=== PATIENT | female | born 1955 | race Caucasian/White ===

== ENCOUNTER → 2019-02-13 09:21 | Outpatient (CLI) | payer OTHER, SELFPAY ==
--- NOTE | 2019-02-12 17:26 | HP.PCM_ITS ---
History and Physical Date of Admission: 02/13/19 HISTORY AND PHYSICAL - BREAST COMPLAINT ? Sarah Osborne 1955 ? ? REFERRING PHYSICIAN: ??Álvaro Franklin* ? CHIEF COMPLAINT:???Abnormal left breast imaging ? HPI: The patient is a 63 year old female with a complaint of?an abnormal mammogram. ?The patient had a mammogram with ultrasound on January 17 and 2018?which demonstrated : ? ? IMPRESSION: SUSPICIOUS FINDING - BIOPSY SHOULD BE CONSIDERED The 5 mm irregular equal density mass in the left breast is suspicious of malignancy. ?A stereotactic biopsy is recommended. LIMITED ULTRASOUND OF LEFT BREAST AND AXILLA: 01/24/2019 RESULT: Comparison is made to exams dated: ?01/17/2019 mammogram, 02/03/2018 mammogram, and 05/14/2016 mammogram - [facility]. ?Color flow and real-time ultrasound of the left breast 6 o'clock, and axilla regions were performed. ?Ramirez scale images of the real-time examination were reviewed. There is a 5 mm irregular mass with an indistinct margin in the left breast at 6 o'clock posterior depth. ?This irregular mass is hypoechoic. ? This correlates with mammography findings. There are no abnormal axillary nodes. IMPRESSION: SUSPICIOUS FINDING - BIOPSY SHOULD BE CONSIDERED Since the mass is barely seen sonographically, stereotactic biopsy is suggested. The 5 mm irregular mass in the left breast is suspicious of malignancy. ? A stereotactic biopsy is recommended. ? The patient denies a history of breast masses. ?She does not??perform a self breast exam routinely. ?She notes no skin changes. ?She denies nipple discharge. ?She notes no axillary masses. ?She notes no family history of breast problems. ?She notes no significant breast trauma or breast difficulties in the past. ? This area is significantly different than her screening mammography from February 03, 2018 ? The patient is being seen by me today at the request of ?Christopher Oneil?for my opinion and advice regarding left breast abnormal imaging/mass.? ? PAST?MEDICAL?HISTORY PAST MEDICAL HISTORY Diagnosis Date ? Asthma ? ? Chronic depressive personality disorder ? ? GERD (gastroesophageal reflux disease) ? ? Hiatal hernia ? ? Migraines ? ? Rectal malignant neoplasm (HCC) 04/09/2010 ? Seasonal allergies 04/09/2010 ? Severe ? Tennis elbow ? PAST?SURGICAL?HISTORY PAST SURGICAL HISTORY Procedure Laterality Date ? COLONOSCOP W/ OR W/O BRSH SPEC ? 01/2010 ? Colonoscopy ? COLONOSCOPY ? 2013 ? EXC RCT ENMA INCL MUSCULARIS PROPRIA ? 04/16/10 ? colectomy/ cancer Performed by DENIS DAVILA at [facility] ? HYSTEROSCOPY BX W/WO D&C ? 2014 ? Endometrial Polyps-Benign ? PAST SURGICAL HISTORY OF ? 09/29 ? Cortisone Injection in Left foot ? REMOVAL GALLBLADDER ? CURRENT?MEDICATIONS Current Outpatient Medications Medication Sig Dispense Refill ? fluticasone propionate (FLONASE NASAL) Use in the nose. ? ? ? ibuprofen (MOTRIN) 600 mg tablet Take 1 tablet by mouth every 6 hours as needed for Pain. 30 tablet 0 ? multivitamin tablet Take 1 tablet by mouth once daily. ? ? ? CALCIUM CARBONATE/VITAMIN D3 (CALCIUM + D ORAL) Take 1 tablet by mouth once daily. ? ? ? MECLIZINE 12.5 MG TAB TAKES PRN ? 0 ? sertraline hcl(ZOLOFT 100 MG TAB) TAKES 2 TABS IN THE AM DAILY ? 0 ? rabeprazole sodium(ACIPHEX 20 MG TAB) Take one(1) tablet daily. 0 0 ? sumatriptan succinate(IMITREX 100 MG TAB) Take one(1) tablet at ?onset of headache. ?May repeat after 2 hours. ? 0 ? cyclobenzaprine hcl(FLEXERIL 10 MG TAB) Take one(1) tablet every eight(8) to twelve(12) hours as needed for pain or spasms. ? 0 ? No current facility-administered medications for this visit.? ? ? ALLERGIES:?Seasonal Allergies ? PERSONAL HISTORY:? 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 ?Drug use: No ?Sexual activity: Not on file ?Comment: postmenopausal ??Other Topics ?Concerns: ?Not on file ??Social History Narrative ?Not on file ?? ? FAMILY HISTORY:? FAMILY?HISTORY FAMILY HISTORY Problem Relation Age of Onset ? Arthritis Mother ?RA ? Diabetes Father ? ? Heart Father ?chf ? ? REVIEW OF SYMPTOMS: REVIEW OF SYSTEMS: ?General: ??The patient denies fatigue, denies weight loss, denies weight gain, denies feeling hot, and feelings of cold. ?Eyes: ?The patient denies glaucoma, denies eye injury/surgery, denies glasses or contacts. ?Ear/Nose/Throat: ?The patient denies allergies, denies hayfever, denies ear infections, and denies bloody noses. ?Cardiovascular: ?The patient denies chest pain, denies heart disease, denies high blood pressure, denies high cholesterol, and denies poor circulation. ?Respiratory: ?The patient denies tuberculosis, denies pneumonia, denies frequent cough, denies shortness of breath, and denies coughing up blood. ?Gastrointestinal: ?The patient denies difficulty swallowing, denies acid reflux, denies ulcers, denies jaundice/hepatitis, denies gallbladder problems, denies vomiting, denies black or tarry stools, denies hemorrhoids, denies bleeding from rectum, denies diverticulitis, denies constipation, denies diarrhea, denies loss of stool control, and denies hernias. ?Kidney/Bladder: ?The patient denies kidney stones, denies urine infections, and denies bloody urine. ?Skin: ?The patient denies a history of skin cancer, denies bleeding/changing moles, and denies a history of skin rash. ?Neurologic: ?The patient denies a history of epilepsy/convulsions, denies headaches, denies head/spinal injuries, and denies stroke/TIA. ?Psychiatric: ?The patient denies psychiatric medications, denies depression, and denies voices. ?Endocrine: ?The patient denies thyroid disorders, denies diabetes, and denies hormonal problems. ?Hematologic: ?The patient denies a history of bruising, denies bleeding, and denies anemia. ?Infections: ?The patient denies a history of measles and mumps, denies rheumatic fever, and denies sexually transmitted diseases. ?Musculoskeletal: ?The patient denies back pain/injury, denies back problems, denies sciatica, denies knee/foot trouble, denies arthritis, or denies gout. ? ? PHYSICAL EXAMINATION: ? General: ?The patient is 63 year old female, well nourished, well hydrated in no acute distress. ?The patient is oriented to time, place, and person. ? VITALS:?Blood pressure 142/88, pulse 60, weight 95.7 kg (211 lb).?Body mass index is 38.34 kg/m?.? ? HEENT: ?Normal cephalic, ataumatic, pupils are equally round, sclera are an icteric, mucous membranes are moist, oropharynx is clear. ?Neck has no masses, asymmetry or lymphadenopathy. ?Thyroid is unremarkable. ? Respiratory: ?Clear to auscultation and percussion. ?Normal respiratory excursion and pattern. ? Cardiac: ?Examination is regular rate and rhythm. ? Abdominal exam: ?Soft, nontender, ?with no palpable masses. ?No hepatosplenomegaly. ?No palpable hernias. ? Rectal exam: ?exam deferred Extremities: ?no clubbing, cyanosis or edema. ?No adenopathy. ? Breast: ?Visual inspection reveals no retractions, nipple inversion, or skin changes. ?Palpation of the right breast reveals no dominant or suspicious masses, but multiple benign-feeling nodules. ?Palpation of the left breast reveals no dominant or suspicious masses, but multiple benign-feeling nodules. ?Axillary exam demonstrates no suspicious masses in either the left or right axilla. ?There is no nipple discharge expressed from either the left or right breast. ? LABORATORY VALUES: As Noted ? RADIOLOGIC STUDIES: ?As Noted ? Intraoffice ultrasound was performed and no specific easily identifiable abnormalities were seen at the left breast 6:00 position ? ? Assessment ? IMPRESSION:?Abnormal left breast imaging-6:00 left breast ? PLAN:??I plan to perform a?stereotactic biopsy of the left breast. ?The planned surgical procedure was discussed extensively with the patient. ?The risks, benefits, anticipated outcomes and possible complications were mentioned. ?My staff has also explained the procedure in understandable terms and the patient was given the option to take printed material concerning the planned procedure. ?The patient had the opportunity to ask questions concerning the planned procedure. ?The patient freely consents to the planned procedure. ? Diagnoses:?(R92.8) Abnormal finding on breast imaging ?(primary encounter diagnosis) ? My findings have been communicated to .?Christopher Oneil?via shared medical record. ?This note will be forwarded to Citlaly Tovar CNP. ? Return to Clinic: The patient is instructed to follow-up with me?1 week post operatively. ? Obie Jefferson MD
--- NOTE | 2019-02-13 | BRBX_PTH ---
PATIENT: CRISTINA STRONG LOC: [facility] U#:[id number] AGE/SX: 70/F ROOM: RE02/13/[address]: Dr. Obie Jefferson MD : 1955 BED: DIS: SPEC #: [id number] RECD: 02/13/19 14:03 STATUS: ABDIRAHMAN NANI #: [id number] MAUREEN: 02/13/19 00:[address]: Obie Jefferson DEPT: SURGICAL PATHOLOGY RECD BY: Leonel Salazar ENTERED: 02/13/19 14:03 SP TYPE: BREAST BX OTHR DR: Citlaly Tovar, JHON-Murray Tissues: Left breast, NOS Procedures: Surgery Specimen Level IV HEADER OPERATION: Left breast stereotactic biopsy PRE-OP DIAGNOSIS: Left breast mass 6 o'clock posterior depth TISSUE SUBMITTED: Left breast core tissue ISCHEMIC TIME: 1 minute FIXATION TIME: 9 hours MICROSCOPIC DIAGNOSIS Left breast, 6 o'clock, posterior depth, stereotactic core biopsy: Invasive ductal carcinoma, nuclear grade 2 (1.2 cm in greatest length). See comment. KISHAN:latanya 02/14/19 COMMENT Immunohistochemistry ([id number]) supports the above diagnosis. ER/OR/Zcf8nan studies are being performed on sections of tumor and the results from this study will be reported separately ([id number]). Case has been reviewed in consultation with Dr. Negro who concurs with the above diagnosis. IDC:SJ MICROSCOPIC DESCRIPTION Slides are reviewed. GROSS DESCRIPTION Received is one container labeled with the patient's name and not further designated. The specimen consists of multiple irregular fragments of yellow-white soft tissue that in aggregate measure 5.5 x 5 x 0.2 cm. The specimen is totally submitted in three cassettes. / AM:latanya 02/13/19 TC:0 CPT: 84116
--- NOTE | 2019-02-13 | IMM_PTH ---
PATIENT: CRISTINA STRONG LOC: [facility] U#:[id number] AGE/SX: 70/F ROOM: RE02/13/[address]: Dr. Obie Jefferson MD : 1955 BED: DIS: SPEC #: [id number] RECD: 02/14/19 10:49 STATUS: ABDIRAHMAN REQ #: [id number] MAUREEN: 02/13/19 00:[address]: Obie Jefferson DEPT: IMMUNOHISTOCHEMISTRY RECD BY: Madie Mayfield ENTERED: 02/14/19 10:51 SP TYPE: IMMUNO OTHR DR: Citlaly Tovar, UTILIZATION SUPERVISOR-C Tissues: Left breast, NOS Procedures: CALPONIN-1 (add) CK5-6 (add) CK8 (add) E-CAD (add) HER2 SEUN (add) KI-67 (add) P53 (add) SC (add) P40 (add) ER (initial) PHYSICIAN & INSTITUTION [place] [id number] SPECIMEN INFORMATION: Tissue Source: Left breast Clinical Info: Left breast mass, 6 o'clock, posterior depth Specimen Number: [id number] #3 CPT code: 92295, 44066 x6, 94970 x3 METHODOLOGY: Deparaffinized sections of prefer/formalin-fixed tissue or PAP/DQ stained slides are incubated with monoclonal/polyclonal antibodies/oligonucleotide probes. Localization is made via biotin free immunoperoxidase method. Appropriate controls are performed and reacted as expected. Results on target cell population are indicated in the following table: RESULTS: ANTIBODY / CLONE RESULT Block 3 E-Cad (ECH-6) positive CK8 (53twuwE63) positive CK5-6 (D5 & 1684) negative Ki-67 (30-9) positive, low P53 (DO-7) negative P40 (BC28) negative Calponin-1 (SH498G) negative MORPHOMETRIC ANALYSIS ER (clone 6F11) >95%, strong intensity SC (clone 16/1E2) variable 0 to 95%, moderate intensity Her-2Neu (clone CB11) 0 The prognostic test for HER2 is performed on formalin-fixed paraffin embedded tissue. A 3+ (positive) staining pattern is defined as intense, homogeneous, complete, circumferential membranous staining in >10% of contiguous tumor cells. A similar weak (2+) staining pattern is interpreted as equivocal. SIA follow-up testing is recommended for all equivocal cases. Positivity/negativity for ER/SC is reported if > or < 1% of the tumor cells are immuno- reactive, respectively. The ASCO/CAP criteria is used for scoring. Reference: Journal of Clinical Oncology, 2013; 31:0095-0872 & 2010; 16:7125-5114. Duration of fixation: 9 Hrs; Sample Adequate: Yes. These assays have not been validated on decalcified tissues. Results should be interpreted with caution given the likelihood of false negativity on decalcified specimens. These tests were developed and their performance characteristics determined by [facility]. They may not have been cleared or approved by the U.S. Food and Drug Administration. The FDA has determined that such clearance or approval is not necessary. INTERPRETATION: Left breast mass, 6 o'clock, posterior depth, stereotactic core biopsy: Invasive ductal carcinoma, nuclear grade 2. Positive for estrogen receptors (favorable prognostic indicator). Positive for progesterone receptors (favorable prognostic indicator). Negative for overexpression of ZKU1hou. SJ:latanya 02/16/19
--- NOTE | 2019-02-13 13:36 | PCM.OPRPT ---
Report of Operation Date of Procedure: 02/13/19 Pre-Operative Diagnosis: left breast abnormal mammogram - 6 oclock position Post-Operative Diagnosis: left breast abnormal mammogram - 6 oclock position - successful stereotactic biopsy Surgery/Procedure Performed:: left stereotactic breast biopsy with vacuum-assisted core needle biopsy, marker clip placement entertainer or variety artist: None Type of Anesthesia:: Local Specimen's removed: left breast tissue Description of Procedure: The patient was brought to the stereotactic suite and informed of the plan course of events. The left breast was positioned in the true lateral to medial position on the [place] stereotactic table. Mammographic image demonstrated the area of abnormality to be located in the center of the radiograph. Stereotactic images were then obtained which demonstrated good positioning of the abnormality for biopsy with good stroke jeimy parameters. The breast was cleaned with Betadine area did one percent lidocaine was used to anesthetize the skin and a small stab incision made. An 8-gauge mammotome needle was placed into the pre-fire position. Stereotactic images demonstrated good positioning around the planned biopsy site. Local anesthetic injected deeply in the breast. The needle was deployed. Post deployment images demonstrated good positioning of the planned biopsy site. Multiple vacuum-assisted samples were obtained and jjheyd-hdn-ropyb fashion. A gel marker clip was deployed. Post biopsy images demonstrated good position of the clip relative the biopsy cavity. The breast was removed from compression. Steri-Strips and a dressing applied. Post procedure mammogram images were obtained.
== END ==
PROVIDERS: Family Provider Nurse Practitioner Primary Care; PCP Nurse Practitioner Primary Care; Referring Provider Surgery; Visit Provider Surgery
DX: C50.912 Malignant neoplasm of unspecified site of left female breast (principal); F34.1 Dysthymic disorder; K21.9 Gastro-esophageal reflux disease without esophagitis; J45.909 Unspecified asthma, uncomplicated
CPT/HCPCS: 19081; 88305; 88341; 88342; J7050; A4648

== ENCOUNTER 2019-03-05 08:17 | Day surgery (SDC) | payer OTHER, SELFPAY ==
[2019-03-05] VITALS (15 sets, daily range): BP systolic 124–152; BP diastolic 59–104; PULSE 65–79; RESP 14–16; TEMP 36.1–36.9; O2SAT 94–100; BMI 38.5
--- NOTE | 2019-03-05 | AXNB_PTH ---
PATIENT: CRISTINA STRONG LOC: [facility] U#:[id number] AGE/SX: 63/F ROOM: RE03/05/[address]: Dr. Obie Jefferson MD : 1955 BED: DIS: 03/06/2019 SPEC #: [id number] RECD: 03/05/19 11:31 STATUS: ABDIRAHMAN REElio #: [id number] MAUREEN: 03/05/19 00:[address]: Obie Jefferson DEPT: SURGICAL PATHOLOGY RECD BY: Madie Mayfield ENTERED: 03/05/19 11:51 SP TYPE: AX NODE BX OTHR DR: Citlaly Tovar, VENEER SLICING MACHINE OPERATOR-C Tissues: A - Axillary lymph node, NOS B - Left breast, NOS Procedures: Frozen Section (charge) Frozen Section Add'l ([facility]) Surgery Specimen Level IV Surgery Specimen Level V HEADER OPERATION: Left breast lumpectomy, sentinel node with Neoprobe, needle localization PRE-OP DIAGNOSIS: Left breast cancer, invasive ductal carcinoma TISSUE SUBMITTED: A - Left sentinel lymph node, frozen section, B - Left breast lumpectomy FROZEN SECTION DIAGNOSIS A. Left breast sentinel lymph nodes, biopsy: Two out of two lymph nodes, negative for metastatic carcinoma. SJ:latanya 03/05/19 MICROSCOPIC DIAGNOSIS A. Left axillary sentinel lymph nodes, regional lymphadenectomy: One out of two lymph nodes, with rare isolated metastatic tumor cells. See comment. B. Left breast, lumpectomy: Invasive ductal carcinoma. See cancer checklist below. AM:latanya 03/07/19 COMMENT A. Immunohistochemistry ([id number]) supports the above diagnosis. B. INVASIVE BREAST CANCER SUMMARY: Specimen: Partial breast Procedure: Excision with wire guidance Specimen integrity: Single intact specimen. Specimen size: 10 x 6 x 4 cm Specimen laterality: Left breast Invasive tumor size: 1 x 1 x 1 cm Tumor focality: Single focus of invasive carcinoma Macroscopic and Microscopic extent of tumor: Skin: Free of carcinoma Nipple: Not present Skeletal muscle: Not present Histologic type of invasive carcinoma: Invasive ductal carcinoma Histologic Grade (Nora grade): Glandular/tubular differentiation score: 2 Nuclear pleomorphism score: 2 Mitotic count score: 1 Overall grade: Grade 1 (total score of 5) Margins: Uninvolved by invasive carcinoma. Closest (inferior) margin: 5 mm Lymph-Vascular invasion: Not identified Dermal lymph-vascular invasion: Not identified Ductal carcinoma in situ (DCIS): Estimated size (extent) of DCIS: 1 x 1 x 1 mm Number of blocks with DCIS: 2 Number of blocks examined: 12 Architectural pattern: Solid Nuclear grade: grade 2 Necrosis: Not present Lobular carcinoma in situ (LCIS): Not present Lymph nodes: Number of sentinel lymph nodes examined: 2 Total number of lymph nodes examined (sentinel and nonsentinel): 2 One out of two lymph nodes with rare isolated metastatic tumor cells. No evidence of macrometastases,or micrometastases. See specimen A Microcalcifications: Not present Treatment effect: Unknown Additional pathologic findings: Changes of previous biopsy Ancillary studies: Previously performed on same tumor ([id number] / [id number]). ER: positive, <95%, strong intensity MN: variable, 0-95%, moderate intensity Her2 vero: 0 (IHC) PATHOLOGIC STAGE: pT1b N0(i+) Mx The above summary is in compliance with College of [place] Path[employer] (CAP) Cancer Protocols Checklist and [place] Joint Committee on Cancer (AJCC), Staging Manual, 8th Ed. A. Rare metastatic tumor cells seen in one out of two lymph nodes by immunohistochemistry ([id number]). Case has been reviewed in consultation with Dr. Negro who concurs with the above diagnosis. IDC:SJ MICROSCOPIC DESCRIPTION Slides are reviewed. GROSS DESCRIPTION A - Received fresh for frozen section diagnosis labeled with the patient's name is a specimen designated left breast sentinel lymph node. The specimen consists of a piece of barbosa-yellow adipose tissue containing two nodules consistent with lymph nodes measuring 1.5 and 2 cm in greatest dimension. The entire specimen is submitted for frozen section diagnosis in two cassettes as follows: 1 - frozen section, one bisected lymph node, 2 - frozen section, one bisected lymph node. / KISHAN:latanya 03/05/19 B - Received fresh for intraoperative consultation labeled with the patient's name and designated left breast lumpectomy. The specimen consists of a piece of fibroadipose tissue with needle localization measuring 10 x 6 x 4 cm. A piece of skin is noted anteriorly measuring 3.5 x 1 cm. The specimen is oriented as follows: long suture hall inferior, skin lip superior. Serial sections show a biopsy cavity with surrounding indurated area measuring 1.5 cm in diameter. The biopsy cavity is 0.5 cm away from the closest inferior margin. The specimen is inked as follows: anterior - yellow, posterior - black, superior - blue, inferior - green, medial - red and lateral - orange. The specimen gross is reviewed along with surgeon in person. Sectioning of the rest of the specimen reveal barbosa-yellow adipose cut surfaces mixed with barbosa-white fibrous areas. Business Enterprise Officer sections are submitted in 12 cassettes as follows: 1??perpendicular medial, lateral and inferior margins, 2 - perpendicular superior and posterior margins?and skin, 3-10 - biopsy cavity with surrounding tissue including closest inferior margin, 11 & 12??access services representative sections from the other area. / KISHAN:latanya 03/06/19 TC:0 CPT: 07375, 66407, 74051, 38778, 93291 ADDENDUM ADDENDUM ADDENDUM ADDENDUM ADDENDUM ADDENDUM ADDENDUM ADDENDUM 04/03/2019 12:32 ADDENDUM 04/03/2019 12:32 ADDENDUM 04/03/2019 12:32 ADDENDUM 04/03/2019 12:32 ADDENDUM 04/03/2019 12:32 An order for Oncotype testing was received from Dr. Fatima. This necessitated case review, block and slide selection by pathologist at [facility]. Breast Cancer Recurrence Score = 21 Results of the complete Oncotype testing (el? report) are viewable in EMR under: Reports - Pathology - Lab Pathology Report, Scanned.
--- NOTE | 2019-03-05 | IMM_PTH ---
PATIENT: CRISTINA STRONG LOC: [facility] U#:[id number] AGE/SX: 63/F ROOM: RE03/05/[address]: Dr. Obie Jefferson MD : 1955 BED: DIS: 03/06/2019 SPEC #: [id number] RECD: 03/07/19 11:23 STATUS: ABDIRAHMAN REQ #: [id number] MAUREEN: 03/05/19 00:[address]: Obie Jefferson DEPT: IMMUNOHISTOCHEMISTRY RECD BY: Madie Mayfield ENTERED: 03/07/19 11:24 SP TYPE: IMMUNO OTHR DR: Citlaly oTvar, DEALER SUPPORT TECHNICIAN-C Tissues: A - Axillary lymph node, NOS Procedures: CK8 (initial) CK8 (add) Pankeratin (add) PHYSICIAN & INSTITUTION [place] [id number] SPECIMEN INFORMATION: Tissue Source: A - Left axillary sentinel lymph nodes Clinical Info: Left breast cancer Specimen Number: [id number] A1 & A2 CPT code: 03345, 39545 x3 METHODOLOGY: Deparaffinized sections of prefer/formalin-fixed tissue or PAP/DQ stained slides are incubated with monoclonal/polyclonal antibodies/oligonucleotide probes. Localization is made via biotin free immunoperoxidase method. Appropriate controls are performed and reacted as expected. Results on target cell population are indicated in the following table: RESULTS: ANTIBODY / CLONE RESULT Block A1 CK8 ([id number]) negative AE1-3 (AE1/AE3/PCK26) negative Block A2 CK8 (46bpzjQ21) positive AE1-3 (AE1/AE3/PCK26) positive These tests were developed and their performance characteristics determined by [facility]. They may not have been cleared or approved by the U.S. Food and Drug Administration. The FDA has determined that such clearance or approval is not necessary. INTERPRETATION: A. Left axillary sentinel lymph nodes, biopsy: One out of two lymph nodes with metastatic rare tumor cells. AM:latanya 03/07/19
--- NOTE | 2019-03-05 08:23 | BI_ITS ---
SURGICAL BREAST SPECIMEN RADIOGRAPH CLINICAL: Document presence of tissue clip marker in biopsy specimen. FINDINGS: Specimen shows presence of tissue clip marker. Pathology is pending and an addendum to the biopsy report will be performed after the final pathologic diagnosis is rendered. Electronically Signed: Gilmar Beckman MD at 13:54 EDT , Service support , BI/Breast Biopsy Specimen
--- NOTE | 2019-03-05 08:30 | NM_ITS ---
STUDY: SENTINEL NODE evaluation REASON FOR EXAM: Female, 63 years old. Left breast lump, breast cancer TECHNIQUE: 4 separate subcutaneous injections around the periphery of the areola with a total of 1.01 mCi of technetium 99 M sulfur colloid injected. COMPARISON: None. FINDINGS: After informed consent was obtained, patient was placed in the supine position on the examination table. The area for injection was prepped in a sterile manner. 4 separate injections of 1 mL each were performed around the periphery of the areola. A total of 1.01 mCi of technetium 99m sulfur colloid was injected. Patient was then sent to nuclear medicine for additional imaging to determine if a sentinel node uptakes the radiotracer. An addendum will be performed once the imaging has been performed. NM/Lymph Node Injection Only IMPRESSION: Successful subcutaneous injection of sulfur colloid for sentinel node evaluation Electronically Signed: Gilmar Beckman MD at 12:07 EDT , Service support ,
--- NOTE | 2019-03-05 08:48 | PCM.HP.BLA ---
History and Physical Date of Admission: 03/05/19 HISTORY AND PHYSICAL - BREAST CANCER ? Sarah Osbrone 1955 March 01, 2019 ? ? REFERRING PHYSICIAN: ??Citlaly Tovar CNP ? CHIEF COMPLAINT: ?BREAST CANCER - LEFT??- INVASIVE DUCTAL CARCINOMA ? HPI:?The patient is a 63 year old female with a complaint of an abnormal mammogram. ?The patient had a mammogram with ultrasound on January 17 and 2018 which demonstrated : ? ? IMPRESSION: SUSPICIOUS FINDING - BIOPSY SHOULD BE CONSIDERED The 5 mm irregular equal density mass in the left breast is suspicious of malignancy. ?A stereotactic biopsy is recommended. LIMITED ULTRASOUND OF LEFT BREAST AND AXILLA: 01/24/2019 RESULT: Comparison is made to exams dated: ?01/17/2019 mammogram, 02/03/2018 mammogram, and 05/14/2016 mammogram - [facility] [place]. ?Color flow and real-time ultrasound of the left breast 6 o'clock, and axilla regions were performed. ?Ramirez scale images of the real-time examination were reviewed. There is a 5 mm irregular mass with an indistinct margin in the left breast at 6 o'clock posterior depth. ?This irregular mass is hypoechoic. ? This correlates with mammography findings. There are no abnormal axillary nodes. IMPRESSION: SUSPICIOUS FINDING - BIOPSY SHOULD BE CONSIDERED Since the mass is barely seen sonographically, stereotactic biopsy is suggested. The 5 mm irregular mass in the left breast is suspicious of malignancy. ? A stereotactic biopsy is recommended. ? The patient denies a history of breast masses. ?She does not ?perform a self breast exam routinely. ?She notes no skin changes. ?She denies nipple discharge. ?She notes no axillary masses. ?She notes no family history of breast problems. ?She notes no significant breast trauma or breast difficulties in the past. ? This area is significantly different than her screening mammography from February 03, 2018 ? ? I performed a stereotactic biopsy of the left breast biopsy for her abnormal mammogram on February 13, 2019. ?The pathology returned as: ? Left breast, 6 o?clock, posterior depth, stereotactic core biopsy: ?Invasive ductal carcinoma, nuclear grade 2 (1.2 cm in greatest length). ? MORPHOMETRIC ANALYSIS ? ER (clone [id number]) ?>95%, strong intensity NV (clone [id number]/[id number]) ?variable 0 to 95%, moderate intensity Her-2Neu (clone [id number]) ?0. ? We extensively discussed her diagnosis and at the last visit discussed her surgical options including breast conservation surgical procedures, mastectomy without reconstruction and mastectomy with reconstruction. ?The patient has elected to undergo a left side?needle localization biopsy/lumpectomy with sentinel lymph node biopsy with possible axillary dissection. ? The patient is being seen by me today at the request of ?for my opinion and advice regarding left breast cancer.? ? PAST?MEDICAL?HISTORY PAST MEDICAL HISTORY Diagnosis Date ? Asthma ? ? Chronic depressive personality disorder ? ? GERD (gastroesophageal reflux disease) ? ? Hiatal hernia ? ? Migraines ? ? Rectal malignant neoplasm (HCC) 04/09/2010 ? Seasonal allergies 04/09/2010 ? Severe ? Tennis elbow ? ? ? PAST?SURGICAL?HISTORY PAST SURGICAL HISTORY Procedure Laterality Date ? BREAST BX STEREO VACCUUM ASSIST (MM) ? 02/13/2019 ? left stereotactic breast biopsy w/vacuum assisted core needle biopsy, marker clip placement ? COLONOSCOP W/ OR W/O [facility] SPEC ? 01/2010 ? Colonoscopy ? COLONOSCOPY ? 2013 ? EXC RCT ENMA INCL MUSCULARIS PROPRIA ? 04/16/10 ? colectomy/ cancer Performed by DENIS DAVILA at [facility] ? HYSTEROSCOPY BX W/WO D&C ? 2014 ? Endometrial Polyps-Benign ? PAST SURGICAL HISTORY OF ? 09/29 ? Cortisone Injection in Left foot ? REMOVAL GALLBLADDER ? CURRENT?MEDICATIONS Current Outpatient Medications Medication Sig Dispense Refill ? Cetirizine (ZYRTEC) 10 mg cap Take by mouth as needed. ? ? ? fluticasone propionate (FLONASE NASAL) Use in the nose. ? ? ? ibuprofen (MOTRIN) 600 mg tablet Take 1 tablet by mouth every 6 hours as needed for Pain. 30 tablet 0 ? multivitamin tablet Take 1 tablet by mouth once daily. ? ? ? CALCIUM CARBONATE/VITAMIN D3 (CALCIUM + D ORAL) Take 1 tablet by mouth once daily. ? ? ? MECLIZINE 12.5 MG TAB TAKES PRN ? 0 ? sertraline hcl(ZOLOFT 100 MG TAB) TAKES 2 TABS IN THE AM DAILY ? 0 ? rabeprazole sodium(ACIPHEX 20 MG TAB) Take one(1) tablet daily. 0 0 ? sumatriptan succinate(IMITREX 100 MG TAB) Take one(1) tablet at ?onset of headache. ?May repeat after 2 hours. ? 0 ? cyclobenzaprine hcl(FLEXERIL 10 MG TAB) Take one(1) tablet every eight(8) to twelve(12) hours as needed for pain or spasms. ? 0 ? No current facility-administered medications for this visit.? ? ALLERGIES:?Seasonal Allergies ? PERSONAL HISTORY:? 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 ?Drug use: No ?Sexual activity: Not on file ?Comment: postmenopausal ??Other Topics ?Concerns: ?Not on file ??Social History Narrative ?Not on file ? FAMILY HISTORY:? FAMILY?HISTORY FAMILY HISTORY Problem Relation Age of Onset ? Arthritis Mother ?RA ? Diabetes Father ? ? Heart Father ?chf ? REVIEW OF SYMPTOMS: ??The review of systems data was entered by the nurse and reviewed by me ? Nursing Notes: Floyd Nic EDWARDS ?03/01/2019 ?9:54 AM ?Signed REVIEW OF SYSTEMS: ?General: ??The patient denies fatigue, denies weight loss, denies weight gain, denies feeling hot, and feelings of cold. ?Eyes: ?The patient denies glaucoma, denies eye injury/surgery, denies glasses or contacts. ?Ear/Nose/Throat: ?The patient denies allergies, denies hayfever, denies ear infections, and denies bloody noses. ?Cardiovascular: ?The patient denies chest pain, denies heart disease, denies high blood pressure, denies high cholesterol, and denies poor circulation. ?Respiratory: ?The patient denies tuberculosis, denies pneumonia, denies frequent cough, denies shortness of breath, and denies coughing up blood. ?Gastrointestinal: ?The patient denies difficulty swallowing, denies acid reflux, denies ulcers, denies jaundice/hepatitis, denies gallbladder problems, denies vomiting, denies black or tarry stools, denies hemorrhoids, denies bleeding from rectum, denies diverticulitis, denies constipation, denies diarrhea, denies loss of stool control, and denies hernias. ?Kidney/Bladder: ?The patient denies kidney stones, denies urine infections, and denies bloody urine. ?Skin: ?The patient denies a history of skin cancer, denies bleeding/changing moles, and denies a history of skin rash. ?Neurologic: ?The patient denies a history of epilepsy/convulsions, denies headaches, denies head/spinal injuries, and denies stroke/TIA. ?Psychiatric: ?The patient denies psychiatric medications, denies depression, and denies voices. ?Endocrine: ?The patient denies thyroid disorders, denies diabetes, and denies hormonal problems. ?Hematologic: ?The patient denies a history of bruising, denies bleeding, and denies anemia. ?Infections: ?The patient denies a history of measles and mumps, denies rheumatic fever, and denies sexually transmitted diseases. ?Musculoskeletal: ?The patient denies back pain/injury, denies back problems, denies sciatica, denies knee/foot trouble, denies arthritis, or denies gout. ? ? ? PHYSICAL EXAMINATION: ? General: ?The patient is 63 year old female, well nourished, well hydrated in no acute distress. ?The patient is oriented to time, place, and person. ? VITALS:?Blood pressure 138/64, pulse 101, temperature 36.6 ?C (97.9 ?F), temperature source Temporal Artery, weight 95.5 kg (210 lb 9.6 oz), SpO2 98 %.?Body mass index is 38.27 kg/m?.? ? HEENT: ?Normal cephalic, ataumatic, pupils are equally round, sclera are anicteric, mucous membranes are moist, oropharynx is clear. ?Neck has no masses, asymmetry or lymphadenopathy. ?Thyroid is unremarkable. ? Respiratory: ?Clear to auscultation and percussion. ?Normal respiratory excursion and pattern. ? Cardiac: ?Examination is regular rate and rhythm. ? Abdominal exam: ?Soft, nontender, ?with no palpable masses. ?No hepatosplenomegaly. ?No palpable hernias. ? Rectal exam: ?exam deferred Extremities: ?no clubbing, cyanosis or edema. ?No adenopathy. ? Breast: ?Visual inspection reveals no retractions, nipple inversion, or skin changes. ?Palpation of the right breast reveals no dominant or suspicious masses, but multiple benign-feeling nodules. ?Palpation of the left breast reveals no dominant or suspicious masses, but multiple benign-feeling nodules. ?Axillary exam demonstrates no suspicious masses in either the left or right axilla. ?There is no nipple discharge expressed from either the left or right breast. ?There is resolved bruising at the biopsy site ? LABORATORY VALUES: As Noted ? RADIOLOGIC STUDIES: ?As Noted ? Assessment ? IMPRESSION: BREAST CANCER -?LEFT??- INVASIVE DUCTAL CARCINOMA ? PLAN: ??I plan to perform a left side?needle localization biopsy/lumpectomy with sentinel lymph node biopsy with possible axillary dissection. ?The planned surgical procedure was discussed extensively with the patient. ?The risks, benefits, anticipated outcomes and possible complications and alternatives were discussed. ?My staff has also explained the procedure in understandable terms and the patient was given the option to take printed material concerning the planned procedure. ?The patient had the opportunity to ask questions concerning the planned procedure. ?The patient freely consents to the planned procedure. ?? ? Anticipated Surgical Procedure/ CPT Code:?left?preoperative stereotactic guided needle placement - 18490??LUMPECTOMY, WITH SENTINEL LYMPH NODE BIOPSY, Radiotracter identification - [id number], [id number], [id number] ?[id number], [id number], [id number] ? Anticipated Anesthetic:?General ? Patient weight:??Blood pressure 138/64, pulse 101, temperature 36.6 ?C (97.9 ?F), temperature source Temporal Artery, weight 95.5 kg (210 lb 9.6 oz), SpO2 98 %.?BMI: ?Body mass index is 38.27 kg/m?. ? Planned antibiotic:?Ancef 2gm IVPB personal care aide to OR ? SCDs needed -?Yes ? Agricultural Adviser Needed -?Yes ?? ? Diagnoses:?(C50.512, ?Z17.0) Malignant neoplasm of lower-outer quadrant of left breast of female, estrogen receptor positive (HCC) ?(primary encounter diagnosis) ? Return to Clinic: The patient is instructed to follow-up with me?1 week post operatively. ? Obie Jefferson MD
[2019-03-05] MEDS: Cefazolin 2 GM in 0.9% Normal Saline 100 ML IV (10:39)
[2019-03-05] MEDS: Bupivacaine Mpf 0.5% 30 ML VIAL (12:20)
--- NOTE | 2019-03-05 12:24 | PCM.OPRPT ---
Report of Operation Date of Procedure: 03/05/19 Pre-Operative Diagnosis: left breast cancer - 6 oclock Post-Operative Diagnosis: left breast cancer - 6 oclock, neg SLNBx Surgery/Procedure Performed:: left stereotactic needle localization lumpectomy with SLNBx with lymphozuin and radiotracer summer camp counselor: Izzy Yates Type of Anesthesia:: General Anesthesiologist: Gerald Nation - ASA3 Specimen's removed: left SLNBx, left needle localization lumpectomy Estimated Blood Loss (mL): 40 Fluids Replaced: 1000 Description of Procedure: The patient was brought to the stereotactic suite. Her left breast was positioned in the true lateral to medial approach in the [place] stereotactic table. Mammogram image demonstrated the clip to be nicely centered. Stereotactic images were obtained. Planned placement of the wire was marked and an additional 15 mm of depth added to the prescribed depth. The breast was then cleaned with Betadine. Local anesthetic was injected in the breast and a 15 Kopan's wire was inserted to the prescribed depth. Stereotactic images demonstrated good positioning of the wire. The wire was deployed as an needle was withdrawn. Stereotactic images demonstrated good positioning of the wire. The breast was marked compression the wire cut to length and taped. CC and MLO views were then obtained. The patient had previously undergone injection of radiotracer in the radiology department. The patient was then brought to the operative suite. Sign was performed verifying patient, site, position, SCIP antibiotic prophylaxis-2 g of Ancef and DVT prophylaxis with SCDs. Following an LMA anesthesia, 5 cc of a 50-50 mixture of lymphazurin blue and normal saline was injected into sappey's plexus. The breast was then massaged. Evaluation of the axilla with the neoprobe demonstrated an area of activity in the low axilla just lateral to the pectoralis muscle. This site was marked. Ultrasound was also used to evaluate the area of the tumor. The mass on ultrasound was noted to be approximately 1-1/2 cm deep to the skin at the 6:00 position. This was marked on the skin site. The patient?s left breast, axilla left arm and neck were then prepped and draped in the usual fashion. Timeout was performed verifying patient, site, position. Local anesthetic was injected at the marked site and the incision made in the low anterior axilla. Dissection carried down through subcutaneous tissues. A blue lymphatic duct was identified and tracked back to the sentinel lymph node which turned nicely blue. This node was then dissected free from the surrounding structures. After was removed, it was evaluated with the neoprobe and contained approximately 200 counts. The neoprobe was then used to assess the axilla through the incision. No additional lymph nodes were palpated. A small clip was placed along the proximal blue lymphatic duct. There was good hemostasis in the small sentinel node dissection area. Subcutaneous tissues closed with interrupted 3-0 Vicryl suture. Skin was closed with a running 4-0 Biosyn subcuticular suture. Verbal report from the pathologist demonstrated 2 negative left sentinel lymph nodes. Attention was then turned to the lumpectomy specimen. The wire entered the breast at the lateral to medial position. An elliptical incision was made and dissection carried down to subcutaneous breast tissue and then flared out such that a good margin would be obtained in all axes. The breast tissue was taken down to just superficial to the pectoralis fascia. When the specimen was nearly removed, the wire became dislodged from the superficial cranial site. a skin ellipse was oriented transversely and superficial to the mass. 2 Allis clamps were placed medially and laterally where the wire was traversing the mass. The wire was attached those to sites with a silk suture just to demonstrate the entrance and exit points of the wire. A solitary suture was placed at the caudal margin just below the skin ellipse. The specimen was oriented on a radiographic plate and sent for specimen radiograph. While we?re awaiting specimen radiograph, the cavity was irrigated with sterile water and aspirated. There was noted to be good hemostasis. 4 medium clips were placed at the deep cavity margins and 4 small clips at the superficial cavity margins oriented the cavity for future radiation treatment. Subcutaneous breast tissue closed with interrupted 3-0 Vicryl suture. Skin was closed with a running 4-0 Biosyn subcuticular suture. Specimen radiograph demonstrated good position of the clip relative to the biopsy site. The specimen was then brought to the pathology department. I oriented the specimen with the pathologist. Gross margins were examined and felt to be at least 5mm. Given this, Dermabond was applied to the skin the patient was awakened and brought to recovery in stable condition. - Admit VTE Documentation VTE Present on Admission: No VTE Mechan Device Prophylaxis: SCD's
--- NOTE | 2019-03-05 12:27 | PCM.DC.BS ---
Discharge Diet: No Restrictions Discharge Activity: May Not Drive - for 2-3 days or while taking narcotic pain meds. May shower in (days): 1 Lifting Restrictions: 10 pounds for 1 week. Call your doctor if your incision/area has: Continuous Slow Oozing, Sudden Increased Bleeding Call your doctor if you observe: Fever of 101 or Higher Suture Line Care: Avoid Pulling/Pushing, Avoid Pinching/Bending Remove Dressing in (days):: 1 - Remove bulky dressing tomorrow. May leave any opsite dressing for 3-4 days. Keep dressing in place until your follow-up appointment. Additional Dressing/Incision Instructions:: leave dermabond in place until your follow-up appointment. Allergies/Adverse Reactions: Allergies SEASONAL Allergy (Mild, Uncoded 03/02/19 13:37) Other Medications to take at Discharge Sertraline HCl [Zoloft] 25 mg PO DAILY 10/26/14 multivitamin tablet 1 tab PO QAM 09/01/17 rabeprazole 20 mg tablet,delayed release 20 mg PO QHS 09/01/17 Aspirin/Acetaminophen/Caffeine [Excedrin Migraine Caplet] 1 ea PO DAILY 03/02/19 Calcium Carbonate/Vitamin D3 [Calcium 600 + Vit D Tablet] 1 ea PO DAILY 03/02/19 Fluticasone 0.05% [Flonase Nasal [place]] 2 spray NASAL QHS PRN 03/02/19 Sumatriptan Succinate [Imitrex] 100 mg PO .X1 PRN 03/02/19 Primary Care Physician: Citlaly Tovar NP-C [Primary Care Provider] -
[2019-03-05] MEDS: proCHLORPERazine 10 MG/2 ML Vial 5 MG IV (19:49)
[2019-03-05] MEDS: Morphine 2 MG/ML Syringe IV (19:50)
[2019-03-05] MEDS: 0.9% NaCl Peripheral Flush Adult/Peds IV (19:50)
[2019-03-05] MEDS: Rizatriptan Benzoate 10 MG Tablet PO (20:30)
[2019-03-05] MEDS: Pantoprazole Sodium 20 MG Tablet PO (22:32)
[2019-03-05] MEDS: Ibuprofen 400 MG Tablet PO (22:32)
[2019-03-06 02:13] VITALS: BP 121/82; PULSE 63; RESP 18; TEMP 36.7; O2SAT 96
--- NOTE | 2019-03-06 07:54 | NURSING ---
Lumpectomy booklet given to the patient. discussed local supports groups as well as other resources such as Reach to Recovery through the [employer]. patient states she also knows a few ladies that have gone through breast cancer treatments that she can talk to. Pt denies further needs at this time.
[2019-03-06] MEDS: oxyCODONE 5 MG Tablet PO (08:24)
[2019-03-06 08:32] VITALS: BP 124/64; PULSE 66; RESP 16; TEMP 36.8; O2SAT 98
--- NOTE | 2019-03-06 18:07 | PCM.DC.SUM ---
Discharge Date and Diagnosis Date of Admission: 03/05/19 Date of Discharge: 03/06/19 - Primary Discharge Diagnosis left breast cancer Hospital Course and Treatment Operations: - - left needle localized lumpectomy with sentinel lymph node biopsy Summary of Care Provided: The patient is a 63 year old F with a history of migraines presents with a left 6:00 position breast cancer area did she underwent needle localization lumpectomy with sentinel lymph node biopsy. The patient had a migraine that evening but otherwise did well. Wound check following morning demonstrated intact wounds without signs of hematoma or bleeding. The patient was doing well and able to be discharged to home. - Physical Exam General: Alert, Oriented x3, Cooperative Lungs: Clear to auscultation, Normal air movement Cardiovascular: Regular rate, No murmurs Comment: blue dye noted at injection site. 6:00 incision site and axillary incision Vital Signs Temp Pulse Resp BP Pulse Ox 98.3 F 66 16 124/64 H 98 03/06/19 08:32 03/06/19 08:32 03/06/19 08:32 03/06/19 08:32 03/06/19 08:32 Oxygen Flow Rate (L/min) 1 Oxygen Delivery Method Room Air Weight: 95.7 kg Body Mass Index (BMI) 38.5 Intake and Output for Last 24 Hours 03/04/19 03/05/19 03/06/19 23:59 23:59 23:59 Intake Total 1100 / 1100 900 / 900 Output Total 400 / 400 200 / 200 Balance 700 / 700 700 / 700 Discharge Diet: No Restrictions Discharge Activity: May Not Drive - for 2-3 days or while taking narcotic pain meds. May shower in (days): 1 Call your doctor if your incision/area has: Continuous Slow Oozing, Sudden Increased Bleeding Call your doctor if you observe: Fever of 101 or Higher Suture Line Care: Avoid Pulling/Pushing, Avoid Pinching/Bending Remove Dressing in (days):: 1 - Remove bulky dressing tomorrow. May leave any opsite dressing for 3-4 days. Keep dressing in place until your follow-up appointment. Additional Dressing/Incision Instructions:: leave dermabond in place until your follow-up appointment. Home Medications: Medications to take at Discharge Sertraline HCl [Zoloft] 25 mg PO DAILY 10/26/14 multivitamin tablet 1 tab PO QAM 09/01/17 rabeprazole 20 mg tablet,delayed release 20 mg PO QHS 09/01/17 Aspirin/Acetaminophen/Caffeine [Excedrin Migraine Caplet] 1 ea PO DAILY 03/02/19 Calcium Carbonate/Vitamin D3 [Calcium 600 + Vit D Tablet] 1 ea PO DAILY 03/02/19 Fluticasone 0.05% [Flonase Nasal [place]] 2 spray NASAL QHS PRN 03/02/19 Sumatriptan Succinate [Imitrex] 100 mg PO .X1 PRN 03/02/19 Oxycodone HCl/Acetaminophen [Percocet 5/325] 1 tab PO Q6H PRN PRN 4 Days #10 tab 03/05/19 Following Prescrptions Were Given to Patient: Oxycodone HCl/Acetaminophen [Percocet 5/325] 1 tab PO Q6H PRN PRN 4 Days #10 tab PRN Reason: Pain Prescription Printed Primary Care Physician: Citlaly Tovar NP-C [Primary Care Provider] - Medical Necessity - Tobacco Use Smoking Status: Never smoker Meaningful Use Info Meaningful Use Diagnoses (Choose all that apply): None applicable
== END 2019-03-06 10:08 | disposition home or self-care (01) ==
LOC: SDC 08:19 → AC 08:20 → MS3 12:58
PROVIDERS: Family Provider Nurse Practitioner Primary Care; PCP Nurse Practitioner Primary Care; Referring Provider Surgery; Visit Provider Surgery
PROC: (CPT 19301; principal; 2019-03-05 09:45)
DX: C50.512 Malignant neoplasm of lower-outer quadrant of left female breast (principal); K21.9 Gastro-esophageal reflux disease without esophagitis; J45.909 Unspecified asthma, uncomplicated; Z17.0 Estrogen receptor positive status [ER+]; F34.1 Dysthymic disorder
CPT/HCPCS: 00400; 19301; 38525; 19281; 38792; 76098; 88305; 88307; 88331; 88332; 88341; 88342; A9541; J7120; A4216; J2405; J3490; Q9968

== ENCOUNTER 2019-09-25 15:43 | Observation (INO) | payer OTHER, SELFPAY ==
[2019-03-05 08:52] VITALS: BMI 38.5
[2019-09-25 15:44] VITALS: BP 177/111; PULSE 45; RESP 16; TEMP 36.6; O2SAT 100; BMI 32.8
--- NOTE | 2019-09-25 15:52 | CT_ITS ---
STUDY: CT ABDOMEN AND PELVIS WITH CONTRAST REASON FOR EXAM: Female, 64 years old. AB PAIN SINCE JUNE. BREAST AND COLON CA WITH PARTIAL COLECTOMY. PAST CHOLECYSTECTOMY RADIATION DOSAGE (If Supplied By Facility): CTDIvol = ( 15.93 ) mGy, DLP = ( 1076.61 ) mGycm TECHNIQUE: Transaxial images were obtained from the dome of the diaphragm to the symphysis pubis without oral contrast. Oral and amp; IV Gastrografin and amp; 100mL Isovue-300 was administered. Sagittal and coronal images were reconstructed. A Individualized dose optimization techniques were used for this CT. COMPARISON: March 19, 2010. FINDINGS: 7 mm left lung base nodule. The visualized portions of the heart are within normal limits. Diffuse numerable hypoattenuating lesions throughout both lobes of liver. There is non-visualization of the gallbladder, which may be secondary to either contraction or a prior cholecystectomy. Normal spleen. Normal pancreas. Normal bilateral adrenal glands. Normal right kidney. Normal left kidney. There is a small hiatal hernia. Normal small intestine. There are multiple colonic diverticula consistent with diverticulosis. Area of colonic wall thickening is noted at in the region of the cecum best seen series 2 image 93. There is non-visualization of the appendix. Normal abdominal aorta. Normal inferior vena cava. There is retroperitoneal lymphadenopathy with enlarged nodes greater than 10-15mm in the short axis. Lauri hepatis lymphadenopathy is also identified. Normal urinary bladder. Normal visualized uterus. Normal abdominal wall. Normal osseous structures. CT/Abdomen/Pelvis WITH Contrast IMPRESSION: Multiple ill-defined lesions throughout the liver. Retroperitoneal and lauri hepatis lymphadenopathy. These findings suggest metastatic disease in the setting of a colon cancer history. Area of colonic wall thickening as described above may indicate local malignancy. Questionable left lung base 7 mm nodule. Electronically Signed: Reid Rodriguez, at 18:09 EST Tel , Service support ,
--- NOTE | 2019-09-25 15:53 | ED.DCSUM_ITS ---
History of Present Illness Chief Complaint: Abd Pain Informant: Patient Onset: Weeks Context: Gradual Onset Timing: Continuous Current Severity: Moderate Maximum Severity: Moderate Narrative: The patient is a 64-year-old female with medical history significant breast cancer that was treated with a local lumpectomy, radiation, and oral estrogen receptor therapy. She states that this was done in February. By June, she began to have abdominal pain. She states it was diffuse through her abdomen, mostly on the right side. She thought that it may been related to her estrogen therapy. She has been off this for 3 weeks, but is still had persistent pain. She states when she eats, the pain seems to be worse. If she moves or lays flat, the pain is worse. She did see her primary care physician. She had lab work done 4 days ago. She had mild elevation of her liver functions, but otherwise labs are unremarkable. She denies any weight loss or night sweats. The patient does have a history of rectal cancer which was treated surgically with partial resection and primary anastomosis. She states she still moving her bowels without issue. Prior similar symptoms: No Recent Illness/Hospitalization: No Past Medical History - Allergies and Home Meds Allergies/Adverse Reactions: Allergies SEASONAL Allergy (Mild, Uncoded 09/25/19 15:45) Other Primary Care Physician: Citlaly Tovar NP-C [Primary Care Provider] - Prior records reviewed: Yes Past Medical History: - - Hiatal hernia, breast cancer, rectal cancer Surgical History: noncontributory Smoking Status: Never smoker Review of Systems General: Denies: Chills, Fever, Sweats Eyes: Denies: Visual changes - bilaterally, Diplopia ENT: Denies: Rhinorrhea, Sore throat Cardiovascular: Denies: Chest pain, Palpitations Respiratory: Denies: Dyspnea, Cough, Dyspnea on exertion Gastrointestinal: Reports: Abdominal pain, Nausea. Denies: Vomiting, Diarrhea, Melena, Hematochezia Genitourinary: Denies: Dysuria, Hematuria, Frequency Musculoskeletal: Denies: Back pain, Extremity Pain Skin: Denies: Rash, Wounds Neurological: Denies: Headache, Weakness, Numbness Physical Exam Vital Signs/Narrative: Vital Signs Temp Pulse Resp BP Pulse Ox 09/25/19 15:44 97.8 F 45 L 16 177/111 H 100 Inital Vital Signs reviewed: Yes General: Well nourished, Well developed, No Acute Distress Head: Normocephalic, Atraumatic Eyes: Perrl, EOMI ENT: Moist mucous membranes, No rhinorrhea Neck: Supple, Nontender Cardiovascular: Regular rate, Regular rhythm, No murmurs Respiratory: No distress, CTA bilaterally, Chest nontender Abdomen: Soft, Nondistended, Normal bowel sounds, Tender. Negative for: Guarding, Rebound tenderness Back: Nontender, Normal Inspection Extremities: Nontender, No edema Skin: Normal color, No rash Neurological: Alert, Oriented x3, Cranial nerves II-XII grossly intact, Normal Strength, Normal Sensation Psychological: Normal affect, Normal Mood Diagnostic/Tx/Re-eval Clinical Impression(s) from Imaging Studies Abdomen/Pelvis CT 09/25/19 15:52 IMPRESSION: Multiple ill-defined lesions throughout the liver. Retroperitoneal and chery hepatis lymphadenopathy. These findings suggest metastatic disease in the setting of a colon cancer history. Area of colonic wall thickening as described above may indicate local malignancy. Questionable left lung base 7 mm nodule. Electronically Signed: Reid Rodriguez, at 18:09 EST Tel , Service support , - Medical Decision Making The patient presents with worsening abdominal pain for the past few months. She has a history of rectal cancer which is been in remission. She was recently treated for breast cancer. She denies any fevers or chills. I did review her outpatient lab work which shows mild elevation of her liver functions, but was otherwise unremarkable so I did not repeat it. I did add a lipase which was negative. The patient underwent CT imaging. This does show multiple ill- defined lesions of the liver consistent with metastatic disease and likely recurrence of her rectal cancer. She was given pain and nausea medication. She was more comfortable, but still states that she is having a difficult time with her pain. I do feel that she is in require further work-up due to concern for recurrence of her malignancy. She does follow with oncology locally. The patient was discussed with the hospitalist. Impression 1. Abdominal pain 2. Metastatic liver disease ED Disposition - Plan for ED Patient: Referrals: Citlaly Tovar NP-C [Primary Care Provider] -
[2019-09-25] MEDS: 0.9% Normal Saline 1,000 ML 1000 ML IV (16:23)
[2019-09-25 16:40] LABS: Lipase 137 U/L (73-393)
[2019-09-25] MEDS: Ondansetron 4 MG/2 ML Vial IV (18:46)
[2019-09-25] MEDS: Morphine 4 MG/ML Syringe IV (18:46)
[2019-09-25 18:47] VITALS: BP 140/80; PULSE 82; RESP 16; O2SAT 99
--- NOTE | 2019-09-25 19:03 | HP.PCM_ITS ---
Problem List (1) Intractable abdominal pain Status: Acute (2) Metastatic cancer Status: Acute (3) Colon cancer Status: Acute Qualifiers: Colon location: unspecified part of colon Qualified Code(s): C18.9 - Malignant neoplasm of colon, unspecified (4) Anxiety and depression Status: Chronic (5) Migraine Status: Chronic Qualifiers: Migraine type: unspecified Status migrainosus presence: without status migrainosus Intractability: not intractable Qualified Code(s): G43.909 - Migraine, unspecified, not intractable, without status migrainosus (6) GERD (gastroesophageal reflux disease) Status: Chronic Qualifiers: Esophagitis presence: esophagitis presence not specified Qualified Code(s): K21.9 - Gastro-esophageal reflux disease without esophagitis (7) History of breast cancer Status: Chronic History of Present Illness Date of Admission: 09/25/19 Chief Complaint: Abdominal pain The patient is a 64 y/o F w/ PMHx: GERD, Anxiety and Depression, Migraine headaches, Obesity, Hx Colon CA/Rectal CA s/p radiation and oral estrogen receptor medication, noted to have been off her medication x 3 weeks secondary to concern this was related to her worsening abdominal pain who presents to the [facility] ED on 09/25/19 with history of onset ongoing abdominal pain starting around Thanksgiving with associated nausea without intractable emesis with difficulty eating, pain more severe following oral intake although not immediately, occasional sensation that food is getting stuck notes diffuse abdominal pain, varying from stabbing, dull, aching and throbbing to cramping at different points, ranging from 5-10/10 in severity, but pain always present over the last several weeks prompting eventual ED presentation as not improving. Patient does following with Dr. Fatima who is unfortunately out of town at a conference and patient preferent to not see his partner therefore as discussed with patient as well as her family and Dr. Fatima patient will be evaluated by [facility] and if amenable may continue with their services or follow with Dr. Fatima following discharge. Patient of note was planning upcoming follow-up with Dr. Jefferson who was following patient following her recent breast CA history but also discussed that he no longer sees inpatient consults at [facility] but requested she update his office as to her current status in AM. Work-up in the ED included T 97.8, heart rate initially 45 with repeat 82, BP initially 177/111 with repeat 140/80, respiratory rate 16, 100% on room air, lipase 137, CT abdomen and pelvis with multiple ill-defined lesions throughout the liver, retroperitoneal and chery hepatis lymphadenopathy most suggestive of metastatic disease in the setting of colon cancer history with an area of colonic wall thickening possibly indicative of local malignancy, questionable left lung base 7 mm nodule. In the ED patient ministered normal saline, Zofran and morphine. Past Medical History Past Medical History (Chronic Problems): Chronic Problems (Last Updated 09/01/17 @ 11:33 by Wendy Jerome) Anxiety and depression (Chronic) Migraine (Chronic) GERD (gastroesophageal reflux disease) (Chronic) History of breast cancer (Chronic) Medical History: Medical History (Last Updated 09/01/17 @ 11:33 by Wendy Jerome) History of colon cancer Z85.038 Allergies SEASONAL Allergy (Mild, Uncoded 09/25/19 15:45) Other Home Medications: Ambulatory Orders Medication Instructions Recorded rabeprazole 20 mg tablet,delayed 20 mg PO DAILY@1700 09/01/17 release Aspirin/Acetaminophen/Caffeine 1 tab PO DAILY 03/02/19 [Excedrin Migraine Caplet] Calcium Carbonate/Vitamin D3 1 tab PO DAILY 03/02/19 [Calcium 600 + Vit D Tablet] Sumatriptan Succinate [Imitrex] 100 mg PO .X1 PRN 03/02/19 Multivitamins,Therapeutic 1 tab PO DAILY 09/25/19 [Multivitamin] Sertraline HCl 50 mg PO DAILY 09/25/19 Surgical History: Surgical History (Last Updated 09/01/17 @ 11:33 by Wendy Jerome) History of D&C Z98.890 History of cholecystectomy Z98.890, Z90.49 Surgical History: - - Resection of her colon cancer, left breast lumpectomy, cholecystectomy. Psychiatric History: Anxiety, Depression [employer] History: No pertinent [employer] history Lives: Spouse/ Significant Other Smoking Status: Never smoker Tobacco Use: Non-smoker Alcohol: None Drugs: None - *Family History Maternal History Items: High Cholesterol, Heart Disease, Hypertension Paternal History Items: Dementia Review of Systems Constitutional: Reports: Anorexia, Malaise, Weakness, Fatigue. Denies: Chills, Fever, Weight Change HEENT: Reports: Difficulty Swallowing. Denies: Head Aches, Sinus Congestion, Sinus Drainage Cardiovascular: Denies: Chest Pain, Palpitations Respiratory: Denies: Cough, Shortness of breath at rest, Sputum production Gastrointestinal: Reports: Abdominal Pain, Nausea, Vomiting Genitourinary: Denies: Dysuria Musculoskeletal: Reports: Back Pain, Joint Pain. Denies: Joint Tenderness Skin: Denies: Rash, Wounds Neurological: Denies: Numbness, Tingling, Focal weakness Psychiatric: Reports: Anxiety, Depression. Denies: Homicidal Ideations, Suicidal Ideations Hematologic/ Lymphatic: Denies: Easy Bruising, Easy Bleeding VTE Information - Inpt Only VTE Present on Admission: No VTE Mechan Device Prophylaxis: SCD's VTE Pharm Prophylaxis ordered?: Yes Patient Problems: Active and Suspected Problems (Last Updated 09/01/17 @ 11:33 by Wendy Jerome) Intractable abdominal pain (Acute) Metastatic cancer (Acute) Colon cancer (Acute) Subjective: Seated upright in ED bed, fatigued appearance, tearful with conversations. Objective: Physical Examination: General: awake, alert, oriented x 3 and cooperative, seated upright in the ED bed, fatigued appearance, tearful with conversations. Skin: normal color, turgor, no icterus, cyanosis. HEENT: AT/NC, EOMI, PERRLA, moderately dry MM, no carotid bruits or JVD noted. Lungs: CTA bilaterally, moderate effort, moderate decrease BL bases, no rales, ronchi or wheezing. Heart: Regular rate and rhythm; no gallop, rub audible. Abdomen: soft, obese, generalized discomfort with palpation even with stethoscope usage, voluntary guarding, no obvious rebound but difficult examination, does not appear distended, mildly hyperactive bowel sounds, difficult to assess HSM secondary to pain with examination. Extremities: no cyanosis, clubbing, or edema. Neurological: patient awake, alert, oriented x 3; cognitive function appears baseline intact; pupils equally reactive to light and accomodation; cranial nerves II-XII grossly normal, moving all 4 extremities, no focal deficits, strength moderately to severely global decrease secondary to acute presentation. Psychiatric: affect appears fatigued, uncomfortable, anxious, no acute evidence of depressive feelings. - Physical Exam Vitals/I&O's: Vital Signs Temp Pulse Resp BP Pulse Ox 97.8 F 82 16 140/80 H 99 09/25/19 15:44 09/25/19 18:47 09/25/19 18:47 09/25/19 18:47 09/25/19 18:47 Weight: 185 lb Body Mass Index (BMI) 32.8 Intake and Output for Last 24 Hours 09/23/19 09/24/19 09/25/19 23:59 23:59 23:59 Intake Total 1000 / 1000 Balance 1000 / 1000 Laboratory Results 09/25/19 16:05: Lipase 137 Assessment/Plan All Active Problems (Last Updated 09/01/17 @ 11:33 by Wendy Jerome) Intractable abdominal pain (Acute) Metastatic cancer (Acute) Colon cancer (Acute) Acute bronchitis (Acute) Cough (Acute) The patient is a 64 y/o F w/ PMHx: GERD, Anxiety and Depression, Migraine headaches, Obesity, Hx Colon CA/Rectal CA s/p radiation and oral estrogen receptor medication, noted to have been off her medication x 3 weeks secondary to concern this was related to her worsening abdominal pain who presents to the [facility] ED on 09/25/19 with history of onset ongoing abdominal pain starting around Thanksgiving with associated nausea without intractable emesis with difficulty eating, pain more severe following oral intake although not immediately, occasional sensation that food is getting stuck notes diffuse abdominal pain. 1. Intractable abdominal pain with nausea secondary to metastatic, likely colon cancer: Lengthy discussion with patient's oncologist and with patient, preference to avoid evaluation per partner therefore will admit to medical surgical floor, consultation with [facility] who is aware, limit oral intake at this time to clear liquid fluids and if able to tolerate advance diet as tolerated, PRN antiemetic regimen including Zofran and Compazine, continue oral and IV narcotic therapy in addition to scheduled low-dose Toradol x5 doses in addition to low-dose scheduled gabapentin. Pending CEA and CA-19-9. Speech therapy consulted given complaint of occasional dysphasia as well as nutrition given poor oral intake. 2. Normocytic anemia, unclear if chronic: Admission hemoglobin 11.3, MCV 87.3, unclear if chronic or acute, no comparison, trend CBC. 3. Migraine headaches: We will hold patient Imitrex as well as scheduled Excedrin Migraine, currently on scheduled Toradol x5 doses as noted, may ad aitchbone breaker Imitrex if necessary. 4. Anxiety depression: We will continue patient sertraline home regimen. 5. GERD: Maintain on PPI. 6. DVT prophylaxis: SCDs, Lovenox. 7. CODE status: Patient's daughter and present, patient does not have a healthcare power of estate planning attorney nor living will set up, encouraged discussions with case management to assist in directing them to set these up. Discussed CODE status at length including difference between FULL code, DNR-CCA and DNR-CC status. Following discussions about the differences in these status, requested full CODE STATUS. Advanced Care Planning Face to Face Time: 16 minutes. Code Visit OBSV E&M: 74192 Initial observation care L3 Procedures: 85437 Advncd Care Plan 30 Min
[2019-09-25 19:42] LABS: Absolute Lymphocyte Count 1.54 X10^3/uL (0.83-4.51); Basophil# 0.06 X10^3/uL; Basophil% 0.6 % (0-1); Eosinophil# 0.07 X10^3/uL; Eosinophils% 0.7 % (0-5); Hematocrit 35.6 % (37-47); Hemoglobin 11.3 g/dL (12.0-15.0); Lymphocyte # 1.54 X10^3/ul (4.0); Lymphocyte % 16.4 % (19-41); Mean Corp Hgb Conc 31.7 g/dL (32-36); Mean Corpuscular Hgb 27.7 pg (27.0-32.0); Mean Corpuscular Volume 87.3 fL (81-99); Mean Platelet Vol. 11.5 fl (6.2-12.0); Monocyte# 0.68 X10^3/uL; Monocyte% 7.2 % (0-10); NRBC Flagged by Analyzer 0 % (0-5); Neutrophil # 6.97 X10^3/uL (2.7-7.7); Neutrophil % 74.4 % (47-70); Platelet Count 317 K/mm3 (150-450); RBC Distribution Width CV 14.7 % (11.6-14.6); Red Blood Count 4.08 M/mm3 (4.2-5.4); White Blood Count 9.4 K/mm3 (4.4-11.0)
[2019-09-25 19:59] VITALS: BMI 33.4
[2019-09-25 20:00] LABS: ALB/GLOB Ratio 0.9 RATIO (0.9-2.4); AST(SGOT) 99 U/L (15-37); Alanine Aminotransfer ALT/SGPT 36 U/L (13-56); Albumin, Serum 3.4 g/dL (3.2-5.0); Alkaline Phosphatase 187 U/L (45-117); Anion Gap 8 (5-15); BUN 8 mg/dL (7-18); Calcium,Total 9.5 mg/dL (8.5-10.1); Chloride 109 mmol/L (98-107); Creatinine, Serum 0.73 mg/dL (0.55-1.02); EST Glomerular Filtration Rate 86 mL/min (>60); Est Glom Filt Rate - Afr Amer 104 mL/min (>60); Globulin 3.9 g/dL (2.2-4.2); Glucose 89 mg/dL (74-106); Potassium 4.1 mmol/L (3.5-5.1); Protein, Total 7.3 g/dL (6.4-8.2); Sodium Level 142 mmol/L (136-145)
[2019-09-25 20:21] VITALS: BP 116/86; PULSE 52; RESP 16; TEMP 37; O2SAT 98
[2019-09-25 21:22] VITALS: RESP 16; O2SAT 96
[2019-09-25] MEDS: Famotidine 20 MG Tablet PO (21:26)
[2019-09-25] MEDS: 0.9% Normal Saline 1,000 ML 100 ML IV (21:27)
[2019-09-25] MEDS: Gabapentin 100 MG Capsule PO (21:27)
[2019-09-25] MEDS: Ketorolac 15 MG/ML Vial IV (21:27)
[2019-09-25] MEDS: Temazepam 15 MG Capsule PO (21:34)
[2019-09-25 22:07] LABS: Magnesium 2.1 mg/dL (1.6-2.6); Phosphorus 3.7 mg/dL (2.5-4.9)
[2019-09-26] VITALS (7 sets, daily range): BP systolic 98–139; BP diastolic 62–78; PULSE 64–80; RESP 16–18; TEMP 36.5–37; O2SAT 95–98
[2019-09-26] MEDS: Acetaminophen 325 MG Tablet 650 MG PO (02:10)
[2019-09-26] MEDS: Ketorolac 15 MG/ML Vial IV ×3 (06:21→22:23)
[2019-09-26] MEDS: oxyCODONE 5 MG Tablet PO (06:21)
[2019-09-26 06:58] LABS: Absolute Lymphocyte Count 1.25 X10^3/uL (0.83-4.51); Absolute Neutrophil Count 4.7 X10^3/uL (2.0-7.7); Basophil# 0.08 X10^3/uL; Basophil% 1.2 % (0-1); Eosinophil# 0.07 X10^3/uL; Hematocrit 36.1 % (37-47); Hemoglobin 11.3 g/dL (12.0-15.0); Lymphocyte # 1.25 X10^3/ul (4.0); Lymphocyte % 18.5 % (19-41); Mean Corp Hgb Conc 31.3 g/dL (32-36); Mean Corpuscular Hgb 27.4 pg (27.0-32.0); Mean Corpuscular Volume 87.4 fL (81-99); Mean Platelet Vol. 11.7 fl (6.2-12.0); Monocyte# 0.61 X10^3/uL; NRBC Flagged by Analyzer 0 % (0-5); Neutrophil # 4.72 X10^3/uL (2.7-7.7); Neutrophil % 69.9 % (47-70); Platelet Count 247 K/mm3 (150-450); RBC Distribution Width CV 14.6 % (11.6-14.6); RBC Distribution Width SD 47.1 fl (35.1-43.9); Red Blood Count 4.13 M/mm3 (4.2-5.4); White Blood Count 6.8 K/mm3 (4.4-11.0)
[2019-09-26 07:19] LABS: ALB/GLOB Ratio 0.7 RATIO (0.9-2.4); AST(SGOT) 100 U/L (15-37); Alanine Aminotransfer ALT/SGPT 32 U/L (13-56); Albumin, Serum 2.9 g/dL (3.2-5.0); Alkaline Phosphatase 174 U/L (45-117); Anion Gap 5 (5-15); BUN 5 mg/dL (7-18); BUN/Creat Ratio 8.3 RATIO (10-20); Calcium,Total 8.7 mg/dL (8.5-10.1); Chloride 111 mmol/L (98-107); Creatinine, Serum 0.61 mg/dL (0.55-1.02); EST Glomerular Filtration Rate 106 mL/min (>60); Est Glom Filt Rate - Afr Amer 129 mL/min (>60); Glucose 73 mg/dL (74-106); Potassium 4.1 mmol/L (3.5-5.1); Protein, Total 6.9 g/dL (6.4-8.2); Sodium Level 141 mmol/L (136-145)
[2019-09-26] MEDS: Ondansetron 4 MG/2 ML Vial IV ×2 (08:02→22:17)
[2019-09-26] MEDS: 0.9% Normal Saline 1,000 ML 100 ML IV ×2 (08:08→17:47)
--- NOTE | 2019-09-26 10:04 | CASEMGMT ---
Social Work Note Pt is at [facility] for intractable pain, metastatic cancer. SW reviewed chart, pt has history of colon cancer and breast cancer. SW completed Palliative Care Screening tool, pt scored a 4. SW met with pt and introduced self and role at [facility]. Pt is alert and oriented x3. Pt's daughter present at [facility] and pt gave this worker permission to speak to her in front of her guest. SW educated pt on Palliative Care, pt states that she has heard of Palliative Care before but denied wanting a Palliative Care referral made at this time. Pt states I am not ready for that. SW explained that Palliative Care would help with her pain management and likely help to keep pt out of the hospital. Pt again denied wanting Palliative Care referral being made at this time. SW provided pt with Palliative Care brochure. SW also asked pt about advanced directives. Pt denied having completed advanced directives and denied wanting to complete documents. Pt was receptive to taking documents, states she will review documents at home. SW provided pt with advanced directives documents. 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
[2019-09-26] MEDS: Famotidine 20 MG Tablet PO ×2 (10:48→22:45)
[2019-09-26] MEDS: Sertraline 50 MG Tablet PO (10:48)
[2019-09-26] MEDS: Enoxaparin 40 MG/0.4 ML Syringe SC (10:49)
[2019-09-26] MEDS: Rizatriptan Benzoate 10 MG Tablet PO ×2 (10:58→22:47)
--- NOTE | 2019-09-26 11:42 | PCM.PN.HOSP ---
Patient Problems: Active and Suspected Problems (Last Updated 09/01/17 @ 11:33 by Wendy Jerome) Intractable abdominal pain (Acute) Metastatic cancer (Acute) Colon cancer (Acute) Subjective: Morphine and oxyodone has helped with some of her abdominal pain. Has a slight headache Vitals/I&O's: Vital Signs Temp Pulse Resp BP Pulse Ox 98.1 F 70 16 138/78 H 97 09/26/19 10:40 09/26/19 11:29 09/26/19 10:40 09/26/19 10:40 09/26/19 11:29 Oxygen Flow Rate (L/min) 99 Oxygen Delivery Method Room Air Weight: 188 lb 9.617 oz Body Mass Index (BMI) 33.4 Intake and Output for Last 24 Hours 09/24/19 09/25/19 09/26/19 23:59 23:59 23:59 Intake Total 1000 / 1000 1000 / 1000 Balance 1000 / 1000 1000 / 1000 General: Alert, Oriented x3, Cooperative, No apparent distress HEENT: Atraumatic, PERRLA, EOMI, Normocephalic Oral: Moist Mucosa Neck: Supple, No JVD Lungs: Clear to auscultation, Normal air movement, No rhonchi, No wheeze, No rales Cardiovascular: Regular rate, Regular Rhythm, Normal S1, Normal S2, No murmurs Abdomen: Soft, Non-Distended, No Hepato-splenomegaly, Tender - diffuse Extremities: No edema, Capillary Refill Less than 3 Seconds Skin: No rashes, No breakdown Neurological: Neuro grossly intact, Sensory exam intact to light touch and pain Psych/Mental Status: Normal Affect, Appropriate Laboratory Results 09/25/19 16:05: Lipase 137 09/25/19 16:05: Phosphorus 3.7, Magnesium 2.1 09/25/19 19:00: Carcinoembryonic Ag Pending, CA 19-9 Serial Monitor Pending 09/25/19 19:00: CA 19-9 Serial Monitor Pending 09/25/19 19:00: WBC 9.4, RBC 4.08 L, Hgb 11.3 L, Hct 35.6 L, MCV 87.3, MCH 27.7, MCHC 31.7 L, RDW Std Deviation 47.0 H, RDW Coeff of Audrey 14.7 H, Plt Count 317, MPV 11.5, Immature Gran % (Auto) 0.700, Neut % (Auto) 74.4 H, Lymph % (Auto) 16.4 L, Van Zandt % (Auto) 7.2, Eos % (Auto) 0.7, Baso % (Auto) 0.6, Absolute Neuts (auto) 7.0, Absolute Lymphs (auto) 1.54, Nucleated RBC % 0 09/25/19 19:00: Sodium 142, Potassium 4.1, Chloride 109 H, Carbon Dioxide 25.0, Anion Gap 8, BUN 8, Creatinine 0.73, Estim Creat Clear Calc 66.10, Est GFR (MDRD) Af Amer 104, Est GFR (MDRD) Non-Af 86, BUN/Creatinine Ratio 11.0, Glucose 89, Calcium 9.5, Total Bilirubin 0.50, AST 99 H, ALT 36, Alkaline Phosphatase 187 H, Total Protein 7.3, Albumin 3.4, Globulin 3.9, Albumin/Globulin Ratio 0.9 09/26/19 06:24: Sodium 141, Potassium 4.1, Chloride 111 H, Carbon Dioxide 25.0, Anion Gap 5, BUN 5 L, Creatinine 0.61, Estim Creat Clear Calc 79.10, Est GFR (MDRD) Af Amer 129, Est GFR (MDRD) Non-Af 106, BUN/Creatinine Ratio 8.3 L, Glucose 73 L, Calcium 8.7, Total Bilirubin 0.60, AST 100 H, ALT 32, Alkaline Phosphatase 174 H, Total Protein 6.9, Albumin 2.9 L, Globulin 4.0, Albumin/Globulin Ratio 0.7 L 09/26/19 06:28: WBC 6.8, RBC 4.13 L, Hgb 11.3 L, Hct 36.1 L, MCV 87.4, MCH 27.4, MCHC 31.3 L, RDW Std Deviation 47.1 H, RDW Coeff of Audrey 14.6, Plt Count 247, MPV 11.7, Immature Gran % (Auto) 0.400, Neut % (Auto) 69.9, Lymph % (Auto) 18.5 L, Van Zandt % (Auto) 9.0, Eos % (Auto) 1.0, Baso % (Auto) 1.2 H, Absolute Neuts (auto) 4.7, Absolute Lymphs (auto) 1.25, Nucleated RBC % 0 Current Medications Acetaminophen (Tylenol) 650 mg PO Q6H PRN PRN PRN Reason: Pain Score 1-10/Temp > 100.7 F Last Admin: 09/26/19 02:10 Dose: 650 mg Documented by: Al Hydroxide/Mg Hydroxide (Mylanta Ii) 30 ml PO Q6H PRN PRN PRN Reason: Gastric Burning Albuterol Sulfate (Ventolin Aerosols) 2.5 mg INHALATION Q2H PRN PRN PRN Reason: Shortness of Breath/Wheezing Docusate Sodium (Colace) 100 mg PO BID PRN PRN PRN Reason: Constipation Famotidine (Pepcid) 20 mg PO BID [facility] Last Admin: 09/26/19 10:48 Dose: 20 mg Documented by: Gabapentin (Neurontin) 100 mg PO TIDCM [facility] Last Admin: 09/26/19 10:51 Dose: Not Given Documented by: Glucagon () 1 mg IM .X1 PRN PRN Reason: Hypoglycemia Guaifenesin (Robitussin) 20 ml PO Q4H PRN PRN PRN Reason: COUGH Hydralazine HCl (Apresoline Iv) 10 mg IV Q4H PRN PRN PRN Reason: SBP > 160 Hydromorphone HCl (Dilaudid Inj) 0.5 mg IV Q4H PRN PRN PRN Reason: Pain Score 6-10/10 Sodium Chloride () 1,000 mls @ 100 mls/hr IV .Q10H [facility] Last Admin: 09/26/19 08:08 Dose: 100 mls/hr Documented by: Dextrose (Dextrose 10%-Water) 250 mls @ 999 mls/hr IV .Q16M PRN; Protocol PRN Reason: HYPOGLYCEMIA Ketorolac Tromethamine (Toradol (Bkc)) 15 mg IV Q8 [facility] Stop: 09/27/19 06:01 Last Admin: 09/26/19 06:21 Dose: 15 mg Documented by: Loratadine (Claritin) 10 mg PO DAILY PRN PRN PRN Reason: ALLERGIES Nutritional Formula (Lactose Free) (Ensure Clear) 120 ml PO 4X/DAY [facility] Ondansetron HCl (Zofran) 4 mg IV Q8H PRN PRN PRN Reason: NAUSEA/VOMITING Last Admin: 09/26/19 08:02 Dose: 4 mg Documented by: Oxycodone HCl (Oxyir) 5 mg PO Q4H PRN PRN PRN Reason: Pain Score 4-5/10 Last Admin: 09/26/19 06:21 Dose: 5 mg Documented by: Oxycodone HCl (Oxyir) 10 mg PO Q4H PRN PRN PRN Reason: Pain Score 6-10/10 Prochlorperazine Edisylate (Compazine Iv) 5 mg IV Q4H PRN PRN PRN Reason: Breakthrough nausea/vomiting Psyllium Hydrophilic Mucilloid (Metamucil) 1 packet PO DAILY PRN PRN PRN Reason: Constipation Rizatriptan Benzoate (Maxalt) 10 mg PO .X1 PRN PRN PRN Reason: MIGRAINE Last Admin: 09/26/19 10:58 Dose: 10 mg Documented by: Senna/Docusate Sodium (Senokot-S, Rosangela-Colace) 2 tablet PO BID PRN PRN PRN Reason: Constipation Sertraline HCl (Zoloft) 50 mg PO DAILY [facility] Last Admin: 09/26/19 10:48 Dose: 50 mg Documented by: Temazepam (Restoril) 15 mg PO QHS PRN PRN PRN Reason: INSOMNIA Last Admin: 09/25/19 21:34 Dose: 15 mg Documented by: Throat Lozenges (Cepacol Sore Throat Lozenge) 1 lozenge MUCOUS MEM Q2H PRN PRN PRN Reason: SORE THROAT STROKE Vital Signs/Narrative: Vital Signs Temp Pulse Resp BP Pulse Ox 09/26/19 11:29 70 97 09/26/19 10:40 98.1 F 64 16 138/78 H 98 09/26/19 08:27 95 Medical Necessity - Tobacco Use Smoking Status: Never smoker Tobacco Use: Non-smoker Assessment/Plan All Active Problems (Last Updated 09/01/17 @ 11:33 by Wendy Jerome) Intractable abdominal pain (Acute) Metastatic cancer (Acute) Colon cancer (Acute) Acute bronchitis (Acute) Cough (Acute) 1. Intractable abdominal pain -Likely secondary to metastatic liver disease -She has a history of rectal cancer about 10 years ago as well as breast cancer 6 months ago -CT scan with multiple lesions, will attempt a biopsy in the morning -C/wr with oxycodone 5 to 10 mg every 4 PRN -May need to add OxyContin to help control her pain -We will hold Lovenox, will obtain a stat PT/INR and PTT for tomorrow 2. Migraines -She had a headache this morning -Continue with her triptan 3. Anxiety/depression -Stable -Continue Zoloft 4. GERD -Stable -Continue with PPI DVT: Lovenox Code Visit OBSV E&M: 89825 Subsequent observation care L2
--- NOTE | 2019-09-26 12:28 | NURSING ---
Student documentation reviewed.
[2019-09-26] MEDS: oxyCODONE 5 MG Tablet 10 MG PO ×2 (13:10→19:13)
[2019-09-26 13:21] LABS: International Normalized Ratio 1.2; Prothrombin Time (Protime)PT. 14.5 SECONDS (11.7-14.9)
[2019-09-26 13:22] LABS: Partial Thromboplast Time 31.7 Seconds (24.1-36.2)
[2019-09-26] MEDS: Ensure Clear 120 ML Liquid PO (14:50)
--- NOTE | 2019-09-26 14:59 | ONC.CONS.INP ---
Consult Referring Physician: Dr.N. Humphrey Consult Results: Metastatic disease to liver and retroperitoneal nodes. Subjective Date of Service:: 09/26/19 Chief Complaint: Abd pain History of Present Illness: 64y.o.woman was diagnosed with Colorectal cancer about 10 years ago, had colorectal surgery at [facility]. She did not need adjuvant chemotherapy or radiation therapy. She was diagnosed with Left breast cancer stage IB after she was found to have left breast abnormal mammogram in February 2019. She had left breast lumpectomy with sentinel node biopsy on 03/05/2019. 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 Pathologic stage pT1b pN0(i+). She was started on anastrozole in June [address] Fatima, developed abdominal pain and it was discontinued. Pain in the abdomen has persisted since so she came to the ER. She had a CT scan on 09/25/2019 which showed multiple liver mets with retroperitoneal adenopathy. Past Medical History: Chronic Problems (Last Updated 09/01/17 @ 11:33 by Wendy Jerome) Anxiety and depression (Chronic) Migraine (Chronic) GERD (gastroesophageal reflux disease) (Chronic) History of breast cancer (Chronic) History of colon cancer in adulthood (Chronic) Past Medical/Surgical History: Past Medical History - Most Recent Inpatient Visit Past Medical History Start: 09/25/19 19:59 Text: Status: Complete Freq: ONCE Protocol: Document 09/25/19 19:59 [facility] (Rec: 09/25/19 20:20 [facility] [id number]) BMI Required to complete PMH What is Patient's BMI 33.4 Past Medical History Unable History Recalled No Query Text:Pt Unable/Family Not Present Neurologic Medical History Hx Stroke/TIA No Hx Dementia/Alzheimer's No Hx Parkinson's Disease No Hx Seizures No Hx Multiple Sclerosis No Hx Migraines Yes Cardiac Medical History VTE Present on Admission No Hx of Deep Vein Thrombosis/VTE/PE No Hx Hypertension No Hx Chest Pain/Angina No Hx Heart Attack No Hx Cardiac Surgery/Stents/Etc. No Hx Heart Failure No Hx Pacemaker/AICD No Hx Irregular Heartbeat and/or Afib No Hx Anticoagulant Therapy No Query Text:(Coumadin, Aspirin, Plavix, Xarelto, etc.) Hx Pain in Legs when Walking/Leg Cramps No Respiratory Medical History Hx COPD No Hx Emphysema No Hx Smoking No Smoking Status Never smoker Hx Tobacco Use in last 12 months No Hx Sleep Apnea No Do you snore loudly (louder than talking No or can be heard through closed doors)? Do you often feel tired/ fatigued/ No sleepy during daytime? Has anyone observed you stop breathing No during sleep? STOP Results Negative GI Medical History Hx Ulcer No Hx Hepatitis No Hx Cirrhosis No Hx GI Bleed No Hx Unplanned Weight Loss No Genitourinary Medical History Indwelling Catheter in Place on Arrival/ No Admission Hx Renal Disease No Hx Dialysis No Musculoskeletal History Hx Arthritis No Hx Rheumatoid Arthritis No Endocrine Medical History Hx Diabetes No Hx Thyroid Disease No Hematologic Medical History Hx of Blood Transfusion No Hx of Transfusion in last 3 Months No Ever experience any problems with No transfusion(s)? Hx of Preganancy in last 3 Months N/A Nurse Filling Out Transfusion & CKELLY Questions: Date: 09/25/19 Time: 20:18 Psycho/Social Medical History Hx Depression Yes: ON MED Hx Anxiety No Hx Behavior Disorder No Hx Alcohol Use No Hx Substance Use No Other Medical History Hx Blood Disorders No Hx Anemia No Hx Cancer Yes: COLON & Breast Hx Drug Resistant Organism No Wound/Pressure Injury Present on Arrival No /Admission Query Text:If yes, chart assessment in Shift/Clinical Findings Central Line/PICC/VAD Present on Arrival No /Admission Antibiotics within last 7 days? No Methicillin Resistant Staphylococcus aureus Screening Active MRSA No Risk for Readmission Number of Risk Factors 2 At Risk for Readmission Patient is At Risk For Readmission Patient is eligible for Call Back Y Past Medical History (Last Updated 09/01/17 @ 11:33 by Wendy Jerome) History of colon cancer (Acute) Past Surgical History (Last Updated 09/01/17 @ 11:33 by Wendy Jerome) History of D&C (Acute) History of cholecystectomy (Acute) Maternal Family History: High Cholesterol, Heart Disease, Hypertension Paternal Family History: Dementia - Social History Lives: Spouse/ Significant Other Smoking Status: Never smoker Tobacco Use: Non-smoker Alcohol: None Drugs: None Allergies/Adverse Reactions: Allergy/AdvReac Type Severity Reaction Status Date / Time SEASONAL Allergy Mild Other Uncoded 09/25/19 15:45 Review of Systems Constitutional:: Denies: Fever, Sweats Cardiovascular:: Denies: Chest pain, Palpitations, Dyspnea on exertion, Orthopnea, PND, Shortness of breath Respiratory: Denies: Cough, Hemoptysis, Shortness of Breath, Wheezing Gastrointestinal:: Reports: Abdominal pain - since June 2019., Nausea Genitourinary: Denies: Dysuria, Hematuria, 15, Flank pain Musculoskeletal:: Denies: Back pain, Myalgia, Arthralgia Skin: Denies: Rash, Skin Changes, Wounds Neurological:: Denies: Headache, Dizziness, Visual changes, Tinnitus, Hearing loss Psychiatric: Denies: Anxiety, Depression, Homicidal Ideations, Suicidal Ideations Vital Signs Height 5 ft 3 in Weight: 85.548 kg Weight in Pounds 188.6 lbs Pulse Ox 97 Temperature 97.7 F Pulse Rate 70 Respiratory Rate 16 Blood Pressure 139/74 Blood Pressure Position Semi-Fowlers - Physical Exam General: Alert, Oriented x3, No apparent distress HEENT: Atraumatic, PERRLA, EOMI, Normocephalic Oropharynx:: Dry mucosa Neck:: Supple, Trachea midline. Negative for: JVD, bilateral Cardiac:: Regular rate, Regular rhythm, Normal S1, Normal S2. Negative for: Murmur Lungs: Clear to auscultation, Excusion symmetrical. Negative for: Rhonchi, Wheezes Abdomen:: Bowel sounds x 4, Soft, Non-distended, Tender - RUQ. Negative for: Hepatosplenomegaly Extremities:: Negative for: Cyanosis, Edema Neurological: Neuro grossly intact Skin:: Negative for: Lesions, Rash, Petechiae, Ecchymosis Psychiatric:: Appropriate affect, Euthymic Lymphatics:: Negative for: Cervical lymphadenopathy, Supraclavicular lymphadenopathy, Axillary lymphadenopathy Laboratory Data: Laboratory Tests 09/26/19 09/26/19 09/26/19 Range/Units 12:40 06:28 06:24 WBC 6.8 (4.4-11.0) K/mm3 RBC 4.13 L (4.2-5.4) M/mm3 Hgb 11.3 L (12.0-15.0) g/dL Hct 36.1 L (37-47) % MCV 87.4 (81-99) fL MCH 27.4 (27.0-32.0) pg MCHC 31.3 L (32-36) g/dL RDW Std Deviation 47.1 H (35.1-43.9) fl RDW Coeff of Audrey 14.6 (11.6-14.6) % Plt Count 247 (150-450) K/mm3 MPV 11.7 (6.2-12.0) fl Immature Gran % (Auto) 0.400 (0.0-0.9) % Neut % (Auto) 69.9 (47-70) % Lymph % (Auto) 18.5 L (19-41) % [place] % (Auto) 9.0 (0-10) % Eos % (Auto) 1.0 (0-5) % Baso % (Auto) 1.2 H (0-1) % Absolute Neuts (auto) 4.7 (2.0-7.7) X10^3/uL Absolute Lymphs (auto) 1.25 (0.83-4.51) X10^3/uL Nucleated RBC % 0 (0-5) % PT 14.5 (11.7-14.9) SECONDS INR 1.2 APTT 31.7 (24.1-36.2) Seconds Sodium 141 (136-145) mmol/L Potassium 4.1 (3.5-5.1) mmol/L Chloride 111 H (98-107) mmol/L Carbon Dioxide 25.0 (21.0-32.0) mmol/L Anion Gap 5 (5-15) BUN 5 L (7-18) mg/dL Creatinine 0.61 (0.55-1.02) mg/dL Estim Creat Clear Calc 79.10 ml/min Est GFR (MDRD) Af Amer 129 (>60) mL/min Est GFR (MDRD) Non-Af 106 (>60) mL/min BUN/Creatinine Ratio 8.3 L (10-20) RATIO Glucose 73 L (74-106) mg/dL Calcium 8.7 (8.5-10.1) mg/dL Phosphorus (2.5-4.9) mg/dL Magnesium (1.6-2.6) mg/dL Total Bilirubin 0.60 (0.20-1.00) mg/dL AST 100 H (15-37) U/L ALT 32 (13-56) U/L Alkaline Phosphatase 174 H (45-117) U/L Total Protein 6.9 (6.4-8.2) g/dL Albumin 2.9 L (3.2-5.0) g/dL Globulin 4.0 (2.2-4.2) g/dL Albumin/Globulin Ratio 0.7 L (0.9-2.4) RATIO Lipase (73-393) U/L 09/25/19 09/25/19 09/25/19 Range/Units 19:00 19:00 16:05 WBC 9.4 (4.4-11.0) K/mm3 RBC 4.08 L (4.2-5.4) M/mm3 Hgb 11.3 L (12.0-15.0) g/dL Hct 35.6 L (37-47) % MCV 87.3 (81-99) fL MCH 27.7 (27.0-32.0) pg MCHC 31.7 L (32-36) g/dL RDW Std Deviation 47.0 H (35.1-43.9) fl RDW Coeff of Audrey 14.7 H (11.6-14.6) % Plt Count 317 (150-450) K/mm3 MPV 11.5 (6.2-12.0) fl Immature Gran % (Auto) 0.700 (0.0-0.9) % Neut % (Auto) 74.4 H (47-70) % Lymph % (Auto) 16.4 L (19-41) % [place] % (Auto) 7.2 (0-10) % Eos % (Auto) 0.7 (0-5) % Baso % (Auto) 0.6 (0-1) % Absolute Neuts (auto) 7.0 (2.0-7.7) X10^3/uL Absolute Lymphs (auto) 1.54 (0.83-4.51) X10^3/uL Nucleated RBC % 0 (0-5) % PT (11.7-14.9) SECONDS INR APTT (24.1-36.2) Seconds Sodium 142 (136-145) mmol/L Potassium 4.1 (3.5-5.1) mmol/L Chloride 109 H (98-107) mmol/L Carbon Dioxide 25.0 (21.0-32.0) mmol/L Anion Gap 8 (5-15) BUN 8 (7-18) mg/dL Creatinine 0.73 (0.55-1.02) mg/dL Estim Creat Clear Calc 66.10 ml/min Est GFR (MDRD) Af Amer 104 (>60) mL/min Est GFR (MDRD) Non-Af 86 (>60) mL/min BUN/Creatinine Ratio 11.0 (10-20) RATIO Glucose 89 (74-106) mg/dL Calcium 9.5 (8.5-10.1) mg/dL Phosphorus 3.7 (2.5-4.9) mg/dL Magnesium 2.1 (1.6-2.6) mg/dL Total Bilirubin 0.50 (0.20-1.00) mg/dL AST 99 H (15-37) U/L ALT 36 (13-56) U/L Alkaline Phosphatase 187 H (45-117) U/L Total Protein 7.3 (6.4-8.2) g/dL Albumin 3.4 (3.2-5.0) g/dL Globulin 3.9 (2.2-4.2) g/dL Albumin/Globulin Ratio 0.9 (0.9-2.4) RATIO Lipase (73-393) U/L 09/25/19 Range/Units 16:05 WBC (4.4-11.0) K/mm3 RBC (4.2-5.4) M/mm3 Hgb (12.0-15.0) g/dL Hct (37-47) % MCV (81-99) fL MCH (27.0-32.0) pg MCHC (32-36) g/dL RDW Std Deviation (35.1-43.9) fl RDW Coeff of Audrey (11.6-14.6) % Plt Count (150-450) K/mm3 MPV (6.2-12.0) fl Immature Gran % (Auto) (0.0-0.9) % Neut % (Auto) (47-70) % Lymph % (Auto) (19-41) % [place] % (Auto) (0-10) % Eos % (Auto) (0-5) % Baso % (Auto) (0-1) % Absolute Neuts (auto) (2.0-7.7) X10^3/uL Absolute Lymphs (auto) (0.83-4.51) X10^3/uL Nucleated RBC % (0-5) % PT (11.7-14.9) SECONDS INR APTT (24.1-36.2) Seconds Sodium (136-145) mmol/L Potassium (3.5-5.1) mmol/L Chloride (98-107) mmol/L Carbon Dioxide (21.0-32.0) mmol/L Anion Gap (5-15) BUN (7-18) mg/dL Creatinine (0.55-1.02) mg/dL Estim Creat Clear Calc ml/min Est GFR (MDRD) Af Amer (>60) mL/min Est GFR (MDRD) Non-Af (>60) mL/min BUN/Creatinine Ratio (10-20) RATIO Glucose (74-106) mg/dL Calcium (8.5-10.1) mg/dL Phosphorus (2.5-4.9) mg/dL Magnesium (1.6-2.6) mg/dL Total Bilirubin (0.20-1.00) mg/dL AST (15-37) U/L ALT (13-56) U/L Alkaline Phosphatase (45-117) U/L Total Protein (6.4-8.2) g/dL Albumin (3.2-5.0) g/dL Globulin (2.2-4.2) g/dL Albumin/Globulin Ratio (0.9-2.4) RATIO Lipase 137 (73-393) U/L Diagnostic Data: Diagnostic Data Abdomen/Pelvis CT 09/25/19 15:52 IMPRESSION: Multiple ill-defined lesions throughout the liver. Retroperitoneal and chery hepatis lymphadenopathy. These findings suggest metastatic disease in the setting of a colon cancer history. Area of colonic wall thickening as described above may indicate local malignancy. Questionable left lung base 7 mm nodule. Electronically Signed: Reid Rodriguez, at 18:09 EST Tel , Service support , Assessment and Plan Metastatic disease to liver and retroperitoneal nodes with abdominal pain. History of colorectal cancer and breast cancer. Left lung nodule. I agree with pain medication for comfort. Suggestion: F/u on CEA and CA19-[address] chest and CT guided bx of liver. Will not follow further on this admission. Can follow as outpatient for Biopsy results. Thanks. Medications: Prescriptions This Visit Medication Instructions Recorded Multivitamins,Therapeutic 1 tab PO DAILY 09/25/19 [Multivitamin] Sertraline HCl 50 mg PO DAILY 09/25/19 Medications Added to Medication List This Visit Category Date Time Status Ensure Clear Med 09/26/19 14:00 Active 120 ml PO 4X/DAY Rizatriptan Benzoate [Maxalt] Med 09/26/19 08:52 Active 10 mg PO .X1 PRN PRN Sertraline HCl [Zoloft] Med 09/26/19 10:00 Active 50 mg PO DAILY Primary Care Provider: SHAR Salter Referring Provider: - Problem List (1) History of colon cancer in adulthood Status: Chronic (2) Metastatic cancer Status: Acute (3) History of breast cancer Status: Chronic Code Visit Office Visits / Consults: [id number] IP Consult L5
[2019-09-27] VITALS (19 sets, daily range): BP systolic 109–147; BP diastolic 42–77; PULSE 69–91; RESP 12–25; TEMP 36.6–37.1; O2SAT 92–98; BMI 32.8
--- NOTE | 2019-09-27 | IMM_PTH ---
PATIENT: CRISTINA STRONG LOC: MS3 U#:[id number] AGE/SX: 64/F ROOM: MS319 RE09/25/[address]: Dr. Rajwinder Aiken MD : 1955 BED: 1 DIS: 09/28/2019 SPEC #: [id number] RECD: 09/28/19 10:52 STATUS: SOUT REQ #: [id number] MAUREEN: 09/27/19 00:[address]: Jc Humphrey DEPT: IMMUNOHISTOCHEMISTRY RECD BY: Madie Mayfield ENTERED: 09/28/19 10:54 SP TYPE: IMMUNO OTHR DR: MD Dr. Floyd No MD Dr. Nana Yaa Koram, MD Jessica Witmer, REGULATOR TESTER-C Tissues: Liver, NOS Procedures: RCC (add) MSH2 (add) MLH-1 (add) MSH6 (add) Anti-PMS2 (add) NAPSIN A (add) CA-125 (add) CEA (add) CK19 (add) CK20 (add) CK7 (add) CK8 (add) OLEARY-2 (add) KACY (add) HEP PAR (add) HER2 SEUN (add) KI-67 (add) MAMM (add) P53 (add) OR (add) TTF1 (add) Pankeratin (add) GATA3 (add) CDX2 (add) CD44 (add) ER (initial) PHYSICIAN & INSTITUTION [facility] [address] [place] [id number] SPECIMEN INFORMATION: Tissue Source: Right lobe liver Clinical Info: Liver lesions, breast and colon cancer Specimen Number: [id number] CPT code: 70248, 40658 x25 METHODOLOGY: Deparaffinized sections of prefer/formalin-fixed tissue or PAP/DQ stained slides are incubated with monoclonal/polyclonal antibodies/oligonucleotide probes. Localization is made via biotin free immunoperoxidase method. Appropriate controls are performed and reacted as expected. Results on target cell population are indicated in the following table: RESULTS: ANTIBODY / CLONE RESULT ER (6F11) negative OR (1E2) negative Mammaglobin (31A5) negative GATA3 (L50-823) negative AE1-3 (AE1/AE3/PCK26) positive CK7 (OV-TL12/30) positive CK8 (10sojgG98) positive CK20 (KS20.8) negative OLEARY-2 (SP21) positive CDX2 (MOG9072G) positive TTF-1 (8G7G3/1) negative Napsin A (Rabbit Polyclonal) positive, focal P53 (DO-7) positive, 83% Ki-67 (30-9) positive, moderate to high CEA (11-7/TF-3HB-1) positive KACY (E29) positive CK19 (A53-B/A2.26) positive RCC (PN-15) negative HepPar (OCh1E5) negative anti-CD44 (SP37) positive CA125 (OC125) negative These tests were developed and their performance characteristics determined by [facility]. They may not have been cleared or approved by the U.S. Food and Drug Administration. The FDA has determined that such clearance or approval is not necessary. The above immunohistochemical/dualISH markers are ordered and reviewed by the Pathologist. INTERPRETATION: Right lobe of liver, CT-guided core biopsy: Metastatic adenocarcinoma consistent with colonic primary. AM:latanya 10/02/19 Case has been reviewed in consultation with Dr. Negro who concurs with the above diagnosis. IDC:KISHAN ADDENDUM ADDENDUM ADDENDUM ADDENDUM ADDENDUM ADDENDUM ADDENDUM ADDENDUM ADDENDUM ADDENDUM ADDENDUM ADDENDUM ADDENDUM ADDENDUM ADDENDUM 10/05/2019 12:35 ADDENDUM 10/05/2019 12:35 ADDENDUM 10/05/2019 12:35 ADDENDUM 10/05/2019 12:35 ADDENDUM 10/05/2019 12:35 ANTIBODY / CLONE RESULT MLH-1 (M1) positive MSH2 (25D12) positive MSH6 (44) positive PMS2 (EAJ3903) positive Her-2neu (CB11) positive (3+) The above immunohistochemical/dualISH markers are ordered by Dr. Eubanks and reviewed by the pathologist. Result of Microsatellite Instability Study: Negative (no loss of mismatch protein; no microsatellite instability detected). SJ:latanya 10/05/19
[2019-09-27] MEDS: oxyCODONE 5 MG Tablet 10 MG PO ×3 (03:26→23:13)
[2019-09-27] MEDS: 0.9% Normal Saline 1,000 ML 100 ML IV (03:27)
[2019-09-27] MEDS: Ondansetron 4 MG/2 ML Vial IV ×2 (08:14→14:32)
[2019-09-27] MEDS: proCHLORPERazine 10 MG/2 ML Vial 5 MG IV ×2 (10:00→18:21)
--- NOTE | 2019-09-27 10:00 | CT_ITS ---
PROCEDURE: CT DIRECTED CORE LIVER BIOPSY INDICATION: Female, 64 years old. LIVER METS PHYSICIAN: Dr. Dayron Cox CONSENT: Written informed consent was obtained having explained the risks, benefits and alternatives in detail with the patient who accepted the risks and agreed to proceed. Laboratory review and clinical assessment was performed. CONSCIOUS SEDATION PROTOCOL: The Drugs used were: 2 mg Versed, IV., and 50 mcg Fentanyl, IV. The sedation time was: 22 minutes. Conscious sedation was started at 10:22 AM and terminated at 10:44 AM The conscious sedation protocol was independently monitored. RADIATION DOSAGE (If Supplied By Facility): CTDIvol = ( 9.5 ) mGy, DLP = ( 288.71 ) mGycm Individualized dose optimization techniques were used for this CT. TECHNIQUE: Using CT image guidance with image documentation, a suitable location in the right lobe of the liver was identified. Using an anterior approach, puncture of the liver was uneventful with an 18-gauge core needle system. 3 18-gauge core samples were obtained, and submitted in formalin to the pathologist for further assessment. Followup CT scan revealed no distinct sequelae. CT/Biopsy/Inj or Needle Placement IMPRESSION: 1. CT directed core needle biopsy of the liver, using CT image guidance with image documentation as described. 2. Conscious Sedation protocol utilized with independent monitoring. Electronically Signed: Crow Padgett, at 11:23 EST , Service support ,
[2019-09-27] MEDS: Midazolam 2 MG/2 ML Syringe IV (10:22)
[2019-09-27] MEDS: fentaNYL 100 MCG/2 ML Ampul IV (10:25)
--- NOTE | 2019-09-27 10:40 | ASPIGT_PTH ---
PATIENT: CRISTINA STRONG LOC: MS3 U#:[id number] AGE/SX: 64/F ROOM: MS319 RE09/25/[address]: Dr. Rajwinder Aiken MD : 1955 BED: 1 DIS: 09/28/2019 SPEC #: [id number] RECD: 09/27/19 11:25 STATUS: ABDIRAHMAN NANI #: [id number] MAUREEN: 09/27/19 10:[address]: Jc Humphrey DEPT: SURGICAL PATHOLOGY RECD BY: Roger Deshpande ENTERED: 09/27/19 11:26 SP TYPE: ASP RAD OTHR DR: MD Dr. Floyd No MD Jessica Witmer, MASTER PILOT-C Tissues: Liver, NOS Procedures: FNA Specimen Adequacy Special Stain Group II Surgery Specimen Level V Imprint (control) Cytology Other HEADER OPERATION: CT-guided liver biopsy PRE-OP DIAGNOSIS: Liver lesions, breast cancer, colon cancer TISSUE SUBMITTED: Right lobe liver 18 gauge core x3 MICROSCOPIC DIAGNOSIS Right lobe of liver mass, CT-guided needle core biopsy: Metastatic adenocarcinoma consistent with colonic primary. See comment. AM:latanya 09/28/19 COMMENT The specimen is evaluated at the time of crush prep by Dr. Timmons. Immediate Evaluation = Positive for malignant cells consistent with metastatic non-small cell carcinoma. Immunohistochemistry ([id number]) supports the above diagnosis. Case has been reviewed in consultation with Dr. Negro who concurs with the above diagnosis. IDC:SJ MICROSCOPIC DESCRIPTION Slides are reviewed. GROSS DESCRIPTION Received in fixative is one container labeled with the patient's name and designated liver lesion. The specimen consists of three cores of light barbosa soft tissue. Each core has an average length of 1 cm and a maximal diameter of 0.1 cm. The specimen is totally submitted in one cassette. / AM:latanya 09/27/19 TC:0 CPT: 17656 ADDENDUM ADDENDUM ADDENDUM ADDENDUM ADDENDUM ADDENDUM ADDENDUM ADDENDUM ADDENDUM ADDENDUM ADDENDUM ADDENDUM 10/25/2019 12:15 ADDENDUM 10/25/2019 12:15 ADDENDUM 10/25/2019 12:15 ADDENDUM 10/25/2019 12:15 ADDENDUM 10/25/2019 12:15 ONKOSIT NGS SEQUENCING REPORT FROM [facility] RESULT SUMMARY: Normal PERTINENT NEGATIVE RESULTS: The following genes are negative for clinically relevant mutations. Mutational hotspots and surrounding exonic regions were interrogated for DNA level point mutations and indels (fusions not assayed). BRAF (exons 11, 15) inclusive of V600 KRAS (exons 2, 3, 4) Please see complete report in e-chart or EMR for further details
--- NOTE | 2019-09-27 11:50 | EKG12_ITS ---
Test Reason : RYTHUM CANGE Blood Pressure : / mmHG Vent. Rate : 073 BPM Atrial Rate : 073 BPM P-R Int : 154 ms QRS Dur : 096 ms QT Int : 392 ms P-R-T Axes : 053 -04 015 degrees QTc Int : 431 ms Sinus rhythm with frequent Premature ventricular complexes Otherwise normal ECG No previous ECGs available Confirmed by ODALIS LEY ([id number]), video news editor VICTOR HUGO MCCLAIN ([id number]) on 09/28/2019 1:23:10 PM Referred By: LEXII Confirmed By:ODALIS LEY
[2019-09-27 12:32] LABS: Anion Gap 5 (5-15); BUN 6 mg/dL (7-18); Calcium,Total 8.6 mg/dL (8.5-10.1); Chloride 110 mmol/L (98-107); EST Glomerular Filtration Rate 108 mL/min (>60); Est Glom Filt Rate - Afr Amer 130 mL/min (>60); Estimated Creatinine Clearance 80.42 ml/min; Glucose 80 mg/dL (74-106); Magnesium 1.9 mg/dL (1.6-2.6); Phosphorus 3.3 mg/dL (2.5-4.9); Potassium 4.1 mmol/L (3.5-5.1); Sodium Level 140 mmol/L (136-145)
--- NOTE | 2019-09-27 13:00 | PCM.PN.HOSP ---
Patient Problems: Active and Suspected Problems (Last Updated 09/01/17 @ 11:33 by Wendy Jerome) Intractable abdominal pain (Acute) Metastatic cancer (Acute) Colon cancer (Acute) Subjective: Says that she thinks she has a sinus infection, she gets about 3 times a year and I feel like this with nausea and headache. Vitals/I&O's: Vital Signs Temp Pulse Resp BP Pulse Ox 98.7 F 72 16 120/56 L 98 09/27/19 11:50 09/27/19 11:50 09/27/19 11:50 09/27/19 11:50 09/27/19 11:50 Oxygen Flow Rate (L/min) [6] 2 Oxygen Flow Rate (L/min) [5] 2 Oxygen Flow Rate (L/min) [4] 2 Oxygen Flow Rate (L/min) [3] 2 Oxygen Flow Rate (L/min) [2] 2 Oxygen Flow Rate (L/min) 2 Oxygen Delivery Method [1] Room Air Oxygen Delivery Method [6] Nasal Cannula Oxygen Delivery Method [5] Nasal Cannula Oxygen Delivery Method [4] Nasal Cannula Oxygen Delivery Method [3] Nasal Cannula Oxygen Delivery Method [2] Nasal Cannula Oxygen Delivery Method Nasal Cannula Weight: 185 lb Body Mass Index (BMI) 32.8 Intake and Output for Last 24 Hours 09/25/19 09/26/19 09/27/19 23:59 23:59 23:59 Intake Total 1000 / 1000 2165 / 2165 1066.67 / 1066.67 Balance 1000 / 1000 2165 / 2165 1066.67 / 1066.67 General: Alert, Oriented x3, Cooperative, No apparent distress HEENT: Atraumatic, PERRLA, EOMI, Normocephalic, frontal sinus tenderness Oral: Moist Mucosa Neck: Supple, No JVD Lungs: Clear to auscultation, Normal air movement, No rhonchi, No wheeze, No rales Cardiovascular: Regular rate, Regular Rhythm, Normal S1, Normal S2, No murmurs Abdomen: Soft, Non-Distended, No Hepato-splenomegaly, Tender -mostly on the right now after her liver biopsy Extremities: No edema, Capillary Refill Less than 3 Seconds Skin: No rashes, No breakdown Neurological: Neuro grossly intact, Sensory exam intact to light touch and pain Psych/Mental Status: Normal Affect, Appropriate Laboratory Results 09/26/19 12:40: PT 14.5, INR 1.2, APTT 31.7 09/27/19 12:11: Sodium 140, Potassium 4.1, Chloride 110 H, Carbon Dioxide 25.0, Anion Gap 5, BUN 6 L, Creatinine 0.60, Estim Creat Clear Calc 80.42, Est GFR (MDRD) Af Amer 130, Est GFR (MDRD) Non-Af 108, BUN/Creatinine Ratio 10.0, Glucose 80, Calcium 8.6, Phosphorus 3.3, Magnesium 1.9 Current Medications Acetaminophen (Tylenol) 650 mg PO Q6H PRN PRN PRN Reason: Pain Score 1-10/Temp > 100.7 F Last Admin: 09/26/19 02:10 Dose: 650 mg Documented by: Al Hydroxide/Mg Hydroxide (Mylanta Ii) 30 ml PO Q6H PRN PRN PRN Reason: Gastric Burning Albuterol Sulfate (Ventolin Aerosols) 2.5 mg INHALATION Q2H PRN PRN PRN Reason: Shortness of Breath/Wheezing Amoxicillin/Clavulanate Potassium (Augmentin Tablet) 875 mg PO BID [facility] Stop: 10/04/19 12:57 Docusate Sodium (Colace) 100 mg PO BID PRN PRN PRN Reason: Constipation Famotidine (Pepcid) 20 mg PO BID [facility] Last Admin: 09/27/19 12:15 Dose: Not Given Documented by: Gabapentin (Neurontin) 100 mg PO TIDCM [facility] Last Admin: 09/27/19 12:15 Dose: Not Given Documented by: Glucagon () 1 mg IM .X1 PRN PRN Reason: Hypoglycemia Guaifenesin (Robitussin) 20 ml PO Q4H PRN PRN PRN Reason: COUGH Hydralazine HCl (Apresoline Iv) 10 mg IV Q4H PRN PRN PRN Reason: SBP > 160 Hydromorphone HCl (Dilaudid Inj) 0.5 mg IV Q4H PRN PRN PRN Reason: Pain Score 6-10/10 Dextrose (Dextrose 10%-Water) 250 mls @ 999 mls/hr IV .Q16M PRN; Protocol PRN Reason: HYPOGLYCEMIA Loratadine (Claritin) 10 mg PO DAILY PRN PRN PRN Reason: ALLERGIES Nutritional Formula (Lactose Free) (Ensure Clear) 120 ml PO 4X/DAY [facility] Last Admin: 09/27/19 08:14 Dose: Not Given Documented by: Ondansetron HCl (Zofran) 4 mg IV Q8H PRN PRN PRN Reason: NAUSEA/VOMITING Last Admin: 09/27/19 08:14 Dose: 4 mg Documented by: Oxycodone HCl (Oxyir) 5 mg PO Q4H PRN PRN PRN Reason: Pain Score 4-5/10 Last Admin: 09/26/19 06:21 Dose: 5 mg Documented by: Oxycodone HCl (Oxyir) 10 mg PO Q4H PRN PRN PRN Reason: Pain Score 6-10/10 Last Admin: 09/27/19 03:26 Dose: 10 mg Documented by: Polyethylene Glycol (Miralax) 17 gm PO DAILY [facility] Last Admin: 09/27/19 08:16 Dose: Not Given Documented by: Prochlorperazine Edisylate (Compazine Iv) 5 mg IV Q4H PRN PRN PRN Reason: Breakthrough nausea/vomiting Last Admin: 09/27/19 10:00 Dose: 5 mg Documented by: Psyllium Hydrophilic Mucilloid (Metamucil) 1 packet PO DAILY PRN PRN PRN Reason: Constipation Rizatriptan Benzoate (Maxalt) 10 mg PO .X1 PRN PRN PRN Reason: MIGRAINE Last Admin: 09/26/19 22:47 Dose: 10 mg Documented by: Senna/Docusate Sodium (Senokot-S, Rosangela-Colace) 2 tablet PO BID PRN PRN PRN Reason: Constipation Sertraline HCl (Zoloft) 50 mg PO DAILY [facility] Last Admin: 09/26/19 10:48 Dose: 50 mg Documented by: Temazepam (Restoril) 15 mg PO QHS PRN PRN PRN Reason: INSOMNIA Last Admin: 09/25/19 21:34 Dose: 15 mg Documented by: Throat Lozenges (Cepacol Sore Throat Lozenge) 1 lozenge MUCOUS MEM Q2H PRN PRN PRN Reason: SORE THROAT STROKE Vital Signs/Narrative: Vital Signs Temp Pulse Pulse Pulse Pulse Pulse Pulse 09/27/19 11:50 98.7 F 72 09/27/19 11:37 98.3 F 69 09/27/19 11:18 75 09/27/19 11:03 77 09/27/19 10:58 73 09/27/19 10:53 73 09/27/19 10:48 74 09/27/19 10:20 73 76 73 74 73 09/27/19 09:55 98.6 F 74 09/27/19 09:44 Pulse Resp Resp Resp Resp Resp Resp 09/27/19 11:50 16 09/27/19 11:37 16 09/27/19 11:18 12 09/27/19 11:03 12 09/27/19 10:58 12 09/27/19 10:53 12 09/27/19 10:48 25 H 09/27/19 10:20 86 12 13 12 12 17 09/27/19 09:55 16 09/27/19 09:44 Resp BP BP BP BP BP BP 09/27/19 11:50 120/56 L 09/27/19 11:37 109/42 L 09/27/19 11:18 123/59 H 09/27/19 11:03 114/42 L 09/27/19 10:58 125/53 H 09/27/19 10:53 126/44 H 09/27/19 10:48 126/69 H 09/27/19 10:20 13 130/63 H 129/60 H 110/49 L 120/64 127/71 H 09/27/19 09:55 137/62 H 09/27/19 09:44 BP Pulse Ox 09/27/19 11:50 98 09/27/19 11:37 95 09/27/19 11:18 98 09/27/19 11:03 94 09/27/19 10:58 95 09/27/19 10:53 93 09/27/19 10:48 96 09/27/19 10:20 118/66 09/27/19 09:55 96 09/27/19 09:44 94 Medical Necessity - Tobacco Use Smoking Status: Never smoker Tobacco Use: Non-smoker Assessment/Plan All Active Problems (Last Updated 09/01/17 @ 11:33 by Wendy Jerome) Intractable abdominal pain (Acute) Metastatic cancer (Acute) Colon cancer (Acute) Acute bronchitis (Acute) Cough (Acute) 1. Intractable abdominal pain -Likely secondary to metastatic liver disease -She has a history of rectal cancer about 10 years ago as well as breast cancer 6 months ago -CT scan with multiple lesions, biopsy obtained today -C/w with oxycodone 5 to 10 mg every 4 PRN -May need to add OxyContin to help control her pain -Can restart Lovenox in the morning 2. Migraines/sinusitis -She had a headache this morning -Continue with her triptan -We will start her on Augmentin twice daily given the frontal sinus tenderness 3. Anxiety/depression -Stable -Continue Zoloft 4. GERD -Stable -Continue with PPI 5. Bigeminy/trigeminy -She went into reported rhythm during the procedure -BMP mag and phosphorus all normal -We will obtain an EKG and place her on telemetry, will probably proceed with an echo DVT: Lovenox Code Visit OBSV E&M: 15538 Subsequent observation care L2
--- NOTE | 2019-09-27 14:56 | ECHOCS_ITS ---
Version 2 Reason For Study: ARRHYTHMIA, trigemeny & abnormal electrolytes Procedure This was a 2D Doppler, Color Flow transthoracic echocardiogram. The study was technically difficult. Due to breast surgery 05/2019 and body habitus. Contrast injection was performed. Left Ventricle Normal LV size. The estimated ejection fraction is 60 %. Normal diastology for age. No regional wall motion abnormalities noted. Right Ventricle Normal RV size. Normal systolic function. Atria Normal left atrium. Normal right atrium. No doppler evidence for ASD. Mitral Valve There is no mitral valve stenosis. Trivial mitral valve insufficiency. Tricuspid Valve There is no tricuspid stenosis. Unable to estimate RV systolic pressure due to insufficient tricuspid regurgitant envelope. Trivial tricuspid valve insufficiency. Aortic Valve Trisinus/trileaflet aortic valve. There is no aortic stenosis. Trivial aortic valve insufficiency. Pulmonic Valve There is no pulmonic valvular stenosis. No pulmonic valve insufficiency. Great Vessels Normal aortic root. Pericardium/Pleural No pericardial effusion. Medication Diluted definity 3.0ml given slow IV push to enhance endocardial definition. MMode/2D Measurements & Calculations LVIDd: 4.5 cm IVSd: 1.0 cm Ao root diam: 3.3 cm LVIDs: 3.3 cm LVPWd: 0.89 cm RVDd: 3.5 cm FS: 27.5 % LAV(MOD-bp): 70.6 ml LA A4 area: 22.7 cm2 LA dimension(2D): 3.9 cm LAV(MOD-bp) Indexed: 37.8 ml/m2 LAV(MOD-sp2): 67.6 ml LAV(MOD-sp4): 74.6 ml RA A4 area: 12.6 cm2 Doppler Measurements & Calculations Ao V2 max: 198.1 cm/sec LV V1 max: 130.5 cm/sec PA V2 max: 129.6 cm/sec Ao max P.8 mmHg LV V1 max P.8 mmHg Ao V2 mean: 132.2 cm/sec LV V1 mean P.2 mmHg Ao mean P.0 mmHg LV V1 mean: 99.0 cm/sec Ao V2 VTI: 37.7 cm LV V1 VTI: 27.7 cm TR max thomas: 308.2 cm/sec TR max P.0 mmHg Interpretation Summary The estimated ejection fraction is 60 %. Normal diastology for age. Trivial mitral valve insufficiency. Trivial tricuspid valve insufficiency. Trivial aortic valve insufficiency. Diluted definity 3.0ml given slow IV push to enhance endocardial definition. The study was technically difficult. Ordering Physician: Jc Humphrey Referring Physician: Citlaly Tovar Performed By: Mahnaz Ocampo, RDCS, RVT
[2019-09-27] MEDS: Amox/Clavulanate 875 MG Tablet PO ×2 (15:13→21:48)
[2019-09-27] MEDS: Sertraline 50 MG Tablet PO (15:13)
[2019-09-27 17:02] LABS: Carbohydrate Ag 19-9 2261 1182 U/mL (0-35)
[2019-09-27] MEDS: 0.9% Saline Lock 10 ML Syringe IV (18:21)
[2019-09-28 03:30] VITALS: BP 137/75; PULSE 73; RESP 16; TEMP 36.7; O2SAT 95
[2019-09-28 05:42] VITALS: PULSE 75
[2019-09-28] MEDS: oxyCODONE 5 MG Tablet 10 MG PO (06:22)
[2019-09-28] MEDS: Enoxaparin 40 MG/0.4 ML Syringe SC (06:22)
[2019-09-28] MEDS: proCHLORPERazine 10 MG/2 ML Vial 5 MG IV (06:22)
[2019-09-28] MEDS: 0.9% Saline Lock 10 ML Syringe IV (06:22)
[2019-09-28 07:55] VITALS: O2SAT 95
[2019-09-28 08:21] VITALS: BP 119/64; PULSE 78; RESP 16; TEMP 36.7; O2SAT 94
[2019-09-28] MEDS: Amox/Clavulanate 875 MG Tablet PO (08:49)
[2019-09-28] MEDS: Gabapentin 100 MG Capsule PO (08:49)
[2019-09-28] MEDS: Sertraline 50 MG Tablet PO (08:49)
[2019-09-28] MEDS: Famotidine 20 MG Tablet PO (08:50)
--- NOTE | 2019-09-28 09:58 | PCM.DC ---
- Discharge Diagnoses Current Active Problems: Current Active and Chronic Problems (Last Updated 09/01/17 @ 11:33 by Wendy Jerome) Intractable abdominal pain (Acute) Metastatic cancer (Acute) Colon cancer (Acute) Anxiety and depression (Chronic) Migraine (Chronic) GERD (gastroesophageal reflux disease) (Chronic) History of breast cancer (Chronic) History of colon cancer in adulthood (Chronic) You will use the following diet at home:: Cardiac Your food should be the consistency of: Regular Your liquids should be the consistency of: Regular/Thin Discharge Activity: Return to Normal Activity Weight Bearing Status: Weight bearing as tolerated Call your doctor if you observe: Fever of 101 or Higher, Uncontrolled pain Instructions: Liver Biopsy, Understanding Liver Biopsy, Liver Biopsy Additional Instructions: biopsy results still pending. To follow up with PCP and oncologist to discuss results when ready Allergies/Adverse Reactions: Allergies SEASONAL Allergy (Mild, Uncoded 09/25/19 15:45) Other Medications to take at Discharge rabeprazole 20 mg tablet,delayed release 20 mg PO DAILY@1700 09/01/17 Aspirin/Acetaminophen/Caffeine [Excedrin Migraine Caplet] 1 tab PO DAILY 03/02/19 Calcium Carbonate/Vitamin D3 [Calcium 600 + Vit D Tablet] 1 tab PO DAILY 03/02/19 Sumatriptan Succinate [Imitrex] 100 mg PO .X1 PRN 03/02/19 Multivitamins,Therapeutic [Multivitamin] 1 tab PO DAILY 09/25/19 Sertraline HCl 50 mg PO DAILY 09/25/19 Oxycodone HCl/Acetaminophen [Oxycodone-Acetaminophen 5-325] 1 ea PO Q4H PRN PRN 3 Days #20 tab 09/28/19 The following prescriptions were given: Oxycodone HCl/Acetaminophen [Oxycodone-Acetaminophen 5-325] 1 ea PO Q4H PRN PRN 3 Days #20 tab PRN Reason: Pain Score 1-10/10 Transmission Status: Received by [facility]/pharmacy #[id number] Primary Care Physician: Citlaly Tovar NP-C [Primary Care Provider] - Please follow up with your Primary Care Physician in: one week Test Results: Test results from this visit will be discussed in further detail at your follow-up appointment, if applicable. Please Follow Up With: Floyd Eubanks MD When: 1-2 weeks Proposed Discharge Date: 09/28/19
--- NOTE | 2019-09-28 10:00 | DS.PCM_ITS ---
Discharge Date and Diagnosis Date of Admission: 09/25/19 Date of Discharge: 09/28/19 - Primary Discharge Diagnosis Active and Suspected Problems (Last Updated 09/01/17 @ 11:33 by Wendy Jerome) Intractable abdominal pain (Acute) Metastatic cancer (Acute) Colon cancer (Acute) - Secondary Discharge Diagnosis Chronic Problems (Last Updated 09/01/17 @ 11:33 by Wendy Jerome) Anxiety and depression (Chronic) Migraine (Chronic) GERD (gastroesophageal reflux disease) (Chronic) History of breast cancer (Chronic) History of colon cancer in adulthood (Chronic) Hospital Course and Treatment Imaging Results: Diagnostic Data Abdomen/Pelvis CT 09/25/19 15:52 IMPRESSION: Multiple ill-defined lesions throughout the liver. Retroperitoneal and chery hepatis lymphadenopathy. These findings suggest metastatic disease in the setting of a colon cancer history. Area of colonic wall thickening as described above may indicate local malignancy. Questionable left lung base 7 mm nodule. Electronically Signed: Reid Rodriguez, at 18:09 EST Tel , Service support , Biopsy CT 09/27/19 10:00 IMPRESSION: 1. CT directed core needle biopsy of the liver, using CT image guidance with image documentation as described. 2. Conscious Sedation protocol utilized with independent monitoring. Electronically Signed: Crow Padgett, at 11:23 EST , Service support , oncology- Dr Eubanks Operations: None, - - left needle localized lumpectomy with sentinel lymph node biopsy Procedures: - - liver biopsy Summary of Care Provided: The patient is a 64 year old F with an extensive past medical history which includes history of colon and rectal cancer s/p radiation and breast cancer status post lumpectomy as well as GERD, anxiety and depression and migraines. She was admitted through the ED on 09/25/2019 with a complaint of severe abdominal pain. Pain has been going on for about a few months and had associated nausea but no emesis. Pain had gradually worsened with associated cramping and worse after eating. In the ED, CT of the abdomen and pelvis done showed multiple ill-defined lesions throughout the liver, retroperitoneal region and chery hepatis lymphadenopathy most suggestive of metastatic disease as well as area of colonic wall thickening probably indicative of local malignancy. He was admitted and managed for intractable abdominal pain likely due to metastatic malignancy. She was started on IV pain meds and Toradol as well as Zofran. Oncology was consulted. CEA and CA-19-9 were ordered and she also had a CT- guided biopsy of the liver on 09/27/2019. Patient's abdominal pain improved markedly and she felt much better. CEA antigen was pending at time of discharge but CA-19-9 was markedly elevated at 1182. She remained stable and was discharged home on 09/28/2019. She is to follow-up with oncology for liver biopsy results to be discussed with her when it is available. She was given a prescription for p.o. oxycodone 5 to 25 mg 1 tablet every 6 hours as needed x20 tabs with no refills. OARRS was checked and no red flags were seen. She was also given a prescription for p.o. Zofran. Patient seen and examined prior to discharge. She felt much better and abdominal pain had improved. She denied any nausea, vomiting, fever or chills, diarrhea or any other symptoms. 12 point review of systems is otherwise negative. Labs and vitals reviewed. Home medications reviewed and reconciled. o/e: Vital Signs Height 5 ft 3 in Weight: 185 lb Weight in Pounds 185.0 lbs Pulse Ox 94 Temperature 98.0 F Pulse Rate [1] 73 Pulse Rate [6] 86 Pulse Rate [5] 73 Pulse Rate [4] 74 Pulse Rate [3] 73 Pulse Rate [2] 76 Pulse Rate 78 Respiratory Rate [1] 12 Respiratory Rate [6] 13 Respiratory Rate [5] 17 Respiratory Rate [4] 12 Respiratory Rate [3] 12 Respiratory Rate [2] 13 Respiratory Rate 16 Blood Pressure [1] 130/63 Blood Pressure [6] 118/66 Blood Pressure [5] 127/71 Blood Pressure [4] 120/64 Blood Pressure [3] 110/49 Blood Pressure [2] 129/60 Blood Pressure 119/64 Blood Pressure Position Semi-Fowlers [] - Physical Exam Vitals/I&O's: Vital Signs Temp Pulse Resp BP Pulse Ox 98.0 F 78 16 119/64 94 09/28/19 08:21 09/28/19 08:21 09/28/19 08:21 09/28/19 08:21 09/28/19 08:21 Oxygen Flow Rate (L/min) [6] 2 Oxygen Flow Rate (L/min) [5] 2 Oxygen Flow Rate (L/min) [4] 2 Oxygen Flow Rate (L/min) [3] 2 Oxygen Flow Rate (L/min) [2] 2 Oxygen Flow Rate (L/min) 2 Oxygen Delivery Method [1] Room Air Oxygen Delivery Method [6] Nasal Cannula Oxygen Delivery Method [5] Nasal Cannula Oxygen Delivery Method [4] Nasal Cannula Oxygen Delivery Method [3] Nasal Cannula Oxygen Delivery Method [2] Nasal Cannula Oxygen Delivery Method Room Air Weight: 185 lb Body Mass Index (BMI) 32.8 Intake and Output for Last 24 Hours 09/26/19 09/27/19 09/28/19 23:59 23:59 23:59 Intake Total 2165 / 2165 2655.00 / 2775.00 120 / 120 Output Total 100 / 100 Balance 2165 / 2165 2555.00 / 2675.00 120 / 120 General: Alert, Oriented x3, Cooperative, No apparent distress HEENT: Atraumatic, PERRLA, EOMI, Normocephalic Oral: Moist Mucosa Neck: Supple, No JVD, Negative Carotid Bruits Lungs: Clear to auscultation, Normal air movement, No rhonchi, No wheeze, No rales Cardiovascular: Regular rate, Regular Rhythm, Normal S1, Normal S2, No murmurs Abdomen: Bowel Sounds Present, Soft, - - mild generalised tenderness, no guarding or rebound tenderness. Extremities: No clubbing, No cyanosis, No edema, Capillary Refill Less than 3 Seconds Skin: No rashes, No breakdown Musculoskeletal: No Tenderness to Palpation of Joints or Extremities Lymphatic: No Cervical, Supraclavicular, or Inguinal Adenopathy Neurological: Cranial nerves II-XII grossly intact, Neuro grossly intact, Motor Exam 5/5 strength throughout Psych/Mental Status: Normal Affect, Appropriate, Alert and oriented to time, place, person, mood and affect Laboratory Results 09/25/19 19:00: CA 19-9 Serial Monitor 09/25/19 19:00: CA 19-9 Serial Monitor 1182 H 09/27/19 12:11: Sodium 140, Potassium 4.1, Chloride 110 H, Carbon Dioxide 25.0, Anion Gap 5, BUN 6 L, Creatinine 0.60, Estim Creat Clear Calc 80.42, Est GFR (MDRD) Af Amer 130, Est GFR (MDRD) Non-Af 108, BUN/Creatinine Ratio 10.0, Glucose 80, Calcium 8.6, Phosphorus 3.3, Magnesium 1.9 Current Medications Acetaminophen (Tylenol) 650 mg PO Q6H PRN PRN PRN Reason: Pain Score 1-10/Temp > 100.7 F Last Admin: 09/26/19 02:10 Dose: 650 mg Documented by: Al Hydroxide/Mg Hydroxide (Mylanta Ii) 30 ml PO Q6H PRN PRN PRN Reason: Gastric Burning Albuterol Sulfate (Ventolin Aerosols) 2.5 mg INHALATION Q2H PRN PRN PRN Reason: Shortness of Breath/Wheezing Amoxicillin/Clavulanate Potassium (Augmentin Tablet) 875 mg PO BID [facility] Stop: 10/04/19 13:31 Last Admin: 09/28/19 08:49 Dose: 875 mg Documented by: Docusate Sodium (Colace) 100 mg PO BID PRN PRN PRN Reason: Constipation Enoxaparin Sodium (Lovenox) 40 mg SC DAILY@0600 [facility] Last Admin: 09/28/19 06:22 Dose: 40 mg Documented by: Famotidine (Pepcid) 20 mg PO BID [facility] Last Admin: 09/28/19 08:50 Dose: 20 mg Documented by: Gabapentin (Neurontin) 100 mg PO TIDCM [facility] Last Admin: 09/28/19 08:49 Dose: 100 mg Documented by: Glucagon () 1 mg IM .X1 PRN PRN Reason: Hypoglycemia Guaifenesin (Robitussin) 20 ml PO Q4H PRN PRN PRN Reason: COUGH Hydralazine HCl (Apresoline Iv) 10 mg IV Q4H PRN PRN PRN Reason: SBP > 160 Hydromorphone HCl (Dilaudid Inj) 0.5 mg IV Q4H PRN PRN PRN Reason: Pain Score 6-10/10 Dextrose (Dextrose 10%-Water) 250 mls @ 999 mls/hr IV .Q16M PRN; Protocol PRN Reason: HYPOGLYCEMIA Sodium Chloride () 250 mls @ 15 mls/hr IV .[id number] PRN PRN Reason: Saline Flush Loratadine (Claritin) 10 mg PO DAILY PRN PRN PRN Reason: ALLERGIES Nutritional Formula (Lactose Free) (Ensure Clear) 120 ml PO 4X/DAY [facility] Last Admin: 09/28/19 08:40 Dose: Not Given Documented by: Ondansetron HCl (Zofran) 4 mg IV Q8H PRN PRN PRN Reason: NAUSEA/VOMITING Last Admin: 09/27/19 14:32 Dose: 4 mg Documented by: Oxycodone HCl (Oxyir) 5 mg PO Q4H PRN PRN PRN Reason: Pain Score 4-5/10 Last Admin: 09/26/19 06:21 Dose: 5 mg Documented by: Oxycodone HCl (Oxyir) 10 mg PO Q4H PRN PRN PRN Reason: Pain Score 6-10/10 Last Admin: 09/28/19 06:22 Dose: 10 mg Documented by: Polyethylene Glycol (Miralax) 17 gm PO DAILY [facility] Last Admin: 09/28/19 08:40 Dose: Not Given Documented by: Prochlorperazine Edisylate (Compazine Iv) 5 mg IV Q4H PRN PRN PRN Reason: Breakthrough nausea/vomiting Last Admin: 09/28/19 06:22 Dose: 5 mg Documented by: Psyllium Hydrophilic Mucilloid (Metamucil) 1 packet PO DAILY PRN PRN PRN Reason: Constipation Rizatriptan Benzoate (Maxalt) 10 mg PO .X1 PRN PRN PRN Reason: MIGRAINE Last Admin: 09/26/19 22:47 Dose: 10 mg Documented by: Senna/Docusate Sodium (Senokot-S, Rosangela-Colace) 2 tablet PO BID PRN PRN PRN Reason: Constipation Sertraline HCl (Zoloft) 50 mg PO DAILY [facility] Last Admin: 09/28/19 08:49 Dose: 50 mg Documented by: Sodium Chloride () 10 - 40 ml IV UD PRN PRN Reason: SALINE FLUSH Last Admin: 09/28/19 06:22 Dose: 10 ml Documented by: Temazepam (Restoril) 15 mg PO QHS PRN PRN PRN Reason: INSOMNIA Last Admin: 09/25/19 21:34 Dose: 15 mg Documented by: Throat Lozenges (Cepacol Sore Throat Lozenge) 1 lozenge MUCOUS MEM Q2H PRN PRN PRN Reason: SORE THROAT Discharge Diet: Low fat/ Low Cholesterol Discharge Activity: Return to Normal Activity Weight Bearing Status: Weight bearing as tolerated Call your doctor if you observe: Fever of 101 or Higher, Uncontrolled pain Home Medications: Medications to take at Discharge rabeprazole 20 mg tablet,delayed release 20 mg PO DAILY@1700 09/01/17 Aspirin/Acetaminophen/Caffeine [Excedrin Migraine Caplet] 1 tab PO DAILY 03/02/19 Calcium Carbonate/Vitamin D3 [Calcium 600 + Vit D Tablet] 1 tab PO DAILY 03/02/19 Sumatriptan Succinate [Imitrex] 100 mg PO .X1 PRN 03/02/19 Multivitamins,Therapeutic [Multivitamin] 1 tab PO DAILY 09/25/19 Sertraline HCl 50 mg PO DAILY 09/25/19 Ondansetron HCl 8 mg PO Q8H PRN #30 tab 09/28/19 Oxycodone HCl/Acetaminophen [Oxycodone-Acetaminophen 5-325] 1 ea PO Q4H PRN PRN 3 Days #20 tab 09/28/19 Following Prescrptions Were Given to Patient: Ondansetron HCl 8 mg PO Q8H PRN #30 tab Transmission Status: Received by [facility]/pharmacy #[id number] Oxycodone HCl/Acetaminophen [Oxycodone-Acetaminophen 5-325] 1 ea PO Q4H PRN PRN 3 Days #20 tab PRN Reason: Pain Score 1-10/10 Transmission Status: Received by [facility]/pharmacy #[id number] Primary Care Physician: Citlaly Tovar NP-C [Primary Care Provider] - Please follow up with your Primary Care Physician in: one week Please Follow Up With: Floyd Eubanks MD When: 1-2 weeks Patient Instructions: Liver Biopsy, Understanding Liver Biopsy, Liver Biopsy Disposition: Home Minutes spent on discharge:: 40 Patient Condition:: Fair Medical Necessity - Tobacco Use Smoking Status: Never smoker Tobacco Use: Non-smoker Meaningful Use Info Meaningful Use Diagnoses (Choose all that apply): None applicable Code Visit Inpatient E&M: 66349 Disch Hosp
[2019-10-01 22:15] LABS: Carcinoembryonic Antigen 121.5 ng/mL (0.0-4.7)
== END 2019-09-28 11:17 | disposition home or self-care (01) ==
LOC: ED 16:39 → MS3 20:04
PROVIDERS: Family Medicine; Admitting Provider Family Medicine; Emergency Provider Emergency Medicine; PCP Nurse Practitioner Primary Care; Visit Provider Student in an Organized Health Care Education/Training Program
DX: C78.7 Secondary malignant neoplasm of liver and intrahepatic bile duct (principal); R59.0 Localized enlarged lymph nodes; D64.9 Anemia, unspecified; R91.1 Solitary pulmonary nodule; R00.8 Other abnormalities of heart beat; I08.3 Combined rheumatic disorders of mitral, aortic and tricuspid valves; F41.9 Anxiety disorder, unspecified; F32.9 Major depressive disorder, single episode, unspecified; G43.909 Migraine, unspecified, not intractable, without status migrainosus; K21.9 Gastro-esophageal reflux disease without esophagitis; E66.9 Obesity, unspecified; Z85.3 Personal history of malignant neoplasm of breast; Z92.3 Personal history of irradiation; Z85.048 Personal history of other malignant neoplasm of rectum, rectosigmoid junction, and anus; Z79.899 Other long term (current) drug therapy; Z79.82 Long term (current) use of aspirin; Z68.33 Body mass index [BMI] 33.0-33.9, adult; Z71.3 Dietary counseling and surveillance
CPT/HCPCS: 47000; 36415; 74177; 77012; 80048; 80053; 82378; 83690; 83735; 84100; 85025; 85610; 85730; 86301; 88161; 88172; 88307; 88313; 88341; 88342; 92610; 93005; 93306; 96361; 96372; 96374; 96375; 96376; 97802; 99156; 99157; 99218; 99251; 99283; J7030; Q9957; Q9967; A4216; C8929; G0378; G0463; J2405

== ENCOUNTER → 2019-10-24 14:19 | Outpatient (CLI) | payer OTHER, SELFPAY ==
[2019-10-03 15:34] VITALS: BMI 33.7
[2019-10-24 09:21] VITALS: BMI 32.3
== END ==
PROVIDERS: PCP Nurse Practitioner Primary Care; Visit Provider Student in an Organized Health Care Education/Training Program
DX: R63.4 Abnormal weight loss (principal); C15.5 Malignant neoplasm of lower third of esophagus
CPT/HCPCS: 97802

== ENCOUNTER 2019-11-21 08:58 | Inpatient (IN) | payer OTHER, SELFPAY ==
[2019-10-29 14:38] VITALS: BMI 31.6
[2019-11-21] VITALS (12 sets, daily range): BP systolic 102–119; BP diastolic 55–77; PULSE 73–103; RESP 16–17; TEMP 36.6–38.3; O2SAT 92–98; BMI 31.6; BMI 32.1
--- NOTE | 2019-11-21 09:12 | RAD_ITS ---
STUDY: X-RAY CHEST REASON FOR EXAM: Female, 64 years old. [facility], TEMP 100.9. COMPLAINS OF FEVER THAT STARTED YESTERDAY. Hx colon ca TECHNIQUE: Single AP portable view of the chest. COMPARISON: Comparison is made with prior examination dated September 01, 2017. FINDINGS: A left-sided Port-A-Cath is in situ with the tip in the right atrium. Stable mild elevation of the right hemidiaphragm. The lungs are clear. There is no demonstrated pleural abnormality. Normal size heart. Normal mediastinum and amarjit. Normal visualized pulmonary arteries. There is atherosclerotic tortuosity of the aortic arch and descending thoracic aorta. There are diffuse degenerative changes of the visualized thoracic spine. There is degenerative osteoarthritis of the bilateral shoulders. There is no demonstrated abnormality of the visualized soft tissue structures of the upper abdomen. RAD/Chest 1 View (Portable) IMPRESSION: No acute abnormality is seen. Electronically Signed: Crow Padgett, at 10:27 EDT , Service support ,
--- NOTE | 2019-11-21 09:12 | EKG12_ITS ---
Test Reason : Blood Pressure : / mmHG Vent. Rate : 089 BPM Atrial Rate : 089 BPM P-R Int : 144 ms QRS Dur : 088 ms QT Int : 364 ms P-R-T Axes : 051 -15 020 degrees QTc Int : 442 ms Sinus rhythm with occasional Premature ventricular complexes Nonspecific ST abnormality Abnormal ECG Confirmed by KELLY TRUJILLO, ANN-MARIE ([id number]), photography editor DEANA GARCIA ([id number]) on 11/23/2019 9:31:50 AM Referred By: TATA Confirmed By:SOPHIA MENDOZA MD
--- NOTE | 2019-11-21 09:20 | ED.VISSUMM ---
- ER Visit Summary Date of Service: 11/21/19 Chief Complaint: Fever History of Present Illness: The patient is a 64 F who was sent from the infusion center today for neutropenic fever. She is undergoing chemotherapy for esophageal cancer with liver mets. She also has a remote history of rectal cancer. She is having some ongoing abdominal pain which is not new. She has some nausea. The fever started yesterday. Physical Examination: Afebrile and vital signs unremarkable except for heart rate of 101. Patient is alert and oriented. No acute distress. Skin is unremarkable. Heart regular. No respiratory distress. Abdomen unremarkable. Test Results: Sepsis labs were ordered as well as a respiratory panel. She had a CBC and a CMP earlier today, so these were repeated. Emergency Department Course and Treatment: Patient had neutropenic fever precautions. She does not have symptoms consistent with coronavirus, but precautions were maintained. She was treated with fluids, Zofran, cefepime, and vancomycin while awaiting results. She also received Tylenol. Lactate was 2.4. 0.5 neutrophils. Cultures pending. Respiratory panel pending. Patient has remained stable and will be admitted to PCU after discussion with the hospitalist. Treatment Plan: As above Disposition: Admission Impression: Neutropenic fever Esophageal cancer Severe sepsis This note was generated with [employer] dictation software. It may contain incorrect words, spelling, and punctuation that were not noted in review of the chart prior to signing ED Disposition - Plan for ED Patient: Referrals: Citlaly Tovar NP-C [Primary Care Provider] -
[2019-11-21 09:45] LABS: Red Blood Cells-Urine 0 SEEN /hpf (0-5)
[2019-11-21 09:46] LABS: International Normalized Ratio 1.4; Prothrombin Time (Protime)PT. 16.9 SECONDS (11.7-14.9)
[2019-11-21 09:50] LABS: Color, Urine Yellow (Yellow); Glucose, Dipstick Normal (Normal); Ketone-Dipstick Negative (Negative); Leukocyte Esterase-Dipstick 25 /ul (Negative); Nitrite-Dipstick Negative (Negative); Occult Blood-Urine Negative /ul (Negative); Protein-Dipstick 15 mg/dl (Negative); Urine Bilirubin Dipstick Negative (Negative); Urine Clarity Clear (Clear); Urine Urobilinogen 8 mg/dl (Normal); Urine pH 6.5 (5.0 - 8.0)
[2019-11-21] MEDS: 0.9% Normal Saline 1,000 ML 999 ML IV (09:54)
[2019-11-21] MEDS: Ondansetron 4 MG/2 ML Vial IV (09:55)
[2019-11-21] MEDS: Acetaminophen 500 MG Tablet 1000 MG PO (09:56)
[2019-11-21 10:02] LABS: Lactic Acid 2.4 mmol/L (0.4-1.9)
[2019-11-21 10:05] LABS: Bacteria 1+ /hpf (None Seen); Squamous Epithelial Cells - UA 0-5 SEEN /hpf (5-10)
[2019-11-21 10:06] LABS: Mucous, Urine 1+ /hpf (<or=2+); White Blood Cells 0-5 SEEN /hpf (0-5)
--- NOTE | 2019-11-21 10:47 | NURSING ---
DR JUAN PAYTON
--- NOTE | 2019-11-21 10:55 | HP.PCM_ITS ---
Problem List (1) Metastatic cancer Status: Acute (2) Colon cancer Status: Acute Qualifiers: Colon location: unspecified part of colon Qualified Code(s): C18.9 - Malignant neoplasm of colon, unspecified (3) Anxiety and depression Status: Chronic (4) Migraine Status: Chronic Qualifiers: Migraine type: unspecified Status migrainosus presence: without status migrainosus Intractability: not intractable Qualified Code(s): G43.909 - Migraine, unspecified, not intractable, without status migrainosus (5) GERD (gastroesophageal reflux disease) Status: Chronic Qualifiers: Esophagitis presence: esophagitis presence not specified Qualified Code(s): K21.9 - Gastro-esophageal reflux disease without esophagitis History of Present Illness Date of Admission: 11/21/19 Chief Complaint: Fever, nausea and vomiting for 3 days. The patient is a 64 year old F with history of metastatic colon cancer with liver mets, esophageal mass and history of breast cancer was sent to ER from Dr. Garcia office for neutropenic fever. She was supposed to have chemotherapy but found to have fever therefore canceled. She had 2 chemotherapy infusions until now during current cycle. Started having fever yesterday, today in oncologist office was found to have temperature 100.9 ?F, heart rate 105/min, blood pressure 130/84 and pulse ox 96% on room air. In ER she is afebrile heart rate 100/min, blood pressure 102/55 but no tachypnea or hypoxia. She denies history of cough, shortness of breath or chest pressure. She denies exposure to suspected patient of COVID-19 in crowded places or grocery shop. She is limited in her house. Her does not have symptoms of URI. She denies abdominal pain but might have mild abdominal discomfort secondary to nausea or vomiting. No GI bleed. Denies lower urinary tract symptoms including burning micturition. [] In ED, chest x-ray shows no acute abnormality. ER initial abnormal labs are lactic acid 2.4, glucose 188, WBC 1.5 thousand, ANC 0.5, hemoglobin 9.7, platelet count 169,000. INR 1.4. LFT shows albumin 2.6, alkaline phosphatase 184. Total bili normal. UA is negative, LE 25 WBCs 0-5. Nitrite negative. EKG normal sinus rhythm at 89 bpm with occasional PVCs, QTC 442 ms. No significant change from previous EKG. Blood cultures x2, respiratory panel, UA with urine culture ordered and was given 1 dose of vancomycin and 2 g of cefepime in ED. Past Medical History Past Medical History (Chronic Problems): Chronic Problems (Last Reviewed 11/21/19 @ 08:37 by Monica Vargas) Anxiety and depression (Chronic) Migraine (Chronic) GERD (gastroesophageal reflux disease) (Chronic) History of breast cancer (Chronic) History of colon cancer in adulthood (Chronic) Medical History: Medical History (Last Reviewed 11/21/19 @ 08:37 by Monica Vargas) Breast cancer C50.919 Left. Lumpectomy and radiation port placement 10/17/2019 History of colon cancer Z85.038 Allergies No Known Allergies Allergy (Verified 11/21/19 08:59) Home Medications: Ambulatory Orders Medication Instructions Recorded rabeprazole 20 mg tablet,delayed 20 mg PO DAILY@1700 09/01/17 release Aspirin/Acetaminophen/Caffeine 1 tab PO DAILY 03/02/19 [Excedrin Migraine Caplet] Calcium Carbonate/Vitamin D3 1 tab PO DAILY 03/02/19 [Calcium 600 + Vit D Tablet] Sumatriptan Succinate [Imitrex] 100 mg PO .X1 PRN 03/02/19 Multivitamins,Therapeutic 1 tab PO DAILY 09/25/19 [Multivitamin] Sertraline HCl 50 mg PO DAILY 09/25/19 Percocet 5-325 5 - 325 mg PO Q6H PRN PRN 10/03/19 proMETHazine tablet [Phenergan 25 mg PO Q8H PRN PRN 10/18/19 tablet] Lidocaine/Prilocaine 1 applicatio TP DAILY PRN PRN 30 10/22/19 [Lidocaine-Prilocaine Cream] Days #1 tube Ondansetron HCl 8 mg PO Q8H PRN PRN 10 Days #30 tab 10/22/19 Oxycodone HCl/Acetaminophen 1 tab PO Q6H PRN PRN 14 Days #56 10/22/19 [Percocet 5-325] tab Prochlorperazine Maleate 10 mg PO Q6H PRN PRN 10 Days #30 10/22/19 tab fentaNYL patch [Duragesic Patch] 12 mcg TRANSDERM. Q3D #10 patch 10/24/19 Magic Mouth Wash 10 ml PO Q4H PRN PRN #300 ml 11/14/19 Surgical History: Surgical History (Last Reviewed 11/21/19 @ 08:37 by Moniac Vargas) History of colon surgery Z98.890 2009 [facility] [address] [place] related to colon cancer History of lumpectomy of left breast Z98.890 [address] [facility] [address] [place] History of D&C Z98.890 History of cholecystectomy Z98.890, Z90.49 Surgical History: - - Resection of her colon cancer, left breast lumpectomy, cholecystectomy. Psychiatric History: Anxiety, Depression [employer] History: No pertinent [employer] history Smoking Status: Former smoker - *Family History Maternal Family History: Family History (Last Reviewed 11/21/19 @ 08:37 by Monica Vargas) Father Diabetes CHF (congestive heart failure) History Items: High Cholesterol, Heart Disease, Hypertension Paternal Family History: Family History (Last Reviewed 11/21/19 @ 08:37 by Monica Vargas) Father Diabetes CHF (congestive heart failure) History Items: Dementia Review of Systems Constitutional: Reports: Chills, Fever. Denies: Weight Change HEENT: Denies: Head Aches, Sinus Congestion, Sinus Drainage Cardiovascular: Denies: Chest Pain, Palpitations Respiratory: Denies: Cough, Hemoptysis, Shortness of Breath, Shortness of breath at rest, Shortness of breath upon exertion, Sputum production Gastrointestinal: Reports: Nausea, Vomiting. Denies: Abdominal Pain, Diarrhea, Hematemesis, Hematochezia Genitourinary: Denies: Dysuria, Frequency, Hesitancy Musculoskeletal: Denies: Joint Pain, Joint Tenderness Skin: Denies: Rash, Wounds Neurological: Denies: Numbness, Tingling, Focal weakness Psychiatric: Denies: Anxiety, Depression, Homicidal Ideations, Suicidal Ideations Hematologic/ Lymphatic: Denies: Easy Bruising, Easy Bleeding VTE Information - Inpt Only VTE Present on Admission: No VTE Mechan Device Prophylaxis: SCD's VTE Pharm Prophylaxis ordered?: Yes Patient Problems: Active and Suspected Problems (Last Reviewed 11/21/19 @ 08:37 by Monica Vargas) Metastatic adenocarcinoma to liver (Acute) History of colon cancer (Acute) History of breast cancer in adulthood (Acute) Colon cancer metastasized to liver (Acute) Mass of esophagus (Acute) Encounter for education (Acute) Esophageal adenocarcinoma (Acute) - Physical Exam Vitals/I&O's: Vital Signs Temp Pulse Resp BP Pulse Ox 98.2 F 82 16 109/62 95 11/21/19 10:26 11/21/19 10:26 11/21/19 10:26 11/21/19 10:26 11/21/19 10:26 Oxygen Delivery Method Room Air Weight: 179 lb Body Mass Index (BMI) 31.6 Intake and Output for Last 24 Hours 11/19/19 11/20/19 11/21/19 23:59 23:59 23:59 Intake Total 100 / 100 Balance 100 / 100 General: Alert, Oriented x3, Cooperative HEENT: Atraumatic, PERRLA, EOMI, Normocephalic Oral: No Gingival or Mucosal Lesions/ Ulcerations, Dry Mucosa Neck: Supple, No JVD, Negative Carotid Bruits Lungs: Clear to auscultation, No rhonchi, No wheeze, No rales, Diminished Cardiovascular: Regular rate, Regular Rhythm, Normal S1, Normal S2, No murmurs Abdomen: Bowel Sounds Present, Soft, Non Tender, Non-Distended Extremities: No edema, Capillary Refill Less than 3 Seconds Skin: No rashes, No breakdown Musculoskeletal: No Tenderness to Palpation of Joints or Extremities, Arthritic Changes Neurological: Cranial nerves II-XII grossly intact, Deep Tendon Reflexes 2+/4 and Symmetrical, Neuro grossly intact, Motor Exam 5/5 strength throughout Psych/Mental Status: Normal Affect, Appropriate Laboratory Results 11/21/19 09:24: PT 16.9 H, INR 1.4, APTT 32.0 11/21/19 09:24: Lactic Acid 2.4 H* 11/21/19 09:35: Urine Color Yellow, Urine Clarity Clear, Urine pH 6.5, Ur Specific Watson 1.030, Urine Protein 15 H, Urine Glucose (UA) Normal, Urine Ketones Negative, Urine Occult Blood Negative, Urine Nitrite Negative, Urine Bilirubin Negative, Urine Urobilinogen 8 H, Ur Leukocyte Esterase 25 H, Urine RBC 0 SEEN, Urine WBC 0-5 SEEN, Ur Squamous Epith Cells 0-5 SEEN, Urine Bacteria 1+, Urine Mucus 1+ Current Medications Vancomycin HCl 1,250 mg/ (Sodium Chloride) 275 mls @ 167 mls/hr IV X1 ONE Stop: 11/21/19 11:08 Last Admin: 11/21/19 09:56 Dose: 167 mls/hr Documented by: Assessment/Plan All Active Problems (Last Reviewed 11/21/19 @ 08:37 by Monica Vargas) Cough (Acute) Acute bronchitis (Acute) Intractable abdominal pain (Acute) Metastatic cancer (Acute) Colon cancer (Acute) Metastatic adenocarcinoma to liver (Acute) History of colon cancer (Acute) History of breast cancer in adulthood (Acute) Colon cancer metastasized to liver (Acute) Mass of esophagus (Acute) Encounter for education (Acute) Esophageal adenocarcinoma (Acute) The patient is a 64 year old F with history of metastatic colon cancer with liver mets, esophageal mass and history of breast cancer was is being admitted for fever, nausea and vomiting, neutropenia and lactic acidosis suggestive of severe sepsis with neutropenic fever. In ED, chest x-ray shows no acute abnormality. ER initial abnormal labs are lactic acid 2.4, glucose 188, WBC 1.5 thousand, ANC 0.5, hemoglobin 9.7, platelet count 169,000. INR 1.4. LFT shows albumin 2.6, alkaline phosphatase 184. Total bili normal. UA is negative, LE 25 WBCs 0-5. Nitrite negative. EKG normal sinus rhythm at 89 bpm with occasional PVCs, QTC 442 ms. No significant change from previous EKG. Blood cultures x2, respiratory panel, UA with urine culture ordered and was given 1 dose of vancomycin and 2 g of cefepime in ED. 1. Neutropenic fever with sepsis (fever, mild tachycardia and lactic acidosis), exact focus of infection unclear: Lactic acidosis may be from liver mets. Patient is being admitted in PCU as per recent policy of COVID-19 pandemic. Discussed with oncologist Dr. GARCIA who saw the patient in the morning today. It seems patient might have GI origin of infection as she had nausea and vomiting and has history of colon cancer with widespread metastasis. Abdominal imaging if she gets abdominal pain and or positive abdominal exam finding. We agreed upon starting IV meropenem. Panculture including MRSA nasal screen. Symptomatic management for nausea or vomiting. Granix 300 mcg 1 dose. 2. Acute anemia on anemia of chronic disease, probably neoplastic in origin and on chemotherapy: Patient baseline H&H 12.2/38.7. Steadily dropping and currently 9.7/30.7. Monitor CBC daily. Platelet count is 169,000. 3. Mild nausea/vomiting: Currently patient does not have abdominal pain. Symptomatic management. Rest as mentioned above. 4. Colorectal cancer with wide metastasis to liver, esophageal mass and retroperitoneal lymphadenopathy history of breast cancer: Patient had CT-guided needle core biopsy of right lobe of liver on 09/17/2019+ of metastatic adenocarcinoma. PET scan on 10/15/2019 showed disseminated hypermetabolic activity involving distal esophagus/GE junction, left and right lobes of liver,single foci in the right posterior ilium, right and left neck, retroperitoneal, retrocrural, chery hepatis and cardiophrenic border consistent with viable neoplasm. 5. Other comorbidities include migraine/sinusitis: Stable. Home medications continued 6. GERD: On PPI. 7. Anxiety and depression on Zoloft 8. History of bigeminy/trigeminy: EKG shows PVCs. Living will/advanced directive/end of life care: Patient does not have living will or advanced directive. After discussion of procedures involved with full code, DNR CC arrest and DNR CC, the patient opted for full code. Patient does want artificial life support including intubation, tube feed, ventilator and/chest compression, central venous catheter, vasopressor and DC shock if needed Total time spent in dxlk-vs-grom encounter in discussion of advanced directive 16 minutes. Inpatient E&M: 00933 Init Hosp L3 Procedures: 26910 Advncd Care Plan 30 Min
--- NOTE | 2019-11-21 11:26 | NURSING ---
DR MARTINEZ IN ER
--- NOTE | 2019-11-21 11:28 | NURSING ---
PCU NEUTROPENIC FEVER JUAN
--- NOTE | 2019-11-21 11:50 | NURSING ---
PCU NEUTROPENIC FEVER JUAN
[2019-11-21 12:59] LABS: Phosphorus 1.9 mg/dL (2.5-4.9)
[2019-11-21] MEDS: 0.9% Normal Saline 1,000 ML 100 ML IV (13:00)
[2019-11-21 13:31] LABS: Reflex Lactate? Y
[2019-11-21 14:26] LABS: Lactic Acid 1.5 mmol/L (0.4-1.9)
[2019-11-21] MEDS: Ondansetron 4 MG/2 ML Vial 8 MG IV (15:24)
[2019-11-21] MEDS: TBO-FILGRASTIM 300 MCG/0.5 ML ML SC (15:29)
[2019-11-21] MEDS: Enoxaparin 40 MG/0.4 ML Syringe SC (15:29)
[2019-11-21] MEDS: Acetaminophen 325 MG Tablet 650 MG PO ×2 (15:33→22:32)
[2019-11-21] MEDS: oxyCODONE 5 MG Tablet PO ×2 (15:33→20:34)
[2019-11-21 17:34] LABS: M R Staph aureus DNA By PCR Negative (Negative); Probe Check PASS; Specimen Processing Control PASS
--- NOTE | 2019-11-21 19:29 | NURSING ---
home meds counted and locked in med room.
[2019-11-21] MEDS: Jevity 1.5 1,000 ML 35 ML GT (21:15)
[2019-11-22] VITALS (9 sets, daily range): BP systolic 105–114; BP diastolic 60–71; PULSE 76–96; RESP 16; TEMP 36.7–37.1; O2SAT 92–96; BMI 32.1
[2019-11-22] MEDS: LORazepam 0.5 MG Tablet PO (01:48)
[2019-11-22 06:52] LABS: Absolute Lymphocyte Count 0.47 X10^3/uL (0.83-4.51); Absolute Neutrophil Count 1.1 X10^3/uL (2.0-7.7); Basophil# 0.05 X10^3/uL; Basophil% 1.9 % (0-1); Eosinophil# 0.13 X10^3/uL; Eosinophils% 4.9 % (0-5); Hematocrit 26.3 % (37-47); Hemoglobin 8.2 g/dL (12.0-15.0); Lymphocyte # 0.47 X10^3/ul (4.0); Lymphocyte % 17.9 % (19-41); Mean Corp Hgb Conc 31.2 g/dL (32-36); Mean Corpuscular Hgb 28.7 pg (27.0-32.0); Mean Platelet Vol. 12.3 fl (6.2-12.0); Monocyte# 0.83 X10^3/uL; Monocyte% 31.6 % (0-10); NRBC Flagged by Analyzer 1.9 % (0-5); Neutrophil # 1.07 X10^3/uL (2.7-7.7); Neutrophil % 40.7 % (47-70); POSITIVE DIFFERENTIAL YES; POSITIVE MORPHOLOGY YES; Platelet Count 142 K/mm3 (150-450); RBC Distribution Width CV 18.5 % (11.6-14.6); RBC Distribution Width SD 60.5 fl (35.1-43.9); Red Blood Count 2.86 M/mm3 (4.2-5.4); White Blood Count 2.6 K/mm3 (4.4-11.0)
[2019-11-22 06:58] LABS: Differential Indicated SCAN CRITERIA MET
[2019-11-22] MEDS: Ondansetron 4 MG/2 ML Vial 8 MG IV (07:46)
[2019-11-22] MEDS: oxyCODONE 5 MG Tablet PO ×2 (07:46→20:21)
[2019-11-22] MEDS: 0.9% Saline Lock 10 ML Syringe IV ×2 (07:46→20:22)
[2019-11-22] MEDS: 0.9% Normal Saline 1,000 ML 100 ML IV ×2 (07:46→11:32)
[2019-11-22 07:47] LABS: ALB/GLOB Ratio 0.5 RATIO (0.9-2.4); AST(SGOT) 29 U/L (15-37); Alanine Aminotransfer ALT/SGPT 19 U/L (13-56); Albumin, Serum 1.9 g/dL (3.2-5.0); Alkaline Phosphatase 154 U/L (45-117); Anion Gap 4 (5-15); BUN 10 mg/dL (7-18); BUN/Creat Ratio 20.1 RATIO (10-20); Calcium,Total 7.9 mg/dL (8.5-10.1); Chloride 108 mmol/L (98-107); EST Glomerular Filtration Rate 134 mL/min (>60); Est Glom Filt Rate - Afr Amer 162 mL/min (>60); Globulin 3.5 g/dL (2.2-4.2); Glucose 109 mg/dL (74-106); Potassium 3.5 mmol/L (3.5-5.1); Protein, Total 5.4 g/dL (6.4-8.2); Sodium Level 140 mmol/L (136-145); Thyroid Stim Hormone (TSH) 3.56 uIU/mL (0.358-3.74)
--- NOTE | 2019-11-22 10:06 | CT_ITS ---
STUDY: CT ABDOMEN AND PELVIS WITH CONTRAST REASON FOR EXAM: Female, 64 years old. NEUTROPENIC FEVER, MID ABD PAIN, ? INFECTION VS ABBESS, HX-LT BREAST CA WITH LIVER METS, COLON CA-CHEMO, SURG-PARTIAL COLECTOMY, KEVIN, D and amp;C, LUMPECTOMY RADIATION DOSAGE (If Supplied By Facility): CTDIvol = ( 14.15 ) mGy, DLP = ( 1137 ) mGycm TECHNIQUE: Transaxial images were obtained from the dome of the diaphragm to the symphysis pubis with oral contrast. Oral and amp; IV Gastrografin and amp; 100mL Isovue-300 was administered. Sagittal and coronal images were reconstructed. Individualized dose optimization techniques were used for this CT. COMPARISON: Comparison is made with prior examination dated September 25, 2019. FINDINGS: Tiny left pleural effusion with left basilar atelectasis. The visualized portions of the heart are within normal limits. Once again, multiple hypodense nodules are seen scattered throughout both the right and left lobes of the liver. The largest is in the inferior aspect of the right lobe of the liver measuring 4 cm x 5.3 cm. This has progressed as compared to prior study. There is also evidence of progression of several of the hypodense nodules. The largest in the left lobe measures 3.2 cm x 4 cm. The patient is status post cholecystectomy. Normal spleen. Normal pancreas. The previously seen adenopathy in the periportal region has improved as compared to prior study. There is a small, circumscribed, smooth, low attenuation left adrenal mass, consistent with an adrenal adenoma. This measures 1.4 cm. Normal right adrenal gland. Normal right kidney. Normal left kidney. There is a moderate-sized hiatal hernia. A gastrostomy tube is seen within the stomach. Normal small intestine. Normal colon. There is non-visualization of the appendix. Normal abdominal aorta. Normal inferior vena cava. There is retroperitoneal lymphadenopathy with enlarged nodes greater than 10-15mm in the short axis. The retroperitoneal lymphadenopathy as much improved as compared to prior study. Normal urinary bladder. Normal abdominal wall. There are degenerative changes of the visualized lumbar spine. CT/Abdomen/Pelvis WITH Contrast IMPRESSION: Progressive hepatic metastasis. Decreased size of the periportal and retroperitoneal lymphadenopathy as compared to prior examination. Minimal left pleural effusion. Electronically Signed: Crow Padgett, at 13:35 EDT , Service support ,
--- NOTE | 2019-11-22 10:10 | NURSING ---
This RN put tube feeding on hold per Dr. Land and brought in contrast for pt to drink before abdomen CT.
[2019-11-22] MEDS: Enoxaparin 40 MG/0.4 ML Syringe SC (10:17)
--- NOTE | 2019-11-22 10:22 | PCM.RX.CS ---
Consult Pharmacy has been consulted to manage selected antiobiotic: Vancomycin Type of Consult: New start Suspected Infection: Sepsis Prior Doses of Antibiotics Received/Current Regimen: VANCOMYCIN 1250MG X1 IN ED 11/21/19. NOTE: NOT TAKEN INTO ACCOUNT FOR SCHEDULED DOSING, THIS WAS >24H AGO. Labs: Sodium 140 mmol/L (136-145) 11/22/19 05:59 Potassium 3.5 mmol/L (3.5-5.1) 11/22/19 05:59 Chloride 108 mmol/L (98-107) H 11/22/19 05:59 Carbon Dioxide 28.0 mmol/L (21.0-32.0) 11/22/19 05:59 Anion Gap 4 (5-15) L 11/22/19 05:59 BUN 10 mg/dL (7-18) 11/22/19 05:59 Creatinine 0.50 mg/dL (0.55-1.02) L 11/22/19 05:59 Est GFR (MDRD) Af Amer 162 mL/min (>60) 11/22/19 05:59 Est GFR (MDRD) Non-Af 134 mL/min (>60) 11/22/19 05:59 BUN/Creatinine Ratio 20.1 RATIO (10-20) H 11/22/19 05:59 Glucose 109 mg/dL (74-106) H 11/22/19 05:59 Microbiology: Microbiology 11/21/19 09:35 Urine, Clean Catch Urine Culture - Preliminary Mixed Gram Positive Organisms 11/21/19 09:24 Mucosa - Nose Respiratory Panel (PCR) - Final Weight used for dosin.4 kg Estimated Creatinine Clearance: 96 ML/MIN Goal Trough: 15-20 mcg/mL Pharmacy Plan for Drug Dosing: Pharmacy consulted to dose vancomycin. Of note; an initial dose of 15mg/kg was ordered, which would have been 1250mg IV x1 prior to starting scheduled dosing. Since the patient's scheduled dose is higher than what the initial standard dose would have been, just starting scheduled dosing. PLAN/RECOMMENDATIONS 1. Vancomycin 1750mg IV Q12hr to start 11/22/19 @1100 2. Trough scheduled prior to 4th dose of scheduled vancomycin 11/23/19 @2230 3. Pharmacy Service will continue to monitor and adjust dosing as required.
[2019-11-22 10:29] LABS: Pathologist Review Reviewed
--- NOTE | 2019-11-22 11:33 | PN_ITS ---
Patient Problems: Active and Suspected Problems (Last Reviewed 11/21/19 @ 08:37 by Monica Vargas) Metastatic adenocarcinoma to liver (Acute) History of colon cancer (Acute) History of breast cancer in adulthood (Acute) Colon cancer metastasized to liver (Acute) Mass of esophagus (Acute) Encounter for education (Acute) Esophageal adenocarcinoma (Acute) Neutropenic fever (Acute) Reason for Visit: Follow-up for neutropenic fever and mild abdominal pain. Subjective: Patient had a spike in temperature 101 Fahrenheit about 10 PM yesterday. Has left subclavicular MediPort but seems no infection. Complain of mild abdominal pain about 3-5/10 intensity. No nausea or vomiting. CT abdomen with oral and IV contrast ordered. Discussed with ID. Vitals/I&O's: Vital Signs Temp Pulse Resp BP Pulse Ox 98.8 F 81 16 105/62 93 11/22/19 10:13 11/22/19 10:13 11/22/19 10:13 11/22/19 10:13 11/22/19 10:13 Oxygen Delivery Method Room Air Weight: 181 lb 10.574 oz Body Mass Index (BMI) 32.1 Intake and Output for Last 24 Hours 11/20/19 11/21/19 11/22/19 23:59 23:59 23:59 Intake Total 3105.00 / 3105.00 1296.67 / 1296.67 Output Total 700 / 700 Balance 2405.00 / 2405.00 1296.67 / 1296.67 General: Alert, Oriented x3, Cooperative HEENT: Atraumatic, PERRLA, EOMI, Normocephalic Neck: Supple, No JVD, Negative Carotid Bruits Lungs: Clear to auscultation, Normal air movement, No rhonchi, No wheeze, No rales Cardiovascular: Regular rate, Regular Rhythm, Normal S1, Normal S2, No murmurs Abdomen: Bowel Sounds Present, Soft, Non-Distended, Tender - Mild tenderness over central abdomen umbilicus. No guarding. Bowel sounds normal. No palpable mass. Extremities: No edema, Capillary Refill Less than 3 Seconds Skin: No rashes, No breakdown, - - Mediport in subclavicular location. No erythema or tenderness or induration. Musculoskeletal: No Tenderness to Palpation of Joints or Extremities Neurological: Cranial nerves II-XII grossly intact, Deep Tendon Reflexes 2+/4 and Symmetrical, Neuro grossly intact Psych/Mental Status: Normal Affect, Appropriate Microbiology Past 72 Hours 11/21/19 09:35 Urine, Clean Catch Urine Culture - Preliminary Mixed Gram Positive Organisms 11/21/19 09:24 Mucosa - Nose Respiratory Panel (PCR) - Final Laboratory Results 11/21/19 08:10: Phosphorus 1.9 L 11/21/19 13:40: Lactic Acid 1.5 11/21/19 15:50: MRSA (PCR) Negative 11/22/19 05:59: WBC 2.6 L, RBC 2.86 L, Hgb 8.2 L, Hct 26.3 L, MCV 92.0, MCH 28.7, MCHC 31.2 L, RDW Std Deviation 60.5 H, RDW Coeff of Audrey 18.5 H, Plt Count 142 L, MPV 12.3 H, Immature Gran % (Auto) 3.000 H, Neut % (Auto) 40.7 L, Lymph % (Auto) 17.9 L, [place] % (Auto) 31.6 H, Eos % (Auto) 4.9, Baso % (Auto) 1.9 H, Absolute Neuts (auto) 1.1 L, Absolute Lymphs (auto) 0.47 L, Nucleated RBC % 1.9, Differential Comment COMMENT, Diff Path Review Reviewed 11/22/19 05:59: Sodium 140, Potassium 3.5, Chloride 108 H, Carbon Dioxide 28.0, Anion Gap 4 L, BUN 10, Creatinine 0.50 L, Estim Creat Clear Calc 96.50, Est GFR (MDRD) Af Amer 162, Est GFR (MDRD) Non-Af 134, BUN/Creatinine Ratio 20.1 H, Glucose 109 H, Calcium 7.9 L, Total Bilirubin 0.50, AST 29, ALT 19, Alkaline Phosphatase 154 H, Total Protein 5.4 L, Albumin 1.9 L, Globulin 3.5, Albumin/Globulin Ratio 0.5 L, TSH 3.56 Current Medications Acetaminophen (Tylenol) 650 mg PO Q6H PRN PRN PRN Reason: Pain Score 1-10/Temp > 100.7 F Last Admin: 11/21/19 22:32 Dose: 650 mg Documented by: Al Hydroxide/Mg Hydroxide (Mylanta Ii) 30 ml PO Q6H PRN PRN PRN Reason: Gastric Burning Albuterol Sulfate (Ventolin Aerosols) 2.5 mg INHALATION Q2H PRN PRN PRN Reason: SOB/Wheezing Dextrose (D50w Syringe) 0 gm IV X1 PRN; Protocol PRN Reason: Hypoglycemia Enoxaparin Sodium (Lovenox) 40 mg SC DAILY [facility] Last Admin: 11/22/19 10:17 Dose: 40 mg Documented by: Glucagon () 1 mg IM .X1 PRN PRN Reason: Hypoglycemia Guaifenesin (Robitussin) 20 ml PO Q4H PRN PRN PRN Reason: COUGH Heparin Sodium (Beef Lung) () 50 units IV UD PRN PRN Reason: Port-a-Cath (VAD)Heparin Flush Sodium Chloride () 1,000 mls @ 75 mls/hr IV .[id number] [facility] Last Admin: 11/22/19 11:32 Dose: 100 mls/hr Documented by: Meropenem 1 gm/ Sodium (Chloride) 120 mls @ 33 mls/hr IV Q8 [facility] Last Infusion: 11/22/19 10:19 Dose: Infused Documented by: Pantoprazole Sodium 40 mg/ (Sodium Chloride) 110 mls @ 330 mls/hr IV Q24 [facility] Last Infusion: 11/22/19 10:41 Dose: Infused Documented by: Enteral Nutritional Formula (Jevity 1.5) 1,000 mls @ 35 mls/hr GT .[id number] [facility] Last Admin: 11/21/19 21:15 Dose: 35 mls/hr Documented by: Sodium Chloride () 250 mls @ 15 mls/hr IV .[id number] PRN PRN Reason: Saline Flush Sodium Chloride () 250 mls @ 15 mls/hr IV .[id number] PRN PRN Reason: Additional IVPB Infusion Vancomycin IV Pharmacy to Dose (1 ea/ Sodium Chloride) 500 mls @ 250 mls/hr IV PRN PRN; Protocol Vancomycin HCl 1,750 mg/ (Sodium Chloride) 535 mls @ 250 mls/hr IV Q12H [facility] Last Admin: 11/22/19 11:32 Dose: 250 mls/hr Documented by: Morphine Sulfate () 2 mg IV Q3H PRN PRN PRN Reason: Pain Score 6-10/10 Ondansetron HCl (Zofran) 8 mg IV Q8H PRN PRN PRN Reason: NAUSEA/VOMITING Last Admin: 11/22/19 07:46 Dose: 8 mg Documented by: Oxycodone HCl (Oxyir) 5 mg PO Q4H PRN PRN PRN Reason: Pain Score 4-5/10 Last Admin: 11/22/19 07:46 Dose: 5 mg Documented by: Potassium Phos/Sodium Phos (Neutra-Phos Packet) 1 packet PO TID HEMANTH Stop: 11/23/19 22:01 Last Admin: 11/22/19 05:31 Dose: Not Given Documented by: Promethazine HCl (Phenergan) 12.5 mg IV Q6H PRN PRN PRN Reason: Nausea/Vomiting Senna/Docusate Sodium (Senokot-S, Rosangela-Colace) 2 tablet PO BID PRN PRN PRN Reason: Constipation Sodium Chloride () 10 - 40 ml IV UD PRN PRN Reason: Port-a-Cath (VAD) Flush Last Admin: 11/22/19 07:46 Dose: 10 ml Documented by: Sodium Chloride (0.9% Nacl (Sterile) Posiflush) 10 - 40 ml IV UD PRN PRN Reason: Port access or dressing change STROKE Vital Signs/Narrative: Vital Signs Temp Pulse Resp BP Pulse Ox 11/22/19 10:13 98.8 F 81 16 105/62 93 Medical Necessity - Tobacco Use Smoking Status: Never smoker Assessment/Plan All Active Problems (Last Reviewed 11/21/19 @ 08:37 by Monica Vargas) Cough (Acute) Acute bronchitis (Acute) Intractable abdominal pain (Acute) Metastatic cancer (Acute) Colon cancer (Acute) Metastatic adenocarcinoma to liver (Acute) History of colon cancer (Acute) History of breast cancer in adulthood (Acute) Colon cancer metastasized to liver (Acute) Mass of esophagus (Acute) Encounter for education (Acute) Esophageal adenocarcinoma (Acute) Neutropenic fever (Acute) The patient is a 64 year old F with history of metastatic colon cancer with liver mets, esophageal mass and history of breast cancer was is being admitted for fever, nausea and vomiting, neutropenia and lactic acidosis suggestive of severe sepsis with neutropenic fever. In ED, chest x-ray shows no acute abnormality. ER initial abnormal labs are lactic acid 2.4, glucose 188, WBC 1.5 thousand, ANC 0.5, hemoglobin 9.7, platelet count 169,000. INR 1.4. LFT shows albumin 2.6, alkaline phosphatase 184. Total bili normal. UA is negative, LE 25 WBCs 0-5. Nitrite negative. EKG normal sinus rhythm at 89 bpm with occasional PVCs, QTC 442 ms. No significant change from previous EKG. Blood cultures x2, respiratory panel, UA with urine culture ordered and was given 1 dose of vancomycin and 2 g of cefepime in ED. 1. Neutropenic fever with sepsis (fever, mild tachycardia and lactic acidosis), exact focus of infection unclear but possible intra-abdominal infection: Lactic acidosis may be from liver mets. Patient is being admitted in PCU as per recent policy of COVID-19 pandemic. Discussed with oncologist Dr. GARCIA who saw the patient in the morning today. 11/22/2019: Discussed with ID. Agreed upon vancomycin and meropenem. Vancomycin as patient has Mediport. Neutropenia improved, WBC 2.6, ANC 1.[address] abdomen with oral and IV contrast was done it does not show acute change although it shows progressive hepatic metastasis. Reported normal small bowel and colon. Urine culture shows mixed organisms history of contamination. 2. Acute anemia on anemia of chronic disease, probably neoplastic in origin and on chemotherapy: Patient baseline H&H 12.2/38.7. Steadily dropping and currently 9.7/30.7. Monitor CBC daily. Platelet count is 169,000. 11/21: H&H 8.2/26.3, platelet 142. 3. Mild nausea/vomiting: Currently patient does not have abdominal pain. Symptomatic management. Rest as mentioned above. 4. Colorectal cancer with wide metastasis to liver, esophageal mass and retroperitoneal lymphadenopathy history of breast cancer: Patient had CT-guided needle core biopsy of right lobe of liver on 09/17/2019+ of metastatic adenocarcinoma. PET scan on 10/15/2019 showed disseminated hypermetabolic activity involving distal esophagus/GE junction, left and right lobes of liver,single foci in the right posterior ilium, right and left neck, retroperitoneal, retrocrural, chery hepatis and cardiophrenic border consistent with viable neoplasm. 5. Other comorbidities include migraine/sinusitis: Stable. Home medications continued 6. GERD: On PPI. 7. Anxiety and depression on Zoloft 8. History of bigeminy/trigeminy: EKG shows PVCs. Total time of the visit including total time spent in counseling or coordination of care, (more than 50% of the total time, spent in obtaining medical information from nurses and other ancillary care providers), discussion with consultants ID, review of labs and imaging is 30 minutes Living will/advanced directive/end of life care: Full code Clinical Impression(s) from Imaging Studies Chest X-Ray 11/21/19 09:12 IMPRESSION: No acute abnormality is seen. Abdomen/Pelvis CT 11/22/19 10:06 IMPRESSION: Progressive hepatic metastasis. Decreased size of the periportal and retroperitoneal lymphadenopathy as compared to prior examination. Minimal left pleural effusion. Electronically Signed: Crow Padgett, at 13:35 EDT , Service support , Inpatient E&M: [id number] [facility] Hosp L3
--- NOTE | 2019-11-22 12:51 | NT.THERAPY_ITS ---
Nutrition Therapy Report - History Nutrition Services has been consulted to:: Manage enteral nutrition Current diet / nutrition support order:: Jevity 1.5 via PEG at goal rate of 35 ml/hr w/ 60 ml H2O flush 4x/day. Regular diet ordered. - Anthropometric Measurements Height:: 5 ft 3 in Weight:: 82.4 kg Body Mass Index (BMI):: 32.1 - Relevant Labs Relevant Labs:: WBC 2.6 K/mm3 (4.4-11.0) L 11/22/19 05:59 RBC 2.86 M/mm3 (4.2-5.4) L 11/22/19 05:59 Hgb 8.2 g/dL (12.0-15.0) L 11/22/19 05:59 Hct 26.3 % (37-47) L 11/22/19 05:59 MCHC 31.2 g/dL (32-36) L 11/22/19 05:59 RDW Std Deviation 60.5 fl (35.1-43.9) H 11/22/19 05:59 RDW Coeff of Audrey 18.5 % (11.6-14.6) H 11/22/19 05:59 Plt Count 142 K/mm3 (150-450) L 11/22/19 05:59 MPV 12.3 fl (6.2-12.0) H 11/22/19 05:59 Immature Gran % (Auto) 3.000 % (0.0-0.9) H 11/22/19 05:59 Neut % (Auto) 40.7 % (47-70) L 11/22/19 05:59 Lymph % (Auto) 17.9 % (19-41) L 11/22/19 05:59 [place] % (Auto) 31.6 % (0-10) H 11/22/19 05:59 Baso % (Auto) 1.9 % (0-1) H 11/22/19 05:59 Absolute Neuts (auto) 1.1 X10^3/uL (2.0-7.7) L 11/22/19 05:59 Absolute Lymphs (auto) 0.47 X10^3/uL (0.83-4.51) L 11/22/19 05:59 PT 16.9 SECONDS (11.7-14.9) H 11/21/19 09:24 Chloride 108 mmol/L (98-107) H 11/22/19 05:59 Anion Gap 4 (5-15) L 11/22/19 05:59 Creatinine 0.50 mg/dL (0.55-1.02) L 11/22/19 05:59 BUN/Creatinine Ratio 20.1 RATIO (10-20) H 11/22/19 05:59 Glucose 109 mg/dL (74-106) H 11/22/19 05:59 Lactic Acid 2.4 mmol/L (0.4-1.9) H* 11/21/19 09:24 Calcium 7.9 mg/dL (8.5-10.1) L 11/22/19 05:59 Phosphorus 1.9 mg/dL (2.5-4.9) L 11/21/19 08:10 Alkaline Phosphatase 154 U/L (45-117) H 11/22/19 05:59 Total Protein 5.4 g/dL (6.4-8.2) L 11/22/19 05:59 Albumin 1.9 g/dL (3.2-5.0) L 11/22/19 05:59 Albumin/Globulin Ratio 0.5 RATIO (0.9-2.4) L 11/22/19 05:59 - Assessment Food / Nutrition-Related History:: Pt reports TF regimen at home Jevity 1.5 via PEG at goal rate of 35 ml/hr w/ 60 ml H2O flush 4x/day providing 1260 calories, 54 g protein, 878 ml total fluid per day. States she trys to consume 2 meals per day. Follows no special diet. Pt states total of 25# wt loss since Jun 2019, UBW ~206#. CBW 181.28#, wt hx per EMR 10/04/19 188 lbs. Severe wt loss of 25#/12% x ~6 months. Pt w/ chronic nausea and vomiting- no emesis this day. 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 [ End ] - Nutrition Diagnosis Problem / Etiology / Signs & Symptoms (PES):: Moderate malnutrition in the context of chronic illness related to inadequate protein energy intake as evidence by severe wt loss of 12% x 6 months, pt consuming</=75% energy intake compared to estimated energy needs. - Nutrition Intervention Nutrition Prescription:: Estimate nutrition needs: 4972-8699 calories, 75-85 g protein - Food / Nutrient Delivery Interventions Summary of nutrition intervention:: Continue TF as ordered. Continue Regular PO diet. Will provide ONS w/ meals to provide additional randall/protein if consumed. Nutrition support ordered as / adjusted to:: Rec continue Jevity 1.5 via PEG at goal rate of 35 ml/hr w/ 60 ml H2O flush 4 times per day to provide 1260 calories, 54 g protein, 878 ml total fluid per day. Continue Regular diet. Nutrition education provided?: No - MNT Monitoring Further MNT monitoring and evaluation required?: Yes - Monitor TF tolerance and adjust TF and flushes accordingly. MNT Follow-up in:: 3-5 days - Please contact RDN w/ questions or concerns at [phone].
[2019-11-22] MEDS: Polyethylene Glycol 3350 17 GM PACKET PO (14:58)
--- NOTE | 2019-11-22 15:00 | CASEMGMT ---
MANOJ JUDD assesment: Phone interview with patient d/t pt in isolation for initial transition planning/care coordination assessment. MANOJ JUDD introduced self and role at [facility], pt voices understanding and consents to assessment at this time. Pt is A/Ox4 at this time and answers all questions appropriately at this time. Care providers, pharmacy, and demographics verified/updated at this time. Presentation: Pt sent from infusion center for temp 100.9, c/o fever that started yesterday Admitting dx: Neutropenic fever PCP: Guy Specialists: Cha onc Preferred Pharmacy: [facility] Insurance: MMO Prescription Benefit: MMO Living Will/HPOA: Pt states does not have LW/HPOA but states has all paperwork at home, but 'I just need to do it.' Pt made aware that SW can assist her complete here, voices understanding. LNOK: Ubaldo Osborne, ; Annabel Gautam, daughter; Jose Maria Osborne, son Living Arrangements: Pt states lives with in home and states no concerns at home at this time. Pt states is independent with ADL's. Transportation: Pt states drives self and states no transportation concerns at this time. DME/HHC: Pt states no current DME or need for any at this time. Pt states is current with [facility] for her PEG tube and states nurse comes out twice weekly. Pt states no hx of SNF. Pt states no concerns with going home at time of discharge. 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 Pt states does not smoke and rarely drinks ETOH. Pt states no further concerns/needs at this time. CM to follow for any further discharge planning/needs. Advised pt to ask for CM if any further questions/concerns/needs arise, voices understanding. Pt Goal: Home Plan: [place] MANOJ JUDD
[2019-11-22] MEDS: Psyllium 1 PACKET PO (18:07)
[2019-11-22] MEDS: proMETHazine 25 MG/ML Syringe 12.5 MG IV (20:22)
[2019-11-22] MEDS: Temazepam 15 MG Capsule PO (21:47)
[2019-11-22] MEDS: Jevity 1.5 1,000 ML 35 ML GT (21:48)
[2019-11-22] MEDS: Senna/Docusate Sodium 1 Tablet 2 TABLET PO (21:52)
[2019-11-23 02:59] VITALS: PULSE 82
[2019-11-23 05:40] VITALS: BP 111/67; PULSE 87; RESP 16; TEMP 37.1; O2SAT 93
[2019-11-23 08:00] VITALS: PULSE 80
[2019-11-23] MEDS: Sertraline 50 MG Tablet PO (09:14)
[2019-11-23] MEDS: Enoxaparin 40 MG/0.4 ML Syringe SC (09:14)
[2019-11-23] MEDS: Senna/Docusate Sodium 1 Tablet 2 TABLET PO (09:14)
--- NOTE | 2019-11-23 10:11 | DCINST_ITS ---
- Discharge Diagnoses Current Active Problems: Current Active and Chronic Problems (Last Reviewed 11/21/19 @ 08:37 by Monica Vargas) Metastatic adenocarcinoma to liver (Acute) History of colon cancer (Acute) History of breast cancer in adulthood (Acute) Colon cancer metastasized to liver (Acute) Mass of esophagus (Acute) Encounter for education (Acute) Esophageal adenocarcinoma (Acute) Neutropenic fever (Acute) You will use the following diet at home:: Regular Your food should be the consistency of: Regular Discharge Activity: May Not Drive Weight Bearing Status: Weight bearing as tolerated Call your doctor if you observe: Fever of 101 or Higher, Inability to urinate, Inability to have a bowel movement, Shortness of breath, Dizziness, Fainting spells, Swelling in the ankles, Chest pain, Increased palpitations (irregular heartbeat), Calf discomfort, Uncontrolled pain Allergies/Adverse Reactions: Allergies No Known Allergies Allergy (Verified 11/21/19 08:59) Medications to take at Discharge rabeprazole 20 mg tablet,delayed release 20 mg PO DAILY@1700 09/01/17 Aspirin/Acetaminophen/Caffeine [Excedrin Migraine Caplet] 1 tab PO DAILY PRN 03/02/19 Calcium Carbonate/Vitamin D3 [Calcium 600 + Vit D Tablet] 1 tab PO DAILY 03/02/19 Sumatriptan Succinate [Imitrex] 100 mg PO .X1 PRN PRN 03/02/19 Multivitamins,Therapeutic [Multivitamin] 1 tab PO DAILY 09/25/19 Sertraline HCl 50 mg PO DAILY 09/25/19 proMETHazine tablet [Phenergan tablet] 25 mg PO Q8H PRN PRN 10/18/19 Ondansetron HCl 8 mg PO Q8H PRN PRN 10 Days #30 tab 10/22/19 Oxycodone HCl/Acetaminophen [Percocet 5-325] 1 tab PO Q6H PRN PRN 14 Days #56 tab 10/22/19 Prochlorperazine Maleate 10 mg PO Q6H PRN PRN 10 Days #30 tab 10/22/19 Magic Mouth Wash 10 ml PO Q4H PRN PRN #300 ml 11/14/19 Lidocaine/Prilocaine [Lidocaine-Prilocaine Cream] 1 applicatio TP DAILY PRN PRN 11/21/19 fentaNYL patch [Duragesic Patch] 12 mcg TRANSDERM. Q3D 11/21/19 Amox/Clavulanate Tablet [Augmentin Tablet] 875 mg PO Q12H #6 tab 11/23/19 Na Biphos/Potassium Phosphate [Neutra-Phos Packet] 1 packet PO TID #6 packet 11/23/19 Polyethylene Glycol 3350 [Miralax] 17 gm PO DAILY packet 11/23/19 Psyllium [Metamucil] 1 packet PO BID PRN PRN packet 11/23/19 Senna/Docusate Sodium [Senokot-S] 2 tablet PO BID PRN PRN tablet 11/23/19 The following prescriptions were given: Amox/Clavulanate Tablet [Augmentin Tablet] 875 mg PO Q12H #6 tab Transmission Status: Pending to [facility]/pharmacy #[id number] Na Biphos/Potassium Phosphate [Neutra-Phos Packet] 1 packet PO TID #6 packet Transmission Status: Pending to [facility]/pharmacy #[id number] Primary Care Physician: Citlaly Tovar NP-C [Primary Care Provider] - Please follow up with your Primary Care Physician in: in 2 week Test Results: Test results from this visit will be discussed in further detail at your follow- up appointment, if applicable. Please Follow Up With: Floyd Eubanks MD When: in 2 week
--- NOTE | 2019-11-23 10:12 | DS.PCM_ITS ---
Discharge Date and Diagnosis - Problem List Patient Problems: Active and Suspected Problems (Last Reviewed 11/21/19 @ 08:37 by Monica Vargas) Metastatic adenocarcinoma to liver (Acute) History of colon cancer (Acute) History of breast cancer in adulthood (Acute) Colon cancer metastasized to liver (Acute) Mass of esophagus (Acute) Encounter for education (Acute) Esophageal adenocarcinoma (Acute) Neutropenic fever (Acute) Date of Admission: 11/21/19 Date of Discharge: 11/23/19 - Primary Discharge Diagnosis Active and Suspected Problems (Last Reviewed 11/21/19 @ 08:37 by Monica Vargas) Metastatic adenocarcinoma to liver (Acute) History of colon cancer (Acute) History of breast cancer in adulthood (Acute) Colon cancer metastasized to liver (Acute) Mass of esophagus (Acute) Encounter for education (Acute) Esophageal adenocarcinoma (Acute) Neutropenic fever (Acute) - Secondary Discharge Diagnosis Chronic Problems (Last Reviewed 11/21/19 @ 08:37 by Monica Vargas) Anxiety and depression (Chronic) Migraine (Chronic) GERD (gastroesophageal reflux disease) (Chronic) History of breast cancer (Chronic) History of colon cancer in adulthood (Chronic) Hospital Course and Treatment Operations: None, - Summary of Care Provided: T [] The patient is a 64 year old F with history of metastatic colon cancer with liver mets, esophageal mass and history of breast cancer was is being admitted for fever, nausea and vomiting, neutropenia and lactic acidosis suggestive of severe sepsis with neutropenic fever. In ED, chest x-ray shows no acute abnormality. ER initial abnormal labs are lactic acid 2.4, glucose 188, WBC 1.5 thousand, ANC 0.5, hemoglobin 9.7, platelet count 169,000. INR 1.4. LFT shows albumin 2.6, alkaline phosphatase 184. Total bili normal. UA is negative, LE 25 WBCs 0-5. Nitrite negative. EKG normal sinus rhythm at 89 bpm with occasional PVCs, QTC 442 ms. No significant change from previous EKG. 1. Neutropenic fever with sepsis (fever, mild tachycardia and lactic acidosis), exact focus of infection unclear but possible intra-abdominal infection: Lactic acidosis may be from liver mets. Patient is being admitted in PCU as per recent policy of COVID-19 pandemic. Discussed with oncologist Dr. GARCIA who saw the patient in the morning today. Patient was treated with vancomycin and meropenem in PCU. CT with oral and IV contrast was done which does not show acute change although it shows progressive hepatic metastasis. Reported normal small bowel and colon but to me colonic fecal retention. Urine culture shows mixed organisms history of contamination. Discussed with ID. Advised Augmentin 875 mg twice daily for 3 more days for sh ort 5 days course of antibiotic. No focus of infection was found. Neutropenia improved, WBC 7000 with ANC 4.3 thousand. 2. Acute anemia on anemia of chronic disease, probably neoplastic in origin and on chemotherapy: Patient baseline H&H 12.2/38.7. Steadily dropping and currently 9.7/30.7. Monitor CBC daily. Platelet count is 169,000. 11/21: H&H 8.2/26.3, platelet 142. 4/10 8.5/27.6. Platelet count 172,000. 3. Mild nausea/vomiting: Currently patient does not have abdominal pain. Symptomatic management. Rest as mentioned above. 4. Colorectal cancer with wide metastasis to liver, esophageal mass and retroperitoneal lymphadenopathy history of breast cancer: Patient had CT-guided needle core biopsy of right lobe of liver on 09/17/2019+ of metastatic adenocarcinoma. PET scan on 10/15/2019 showed disseminated hypermetabolic activity involving distal esophagus/GE junction, left and right lobes of liver,single foci in the right posterior ilium, right and left neck, retroperitoneal, retrocrural, chery hepatis and cardiophrenic border consistent with viable neoplasm. 5. Other comorbidities include migraine/sinusitis: Stable. Home medications continued 6. GERD: On PPI. 7. Anxiety and depression on Zoloft 8. History of bigeminy/trigeminy: EKG shows PVCs. Living will/advanced directive/end of life care: Full code Discharge medication reconciliation done. Discharge follow-up instructions completed. Discharge process discussed with the patient and all questions were answered to patient's satisfaction. Prescription for Augmentin and Atrovent sent to the patient pharmacy. Patient was advised to take OTC MiraLAX and Metamucil and if it does not work then add senna S start laxative. Dulcolax suppository if needed. Patient told me that she moves her bowels once in 2 to 3 weeks Total time spent, exact 35 minutes on discharge meds reconciliation, examination, coordination of care with nurses and ancillary staff, review of imaging and blood test and discussion with the patient on follow-up instructions Patient Problems: Active and Suspected Problems (Last Reviewed 11/21/19 @ 08:37 by Monica Vargas) Metastatic adenocarcinoma to liver (Acute) History of colon cancer (Acute) History of breast cancer in adulthood (Acute) Colon cancer metastasized to liver (Acute) Mass of esophagus (Acute) Encounter for education (Acute) Esophageal adenocarcinoma (Acute) Neutropenic fever (Acute) Subjective: Seen and examined. No fever in more than 36 hours. Last fever was 101 point Fahrenheit on 11/21/2027 at 22;25 No fever or chills. Hemodynamically stable. Patient abdominal pain/discomfort has resolved. - Physical Exam Vitals/I&O's: Vital Signs Temp Pulse Resp BP Pulse Ox 98.7 F 80 16 111/67 93 11/23/19 05:40 11/23/19 08:00 11/23/19 05:40 11/23/19 05:40 11/23/19 05:40 Oxygen Delivery Method Room Air Weight: 188 lb 7.924 oz Body Mass Index (BMI) 32.1 Intake and Output for Last 24 Hours 11/21/19 11/22/19 11/23/19 23:59 23:59 23:59 Intake Total 3105.00 / 3105.00 4135.75 / 4135.75 1738.25 / 1738.25 Output Total 700 / 700 300 / 300 1100 / 1100 Balance 2405.00 / 2405.00 3835.75 / 3835.75 638.25 / 638.25 General: Alert, Oriented x3, Cooperative HEENT: Atraumatic, PERRLA, EOMI, Normocephalic Neck: Supple, No JVD, Negative Carotid Bruits Lungs: Clear to auscultation, Normal air movement, No rhonchi, No wheeze, No rales Cardiovascular: Regular rate, Regular Rhythm, Normal S1, Normal S2, No murmurs Abdomen: Bowel Sounds Present, Soft, Non Tender, Non-Distended Extremities: No edema, Capillary Refill Less than 3 Seconds Skin: No rashes, No breakdown Musculoskeletal: No Tenderness to Palpation of Joints or Extremities Neurological: Cranial nerves II-XII grossly intact, Deep Tendon Reflexes 2+/4 and Symmetrical, Neuro grossly intact Psych/Mental Status: Normal Affect, Appropriate Microbiology Past 72 Hours 11/21/19 09:19 Blood Culture (Wb) - Line Draw Blood Culture - Preliminary No growth in 48 hours. 11/21/19 09:24 Blood Culture (Wb) - Right Hand Blood Culture - Preliminary No growth in 48 hours. 11/21/19 09:35 Urine, Clean Catch Urine Culture - Final Mixed Gram Positive Organisms 11/21/19 09:24 Mucosa - Nose Respiratory Panel (PCR) - Final Laboratory Results 11/22/19 05:59: Diff Path Review Reviewed Current Medications Acetaminophen (Tylenol) 650 mg PO Q6H PRN PRN PRN Reason: Pain Score 1-10/Temp > 100.7 F Last Admin: 11/21/19 22:32 Dose: 650 mg Documented by: Al Hydroxide/Mg Hydroxide (Mylanta Ii) 30 ml PO Q6H PRN PRN PRN Reason: Gastric Burning Albuterol Sulfate (Ventolin Aerosols) 2.5 mg INHALATION Q2H PRN PRN PRN Reason: SOB/Wheezing Bisacodyl (Dulcolax) 10 mg RECTAL DAILY [facility] Last Admin: 11/23/19 09:11 Dose: Not Given Documented by: Dextrose (D50w Syringe) 0 gm IV X1 PRN; Protocol PRN Reason: Hypoglycemia Enoxaparin Sodium (Lovenox) 40 mg SC DAILY [facility] Last Admin: 11/23/19 09:14 Dose: 40 mg Documented by: Fentanyl (Duragesic Patch) 12 mcg TRANSDERM. Q3D [facility] Last Admin: 11/22/19 21:47 Dose: 12 mcg Documented by: Glucagon () 1 mg IM .X1 PRN PRN Reason: Hypoglycemia Guaifenesin (Robitussin) 20 ml PO Q4H PRN PRN PRN Reason: COUGH Heparin Sodium (Beef Lung) () 50 units IV UD PRN PRN Reason: Port-a-Cath (VAD)Heparin Flush Sodium Chloride () 1,000 mls @ 75 mls/hr IV .[id number] [facility] Last Infusion: 11/23/19 09:07 Dose: 75 mls/hr Documented by: Meropenem 1 gm/ Sodium (Chloride) 120 mls @ 33 mls/hr IV Q8 [facility] Last Infusion: 11/23/19 09:52 Dose: Infused Documented by: Pantoprazole Sodium 40 mg/ (Sodium Chloride) 110 mls @ 330 mls/hr IV Q24 [facility] Last Infusion: 11/23/19 09:52 Dose: Infused Documented by: Enteral Nutritional Formula (Jevity 1.5) 1,000 mls @ 35 mls/hr GT .[id number] [facility] Last Admin: 11/22/19 21:48 Dose: 35 mls/hr Documented by: Sodium Chloride () 250 mls @ 15 mls/hr IV .[id number] PRN PRN Reason: Saline Flush Sodium Chloride () 250 mls @ 15 mls/hr IV .[id number] PRN PRN Reason: Additional IVPB Infusion Vancomycin IV Pharmacy to Dose (1 ea/ Sodium Chloride) 500 mls @ 250 mls/hr IV PRN PRN; Protocol Vancomycin HCl 1,750 mg/ (Sodium Chloride) 535 mls @ 250 mls/hr IV Q12H [facility] Last Infusion: 11/23/19 01:31 Dose: Infused Documented by: Morphine Sulfate () 2 mg IV Q3H PRN PRN PRN Reason: Pain Score 6-10/10 Ondansetron HCl (Zofran) 8 mg IV Q8H PRN PRN PRN Reason: NAUSEA/VOMITING Last Admin: 11/22/19 07:46 Dose: 8 mg Documented by: Oxycodone HCl (Oxyir) 5 mg PO Q4H PRN PRN PRN Reason: Pain Score 4-5/10 Last Admin: 11/22/19 20:21 Dose: 5 mg Documented by: Polyethylene Glycol (Miralax) 17 gm PO DAILY [facility] Last Admin: 11/23/19 09:52 Dose: Not Given Documented by: Potassium Phos/Sodium Phos (Neutra-Phos Packet) 1 packet PO TID [facility] Stop: 11/23/19 22:01 Last Admin: 11/23/19 06:11 Dose: Not Given Documented by: Promethazine HCl (Phenergan) 12.5 mg IV Q6H PRN PRN PRN Reason: Nausea/Vomiting Last Admin: 11/22/19 20:22 Dose: 12.5 mg Documented by: Psyllium Hydrophilic Mucilloid (Metamucil) 1 packet PO BID [facility] Last Admin: 11/23/19 09:11 Dose: Not Given Documented by: Senna/Docusate Sodium (Senokot-S, Rosangela-Colace) 2 tablet PO BID [facility] Last Admin: 11/23/19 09:14 Dose: 2 tablet Documented by: Sertraline HCl (Zoloft) 50 mg PO DAILY [facility] Last Admin: 11/23/19 09:14 Dose: 50 mg Documented by: Sodium Chloride () 10 - 40 ml IV UD PRN PRN Reason: Port-a-Cath (VAD) Flush Last Admin: 11/22/19 20:22 Dose: 10 ml Documented by: Sodium Chloride (0.9% Nacl (Sterile) Posiflush) 10 - 40 ml IV UD PRN PRN Reason: Port access or dressing change Temazepam (Restoril) 15 mg PO QHS PRN PRN Reason: INSOMNIA Last Admin: 11/22/19 21:47 Dose: 15 mg Documented by: Discharge Activity: May Not Drive Weight Bearing Status: Weight bearing as tolerated Call your doctor if you observe: Fever of 101 or Higher, Inability to urinate, Inability to have a bowel movement, Shortness of breath, Dizziness, Fainting spells, Swelling in the ankles, Chest pain, Increased palpitations (irregular heartbeat), Calf discomfort, Uncontrolled pain Home Medications: Medications to take at Discharge rabeprazole 20 mg tablet,delayed release 20 mg PO DAILY@1700 09/01/17 Aspirin/Acetaminophen/Caffeine [Excedrin Migraine Caplet] 1 tab PO DAILY PRN 03/02/19 Calcium Carbonate/Vitamin D3 [Calcium 600 + Vit D Tablet] 1 tab PO DAILY 03/02/19 Sumatriptan Succinate [Imitrex] 100 mg PO .X1 PRN PRN 03/02/19 Multivitamins,Therapeutic [Multivitamin] 1 tab PO DAILY 09/25/19 Sertraline HCl 50 mg PO DAILY 09/25/19 proMETHazine tablet [Phenergan tablet] 25 mg PO Q8H PRN PRN 10/18/19 Ondansetron HCl 8 mg PO Q8H PRN PRN 10 Days #30 tab 10/22/19 Oxycodone HCl/Acetaminophen [Percocet 5-325] 1 tab PO Q6H PRN PRN 14 Days #56 tab 10/22/19 Prochlorperazine Maleate 10 mg PO Q6H PRN PRN 10 Days #30 tab 10/22/19 Magic Mouth Wash 10 ml PO Q4H PRN PRN #300 ml 11/14/19 Lidocaine/Prilocaine [Lidocaine-Prilocaine Cream] 1 applicatio TP DAILY PRN PRN 11/21/19 fentaNYL patch [Duragesic Patch] 12 mcg TRANSDERM. Q3D 11/21/19 Amox/Clavulanate Tablet [Augmentin Tablet] 875 mg PO Q12H #6 tab 11/23/19 Na Biphos/Potassium Phosphate [Neutra-Phos Packet] 1 packet PO TID #6 packet 11/23/19 Polyethylene Glycol 3350 [Miralax] 17 gm PO DAILY packet 11/23/19 Psyllium [Metamucil] 1 packet PO BID PRN PRN packet 11/23/19 Senna/Docusate Sodium [Senokot-S] 2 tablet PO BID PRN PRN tablet 11/23/19 Following Prescrptions Were Given to Patient: Amox/Clavulanate Tablet [Augmentin Tablet] 875 mg PO Q12H #6 tab Transmission Status: Pending to [id number] Na Biphos/Potassium Phosphate [Neutra-Phos Packet] 1 packet PO TID #6 packet Transmission Status: Pending to [id number] Primary Care Physician: Citlaly Tovar NP-C [Primary Care Provider] - Please follow up with your Primary Care Physician in: in 2 week Please Follow Up With: Floyd Garcia MD When: in 2-3 week Medical Necessity - Tobacco Use Smoking Status: Never smoker Meaningful Use Info Meaningful Use Diagnoses (Choose all that apply): None applicable Inpatient E&M: [id number] [facility]
[2019-11-23 10:33] LABS: Differential Indicated MANUAL DIFF; Hematocrit 27.6 % (37-47); Hemoglobin 8.5 g/dL (12.0-15.0); Mean Corp Hgb Conc 30.8 g/dL (32-36); Mean Corpuscular Hgb 28.6 pg (27.0-32.0); Mean Corpuscular Volume 92.9 fL (81-99); Mean Platelet Vol. 12.1 fl (6.2-12.0); POSITIVE COUNT YES; POSITIVE DIFFERENTIAL YES; POSITIVE MORPHOLOGY YES; Platelet Count 172 K/mm3 (150-450); RBC Distribution Width CV 19.3 % (11.6-14.6); RBC Distribution Width SD 62.8 fl (35.1-43.9); Red Blood Count 2.97 M/mm3 (4.2-5.4)
[2019-11-23 11:01] LABS: ALB/GLOB Ratio 0.5 RATIO (0.9-2.4); AST(SGOT) 33 U/L (15-37); Alanine Aminotransfer ALT/SGPT 21 U/L (13-56); Albumin, Serum 1.9 g/dL (3.2-5.0); Alkaline Phosphatase 153 U/L (45-117); Anion Gap 3 (5-15); BUN 7 mg/dL (7-18); BUN/Creat Ratio 12.1 RATIO (10-20); Chloride 109 mmol/L (98-107); Creatinine, Serum 0.58 mg/dL (0.55-1.02); EST Glomerular Filtration Rate 112 mL/min (>60); Est Glom Filt Rate - Afr Amer 136 mL/min (>60); Estimated Creatinine Clearance 83.19 ml/min; Globulin 3.5 g/dL (2.2-4.2); Glucose 131 mg/dL (74-106); Magnesium 2.2 mg/dL (1.6-2.6); Phosphorus 2.4 mg/dL (2.5-4.9); Potassium 4.1 mmol/L (3.5-5.1); Protein, Total 5.4 g/dL (6.4-8.2); Sodium Level 142 mmol/L (136-145)
[2019-11-23 11:09] LABS: Eosinophil 4 % (0-5); Lymphocyte 8 % (19-41); Monocyte 16 % (0-10); Myelocyte 1 (0-0); Neutrophil-Band 2 % (0-5); Neutrophil-Segmented 59 % (47-70); Platelet Estimate ADEQUATE (ADEQ); Promyelocyte 10 (0-0); Red Cell Morphology NORM C+C NORMAL (NORM C&C); Total Cells Counted 100 (MANUAL DIFF)
[2019-11-23 11:10] LABS: Absolute Neutrophil Count 4.3 X10^3/uL (2.0-7.7)
[2019-11-23 11:40] VITALS: BP 107/65; PULSE 67; RESP 16; TEMP 36.9; O2SAT 94
[2019-11-26 11:04] LABS: Pathologist Review Reviewed
--- NOTE | 2019-11-26 14:53 | CASEMGMT ---
MANOJ JUDD Discharge Follow-up Phone Call: KATE: Johnathan Strata: 3 Call Date: 11/26/19 Discharge Date: 11/23/19 Time of Call: 1453 Duration: 3 min Admitting Diagnosis: Neutropenic fever MANOJ JUDD completed follow-up phone call after recent hospitalization. Patient states she did have a fever this morning but she is better and fever is gone. Patient had no questions or concerns regarding discharge instructions. Patient was able to fill prescriptions without any issues. Patient has follow-up phone call with PCP scheduled for tomorrow. Patient had no further needs or concerns at this time.
== END 2019-11-23 13:27 | disposition home or self-care (01) | DRG 872 ==
LOC: ED 09:50 → PCU 11:53
PROVIDERS: Admitting Provider Internal Medicine; Emergency Provider Emergency Medicine; PCP Nurse Practitioner Primary Care; Visit Provider Internal Medicine
DX: A41.9 Sepsis, unspecified organism (principal); C15.9 Malignant neoplasm of esophagus, unspecified; C78.7 Secondary malignant neoplasm of liver and intrahepatic bile duct; E87.2 Acidosis; C19 Malignant neoplasm of rectosigmoid junction; B99.9 Unspecified infectious disease; R65.20 Severe sepsis without septic shock; D70.9 Neutropenia, unspecified; R50.81 Fever presenting with conditions classified elsewhere; D64.81 Anemia due to antineoplastic chemotherapy; D63.8 Anemia in other chronic diseases classified elsewhere; F41.9 Anxiety disorder, unspecified; F32.9 Major depressive disorder, single episode, unspecified; K21.9 Gastro-esophageal reflux disease without esophagitis; Z85.3 Personal history of malignant neoplasm of breast; Z79.899 Other long term (current) drug therapy; I49.3 Ventricular premature depolarization; G43.909 Migraine, unspecified, not intractable, without status migrainosus; Z90.49 Acquired absence of other specified parts of digestive tract; Z87.891 Personal history of nicotine dependence; Z79.82 Long term (current) use of aspirin; Z82.49 Family history of ischemic heart disease and other diseases of the circulatory system; Z83.3 Family history of diabetes mellitus; Z51.5 Encounter for palliative care
CPT/HCPCS: 36415; 36591; 71045; 74177; 80053; 81001; 83605; 83735; 84100; 84443; 85025; 85610; 85730; 87040; 87086; 87088; 87633; 87641; 93005; 97802; 99251; 99284; J2185; J7030; J7040; J7050; Q9967; A4216; G0463; J1447; J2405

== ENCOUNTER → 2019-12-26 12:39 | Outpatient (CLI) | payer OTHER, SELFPAY ==
[2019-10-29 14:38] VITALS: BMI 31.6
[2019-12-19 08:15] VITALS: BMI 31.3
--- NOTE | 2019-12-26 12:39 | CT_ITS ---
STUDY: CT CHEST WITH CONTRAST REASON FOR EXAM: Female, 64 years old. Hx of colon cancer with resection. Hx of lt breast cancer with lumpectomy. Known mets to liver. Prior cholecystectomy. Pt has port. This is chemo check. 3 rounds of chemo at this time. Pt had radiation with breast cancer 2018. RADIATION DOSAGE (If Supplied By Facility): CTDIvol = ( 15.77 ) mGy, DLP = ( 1575.31 ) mGycm TECHNIQUE: Transaxial imaging was performed following intravenous administration of IV 100mL Isovue-300. Multiplanar coronal and sagittal images were reformatted. Individualized dose optimization techniques were used for this CT. COMPARISON: None. FINDINGS: A left-sided chery catheter seen with the tip in the distal portion of the superior vena cava. Surgical clips are seen in the inferior aspect of the left breast. Minimal increased linear markings in the peripheral aspect of the left upper lobe anteriorly suggestive of mild scarring. Increased markings are also seen in the lingular segment of the left upper lobe suggestive of scarring. No pulmonary nodules are seen. There is no demonstrated pleural abnormality. There are calcifications of the coronary arteries. Normal mediastinum. Normal hilar regions. Normal enhanced pulmonary arteries. Normal aorta arch and descending thoracic aorta. There are multi-level degenerative changes of the thoracic spine. Multiple hypodense masses in the liver. The patient is known to have hepatic metastasis. Moderate sized hiatal hernia. CT/Chest WITH Contrast IMPRESSION: Findings suggestive of mild linear scarring in the left upper lobe as well as in the lingular segment of left upper lobe. Hepatic metastasis. Moderate sized hiatal hernia. Electronically Signed: Crow Padgett, at 13:19 EDT , Service support ,
--- NOTE | 2019-12-26 12:39 | CT_ITS ---
STUDY: CT ABDOMEN AND PELVIS WITHOUT CONTRAST REASON FOR EXAM: Female, 64 years old. Hx of colon cancer with resection. Hx of lt breast cancer with lumpectomy. Known mets to liver. Prior cholecystectomy. Pt has port. This is chemo check. 3 rounds of chemo at this time. Pt had radiation with breast cancer 2018. RADIATION DOSAGE (If Supplied By Facility): CTDIvol = ( 15.77 ) mGy, DLP = ( 1575.31 ) mGycm TECHNIQUE: Transaxial images were obtained from the dome of the diaphragm to the symphysis pubis without oral contrast, and without intravenous contrast. Sagittal and coronal images were reconstructed. Individualized dose optimization techniques were used for this CT. COMPARISON: Comparison is made with prior examination dated November 22, 2019. FINDINGS: Minimal increase in lingular markings suggestive of atelectasis. A right-sided port is seen. Surgical clips are seen in the left breast. The visualized portions of the heart are within normal limits. Since prior study, the number and size of the multiple hepatic metastasis have decreased. The previously seen largest mass in the right lobe measured 5.3 cm by 4 cm. It presently measures 4 cm x 2.6 cm. The patient is status post cholecystectomy. Normal spleen. Normal pancreas. There is a small, circumscribed, smooth, low attenuation left adrenal mass, consistent with an adrenal adenoma. This is unchanged. Normal right adrenal gland. Normal right kidney. Normal left kidney. There is a moderate-sized hiatal hernia. A PEG tube is seen within the body of the stomach. Normal small intestine. There are scattered colonic diverticula consistent with diverticulosis. The appendix is visualized and appears normal. There is diffuse atherosclerotic calcification of the abdominal aorta and major visceral branches, without a demonstrated aneurysm. Normal inferior vena cava. There is borderline retroperitoneal lymphadenopathy with enlarged nodes no greater than 10mm in the short axis diameter. This has improved as compared to prior study. Normal urinary bladder. Normal abdominal wall. There are diffuse degenerative changes of the visualized lumbar spine. CT/Abdomen/Pelvis W IV Cont ONLY IMPRESSION: Interval decrease in size and number of hypodense nodules in the liver in keeping with metastasis. Decreased size of the periportal adenopathy as well. Electronically Signed: Crow Padgett, at 13:16 EDT , Service support ,
== END ==
PROVIDERS: PCP Nurse Practitioner Primary Care; Referring Provider Nurse Practitioner Family; Visit Provider Nurse Practitioner Family
DX: C18.9 Malignant neoplasm of colon, unspecified (principal); C78.7 Secondary malignant neoplasm of liver and intrahepatic bile duct; C15.9 Malignant neoplasm of esophagus, unspecified; R59.0 Localized enlarged lymph nodes
CPT/HCPCS: 71260; 74177; Q9967

== ENCOUNTER → 2020-02-21 14:47 | Outpatient (CLI) | payer OTHER, SELFPAY ==
[2019-10-29 14:38] VITALS: BMI 31.6
[2020-02-12 08:38] VITALS: BMI 32.0
--- NOTE | 2020-02-21 14:48 | CT_ITS ---
We are attempting to reach an attending provider to discuss findings. An addendum with communication details will be sent when the communication is complete. STUDY: CT ABDOMEN AND PELVIS WITH CONTRAST REASON FOR EXAM: Female, 64 years old. COLON CANCER CHEMO CHECK, HX CHOLECYSTECTOMY, PEG TUBE, COLON RESECTION 2009, RECURRENCE 09/2019 RADIATION DOSAGE (If Supplied By Facility): CTDIvol = ( 15.46 ) mGy, DLP = ( 1557.33 ) mGycm TECHNIQUE: Transaxial images were obtained from the dome of the diaphragm to the symphysis pubis without oral contrast. IV 100mL Isovue-300 was administered. Sagittal and coronal images were reconstructed. Individualized dose optimization techniques were used for this CT. COMPARISON: December 26, 2019 FINDINGS: There is minimal by basilar atelectasis and or scarring. The visualized portions of the heart are within normal limits. There are multiple ill-defined low-attenuation foci throughout the liver that have decreased in size since the prior examination. A shipping services sales representative lesion within the right hepatic lobe measures up to 3.7 x 3.4 cm previously measuring by my measurements 4.6 x 4.4 cm. There is non-visualization of the gallbladder, which may be secondary to either contraction or a prior cholecystectomy. Normal spleen. Normal pancreas. There is a left adrenal nodule that has increased in size since the prior examination measuring 1.5 x 1.9 cm previously measuring 0.6 x 1.1 cm. Normal right kidney. Normal left kidney. There is a small to moderate size hiatal hernia. There is a grossly stable PEG tube in place. Normal small intestine. There are multiple colonic diverticula consistent with diverticulosis. There is focal circumferential wall thickening of the proximal sigmoid colon which is incompletely distended (image 79 series 3). There is stable mild stranding adjacent to the proximal sigmoid colon. There is non-visualization of the appendix. Normal abdominal aorta. Normal inferior vena cava. Normal retroperitoneum. Normal urinary bladder. Normal abdominal wall. There are diffuse degenerative changes of the visualized lumbar spine. CT/Abdomen/Pelvis W IV Cont ONLY IMPRESSION: Interval decrease in size of hepatic metastases. Interval enlargement of the left adrenal nodule concerning for underlying neoplastic involvement. Mild circumferential wall thickening of the proximal sigmoid colon associated with minimal adjacent stranding which may reflect mild diverticulitis. Hiatal hernia. Electronically Signed: Andree Grier MD at 15:54 EDT Tel , Service support ,
--- NOTE | 2020-02-21 14:48 | CT_ITS ---
STUDY: CT CHEST WITH CONTRAST REASON FOR EXAM: Female, 64 years old. COLON CANCER CHEMO CHECK, HX CHOLECYSTECTOMY, PEG TUBE, COLON RESECTION 2009, RECURRENCE 09/2019 RADIATION DOSAGE (If Supplied By Facility): CTDIvol = ( 15.46 ) mGy, DLP = ( 1557.33 ) mGycm TECHNIQUE: Transaxial imaging was performed following intravenous administration of IV 100mL Isovue-300. Multiplanar coronal and sagittal images were reformatted. Individualized dose optimization techniques were used for this CT. COMPARISON: December 26, 2019 FINDINGS: There is a Mediport in place within the left anterior chest wall terminating within the region of the caval atrial junction. There is stable minimal subpleural atelectasis and/or scarring scattered throughout the lungs. There is a new 4.4 mm nodule along the right minor fissure (image 65 series 6). In addition there is a new small cluster of groundglass opacities within the left lower lobe (image 68 series 6) There are calcifications of the coronary arteries. There is stable circumferential wall thickening of the mid and distal esophagus. There is a hiatal hernia. Normal hilar regions. Normal enhanced pulmonary arteries. Normal aorta arch and descending thoracic aorta. There are postsurgical changes within the left breast. There are multi-level degenerative changes of the thoracic spine. There is a separate dedicated CT report of the abdomen and pelvis. CT/Chest WITH Contrast IMPRESSION: Circumferential wall thickening of the mid and distal esophagus may be secondary to esophagitis however cannot exclude underlying neoplastic process. New 4.4 mm nodule along the right minor fissure, may reflect an underlying lymph node however neoplastic process cannot be entirely excluded. Hiatal hernia. Stable bilateral atelectasis and/or scarring. Electronically Signed: Andree Grier MD at 22:04 EDT Tel , Service support ,
[2020-02-21] MEDS: 0.9% Saline Lock 10 ML Syringe IV (15:05)
[2020-02-21] MEDS: 0.9 % NaCl (Sterile) Posiflush 10 mL IV (15:05)
== END ==
PROVIDERS: PCP Nurse Practitioner Primary Care; Referring Provider Nurse Practitioner Family; Visit Provider Nurse Practitioner Family
DX: C18.9 Malignant neoplasm of colon, unspecified (principal); C78.7 Secondary malignant neoplasm of liver and intrahepatic bile duct; Z90.49 Acquired absence of other specified parts of digestive tract; Z93.1 Gastrostomy status
CPT/HCPCS: 71260; 74177; Q9967; A4216

== ENCOUNTER → 2020-03-28 08:48 | Outpatient (CLI) | payer OTHER, SELFPAY ==
[2019-10-29 14:38] VITALS: BMI 31.6
[2020-03-25 09:04] VITALS: BMI 31.6
--- NOTE | 2020-03-28 08:49 | CT_ITS ---
STUDY: CTA CHEST REASON FOR EXAM: Female, 64 years old. COLON AND BREAST CANCER/METS TO LIVER AND ESOPHAGUS. Patient has sternal pain and pain with deep inspiration. Prior cholecystectomy, partial colectomy, left lumpectomy. RADIATION DOSAGE (If Supplied By Facility): CTDIvol = ( 10.78 ) mGy, DLP = ( 366.11 ) mGycm TECHNIQUE: The examination was performed with the intravenous administration of Isovue 370 100 ml. Post-processing of the angiographic images was performed, with multiplanar reformation and 3D reconstruction. Individualized dose optimization techniques were used for this CT. COMPARISON: Comparison is made with prior examination dated 02/21/2020. FINDINGS: A left-sided portacatheter is seen with the tip in the junction of the superior vena cava and atrium. Normal enhancement of the main pulmonary artery and right and left pulmonary arteries. Normal enhancement of the bilateral peripheral pulmonary arteries. There is no demonstrated pulmonary embolism. Normal thoracic aorta and visualized great vessels. There is no demonstrated aortic dissection. There are calcifications of the coronary arteries. There are visualized mediastinal lymph nodes, which are within normal size limits, and with normal morphology. Normal hilar regions. Normal visualized trachea and bronchi. The lungs are well expanded. New focal area of peripheral-based groundglass appearance in the anterior lateral aspect of the left upper lobe as well as in the posterior medial segment of the right upper lobe and superior segment of the left lower lobe. Increased markings in the medial anterior aspect of the right middle lobe. This has progressed as compared to prior study. The prior nodule seen in the right middle lobe has increased in size. It presently measures 9.3 mm. Normal pleura. Normal chest wall structures. There are degenerative changes of thoracic spine. This a 3.4 cm x 2.7 cm mass in the left adrenal gland. This has progressed as compared to prior study. Scattered hypodense nodules throughout the liver in keeping with the metastasis. Stable diffuse circumferential wall thickening of the distal esophagus extending into the gastroesophageal junction. CT/CTA Chest W/WO Contrast IMPRESSION: Increased size of the right middle lobe nodule presently measuring 9.3 mm. Scattered areas of groundglass appearance as described with a superimposed chronic scarring. Changes in the abdomen as described. Electronically Signed: Crow Padgett, at 9:58 EDT , Service support ,
[2020-03-28] MEDS: 0.9% Saline Lock 10 ML Syringe IV (09:11)
== END ==
PROVIDERS: PCP Nurse Practitioner Primary Care; Referring Provider Nurse Practitioner Family; Visit Provider Nurse Practitioner Family
DX: R06.00 Dyspnea, unspecified (principal); R07.89 Other chest pain
CPT/HCPCS: 71275; Q9967; A4216

== ENCOUNTER → 2020-03-31 11:35 | Outpatient (CLI) | payer OTHER, SELFPAY ==
[2019-10-29 14:38] VITALS: BMI 31.6
[2020-03-25 09:04] VITALS: BMI 31.6
--- NOTE | 2020-03-31 11:38 | EKG12_ITS ---
Test Reason : EXERTIONAL DYSPNEA Blood Pressure : / mmHG Vent. Rate : 094 BPM Atrial Rate : 094 BPM P-R Int : 152 ms QRS Dur : 086 ms QT Int : 352 ms P-R-T Axes : 052 -11 055 degrees QTc Int : 440 ms Normal sinus rhythm Normal ECG Confirmed by PETER TRUJILLO, BETITO ([id number]), video news editor VICTOR HUGO MCCLAIN ([id number]) on 04/01/2020 9:34:08 AM Referred By: Stephania Canela Confirmed By:BETITO GREEN MD
== END ==
PROVIDERS: PCP Nurse Practitioner Primary Care; Referring Provider Nurse Practitioner Family; Visit Provider Nurse Practitioner Family
DX: R06.00 Dyspnea, unspecified (principal)
CPT/HCPCS: 93005

== ENCOUNTER → 2020-04-07 10:56 | Outpatient (CLI) | payer OTHER, SELFPAY ==
[2019-10-29 14:38] VITALS: BMI 31.6
[2020-03-25 09:04] VITALS: BMI 31.6
[2020-04-01 13:01] VITALS: BMI 31.4
--- NOTE | 2020-04-07 10:57 | ECHODONC_ITS ---
Reason For Study: DYSPNEA Procedure This was a 2D Doppler, Color Flow transthoracic echocardiogram. Myocardial strain analysis was performed in this exam to aid in the assessment of cardiac function. Exam performed in department. Left Ventricle Normal LV size. Left ventricular systolic function is normal. The estimated ejection fraction is 55 %. Stage 1 diastolic dysfunction. No regional wall motion abnormalities noted. Right Ventricle Normal RV size. Normal systolic function. Atria Normal left atrium. Normal right atrium. Mitral Valve Normal mitral valve. Tricuspid Valve Normal tricuspid valve. Aortic Valve Trisinus/trileaflet aortic valve. Pulmonic Valve Normal pulmonic valve. Great Vessels Normal aortic root. The pulmonary artery is normal size. Normal inferior vena cava. Pericardium/Pleural No pericardial effusion. MMode/2D Measurements & Calculations LVIDd: 4.1 cm IVSd: 0.96 cm Ao root diam: 3.0 cm LVIDs: 2.8 cm LVPWd: 0.97 cm RVDd: 2.3 cm FS: 30.9 % LAV(MOD-bp): 59.0 ml LA A4 area: 20.0 cm2 LA dimension(2D): 3.9 cm LAV(MOD-bp) Indexed: 31.9 ml/m2 LAV(MOD-sp2): 51.5 ml LAV(MOD-sp4): 61.9 ml RA A4 area: 12.1 cm2 Doppler Measurements & Calculations MV E max josé manuel: 59.8 cm/sec Lat Peak E' José Manuel: 10.8 cm/sec Med Peak E' José Manuel: 8.5 cm/sec MV A max josé manuel: 90.5 cm/sec E/E' lat: 5.6 E/E' med: 7.0 MV E/A: 0.66 Ao V2 max: 171.4 cm/sec LV V1 max: 110.1 cm/sec PA V2 max: 125.2 cm/sec Ao max P.8 mmHg LV V1 max P.9 mmHg Interpretation Summary Normal LV size. Left ventricular systolic function is normal. The estimated ejection fraction is 55 %. Stage 1 diastolic dysfunction. The global longitudinal strain is normal. The global longitudinal strain = -17.1 % (normal). Ordering Physician: Stephania Canela Referring Physician: Citlaly Tovar Performed By: Mahnaz Ocampo, ZULMA, RVT
== END ==
PROVIDERS: PCP Nurse Practitioner Primary Care; Referring Provider Nurse Practitioner Family; Visit Provider Nurse Practitioner Family
DX: R06.00 Dyspnea, unspecified (principal)
CPT/HCPCS: 93306; 93356

== ENCOUNTER 2020-05-16 10:23 | Inpatient (IN) | payer OTHER, SELFPAY ==
[2019-10-29 14:38] VITALS: BMI 31.6
[2020-05-07 10:26] VITALS: BMI 30.9
[2020-05-16] VITALS (39 sets, daily range): BP systolic 71–131; BP diastolic 19–77; PULSE 94–117; RESP 15–24; TEMP 35.7–38.1; O2SAT 92–100; BMI 28.5; BMI 32.5
--- NOTE | 2020-05-16 10:39 | EKG12_ITS ---
Test Reason : SOB Blood Pressure : / mmHG Vent. Rate : 116 BPM Atrial Rate : 116 BPM P-R Int : 152 ms QRS Dur : 100 ms QT Int : 296 ms P-R-T Axes : 042 -09 143 degrees QTc Int : 411 ms Sinus tachycardia Nonspecific ST/T Changes Abnormal ECG Confirmed by KELLY TRUJILLO, ANN-MARIE ([id number]), editor producer FREDRICK NUNEZ ([id number]) on 05/19/2020 2:47:21 PM Referred By: KEVIN Confirmed By:SOPHIA MENDOZA MD
--- NOTE | 2020-05-16 10:49 | RAD_ITS ---
STUDY: X-RAY CHEST REASON FOR EXAM: Female, 64 years old. CONFUSION, SOB, SLURRED SPEECH, VOMITED, PULSE OX 70% TECHNIQUE: Single AP portable view of the chest. COMPARISON: 11/21/2019 FINDINGS: Left subclavian chest port which is unchanged. Alveolar opacity in the lower left lung silhouettes left heart border consistent with lingular pneumonia. Elevated right hemidiaphragm which is unchanged Normal size heart. Normal mediastinum and amarjit. Normal visualized pulmonary arteries. Normal visualized aortic arch and descending thoracic aorta. Normal visualized thoracic spine. Normal visualized ribs, clavicles, and shoulders. There is no demonstrated abnormality of the visualized soft tissue structures of the upper abdomen. RAD/Chest 1 View (Portable) IMPRESSION: Lingular pneumonia per Electronically Signed: Obie Hernandez MD at 11:13 EDT Tel , Service support ,
[2020-05-16 10:55] LABS: Partial Thromboplast Time 47.7 Seconds (24.1-36.2)
[2020-05-16] MEDS: Ondansetron 4 MG/2 ML Vial IV (10:57)
[2020-05-16 11:03] LABS: ALB/GLOB Ratio 0.7 RATIO (0.9-2.4); AST(SGOT) 19 U/L (15-37); Alanine Aminotransfer ALT/SGPT 18 U/L (13-56); Albumin, Serum 1.7 g/dL (3.2-5.0); Alkaline Phosphatase 81 U/L (45-117); Anion Gap 9 (5-15); BUN 31 mg/dL (7-18); Calcium,Total 7.4 mg/dL (8.5-10.1); Chloride 104 mmol/L (98-107); Creatinine, Serum 1.94 mg/dL (0.55-1.02); EST Glomerular Filtration Rate 28 mL/min (>60); Est Glom Filt Rate - Afr Amer 34 mL/min (>60); Estimated Creatinine Clearance 30.33 ml/min; Globulin 2.4 g/dL (2.2-4.2); Glucose 80 mg/dL (74-106); Mean Platelet Vol. 11.5 fl (6.2-12.0); NRBC Flagged by Analyzer 0 % (0-5); POSITIVE COUNT YES; Potassium 2.8 mmol/L (3.5-5.1); Protein, Total 4.1 g/dL (6.4-8.2); RBC Distribution Width CV 19.1 % (11.6-14.6); Red Blood Count 2.44 M/mm3 (4.2-5.4); Sodium Level 134 mmol/L (136-145)
[2020-05-16 11:05] LABS: Hematocrit 23.1 % (37-47); Hemoglobin 7.5 g/dL (12.0-15.0); Mean Corp Hgb Conc 32.5 g/dL (32-36); Mean Corpuscular Hgb 30.7 pg (27.0-32.0); Mean Corpuscular Volume 94.7 fL (81-99); RBC Distribution Width SD 65.1 fl (35.1-43.9)
[2020-05-16 11:06] LABS: Differential Indicated SCAN CRITERIA MET
[2020-05-16 11:07] LABS: International Normalized Ratio 5.6; Platelet Count 37 K/mm3 (150-450); White Blood Count 0.2 K/mm3 (4.4-11.0)
[2020-05-16 11:12] LABS: Lactic Acid 2.8 mmol/L (0.4-1.9)
[2020-05-16 11:20] LABS: Absolute Lymphocyte Count 0.06 X10^3/uL (0.83-4.51); Absolute Neutrophil Count 0.1 X10^3/uL (2.0-7.7); Lymphocyte # 0.06 X10^3/ul (4.0); Lymphocyte % 33.3 % (19-41); Monocyte# 0.02 X10^3/uL; Monocyte% 11.1 % (0-10); Neutrophil # 0.08 X10^3/uL (2.7-7.7); Neutrophil % 44.5 % (47-70)
[2020-05-16 11:21] LABS: Anisocytosis 3+; Differential Comment SCANNED; Platelet Estimate MKD DEC (ADEQ)
--- NOTE | 2020-05-16 11:41 | ED.VISSUMM ---
- ER Visit Summary Date of Service: 05/16/20 Chief Complaint: Shortness of breath History of Present Illness: The patient is a 64 F who presents with shortness of breath that began last night. Patient states she was sitting watching TV when it began. Patient states nothing makes it better or worse. Patient states it has been constant. Patient admits to a cough but denies any sputum production. Patient states she was having some nausea and vomiting prior to the cough. Patient admits to subjective chills but denies any fevers. Patient admits to some pain in her chest with coughing but denies any other chest pain. Physical Examination: Vital signs are stable except for tachycardia of 117 and tachypnea of 24. Patient is afebrile here. Oral mucosa is pink and moist. Neck is supple. Trachea is midline. There is no JVD. Heart was regular and tachycardic. Lungs showed rhonchi bilaterally. There is adequate respiratory effort noted. Abdomen is soft. Bowel sounds are normal. There is mild diffuse tenderness. There is no rebound or guarding noted. Extremities are intact. There is no calf tenderness or edema. Cranial nerves II through XII are intact. There are no focal motor or sensory deficits. Test Results: EKG showed sinus tachycardia with a rate of 116. There is some T wave inversion in leads I and aVL. There is also some flattening of the T waves in leads V4, V5, and V6. These are all new compared to previous EKG dated 03/31/2020. CBC shows a white blood cell count of 0.2. Hemoglobin was 7.5 and hematocrit was 23.1. Platelets were 37. Absolute neutrophil count was 0.1. Comprehensive metabolic profile showed a mild hypokalemia of 2.8. Creatinine was 1.94. Total bilirubin was slightly elevated at 1.9. INR was elevated at 5.6. PTT was 47.7. Lactate was elevated at 2.8. Urinalysis is ordered and is pending. Emergency Department Course and Treatment: Patient was given IV fluids. Patient was started on Zosyn and vancomycin. Blood and urine cultures were obtained and are pending. COVID swab was obtained and is pending. Case was discussed with the hospitalist Dr Cooney. Patient will be admitted to ICU. Patient and family understood and were agreeable with the plan. All questions were answered. Disposition: Admit to hospital Impression: 1. Pneumonia 2. Severe sepsis 3. Pancytopenia 4. Neutropenic sepsis This note was generated with [employer] dictation software. It may contain incorrect words, spelling, and punctuation that were not noted in review of the chart prior to signing ED Disposition - Plan for ED Patient: Disposition: Acute [facility] Diagnosis: Pneumonia, Severe sepsis, Pancytopenia, Neutropenic sepsis
--- NOTE | 2020-05-16 12:32 | HP.PCM_ITS ---
Problem List (1) Acute on chronic anemia Status: Acute (2) Pancytopenia Status: Acute (3) Acute kidney injury Status: Acute (4) Healthcare-associated pneumonia Status: Acute (5) Chronic anemia Status: Chronic (6) Breast cancer Status: Chronic (7) Metastatic colon cancer to liver Status: Chronic (8) Anxiety and depression Status: Chronic (9) GERD (gastroesophageal reflux disease) Status: Chronic (10) Metastatic adenocarcinoma to liver Status: Chronic (11) Esophageal adenocarcinoma Status: Chronic (12) Hypoalbuminemia Status: Chronic (13) CINV (chemotherapy-induced nausea and vomiting) Status: Chronic (14) Pancytopenia Status: Chronic History of Present Illness Date of Admission: 05/16/20 Chief Complaint: Shortness of breath. The patient is a 64 year old F with past medical history as mentioned above presented to the emergency room because of shortness of breath. The patient is very poor informant and information was obtained from her who was at the bedside. According to the , patient started having increasing shortness of breath since last night, it is at rest, associated with mild cough and she has been confused. The mentioned that patient has been getting sicker over the last several days with poor oral intake and she has been dehydrated. Patient complained of being very weak and tired, complained of some cough with minimal sputum. Patient reported that she has been choking sometimes upon eating or drinking. She denied fever or chills. She denied chest pain or palpitation. She reported diarrhea over the last several days at least 3-4 times daily, loose stool without blood also complained of some nausea. She denied abdominal pain. She had a history of metastatic colon cancer that was diagnosed 10 years ago, status post polypectomy and AP resection at [facility]. She was diagnosed with breast cancer namely invasive ductal carcinoma on February,, status post left breast lumpectomy and she received anastrozole. She had CT scan abdomen on September, for abdominal pain that revealed multiple liver metastasis with retroperitoneal lymphadenopathy, had liver mass biopsy that revealed metastatic adenocarcinoma consistent with colonic primary. She had PET scan on October, that revealed hypermetabolic activity involving the distal esophagus, left and right lobes of the liver, right posterior ilium, right and left neck, retroperitoneal, chery hepatis and she was started on chemotherapy and last session of chemotherapy was around 1 week ago. She does have chronic pancytopenia but today, her WBC, hemoglobin and platelet count are very low secondary to chemotherapy. She will history of depression and she has been on sertraline. Initially in the emergency department, patient was afebrile, tachycardic, tachypneic, blood pressure was borderline, pulse ox was 95% on 4 L. Upon arrival to the floor, blood pressure started to drop down in spite of IV fluid boluses. Routine blood work was remarkable for WBC of 0.2, hemoglobin of 7.5 g/dL, platelet count is 37,000, absolute neutrophil count is 100, sodium is 134, potassium is 2.8, BUN is 31, creatinine is 1.94. INR is 5.6, PT is 51. Lactic acid was 2.8. LFT revealed bilirubin of 1.9, liver transaminases and alkaline phosphatase are normal. COVID-19 PCR is negative. Chest x-ray revealed left lower lobe/lingular infiltrate. EKG sinus tachycardia, nonspecific ST, T wave changes, no acute ST elevation. She is being admitted for septic shock secondary to healthcare associated pneumonia which complicated by acute hypoxic respiratory failure, acute kidney injury, acute on chronic anemia, pancytopenia and coagulopathy. Past Medical History Past Medical History (Chronic Problems): Chronic Problems (Last Updated 05/16/20 @ 12:[address] Tyrone Cooney MD) Anxiety and depression (Chronic) Migraine (Chronic) GERD (gastroesophageal reflux disease) (Chronic) History of colon cancer in adulthood (Chronic) Metastatic adenocarcinoma to liver (Chronic) Mass of esophagus (Chronic) Esophageal adenocarcinoma (Chronic) Cancer-related pain (Chronic) Hypoalbuminemia (Chronic) CINV (chemotherapy-induced nausea and vomiting) (Chronic) Pancytopenia (Chronic) Metastatic colon cancer to liver (Chronic) Breast cancer (Chronic) Chronic anemia (Chronic) Medical History: Medical History (Last Updated 05/16/20 @ 12:[address] Tyrone Cooney MD) Breast cancer C50.919 Left. Lumpectomy and radiation port placement 10/17/2019 History of colon cancer Z85.038 Allergies No Known Allergies Allergy (Verified 05/16/20 10:36) Home Medications: Ambulatory Orders Medication Instructions Recorded rabeprazole 20 mg tablet,delayed 20 mg PO DAILY@1700 09/01/17 release Aspirin/Acetaminophen/Caffeine 2 tab PO DAILY PRN 03/02/19 [Excedrin Migraine Caplet] Sumatriptan Succinate [Imitrex] 100 mg PO .X1 PRN PRN 03/02/19 Multivitamins,Therapeutic 1 tab PO DAILY 09/25/19 [Multivitamin] Sertraline HCl 50 mg PO DAILY 09/25/19 proMETHazine tablet [Phenergan 25 mg PO Q8H PRN PRN 10/18/19 tablet] Prochlorperazine Maleate 10 mg PO Q6H PRN PRN 10 Days #30 10/22/19 tab Lidocaine/Prilocaine 1 applicatio TP DAILY PRN PRN 11/21/19 [Lidocaine-Prilocaine Cream] Senna/Docusate Sodium [Senokot-S] 2 tab PO BID PRN PRN tab 11/23/19 Ondansetron HCl 8 mg PO Q8H PRN PRN 10 Days #30 tab 03/25/20 Surgical History: Surgical History (Last Reviewed 05/16/20 @ 12:[address] Tyrone Cooney MD) History of colon surgery Z98.890 2009 [facility] [address] [place] related to colon cancer History of lumpectomy of left breast Z98.890 2018 [facility] [address] [place] History of D&C Z98.890 History of cholecystectomy Z98.890, Z90.49 Surgical History: - - Resection of her colon cancer, left breast lumpectomy, cholecystectomy. Psychiatric History: Anxiety, Depression [employer] History: No pertinent [employer] history Lives: Spouse/ Significant Other Smoking Status: Never smoker Alcohol: None Drugs: None - *Family History Maternal Family History: Family History (Last Reviewed 05/16/20 @ 12:[address] Tyrone Cooney MD) Father Diabetes CHF (congestive heart failure) History Items: High Cholesterol, Heart Disease, Hypertension Paternal Family History: Family History (Last Reviewed 05/16/20 @ 12:[address] Tyrone Cooney MD) Father Diabetes CHF (congestive heart failure) History Items: Dementia Review of Systems Constitutional: Reports: Anorexia, Weakness, Fatigue. Denies: Chills, Fever Eyes: Denies: Blurred vision, Double vision, Drainage, Redness HEENT: Denies: Difficulty Hearing, Ear Pain, Eye Pain, Nasal Congestion, Sore Throat Cardiovascular: Denies: Chest Pain, Chest Pressure, Chest Tightness, Heaviness, Light Headedness, Palpitations, Syncope Respiratory: Reports: Cough, Shortness of breath at rest, Sputum production. Denies: Pleuritic Pain, Wheezing Gastrointestinal: Reports: Diarrhea, Nausea. Denies: Abdominal Pain, Constipation, Vomiting Genitourinary: Denies: Dysuria, Frequency, Hematuria Musculoskeletal: Denies: Arm Pain, Back Pain, Foot Pain Skin: Denies: Dryness, Rash Neurological: Reports: Confusion. Denies: Balance problems, Double vision, Change in Speech, Slurred speech, Headaches, Incoordination Psychiatric: Reports: Anxiety, Depression Endocrine: Denies: Change in Body Habitus, Polydipsia, Polyuria VTE Information - Inpt Only VTE Present on Admission: No VTE Mechan Device Prophylaxis: SCD's VTE Pharm Prophylaxis ordered?: No Patient Problems: Active and Suspected Problems (Last Updated 05/16/20 @ 12:[address] Tyrone Cooney MD) Septic shock (Acute) Healthcare-associated pneumonia (Acute) Acute kidney injury (Acute) Pancytopenia (Acute) Acute on chronic anemia (Acute) - Physical Exam Vitals/I&O's: Vital Signs Temp Pulse Resp BP Pulse Ox 97.9 F 111 H 21 H 100/60 96 05/16/20 12:21 05/16/20 12:21 05/16/20 12:21 05/16/20 12:21 05/16/20 12:21 Oxygen Flow Rate (L/min) 4 Oxygen Delivery Method Nasal Cannula Weight: 187 lb 6.287 oz Body Mass Index (BMI) 28.5 Intake and Output for Last 24 Hours 05/14/20 05/15/20 05/16/20 23:59 23:59 23:59 Intake Total 1000 / 1000 Balance 1000 / 1000 General: Alert, Oriented x3, Cooperative, - - Chronically ill patient, very pale. HEENT: Atraumatic, PERRLA, EOMI, Normocephalic Oral: Moist Mucosa, No Gingival or Mucosal Lesions/ Ulcerations Neck: Supple, No JVD, Negative Carotid Bruits, Trachea Midline, Thyroid Normal Size and Texture Lungs: No wheeze, Diminished, Rales, Rhonchi, Short of Breath, - - Decubitus sounds at the left base, faint crackles. Cardiovascular: Regular rate, Regular Rhythm, Normal S1, Normal S2, PMI Normal, Tachycardic Abdomen: Bowel Sounds Present, Soft, Non Tender, Non-Distended, No Hepato- splenomegaly Extremities: No clubbing, No cyanosis, Edema - Trace edema. Skin: No rashes, No breakdown Lymphatic: No Cervical, Supraclavicular, or Inguinal Adenopathy Neurological: Cranial nerves II-XII grossly intact, Motor Exam 5/5 strength throughout Psych/Mental Status: Appropriate, Flat Affect, Alert and oriented to time, place, person, mood and affect Laboratory Results 05/16/20 10:30: WBC 0.2 L*, RBC 2.44 L, Hgb 7.5 L, Hct 23.1 L, MCV 94.7, MCH 30.7, MCHC 32.5, RDW Std Deviation 65.1 H, RDW Coeff of Audrey 19.1 H, Plt Count 37 L*, MPV 11.5, Immature Gran % (Auto) 11.100 H, Neut % (Auto) 44.5 L, Lymph % (Auto) 33.3, Granite % (Auto) 11.1 H, Eos % (Auto) 0.0, Baso % (Auto) 0.0, Absolute Neuts (auto) 0.1 L, Absolute Lymphs (auto) 0.06 L, Nucleated RBC % 0, Differential Comment SCANNED, Diff Path Review December, Platelet Estimate MKD DEC, Anisocytosis 3+ 05/16/20 10:30: PT 51.0 H, INR 5.6 H*, APTT 47.7 H 05/16/20 10:30: Sodium 134 L, Potassium 2.8 L, Chloride 104, Carbon Dioxide 21.0, Anion Gap 9, BUN 31 H, Creatinine 1.94 H, Estim Creat Clear Calc 30.33, Est GFR (MDRD) Af Amer 34 L, Est GFR (MDRD) Non-Af 28 L, BUN/Creatinine Ratio 16.0, Glucose 80, Calcium 7.4 L, Total Bilirubin 1.90 H, AST 19, ALT 18, Alkaline Phosphatase 81, Total Protein 4.1 L, Albumin 1.7 L, Globulin 2.4, Albumin/Globulin Ratio 0.7 L 05/16/20 10:30: Lactic Acid 2.8 H* Clinical Impression(s) from Imaging Studies Chest X-Ray 05/16/20 10:49 IMPRESSION: Lingular pneumonia per Electronically Signed: Obie Hernandez MD at 11:13 EDT Tel , Service support , Current Medications Vancomycin HCl 2,000 mg/ (Dextrose) 290 mls @ 250 mls/hr IV X1 ONE Stop: 05/16/20 12:58 Sodium Chloride () 1,500 mls @ 1,000 mls/hr IV .Q1H30M ONE Stop: 05/16/20 13:28 Last Admin: 05/16/20 12:13 Dose: 1,000 mls/hr Documented by: Vancomycin HCl 2,000 mg/ (Sodium Chloride) 540 mls @ 250 mls/hr IV X1 ONE Stop: 05/16/20 14:54 Assessment/Plan All Active Problems (Last Updated 05/16/20 @ 12:[address] Tyrone Cooney MD) Septic shock (Acute) Healthcare-associated pneumonia (Acute) Acute kidney injury (Acute) Pancytopenia (Acute) Acute on chronic anemia (Acute) This is a 64 years old female patient presented to the emergency room because of shortness of breath, cough and she was found to have left lower lobe/lingular infiltrate on chest x-ray consistent with healthcare associated pneumonia, complicated by septic shock and acute hypoxic respiratory failure, also found to have acute kidney injury, pancytopenia and acute on chronic anemia. #1 Septic shock: Secondary to pneumonia. Initially, patient was in severe sepsis but later, blood pressure dropped in spite of IV fluid boluses. Chest x- ray reviewed. Patient is receiving IV fluid bolus in the ED. Lactic acid was elevated. Patient is leukopenic and neutropenic without fever. Plan: Admit to ICU, critical care monitoring, complete IV fluid bolus of 2.5 L, start maintenance fluid after wards, start IV Levophed, blood culture, urine culture, sputum culture, critical care consult, start IV antibiotics as below, repeat lactic acid in 3 hours, repeat CBC, CMP and INR tomorrow morning, PT OT evaluation and treatment when appropriate. #2 acute left lower lobe/lingular healthcare associated pneumonia versus aspiration: Chest x-ray reviewed as above. COVID-19 PCR is negative. Plan: Pancultures, start IV Unasyn and Zosyn, IV Levophed, albuterol PRN, ABG, critical care consult, pneumococcal and Legionella antigen. #3 acute hypoxic respiratory failure: Secondary to 1 and 2. Currently, pulse ox is maintained on 5 L. Plan for ABG, continue oxygen by nasal cannula, IV a ntibiotics, critical care consult. #4 acute kidney injury: Secondary to severe sepsis and poor oral intake. Baseline kidney function is normal. Admission BUN is 31, creatinine 1.94. Plan for IV fluids as above, input output chart, repeat CMP tomorrow morning. #5 acute on chronic anemia/pancytopenia/neutropenia without fever: Patient does have chronic pancytopenia but her blood counts are getting worse. She does have leukopenia and neutropenia without fever, hemoglobin is down to 7.5 g/dL. It is probably due to chemotherapy. At this time, no evidence of active bleeding. Plan: Transfuse 1 unit of packed RBCs, repeat CBC and INR tomorrow morning. If patient started bleeding, she will need FFP and vitamin K. #6 coagulopathy: Unclear etiology, could be due to chronic liver disease se condary to liver metastasis. LFT revealed elevated bilirubin but liver transaminases and alkaline phosphatase are normal. INR is 5.6, PT is 51. As mentioned above, no evidence of active bleeding. Plan as above. #7 history of metastatic colon cancer: With mets to the liver, retroperitoneum, chery hepatis and esophagus. Patient has been on chemotherapy, last session was around 1 week ago. #8 history of breast cancer: Status post lumpectomy and sentinel node biopsy, received anastrozole in the past. #9 GERD: Start IV Protonix twice daily. #10 anxiety and depression: Continue sertraline. #11 CODE STATUS: Full code. I explained different types of CODE STATUS including full code, DNR CC, DNR CCA with and without intubation to the patient and her . Patient wanted to have everything done in case of cardiorespiratory arrest including CPR, endotracheal intubation mechanical ventilation. #12: DVT prophylaxis: SCDs, no chemical prophylaxis because of severe thrombocytopenia. This note was generated with [employer] software. It may contain incorrect words, spelling, and punctuation that were not noted in checking the note before signing. Inpatient E&M: 82816 Init Hosp L3
[2020-05-16 13:36] LABS: Magnesium 1.6 mg/dL (1.6-2.6); Phosphorus 2.6 mg/dL (2.5-4.9)
[2020-05-16 14:47] LABS: Reflex Lactate? Y
--- NOTE | 2020-05-16 15:05 | PCM.RX.CS ---
Consult Pharmacy has been consulted to manage selected antiobiotic: Vancomycin Type of Consult: New start Suspected Infection: Sepsis, Pneumonia Prior Doses of Antibiotics Received/Current Regimen: 2000MG IV X1 ordered from E.R. and started at 13:50 today Labs: Sodium 134 mmol/L (136-145) L 05/16/20 10:30 Potassium 2.8 mmol/L (3.5-5.1) L 05/16/20 10:30 Chloride 104 mmol/L (98-107) 05/16/20 10:30 Carbon Dioxide 21.0 mmol/L (21.0-32.0) 05/16/20 10:30 Anion Gap 9 (5-15) 05/16/20 10:30 BUN 31 mg/dL (7-18) H 05/16/20 10:30 Creatinine 1.94 mg/dL (0.55-1.02) H 05/16/20 10:30 Est GFR (MDRD) Af Amer 34 mL/min (>60) L 05/16/20 10:30 Est GFR (MDRD) Non-Af 28 mL/min (>60) L 05/16/20 10:30 BUN/Creatinine Ratio 16.0 RATIO (10-20) 05/16/20 10:30 Glucose 80 mg/dL (74-106) 05/16/20 10:30 Weight used for dosin.4 kg Estimated Creatinine Clearance: 30.8ml/min Goal Trough: 15-20 mcg/mL Pharmacy Plan for Drug Dosing: After initial dose of 2000mg x1 is finished, will begin 1250mg IV q24h starting tomorrow. A trough level will be ordered to be drawn before the 3rd total dose. Pharmacy Service will continue to monitor and adjust dosing as required. Follow-Up Labs: Trough Vancomycin Labs to be done on [date and time ordered]: 05/18/20 13:30
[2020-05-16 15:11] LABS: Base Excess -9 mmol/L (-2 to +2); Bicarbonate 17.5 mmol/L (22-26); Blood Gas Specimen Type ART; O2 Delivery Device Cannula; PO2 77 mmHG (75-100); SITE R Brach; SO2 94 % (95-99); Total Carbon Dioxide 19 mmol/L; pCO2 34.4 mmHg (35-45); pH 7.32 (7.35-7.45)
--- NOTE | 2020-05-16 15:57 | CON.PCM_ITS ---
Problem List (1) Anxiety and depression Status: Chronic (2) Migraine Status: Chronic Qualifiers: Migraine type: unspecified Status migrainosus presence: without status migrainosus Intractability: not intractable Qualified Code(s): G43.909 - Migraine, unspecified, not intractable, without status migrainosus (3) GERD (gastroesophageal reflux disease) Status: Chronic (4) History of colon cancer in adulthood Status: Chronic (5) Metastatic adenocarcinoma to liver Status: Chronic (6) Esophageal adenocarcinoma Status: Chronic (7) Cancer-related pain Status: Chronic (8) CINV (chemotherapy-induced nausea and vomiting) Status: Chronic (9) Pancytopenia Status: Chronic (10) Breast cancer Status: Chronic (11) Severe sepsis Status: Acute (12) Healthcare-associated pneumonia Status: Acute (13) Acute kidney injury Status: Acute (14) Neutropenic sepsis Status: Acute Reason for Consult Date of Consultation: 05/16/20 Reason for Consultation: Septic shock History of Present Illness: The patient is a 64 year old F, with past medical history listed below, who presented to [facility] on 05/16/2020 secondary to progressive shortness of breath. Patient reportedly was watching TV when it began and stated that it was constant and progressive. Patient has had a cough, but denied any sputum production. Patient has had some nausea and vomiting, but had attributed this to her chemotherapy which she reports was 2 to 3 weeks ago. Patient has had some subjective chills without any fever. Patient has had some pain in her chest, but is unable to characterize. In the emergency department, patient was noted to be tachycardic at 117 beats per minute and tachypneic at 24 breaths/min. Patient was afebrile with moist mucosa, but rhonchi bilaterally. Patient had some mild diffuse tenderness of the abdomen, but no rebound or guarding. Laboratory work-up showed some flattening of T waves, but no ST segment elevation. CBC showed a white count of 0.2 with a hemoglobin of 7.5 and platelets of 37. Patient had hypokalemia 2.8 and elevated creatinine at 1.9. INR was elevated at 5.6 and lactate was 2.8. Patient was given 2 L IV fluids and initiated on Zosyn and vancomycin. Blood cultures were obtained and the patient was admitted to the intensive care unit. Since being in the intensive care unit, patient did complete her 30 cc/kg fluid resuscitation. Patient remained hypotensive and was initiated on pressor therapy. No significant ectopy has been reported. Patient reports that she feels subjectively improved, but does not need supplemental oxygen at baseline. Patient currently denies any chest pain, lower extremity edema, nausea or vomiting. Patient states she has not been around anyone with COVID-19 has been very secluded secondary to her multiple malignancy diagnoses. Patient is not a very good historian, but was able to provide some information. Patient was unable to provide a review of systems and feels exhausted providing the current information. Past Medical History Past Medical History (Chronic Problems): Chronic Problems (Last Updated 05/16/20 @ 12:[address] Tyrone Cooney MD) Anxiety and depression (Chronic) Migraine (Chronic) GERD (gastroesophageal reflux disease) (Chronic) History of colon cancer in adulthood (Chronic) Metastatic adenocarcinoma to liver (Chronic) Mass of esophagus (Chronic) Esophageal adenocarcinoma (Chronic) Cancer-related pain (Chronic) Hypoalbuminemia (Chronic) CINV (chemotherapy-induced nausea and vomiting) (Chronic) Pancytopenia (Chronic) Metastatic colon cancer to liver (Chronic) Breast cancer (Chronic) Chronic anemia (Chronic) Medical History: Medical History (Last Updated 05/16/20 @ 12:[address] Tyrone Cooney MD) Breast cancer C50.919 Left. Lumpectomy and radiation port placement 10/17/2019 History of colon cancer Z85.038 Allergies No Known Allergies Allergy (Verified 05/16/20 10:36) Home Medications: Ambulatory Orders Medication Instructions Recorded rabeprazole 20 mg tablet,delayed 20 mg PO DAILY@1700 09/01/17 release Aspirin/Acetaminophen/Caffeine 2 tab PO DAILY PRN 03/02/19 [Excedrin Migraine Caplet] Sumatriptan Succinate [Imitrex] 100 mg PO .X1 PRN PRN 03/02/19 Multivitamins,Therapeutic 1 tab PO DAILY 09/25/19 [Multivitamin] Sertraline HCl 50 mg PO DAILY 09/25/19 proMETHazine tablet [Phenergan 25 mg PO Q8H PRN PRN 10/18/19 tablet] Prochlorperazine Maleate 10 mg PO Q6H PRN PRN 10 Days #30 10/22/19 tab Lidocaine/Prilocaine 1 applicatio TP DAILY PRN PRN 11/21/19 [Lidocaine-Prilocaine Cream] Senna/Docusate Sodium [Senokot-S] 2 tab PO BID PRN PRN tab 11/23/19 Ondansetron HCl 8 mg PO Q8H PRN PRN 10 Days #30 tab 03/25/20 Surgical History: Surgical History (Last Reviewed 05/16/20 @ 12:[address] Tyrone Cooney MD) History of colon surgery Z98.892009 [facility] [address] related to colon cancer History of lumpectomy of left breast Z98.892018 [facility] [address] History of D&C Z98.890 History of cholecystectomy Z., Z90.49 Surgical History: - - Resection of her colon cancer, left breast lumpectomy, cholecystectomy. Psychiatric History: Anxiety, Depression RN AMBULATORY History: No pertinent RN AMBULATORY history Lives: Spouse/ Significant Other Smoking Status: Never smoker Alcohol: None Drugs: None - *Family History Maternal Family History: Family History (Last Reviewed 05/16/20 @ 12:[address] Tyrone Cooney MD) Father Diabetes CHF (congestive heart failure) History Items: High Cholesterol, Heart Disease, Hypertension Paternal Family History: Family History (Last Reviewed 05/16/20 @ 12:[address] Tyrone Cooney MD) Father Diabetes CHF (congestive heart failure) History Items: Dementia Review of Systems Unable to obtain accurate/complete ROS d/t: See HPI Patient Problems: Active and Suspected Problems (Last Updated 05/16/20 @ 12:[address] Tyrone Cooney MD) Severe sepsis (Acute) Healthcare-associated pneumonia (Acute) Acute kidney injury (Acute) Pancytopenia (Acute) Acute on chronic anemia (Acute) Pneumonia (Acute) Severe sepsis (Acute) Neutropenic sepsis (Acute) Objective: All imaging was personally reviewed. There does appear to be a lingular infiltrate on chest x-ray. No pulmonary function test is available in the computer. Patient did have an echocardiogram in March 2020 showing an EF of 55% with stage I diastolic dysfunction and normal valvular function. - Physical Exam Vitals/I&O's: Vital Signs Temp Pulse Resp BP Pulse Ox 35.7 C L 102 H 19 H 77/59 L 100 05/16/20 15:35 05/16/20 15:46 05/16/20 15:46 05/16/20 15:46 05/16/20 15:46 Oxygen Flow Rate (L/min) 6 Oxygen Delivery Method Nasal Cannula Weight: 83.4 kg Body Mass Index (BMI) 32.5 Intake and Output for Last 24 Hours 05/14/20 05/15/20 05/16/20 23:59 23:59 23:59 Intake Total 1000 / 1000 Balance 1000 / 1000 General: Alert, Cooperative, Disoriented - At times, - - Appears ill. Obese. HEENT: Atraumatic, PERRLA, EOMI, Normocephalic, - - Slight scleral injection without icterus Oral: No Gingival or Mucosal Lesions/ Ulcerations, Dry Mucosa Neck: Supple, No JVD, No Nodes, Trachea Midline Lungs: No rhonchi, No wheeze, Diminished, Rales - Right base Cardiovascular: Normal S1, Normal S2, No murmurs, No rub noted, No Gallop, Tachycardic Abdomen: Bowel Sounds Present, Soft, Non Tender, Distended - Slightly, Obese Extremities: No clubbing, No cyanosis, Edema - Trace bilateral lower extremities Skin: No rashes, No breakdown Musculoskeletal: No Tenderness to Palpation of Joints or Extremities Lymphatic: No Cervical, Supraclavicular, or Inguinal Adenopathy Neurological: Cranial nerves II-XII grossly intact, Neuro grossly intact, Motor Exam 5/5 strength throughout Psych/Mental Status: Appropriate, Flat Affect Laboratory Results 05/16/20 10:30: WBC 0.2 L*, RBC 2.44 L, Hgb 7.5 L, Hct 23.1 L, MCV 94.7, MCH 30.7, MCHC 32.5, RDW Std Deviation 65.1 H, RDW Coeff of Audrey 19.1 H, Plt Count 37 L*, MPV 11.5, Immature Gran % (Auto) 11.100 H, Neut % (Auto) 44.5 L, Lymph % (Auto) 33.3, Victoria % (Auto) 11.1 H, Eos % (Auto) 0.0, Baso % (Auto) 0.0, Absolute Neuts (auto) 0.1 L, Absolute Lymphs (auto) 0.06 L, Nucleated RBC % 0, Differential Comment SCANNED, Diff Path Review May foll, Platelet Estimate MKD DEC, Anisocytosis 3+ 05/16/20 10:30: PT 51.0 H, INR 5.6 H*, APTT 47.7 H 05/16/20 10:30: Sodium 134 L, Potassium 2.8 L, Chloride 104, Carbon Dioxide 21.0, Anion Gap 9, BUN 31 H, Creatinine 1.94 H, Estim Creat Clear Calc 30.33, Est GFR (MDRD) Af Amer 34 L, Est GFR (MDRD) Non-Af 28 L, BUN/Creatinine Ratio 16.0, Glucose 80, Calcium 7.4 L, Total Bilirubin 1.90 H, AST 19, ALT 18, Alkaline Phosphatase 81, Total Protein 4.1 L, Albumin 1.7 L, Globulin 2.4, Albumin/Globulin Ratio 0.7 L 05/16/20 10:30: Lactic Acid 2.8 H* 05/16/20 10:30: Phosphorus 2.6, Magnesium 1.6 05/16/20 11:58: COVID-19 (LIBBY) Not Detected 05/16/20 12:20: Blood Type A POSITIVE, Antibody Screen NEGATIVE, Crossmatch See Detail 05/16/20 15:03: Specimen Type ART, Sample Site R Brach, pH 7.32 L, Bicarbonate Actual 17.5 L, Total CO2 19, Base Excess -9 L, O2 Saturation 94 L, ABG pCO2 34.4 L, ABG pO2 77, O2 Delivery Device Cannula, Liter Flow 6.0 05/16/20 15:30: Lactic Acid Pending Current Medications Acetaminophen (Tylenol) 650 mg PO Q6H PRN PRN PRN Reason: Pain Score 1-10/Temp > 100.7 F Albuterol Sulfate (Ventolin Aerosols) 2.5 mg INHALATION Q2H PRN PRN PRN Reason: SOB/Wheezing Heparin Sodium (Beef Lung) () 50 units IV UD PRN PRN Reason: Port-a-Cath (VAD)Heparin Flush Potassium Chloride/Dextrose/Sod Cl () 1,000 mls @ 100 mls/hr IV .Q10H HEMANTH Last Admin: 05/16/20 13:49 Dose: 100 mls/hr Documented by: Piperacillin Sod/Tazobactam (Sod 3.375 gm/ Sodium Chloride) 50 mls @ 12.5 mls/hr IV Q8 HEMANTH Pantoprazole Sodium 40 mg/ (Sodium Chloride) 110 mls @ 330 mls/hr IV Q12 HEMANTH Norepinephrine Bitartrate 8 mg (/ Sodium Chloride) 250 mls @ 9.375 mls/hr CONT INF .[id number] HEMANTH; Protocol Last Admin: 05/16/20 15:46 Dose: 5 mcg/min, 9.4 mls/hr Documented by: Vancomycin IV Pharmacy to Dose (1 ea/ Sodium Chloride) 500 mls @ 250 mls/hr IV X1 PRN; Protocol PRN Reason: Rx to Dose Vancomycin HCl 1,250 mg/ (Sodium Chloride) 275 mls @ 167 mls/hr IV Q24H HEMANTH Morphine Sulfate () 2 mg IV Q3H PRN PRN PRN Reason: Pain Score 6-10/10 Ondansetron HCl (Zofran) 4 mg IV Q8H PRN PRN PRN Reason: NAUSEA/VOMITING Prochlorperazine Edisylate (Compazine Iv) 5 mg IV Q4H PRN PRN PRN Reason: Breakthrough Nausea/Vomiting Sodium Chloride () 10 - 40 ml IV UD PRN PRN Reason: Port-a-Cath (VAD) Flush Sodium Chloride (0.9% Nacl (Sterile) Posiflush) 10 - 40 ml IV UD PRN PRN Reason: Port access or dressing change Sodium Chloride () 10 - 40 ml IV UD PRN PRN Reason: SALINE FLUSH Clinical Impression(s) from Imaging Studies Chest X-Ray 05/16/20 10:49 IMPRESSION: Lingular pneumonia per Electronically Signed: Obie Hernandez MD at 11:13 EDT Tel , Service support , Assessment/Plan Active and Suspected Problems (Last Updated 05/16/20 @ 12:[address] Tyrone Cooney MD) Severe sepsis (Acute) Healthcare-associated pneumonia (Acute) Acute kidney injury (Acute) Pancytopenia (Acute) Acute on chronic anemia (Acute) Pneumonia (Acute) Severe sepsis (Acute) Neutropenic sepsis (Acute) RECOMMENDATIONS: 1. Continue pressor therapy 2. Aggressive supplementation of potassium if indicated 3. Obtain DIC work-up 4. Continue empiric antibiotics 5. Okay to DC COVID-19 precautions from my perspective 6. Wean oxygen as tolerated 7. Volume resuscitation with PRBCs 8. Possible consult to oncology to discuss CODE STATUS IMPRESSIONS: 1. Septic shock secondary to presumed healthcare associated pneumonia Unclear etiology. Patient does have significant bone marrow suppression, so fever away would not be expected. Lactate was slightly elevated. Patient was appropriately started on healthcare associated antibiotics in my opinion. Culture data is currently pending. Await repeat lactate. Some concern for possible DIC secondary to septic shock. Work-up will be sent. 2. Acute hypoxic respiratory insufficiency Unclear etiology at this time. Patient does have slightly depressed EF on previous echocardiogram, but no diastolic dysfunction was noted. Chest x-ray shows a possible lingular infiltrate and this may account for current findings. Patient may also have decreased imaging findings secondary to pancytopenia. Continue with nasal cannula and wean as tolerated. Patient may require BiPAP rescue overnight. Patient's COVID-19 testing was negative and no exposures have been reported. 3. Acute kidney injury Patient with significant elevation of creatinine from baseline. Patient may have an element of prerenal etiology secondary to #1 or hypoxia induced ATN secondary to #2. Volume resuscitation has been ordered. We will continue to monitor. Patient did have significant hypokalemia. Will recheck labs. If this continues to be low, potassium boluses may be required. 4. Coagulopathy of unclear etiology/pancytopenia secondary to chemotherapy Patient is not currently on anticoagulation. Patient does have some bone marrow suppression secondary to chemotherapy. Possibility of hepatic dysfun ction given metastasis and recent chemotherapy. Other possibility would be DIC secondary to #1. We will send off labs for evaluation. 5. History of colon and breast cancer/GERD/anxiety/depression Complicates care, management, recovery and prognosis. Okay to continue Protonix twice daily. Patient will need a swallow evaluation. Patient does appear to be debilitated at this time and has had multiple cancers. Patient is currently a full code, but this may need to be addressed with oncology consult for goals of therapy and expected outcomes. TIME: 40 minutes critical care time spent addressing patient's septic shock, respiratory insufficiency, acute kidney injury, coagulopathy, review of all data and collaboration with care team (3 PM to 4:15 PM) [id number]: [id number] Critical care first hour
[2020-05-16 16:09] LABS: Lactic Acid 1.5 mmol/L (0.4-1.9)
[2020-05-16 17:55] LABS: Anion Gap 10 (5-15); BUN 30 mg/dL (7-18); Calcium,Total 6.8 mg/dL (8.5-10.1); Chloride 105 mmol/L (98-107); Creatinine, Serum 1.76 mg/dL (0.55-1.02); EST Glomerular Filtration Rate 31 mL/min (>60); Est Glom Filt Rate - Afr Amer 38 mL/min (>60); Estimated Creatinine Clearance 27.42 ml/min; Glucose 70 mg/dL (74-106); Potassium 3.2 mmol/L (3.5-5.1); Sodium Level 133 mmol/L (136-145)
[2020-05-16 18:16] LABS: Fibrinogen 545 mg/dl (203-444); Partial Thromboplast Time 50.7 Seconds (24.1-36.2); Prothrombin Time (Protime)PT. 46.6 SECONDS (11.7-14.9)
[2020-05-16 18:37] LABS: D-Dimer Quantitative (DVT/PE) 5.44 FEU/ug/m (0.27-0.49)
[2020-05-16] MEDS: Potassium Chloride 10mEq/100mL 10 MEQ/100 ML IV.SOLN. 100 MEQ IV BOLUS (22:01)
[2020-05-17] VITALS (43 sets, daily range): BP systolic 81–127; BP diastolic 41–86; PULSE 96–128; RESP 17–27; TEMP 37.6–37.9; O2SAT 92–100
[2020-05-17] MEDS: Potassium Chloride 10mEq/100mL 10 MEQ/100 ML IV.SOLN. 100 MEQ IV BOLUS ×3 (00:06→02:20)
[2020-05-17 00:25] LABS: Squamous Epithelial Cells - UA 0 SEEN /hpf (5-10)
[2020-05-17 00:33] LABS: Color, Urine Straw (Yellow); Glucose, Dipstick 50 mg/dl (Normal); Ketone-Dipstick Negative (Negative); Leukocyte Esterase-Dipstick 25 /ul (Negative); Nitrite-Dipstick Positive (Negative); Occult Blood-Urine 150 /ul (Negative); Protein-Dipstick 30 mg/dl (Negative); Urine Clarity Clear (Clear); Urine Urobilinogen Normal (Normal)
[2020-05-17 00:40] LABS: Red Blood Cells-Urine 0-5 SEEN /hpf (0-5); Urine Bilirubin Dipstick 1 mg/dL (Negative)
[2020-05-17 00:41] LABS: Bacteria RARE /hpf (None Seen); White Blood Cells 10-25 SEEN /hpf (0-5)
[2020-05-17] MEDS: Albuterol 2.5 MG/3 ML VIAL.NEB. INHALATION ×2 (03:40→16:22)
[2020-05-17 04:18] LABS: Absolute Lymphocyte Count 0.06 X10^3/uL (0.83-4.51); Absolute Neutrophil Count 0.1 X10^3/uL (2.0-7.7); Hematocrit 26.8 % (37-47); Hemoglobin 8.7 g/dL (12.0-15.0); Lymphocyte # 0.06 X10^3/ul (4.0); Lymphocyte % 33.3 % (19-41); Mean Corp Hgb Conc 32.5 g/dL (32-36); Mean Corpuscular Hgb 30.4 pg (27.0-32.0); Mean Corpuscular Volume 93.7 fL (81-99); Mean Platelet Vol. 11.4 fl (6.2-12.0); Monocyte# 0.02 X10^3/uL; Monocyte% 11.1 % (0-10); NRBC Flagged by Analyzer 0 % (0-5); Neutrophil # 0.07 X10^3/uL (2.7-7.7); Neutrophil % 38.9 % (47-70); POSITIVE COUNT YES; POSITIVE DIFFERENTIAL YES; POSITIVE MORPHOLOGY YES; RBC Distribution Width SD 61.5 fl (35.1-43.9); Red Blood Count 2.86 M/mm3 (4.2-5.4)
[2020-05-17 04:39] LABS: International Normalized Ratio 3.4; Prothrombin Time (Protime)PT. 34.4 SECONDS (11.7-14.9)
[2020-05-17 04:41] LABS: Platelet Count 31 K/mm3 (150-450); White Blood Count 0.2 K/mm3 (4.4-11.0)
[2020-05-17 04:42] LABS: Differential Indicated SCAN CRITERIA MET
[2020-05-17 04:49] LABS: ALB/GLOB Ratio 0.6 RATIO (0.9-2.4); AST(SGOT) 34 U/L (15-37); Alanine Aminotransfer ALT/SGPT 22 U/L (13-56); Albumin, Serum 1.6 g/dL (3.2-5.0); Alkaline Phosphatase 79 U/L (45-117); Anion Gap 9 (5-15); BUN 29 mg/dL (7-18); BUN/Creat Ratio 19.3 RATIO (10-20); Calcium,Total 6.9 mg/dL (8.5-10.1); Chloride 109 mmol/L (98-107); EST Glomerular Filtration Rate 37 mL/min (>60); Est Glom Filt Rate - Afr Amer 45 mL/min (>60); Estimated Creatinine Clearance 32.17 ml/min; Globulin 2.6 g/dL (2.2-4.2); Glucose 100 mg/dL (74-106); Potassium 3.9 mmol/L (3.5-5.1); Protein, Total 4.2 g/dL (6.4-8.2); Sodium Level 135 mmol/L (136-145)
[2020-05-17 05:39] LABS: Differential Comment SCANNED
[2020-05-17 05:41] LABS: Anisocytosis 2+; Platelet Estimate MKD DEC (ADEQ)
[2020-05-17 05:43] LABS: Burr Cells 1+
--- NOTE | 2020-05-17 07:19 | PCM.PN.INT ---
Subjective: Patient did okay overnight. Patient still requiring 2 L nasal cannula to maintain saturations. Patient did have to have a Coelho placed overnight secondary to urinary retention. Patient was able to come off of Levophed at approximately 4 AM. No bleeding complications have been reported. Patient overall feels subjectively unchanged compared to previous. Objective: ICU was called by the lab. Patient does have gram-negative growing in blood cultures. General: Alert, Oriented x3, Cooperative, No apparent distress, - - Appears older than stated age. Obese. No conversational dyspnea. HEENT: Atraumatic, PERRLA, EOMI, Normocephalic, - - No scleral icterus or injection noted Oral: Moist Mucosa, No Gingival or Mucosal Lesions/ Ulcerations Neck: Supple, No JVD, No Nodes, Trachea Midline Lungs: No rhonchi, No wheeze, Diminished, Rales - Right base Cardiovascular: Regular Rhythm, Normal S1, Normal S2, No murmurs, No rub noted, No Gallop, Tachycardic Abdomen: Bowel Sounds Present, Soft, Non Tender, Non-Distended Extremities: No clubbing, No cyanosis, Edema - Trace lower extremity Skin: - - No change compared to previous Musculoskeletal: No Tenderness to Palpation of Joints or Extremities Lymphatic: No Cervical, Supraclavicular, or Inguinal Adenopathy Neurological: Cranial nerves II-XII grossly intact, Neuro grossly intact, Motor Exam 5/5 strength throughout Psych/Mental Status: Alert and oriented to time, place, person, mood and affect Vital Signs Temp Pulse Resp BP Pulse Ox 37.8 C H 107 H 21 H 81/59 L 96 05/17/20 07:00 05/17/20 07:00 05/17/20 07:00 05/17/20 07:00 05/17/20 07:00 Oxygen Flow Rate (L/min) 2 Oxygen Delivery Method Nasal Cannula Weight: 85.1 kg Body Mass Index (BMI) 32.5 Intake and Output for Last 24 Hours 05/15/20 05/16/20 05/17/20 23:59 23:59 23:59 Intake Total 4804.07 / 4826.37 732.22 / 732.22 Output Total 750 / 750 285 / 285 Balance 4054.07 / 4076.37 447.22 / 447.22 Labs (Last 48 Hours) 10/10/0405/16/20 05/16/20 10:30 10:30 10:30 WBC 0.2 L* RBC 2.44 L Hgb 7.5 L Hct 23.1 L MCV 94.7 MCH 30.7 MCHC 32.5 RDW Std Deviation 65.1 H RDW Coeff of Audrey 19.1 H Plt Count 37 L* MPV 11.5 Immature Gran % (Auto) 11.100 H Neut % (Auto) 44.5 L Lymph % (Auto) 33.3 [place] % (Auto) 11.1 H Eos % (Auto) 0.0 Baso % (Auto) 0.0 Absolute Neuts (auto) 0.1 L Absolute Lymphs (auto) 0.06 L Nucleated RBC % 0 Differential Comment SCANNED Diff Path Review May foll Platelet Estimate MKD DEC Anisocytosis 3+ Ron Cells PT 51.0 H INR 5.6 H* APTT 47.7 H Fibrinogen D-Dimer Quant (PE/DVT) Specimen Type Sample Site pH Bicarbonate Actual Total CO2 Base Excess O2 Saturation ABG pCO2 ABG pO2 O2 Delivery Device Liter Flow Sodium 134 L Potassium 2.8 L Chloride 104 Carbon Dioxide 21.0 Anion Gap 9 BUN 31 H Creatinine 1.94 H Estim Creat Clear Calc 30.33 Est GFR (MDRD) Af Amer 34 L Est GFR (MDRD) Non-Af 28 L BUN/Creatinine Ratio 16.0 Glucose 80 Lactic Acid Calcium 7.4 L Phosphorus Magnesium Total Bilirubin 1.90 H AST 19 ALT 18 Alkaline Phosphatase 81 Total Protein 4.1 L Albumin 1.7 L Globulin 2.4 Albumin/Globulin Ratio 0.7 L Urine Color Urine Clarity Urine pH Ur Specific [place] Urine Protein Urine Glucose (UA) Urine Ketones Urine Occult Blood Urine Nitrite Urine Bilirubin Urine Urobilinogen Ur Leukocyte Esterase Urine RBC Urine WBC Ur Squamous Epith Cells Urine Bacteria Urine Mucus COVID-19 (LIBBY) Blood Type Antibody Screen Crossmatch 05/16/20 05/16/20 05/16/20 10:30 10:30 11:58 WBC RBC Hgb Hct MCV MCH MCHC RDW Std Deviation RDW Coeff of Audrey Plt Count MPV Immature Gran % (Auto) Neut % (Auto) Lymph % (Auto) [place] % (Auto) Eos % (Auto) Baso % (Auto) Absolute Neuts (auto) Absolute Lymphs (auto) Nucleated RBC % Differential Comment Diff Path Review Platelet Estimate Anisocytosis [place] Cells PT INR APTT Fibrinogen D-Dimer Quant (PE/DVT) Specimen Type Sample Site pH Bicarbonate Actual Total CO2 Base Excess O2 Saturation ABG pCO2 ABG pO2 O2 Delivery Device Liter Flow Sodium Potassium Chloride Carbon Dioxide Anion Gap BUN Creatinine Estim Creat Clear Calc Est GFR (MDRD) Af Amer Est GFR (MDRD) Non-Af BUN/Creatinine Ratio Glucose Lactic Acid 2.8 H* Calcium Phosphorus 2.6 Magnesium 1.6 Total Bilirubin AST ALT Alkaline Phosphatase Total Protein Albumin Globulin Albumin/Globulin Ratio Urine Color Urine Clarity Urine pH Ur Specific [place] Urine Protein Urine Glucose (UA) Urine Ketones Urine Occult Blood Urine Nitrite Urine Bilirubin Urine Urobilinogen Ur Leukocyte Esterase Urine RBC Urine WBC Ur Squamous Epith Cells Urine Bacteria Urine Mucus COVID-19 (LIBBY) Not Detected Blood Type Antibody Screen Crossmatch 05/16/20 05/16/20 05/16/20 12:20 15:03 15:30 WBC RBC Hgb Hct MCV MCH MCHC RDW Std Deviation RDW Coeff of Audrey Plt Count MPV Immature Gran % (Auto) Neut % (Auto) Lymph % (Auto) [place] % (Auto) Eos % (Auto) Baso % (Auto) Absolute Neuts (auto) Absolute Lymphs (auto) Nucleated RBC % Differential Comment Diff Path Review Platelet Estimate Anisocytosis [place] Cells PT INR APTT Fibrinogen D-Dimer Quant (PE/DVT) Specimen Type ART Sample Site R Brach pH 7.32 L Bicarbonate Actual 17.5 L Total CO2 19 Base Excess -9 L O2 Saturation 94 L ABG pCO2 34.4 L ABG pO2 77 O2 Delivery Device Cannula Liter Flow 6.0 Sodium Potassium Chloride Carbon Dioxide Anion Gap BUN Creatinine Estim Creat Clear Calc Est GFR (MDRD) Af Amer Est GFR (MDRD) Non-Af BUN/Creatinine Ratio Glucose Lactic Acid 1.5 Calcium Phosphorus Magnesium Total Bilirubin AST ALT Alkaline Phosphatase Total Protein Albumin Globulin Albumin/Globulin Ratio Urine Color Urine Clarity Urine pH Ur Specific [place] Urine Protein Urine Glucose (UA) Urine Ketones Urine Occult Blood Urine Nitrite Urine Bilirubin Urine Urobilinogen Ur Leukocyte Esterase Urine RBC Urine WBC Ur Squamous Epith Cells Urine Bacteria Urine Mucus COVID-19 (LIBBY) Blood Type A POSITIVE Antibody Screen NEGATIVE Crossmatch See Detail 05/16/20 05/16/20 05/16/20 16:25 16:25 22:55 WBC RBC Hgb Hct MCV MCH MCHC RDW Std Deviation RDW Coeff of Audrey Plt Count MPV Immature Gran % (Auto) Neut % (Auto) Lymph % (Auto) [place] % (Auto) Eos % (Auto) Baso % (Auto) Absolute Neuts (auto) Absolute Lymphs (auto) Nucleated RBC % Differential Comment Diff Path Review Platelet Estimate Anisocytosis [place] Cells PT 46.6 H INR 5.0 H* APTT 50.7 H Fibrinogen 545 H D-Dimer Quant (PE/DVT) 5.44 H* Specimen Type Sample Site pH Bicarbonate Actual Total CO2 Base Excess O2 Saturation ABG pCO2 ABG pO2 O2 Delivery Device Liter Flow Sodium 133 L Potassium 3.2 L Chloride 105 Carbon Dioxide 18.0 L Anion Gap 10 BUN 30 H Creatinine 1.76 H Estim Creat Clear Calc 27.42 Est GFR (MDRD) Af Amer 38 L Est GFR (MDRD) Non-Af 31 L BUN/Creatinine Ratio 17.0 Glucose 70 L Lactic Acid Calcium 6.8 L Phosphorus Magnesium Total Bilirubin AST ALT Alkaline Phosphatase Total Protein Albumin Globulin Albumin/Globulin Ratio Urine Color Straw Urine Clarity Clear Urine pH 6.0 Ur Specific [place] 1.020 Urine Protein 30 H Urine Glucose (UA) 50 H Urine Ketones Negative Urine Occult Blood 150 H Urine Nitrite Positive H Urine Bilirubin 1 H Urine Urobilinogen Normal Ur Leukocyte Esterase 25 H Urine RBC 0-5 SEEN Urine WBC 10-25 SEEN Ur Squamous Epith Cells 0 SEEN Urine Bacteria RARE Urine Mucus Not Reportable COVID-19 (LIBBY) Blood Type Antibody Screen Crossmatch 05/17/20 05/17/20 05/17/20 04:10 04:10 04:10 WBC 0.2 L* RBC 2.86 L Hgb 8.7 L Hct 26.8 L MCV 93.7 MCH 30.4 MCHC 32.5 RDW Std Deviation 61.5 H RDW Coeff of Audrey 19.0 H Plt Count 31 L* MPV 11.4 Immature Gran % (Auto) 16.700 H Neut % (Auto) 38.9 L Lymph % (Auto) 33.3 [place] % (Auto) 11.1 H Eos % (Auto) 0.0 Baso % (Auto) 0.0 Absolute Neuts (auto) 0.1 L Absolute Lymphs (auto) 0.06 L Nucleated RBC % 0 Differential Comment SCANNED Diff Path Review May foll Platelet Estimate MKD DEC Anisocytosis 2+ [place] Cells 1+ PT 34.4 H INR 3.4 APTT Fibrinogen D-Dimer Quant (PE/DVT) Specimen Type Sample Site pH Bicarbonate Actual Total CO2 Base Excess O2 Saturation ABG pCO2 ABG pO2 O2 Delivery Device Liter Flow Sodium 135 L Potassium 3.9 Chloride 109 H Carbon Dioxide 17.0 L Anion Gap 9 BUN 29 H Creatinine 1.50 H Estim Creat Clear Calc 32.17 Est GFR (MDRD) Af Amer 45 L Est GFR (MDRD) Non-Af 37 L BUN/Creatinine Ratio 19.3 Glucose 100 Lactic Acid Calcium 6.9 L Phosphorus Magnesium Total Bilirubin 3.80 H AST 34 ALT 22 Alkaline Phosphatase 79 Total Protein 4.2 L Albumin 1.6 L Globulin 2.6 Albumin/Globulin Ratio 0.6 L Urine Color Urine Clarity Urine pH Ur Specific [place] Urine Protein Urine Glucose (UA) Urine Ketones Urine Occult Blood Urine Nitrite Urine Bilirubin Urine Urobilinogen Ur Leukocyte Esterase Urine RBC Urine WBC Ur Squamous Epith Cells Urine Bacteria Urine Mucus COVID-19 (LIBBY) Blood Type Antibody Screen Crossmatch Microbiology 05/16/20 11:30 Blood Culture (Wb) - Anticubital Left Blood Culture - Preliminary 05/16/20 22:55 Urine Catheter - Coelho Streptococcus pneumoniae Antigen (M - Final 05/16/20 22:55 Urine Catheter - Coelho Legionella Antigen - Final Clinical Impression(s) from Imaging Studies Chest X-Ray 05/16/20 10:49 IMPRESSION: Lingular pneumonia per Electronically Signed: Obie Hernandez MD at 11:13 EDT Tel , Service support , Medical Necessity - Tobacco Use Smoking Status: Never smoker Assessment/Plan All Active Problems (Last Updated 05/16/20 @ 12:[address] Tyrone Cooney MD) Septic shock (Acute) Healthcare-associated pneumonia (Acute) Acute kidney injury (Acute) Pancytopenia (Acute) Acute on chronic anemia (Acute) RECOMMENDATIONS: 1. Attempt to discontinue pressor therapy 2. Aggressive supplementation of electrolytes if indicated 3. Monitor for bleeding complications. Hold on transfusions for now. 4. Discontinue vancomycin. Continue gram-negative coverage. 5. Wean oxygen as tolerated. Encourage incentive spirometer. 6. Possible consult to oncology to discuss CODE STATUS IMPRESSIONS: 1. Gram-negative septic shock secondary to presumed healthcare associated pneumonia Patient did require pressor therapy overnight. This is currently on hold, but blood pressures are marginal. Patient has gram-negative growing in her blood. Likely okay to discontinue vancomycin. Await species and sensitivities to guide further antibiotic directives. May need to reinitiate pressor therapy later today, but would hold off on significant crystalloid infusion as patient does have decreased albumin with low oncotic pressures and will have significant third spacing. 2. Acute hypoxic respiratory insufficiency Unclear etiology at this time. Patient does have slightly depressed EF on previous echocardiogram, but no diastolic dysfunction was noted. Chest x-ray shows a possible lingular infiltrate and this may account for current findings. Patient may also have decreased imaging findings secondary to pancytopenia. Continue with nasal cannula and wean as tolerated. Patient may require BiPAP rescue overnight or with sleeping. Patient's COVID-19 testing was negative and no exposures have been reported. 3. Acute kidney injury Improving. Patient with significant elevation of creatinine from baseline. Patient may have an element of prerenal etiology secondary to #1 or hypoxia induced ATN secondary to #2. Volume resuscitation has been ordered. We will continue to monitor. Patient did have significant hypokalemia, but responded to supplementation. Will recheck labs. If this continues to be low, potassium boluses may be required. 4. Coagulopathy of unclear etiology/pancytopenia secondary to chemotherapy Patient is not currently on anticoagulation. Patient does have some bone marrow suppression secondary to chemotherapy. Possibility of hepatic dysfunction given metastasis and recent chemotherapy. DIC labs are negative. Patient has responded to some vitamin K infusion. We will hold on any transfusions of platelets or blood at this time. 5. History of colon and breast cancer/GERD/anxiety/depression Complicates care, management, recovery and prognosis. Okay to continue Protonix twice daily. Patient will need a swallow evaluation. Patient does appear to be debilitated at this time and has had multiple cancers. Patient is currently a full code, but this may need to be addressed with oncology consult for clarification of goals of therapy and expected outcomes. Addendum 9:57 AM: Patient's blood pressures remain marginal throughout the morning. Patient is not reporting any new fever or other symptomatology, but in an effort to minimize fluid overload, pressors will be restarted. Patient does have gram-negative growing in the blood, but species and sensitivities have not been made available yet. TIME: 32 minutes critical care time spent addressing patient's gram-negative septic shock, hypoxic insufficiency, acute kidney injury, review of all data and collaboration with care team (7 AM to 10 AM) [phone] [id number] Critical care first hour
--- NOTE | 2020-05-17 07:50 | PCM.PROGNOTE ---
Patient Problems: Active and Suspected Problems (Last Updated 05/16/20 @ 12:[address] Tyrone Cooney MD) Septic shock (Acute) Healthcare-associated pneumonia (Acute) Acute kidney injury (Acute) Pancytopenia (Acute) Acute on chronic anemia (Acute) Subjective: Chief complaint: Follow-up after admission for septic shock due to healthcare associated pneumonia, complicated by acute respiratory failure, acute kidney injury, acute on chronic anemia and coagulopathy. Patient seen and examined. She complained of difficulty breathing. Denied chest pain or palpitation. Denied abdominal pain, nausea or vomiting. She is still having diarrhea. She was taken off Levophed this morning around 4 AM. Blood pressure still borderline, tachycardic, started having spikes of low-grade fever, maximum temperature was 100.5 Fahrenheit.. - Physical Exam Vitals/I&O's: Vital Signs Temp Pulse Resp BP Pulse Ox 100.0 F H 107 H 21 H 81/59 L 96 05/17/20 07:00 05/17/20 07:00 05/17/20 07:00 05/17/20 07:00 05/17/20 07:00 Oxygen Flow Rate (L/min) 2 Oxygen Delivery Method Nasal Cannula Weight: 187 lb 9.814 oz Body Mass Index (BMI) 32.5 Intake and Output for Last 24 Hours 05/15/20 05/16/20 05/17/20 23:59 23:59 23:59 Intake Total 4804.07 / 4826.37 732.22 / 732.22 Output Total 750 / 750 285 / 285 Balance 4054.07 / 4076.37 447.22 / 447.22 General: Alert, Oriented x3, Cooperative, - - Chronically ill patient, pale. HEENT: Atraumatic, PERRLA, EOMI, Normocephalic Oral: No Gingival or Mucosal Lesions/ Ulcerations, Dry Mucosa Neck: Supple, No JVD, Negative Carotid Bruits, Trachea Midline, Thyroid Normal Size and Texture Lungs: No rhonchi, No wheeze, No rales, Rales, Short of Breath, - - Decreased breath sounds at the left base with faint crackles. Cardiovascular: Regular rate, Regular Rhythm, Normal S1, Normal S2, PMI Normal, Tachycardic Abdomen: Bowel Sounds Present, Soft, Non Tender, Non-Distended, No Hepato-splenomegaly Extremities: No clubbing, No cyanosis, Edema - Trace edema. Skin: No rashes, No breakdown Lymphatic: No Cervical, Supraclavicular, or Inguinal Adenopathy Neurological: Cranial nerves II-XII grossly intact, Motor Exam 5/5 strength throughout Psych/Mental Status: Normal Affect, Appropriate, Alert and oriented to time, place, person, mood and affect Microbiology Past 72 Hours 05/17/20 05:00 Stool C. difficile DNA Amplification - Final 05/16/20 11:30 Blood Culture (Wb) - Anticubital Left Blood Culture - Preliminary 05/16/20 22:55 Urine Catheter - Coelho Streptococcus pneumoniae Antigen (M - Final 05/16/20 22:55 Urine Catheter - Co[place] Legionella Antigen - Final Laboratory Results 05/16/20 10:30: WBC 0.2 L*, RBC 2.44 L, Hgb 7.5 L, Hct 23.1 L, MCV 94.7, MCH 30.7, MCHC 32.5, RDW Std Deviation 65.1 H, RDW Coeff of Audrey 19.1 H, Plt Count 37 L*, MPV 11.5, Immature Gran % (Auto) 11.100 H, Neut % (Auto) 44.5 L, Lymph % (Auto) 33.3, [place] % (Auto) 11.1 H, Eos % (Auto) 0.0, Baso % (Auto) 0.0, Absolute Neuts (auto) 0.1 L, Absolute Lymphs (auto) 0.06 L, Nucleated RBC % 0, Differential Comment SCANNED, Diff Path Review December foll, Platelet Estimate MKD DEC, Anisocytosis 3+ 05/16/20 10:30: PT 51.0 H, INR 5.6 H*, APTT 47.7 H 05/16/20 10:30: Sodium 134 L, Potassium 2.8 L, Chloride 104, Carbon Dioxide 21.0, Anion Gap 9, BUN 31 H, Creatinine 1.94 H, Estim Creat Clear Calc 30.33, Est GFR (MDRD) Af Amer 34 L, Est GFR (MDRD) Non-Af 28 L, BUN/Creatinine Ratio 16.0, Glucose 80, Calcium 7.4 L, Total Bilirubin 1.90 H, AST 19, ALT 18, Alkaline Phosphatase 81, Total Protein 4.1 L, Albumin 1.7 L, Globulin 2.4, Albumin/Globulin Ratio 0.7 L 05/16/20 10:30: Lactic Acid 2.8 H* 05/16/20 10:30: Phosphorus 2.6, Magnesium 1.6 05/16/20 11:58: COVID-19 (LIBBY) Not Detected 05/16/20 12:20: Blood Type A POSITIVE, Antibody Screen NEGATIVE, Crossmatch See Detail 05/16/20 15:03: Specimen Type ART, Sample Site R Brach, pH 7.32 L, Bicarbonate Actual 17.5 L, Total CO2 19, Base Excess -9 L, O2 Saturation 94 L, ABG pCO2 34.4 L, ABG pO2 77, O2 Delivery Device Cannula, Liter Flow 6.0 05/16/20 15:30: Lactic Acid 1.5 05/16/20 16:25: PT 46.6 H, INR 5.0 H*, APTT 50.7 H, Fibrinogen 545 H, D-Dimer Quant (PE/DVT) 5.44 H* 05/16/20 16:25: Sodium 133 L, Potassium 3.2 L, Chloride 105, Carbon Dioxide 18.0 L, Anion Gap 10, BUN 30 H, Creatinine 1.76 H, Estim Creat Clear Calc 27.42, Est GFR (MDRD) Af Amer 38 L, Est GFR (MDRD) Non-Af 31 L, BUN/Creatinine Ratio 17.0, Glucose 70 L, Calcium 6.8 L 05/16/20 22:55: Urine Color Straw, Urine Clarity Clear, Urine pH 6.0, Ur Specific [place] 1.020, Urine Protein 30 H, Urine Glucose (UA) 50 H, Urine Ketones Negative, Urine Occult Blood 150 H, Urine Nitrite Positive H, Urine Bilirubin 1 H, Urine Urobilinogen Normal, Ur Leukocyte Esterase 25 H, Urine RBC 0-5 SEEN, Urine WBC 10-25 SEEN, Ur Squamous Epith Cells 0 SEEN, Urine Bacteria RARE, Urine Mucus Not Reportable 05/17/20 04:10: WBC 0.2 L*, RBC 2.86 L, Hgb 8.7 L, Hct 26.8 L, MCV 93.7, MCH 30.4, MCHC 32.5, RDW Std Deviation 61.5 H, RDW Coeff of Audrey 19.0 H, Plt Count 31 L*, MPV 11.4, Immature Gran % (Auto) 16.700 H, Neut % (Auto) 38.9 L, Lymph % (Auto) 33.3, [place] % (Auto) 11.1 H, Eos % (Auto) 0.0, Baso % (Auto) 0.0, Absolute Neuts (auto) 0.1 L, Absolute Lymphs (auto) 0.06 L, Nucleated RBC % 0, Differential Comment SCANNED, Diff Path Review May foll, Platelet Estimate MKD DEC, Anisocytosis 2+, Ron Cells 1+ 05/17/20 04:10: PT 34.4 H, INR 3.4 05/17/20 04:10: Sodium 135 L, Potassium 3.9, Chloride 109 H, Carbon Dioxide 17.0 L, Anion Gap 9, BUN 29 H, Creatinine 1.50 H, Estim Creat Clear Calc 32.17, Est GFR (MDRD) Af Amer 45 L, Est GFR (MDRD) Non-Af 37 L, BUN/Creatinine Ratio 19.3, Glucose 100, Calcium 6.9 L, Total Bilirubin 3.80 H, AST 34, ALT 22, Alkaline Phosphatase 79, Total Protein 4.2 L, Albumin 1.6 L, Globulin 2.6, Albumin/Globulin Ratio 0.6 L Current Medications Acetaminophen (Tylenol) 650 mg PO Q6H PRN PRN PRN Reason: Pain Score 1-10/Temp > 100.7 F Albuterol Sulfate (Ventolin Aerosols) 2.5 mg INHALATION Q2H PRN PRN PRN Reason: SOB/Wheezing Last Admin: 05/17/20 03:40 Dose: 2.5 mg Documented by: Heparin Sodium (Beef Lung) () 50 units IV UD PRN PRN Reason: Port-a-Cath (VAD)Heparin Flush Potassium Chloride/Dextrose/Sod Cl () 1,000 mls @ 100 mls/hr IV .Q10H HEMANTH Last Admin: 05/17/20 05:17 Dose: 100 mls/hr Documented by: Piperacillin Sod/Tazobactam (Sod 3.375 gm/ Sodium Chloride) 50 mls @ 12.5 mls/hr IV Q8 HEMANTH Last Admin: 05/17/20 05:16 Dose: 12.5 mls/hr Documented by: Pantoprazole Sodium 40 mg/ (Sodium Chloride) 110 mls @ 330 mls/hr IV Q12 HEMANTH Last Infusion: 05/16/20 22:28 Dose: Infused Documented by: Morphine Sulfate () 2 mg IV Q3H PRN PRN PRN Reason: Pain Score 6-10/10 Ondansetron HCl (Zofran) 4 mg IV Q8H PRN PRN PRN Reason: NAUSEA/VOMITING Prochlorperazine Edisylate (Compazine Iv) 5 mg IV Q4H PRN PRN PRN Reason: Breakthrough Nausea/Vomiting Sodium Chloride () 10 - 40 ml IV UD PRN PRN Reason: Port-a-Cath (VAD) Flush Sodium Chloride (0.9% Nacl (Sterile) Posiflush) 10 - 40 ml IV UD PRN PRN Reason: Port access or dressing change Sodium Chloride () 10 - 40 ml IV UD PRN PRN Reason: SALINE FLUSH Medical Necessity - Tobacco Use Smoking Status: Never smoker Assessment/Plan All Active Problems (Last Updated 05/16/20 @ 12:[address] Tyrone Cooney MD) Septic shock (Acute) Healthcare-associated pneumonia (Acute) Acute kidney injury (Acute) Pancytopenia (Acute) Acute on chronic anemia (Acute) This is a 64 years old female patient presented to the emergency room because of shortness of breath, cough and she was found to have left lower lobe/lingular infiltrate on chest x-ray consistent with healthcare associated pneumonia, complicated by septic shock and acute hypoxic respiratory failure, also found to have acute kidney injury, pancytopenia and acute on chronic anemia. #1 Septic shock: Secondary to pneumonia. She was on IV Levophed drip which was taken off at 4 AM this morning. She is on IV antibiotics. Blood pressure is borderline, slightly tachycardic, having spikes of low-grade fever. She is still leukopenic and neutropenic. Lactic acid is back to normal with IV fluids, it is down to 1.5. Blood culture was positive for gram-negative rods. Patient may need to go back on IV Levophed drip to maintain her blood pressure. Plan to continue same treatment, close monitoring. #2 acute left lower lobe/lingular healthcare associated pneumonia versus aspiration: She is on IV vancomycin and Zosyn. IV vancomycin discontinued because blood culture revealed gram-negative rods. Pneumococcal and Legionella antigen were negative. Blood culture revealed gram-negative rods. Plan as above. #3 acute hypoxic respiratory failure: Secondary to 1 and 2. Currently, pulse ox is 95% on 2 L, improving. ABG on admission revealed pH of 7.32, PCO2 of 34 and PO2 of 77. #4 gram-negative bacteremia: Probable source is pneumonia versus probable UTI. Blood culture reviewed, final is pending. Urinalysis revealed clear urine, positive for nitrites and there was 10-25 WBCs, rare bacteria seen. Urine culture is pending. She is on IV Zosyn, vancomycin discontinued. #5 acute kidney injury: Secondary to severe sepsis and poor oral intake. Baseline kidney function is normal. She is on IV fluids, BUN and creatinine improved. Today's BUN is 29, creatinine is 1.50. #6 acute on chronic anemia/pancytopenia/neutropenia without fever: Patient does have chronic pancytopenia but her blood counts are getting worse. Her WBC, absolute neutrophil counts and platelet count are still very low. She received 1 unit of packed RBCs, today's hemoglobin is 8.7 g/dL. At this time, no active bleeding. No plan for transfusion today. #7 coagulopathy: Unclear etiology, could be due to chronic liver disease secondary to liver metastasis. Bilirubin is trending up, liver transaminases are normal. Patient received vitamin K, INR is down to 3.4. Fibrinogen was elevated as well as d-dimer. DIC ruled out. At this time, no evidence of active bleeding. #8 history of metastatic colon cancer: With mets to the liver, retroperitoneum, chery hepatis and esophagus. Patient has been on chemotherapy, last session was around 1 week ago. #9 history of breast cancer: Status post lumpectomy and sentinel node biopsy, received anastrozole in the past. #10 GERD: Continue IV Protonix twice daily. #11 anxiety and depression: Continue sertraline. #12 CODE STATUS: Full code. Discussed with the patient and his daughter who is in agreement. #13: DVT prophylaxis: SCDs, no chemical prophylaxis because of severe thrombocytopenia. This note was generated with [employer]ation software. It may contain incorrect words, spelling, and punctuation that were not noted in checking the note before signing. Inpatient E&M: 52738 [facility] L[facility]
--- NOTE | 2020-05-17 13:00 | CASEMGMT ---
RN CM Face to Face with patient for initial transition planning/care coordination assessment. RN CM introduced self and role at [facility]. Patient lying in bed, alert and oriented. Patient willing to participate in assessment and is able to answer all questions appropriately. Care providers, pharmacy, and demographics verified. Patient wishes to discharge home, denies need for home health at this time. Patient states she has no further needs or concerns at this time. CM to follow for discharge planning needs that may arise. PCP: Guy FISH HOUSEKEEPER Specialists: Cha, oncologist Preferred Pharmacy: [facility] Insurance: MMO Prescription Benefit: yes Living Will/HPOA: none LNOK: Living Arrangements: Patient lives with in a 1 story home. Patient states she is independent at home. Transportation: self/ DME/HHC: Patient denies any DME in the home. Patient denies any previous HHC. Patient denies needing any HHC or DME at discharge. PT/OT seen patient and she is min assist for transfers and did not ambulate. CM to continue to follow therapy for recommendations at discharge. Will monitor for need for home oxygen. Disposition Plan: TBD by course of treatment and progress with therapy. Sugey GARCIA, RN, CM
[2020-05-17] MEDS: Ondansetron 4 MG/2 ML Vial IV (14:15)
[2020-05-17] MEDS: 0.9% Saline Lock 10 ML Syringe IV (14:15)
--- NOTE | 2020-05-17 16:44 | NURSING ---
Daughter, Annabel, updated with patient status.
--- NOTE | 2020-05-17 18:03 | NURSING ---
BP recheck before starting levophed. MAP greater than 65. Will hold levophed and continue to monitor.
--- NOTE | 2020-05-17 18:12 | CM.ED ---
SOCIAL WORK Informant: activities attendant Reason for Consult: Resources-Palliative Medicine Met with patient in room. Introduced role and reason for referral. Patient reports lives home with and was doing well at home up until the last week. Discussed needs for home going and education provided on Palliative Medicine. Patient states unsure of needs at this time. Patient gave permission for this worker to call and speak with regarding needs. Discussed case with patient's nurse. Per nurse, patient's daughter Annabel called and and reported family will need assistance with discharge needs. Call to patient's , Ubaldo. Introduced role and reason for referral. Per , over the last week patient has taken a turn for the worse. states patient has had visiting nurses in the past and if patient able to return home, would benefit from home health services. also reports may have DME from his father, but discussed possible need for bedside commode and walker. states it got so bad on that the thought of her going to a fpc crossed my mind, but she will fight it. Much emotional support and active listening provided. Education provided on Palliative Medicine. stating, I think she will listen more to Rose (daughter). Informed a social service worker/correctional case manager will be following up for discharge planning. thanked this worker for call. Plan: JUNIOR Shah, DICER OPERATOR, TURBINATED BONE GRINDER
[2020-05-18] VITALS (29 sets, daily range): BP systolic 86–135; BP diastolic 47–85; PULSE 101–127; RESP 19–30; TEMP 35.9–37.4; O2SAT 90–100
[2020-05-18 03:56] LABS: Absolute Lymphocyte Count 0.04 X10^3/uL (0.83-4.51); Absolute Neutrophil Count 0.2 X10^3/uL (2.0-7.7); Hematocrit 28.2 % (37-47); Lymphocyte # 0.04 X10^3/ul (4.0); Lymphocyte % 17.4 % (19-41); Mean Corp Hgb Conc 31.9 g/dL (32-36); Mean Corpuscular Hgb 30.4 pg (27.0-32.0); Mean Corpuscular Volume 95.3 fL (81-99); Monocyte# 0.04 X10^3/uL; Monocyte% 17.4 % (0-10); NRBC Flagged by Analyzer 0 % (0-5); Neutrophil # 0.15 X10^3/uL (2.7-7.7); Neutrophil % 65.2 % (47-70); POSITIVE COUNT YES; POSITIVE DIFFERENTIAL YES; POSITIVE MORPHOLOGY YES; RBC Distribution Width CV 19.9 % (11.6-14.6); RBC Distribution Width SD 65.7 fl (35.1-43.9); Red Blood Count 2.96 M/mm3 (4.2-5.4)
[2020-05-18 04:01] LABS: Differential Indicated SCAN CRITERIA MET
[2020-05-18 04:03] LABS: Platelet Count 23 K/mm3 (150-450); White Blood Count 0.2 K/mm3 (4.4-11.0)
[2020-05-18 04:06] LABS: Anion Gap 8 (5-15); BUN 28 mg/dL (7-18); BUN/Creat Ratio 21.1 RATIO (10-20); Calcium,Total 7.3 mg/dL (8.5-10.1); Chloride 115 mmol/L (98-107); Creatinine, Serum 1.33 mg/dL (0.55-1.02); EST Glomerular Filtration Rate 43 mL/min (>60); Est Glom Filt Rate - Afr Amer 52 mL/min (>60); Estimated Creatinine Clearance 36.28 ml/min; Glucose 152 mg/dL (74-106); Magnesium 1.5 mg/dL (1.6-2.6); Phosphorus 1.9 mg/dL (2.5-4.9); Potassium 3.4 mmol/L (3.5-5.1); Sodium Level 141 mmol/L (136-145)
[2020-05-18 04:35] LABS: International Normalized Ratio 2.6; Prothrombin Time (Protime)PT. 27.1 SECONDS (11.7-14.9)
[2020-05-18] MEDS: 0.9% Saline Lock 10 ML Syringe IV (05:49)
[2020-05-18 07:04] LABS: Anisocytosis 2+; Platelet Estimate MKD DEC (ADEQ)
--- NOTE | 2020-05-18 07:11 | PN_ITS ---
Subjective: Patient did well overnight. Patient has been now off of her pressors for almost 24 hours. Patient reports poor sleep overnight, but saturating well on minimal nasal cannula oxygen. General: Alert, Oriented x3, Cooperative, - - Appears ill and debilitated HEENT: Atraumatic, PERRLA, EOMI, Normocephalic, - - No scleral icterus or injection noted Oral: Moist Mucosa, No Gingival or Mucosal Lesions/ Ulcerations Neck: Supple, No JVD, No Nodes, Trachea Midline Lungs: No wheeze, No rales, Diminished, Rhonchi - Right base Cardiovascular: Normal S1, Normal S2, No murmurs, No rub noted, No Gallop, Tac hycardic Abdomen: Bowel Sounds Present, Soft, Non Tender, Non-Distended, Obese Extremities: No clubbing, No cyanosis, Edema Skin: - - No change from previous Musculoskeletal: No Tenderness to Palpation of Joints or Extremities Lymphatic: No Cervical, Supraclavicular, or Inguinal Adenopathy Neurological: Cranial nerves II-XII grossly intact, Neuro grossly intact, Motor Exam 5/5 strength throughout Psych/Mental Status: Flat Affect, Depressed Vital Signs Temp Pulse Resp BP Pulse Ox 36.6 C 115 H 21 H 109/74 100 05/18/20 06:00 05/18/20 06:00 05/18/20 06:00 05/18/20 06:00 05/18/20 06:00 Oxygen Flow Rate (L/min) 2 Oxygen Delivery Method Nasal Cannula Weight: 87 kg Body Mass Index (BMI) 32.5 Intake and Output for Last 24 Hours 05/16/20 05/17/20 05/18/20 23:59 23:59 23:59 Intake Total 4804.07 / 4826.37 2685.55 / 2685.55 436.67 / 436.67 Output Total 750 / 750 1280 / 1280 325 / 325 Balance 4054.07 / 4076.37 1405.55 / 1405.55 111.67 / 111.67 Labs (Last 48 Hours) 05/16/20 05/16/20 05/16/20 10:30 10:30 10:30 WBC 0.2 L* RBC 2.44 L Hgb 7.5 L Hct 23.1 L MCV 94.7 MCH 30.7 MCHC 32.5 RDW Std Deviation 65.1 H RDW Coeff of Audrey 19.1 H Plt Count 37 L* MPV 11.5 Immature Gran % (Auto) 11.100 H Neut % (Auto) 44.5 L Lymph % (Auto) 33.3 [place] % (Auto) 11.1 H Eos % (Auto) 0.0 Baso % (Auto) 0.0 Absolute Neuts (auto) 0.1 L Absolute Lymphs (auto) 0.06 L Nucleated RBC % 0 Differential Comment SCANNED Diff Path Review May foll Platelet Estimate MKD DEC Anisocytosis 3+ Ron Cells PT 51.0 H INR 5.6 H* APTT 47.7 H Fibrinogen D-Dimer Quant (PE/DVT) Specimen Type Sample Site pH Bicarbonate Actual Total CO2 Base Excess O2 Saturation ABG pCO2 ABG pO2 O2 Delivery Device Liter Flow Sodium 134 L Potassium 2.8 L Chloride 104 Carbon Dioxide 21.0 Anion Gap 9 BUN 31 H Creatinine 1.94 H Estim Creat Clear Calc 30.33 Est GFR (MDRD) Af Amer 34 L Est GFR (MDRD) Non-Af 28 L BUN/Creatinine Ratio 16.0 Glucose 80 Lactic Acid Calcium 7.4 L Phosphorus Magnesium Total Bilirubin 1.90 H AST 19 ALT 18 Alkaline Phosphatase 81 Total Protein 4.1 L Albumin 1.7 L Globulin 2.4 Albumin/Globulin Ratio 0.7 L Urine Color Urine Clarity Urine pH Ur Specific [place]utton Urine Protein Urine Glucose (UA) Urine Ketones Urine Occult Blood Urine Nitrite Urine Bilirubin Urine Urobilinogen Ur Leukocyte Esterase Urine RBC Urine WBC Ur Squamous Epith Cells Urine Bacteria Urine Mucus COVID-19 (LIBBY) Blood Type Antibody Screen Crossmatch 05/16/20 05/16/20 05/16/20 10:30 10:30 11:58 WBC RBC Hgb Hct MCV MCH MCHC RDW Std Deviation RDW Coeff of Audrey Plt Count MPV Immature Gran % (Auto) Neut % (Auto) Lymph % (Auto) [place] % (Auto) Eos % (Auto) Baso % (Auto) Absolute Neuts (auto) Absolute Lymphs (auto) Nucleated RBC % Differential Comment Diff Path Review Platelet Estimate Anisocytosis Ron Cells PT INR APTT Fibrinogen D-Dimer Quant (PE/DVT) Specimen Type Sample Site pH Bicarbonate Actual Total CO2 Base Excess O2 Saturation ABG pCO2 ABG pO2 O2 Delivery Device Liter Flow Sodium Potassium Chloride Carbon Dioxide Anion Gap BUN Creatinine Estim Creat Clear Calc Est GFR (MDRD) Af Amer Est GFR (MDRD) Non-Af BUN/Creatinine Ratio Glucose Lactic Acid 2.8 H* Calcium Phosphorus 2.6 Magnesium 1.6 Total Bilirubin AST ALT Alkaline Phosphatase Total Protein Albumin Globulin Albumin/Globulin Ratio Urine Color Urine Clarity Urine pH Ur Specific [place] Urine Protein Urine Glucose (UA) Urine Ketones Urine Occult Blood Urine Nitrite Urine Bilirubin Urine Urobilinogen Ur Leukocyte Esterase Urine RBC Urine WBC Ur Squamous Epith Cells Urine Bacteria Urine Mucus COVID-19 (LIBBY) Not Detected Blood Type Antibody Screen Crossmatch 05/16/20 05/16/20 05/16/20 12:20 15:03 15:30 WBC RBC Hgb Hct MCV MCH MCHC RDW Std Deviation RDW Coeff of Audrey Plt Count MPV Immature Gran % (Auto) Neut % (Auto) Lymph % (Auto) [place] % (Auto) Eos % (Auto) Baso % (Auto) Absolute Neuts (auto) Absolute Lymphs (auto) Nucleated RBC % Differential Comment Diff Path Review Platelet Estimate Anisocytosis Ron Cells PT INR APTT Fibrinogen D-Dimer Quant (PE/DVT) Specimen Type ART Sample Site R Brach pH 7.32 L Bicarbonate Actual 17.5 L Total CO2 19 Base Excess -9 L O2 Saturation 94 L ABG pCO2 34.4 L ABG pO2 77 O2 Delivery Device Cannula Liter Flow 6.0 Sodium Potassium Chloride Carbon Dioxide Anion Gap BUN Creatinine Estim Creat Clear Calc Est GFR (MDRD) Af Amer Est GFR (MDRD) Non-Af BUN/Creatinine Ratio Glucose Lactic Acid 1.5 Calcium Phosphorus Magnesium Total Bilirubin AST ALT Alkaline Phosphatase Total Protein Albumin Globulin Albumin/Globulin Ratio Urine Color Urine Clarity Urine pH Ur Specific [place] Urine Protein Urine Glucose (UA) Urine Ketones Urine Occult Blood Urine Nitrite Urine Bilirubin Urine Urobilinogen Ur Leukocyte Esterase Urine RBC Urine WBC Ur Squamous Epith Cells Urine Bacteria Urine Mucus COVID-19 (LIBBY) Blood Type A POSITIVE Antibody Screen NEGATIVE Crossmatch See Detail 05/16/20 05/16/20 05/16/20 16:25 16:25 22:55 WBC RBC Hgb Hct MCV MCH MCHC RDW Std Deviation RDW Coeff of Audrey Plt Count MPV Immature Gran % (Auto) Neut % (Auto) Lymph % (Auto) [place] % (Auto) Eos % (Auto) Baso % (Auto) Absolute Neuts (auto) Absolute Lymphs (auto) Nucleated RBC % Differential Comment Diff Path Review Platelet Estimate Anisocytosis Dearing Cells PT 46.6 H INR 5.0 H* APTT 50.7 H Fibrinogen 545 H D-Dimer Quant (PE/DVT) 5.44 H* Specimen Type Sample Site pH Bicarbonate Actual Total CO2 Base Excess O2 Saturation ABG pCO2 ABG pO2 O2 Delivery Device Liter Flow Sodium 133 L Potassium 3.2 L Chloride 105 Carbon Dioxide 18.0 L Anion Gap 10 BUN 30 H Creatinine 1.76 H Estim Creat Clear Calc 27.42 Est GFR (MDRD) Af Amer 38 L Est GFR (MDRD) Non-Af 31 L BUN/Creatinine Ratio 17.0 Glucose 70 L Lactic Acid Calcium 6.8 L Phosphorus Magnesium Total Bilirubin AST ALT Alkaline Phosphatase Total Protein Albumin Globulin Albumin/Globulin Ratio Urine Color Straw Urine Clarity Clear Urine pH 6.0 Ur Specific [place] 1.020 Urine Protein 30 H Urine Glucose (UA) 50 H Urine Ketones Negative Urine Occult Blood 150 H Urine Nitrite Positive H Urine Bilirubin 1 H Urine Urobilinogen Normal Ur Leukocyte Esterase 25 H Urine RBC 0-5 SEEN Urine WBC 10-25 SEEN Ur Squamous Epith Cells 0 SEEN Urine Bacteria RARE Urine Mucus Not Reportable COVID-19 (LIBBY) Blood Type Antibody Screen Crossmatch 05/17/20 05/17/20 05/17/20 04:10 04:10 04:10 WBC 0.2 L* RBC 2.86 L Hgb 8.7 L Hct 26.8 L MCV 93.7 MCH 30.4 MCHC 32.5 RDW Std Deviation 61.5 H RDW Coeff of Audrey 19.0 H Plt Count 31 L* MPV 11.4 Immature Gran % (Auto) 16.700 H Neut % (Auto) 38.9 L Lymph % (Auto) 33.3 [place] % (Auto) 11.1 H Eos % (Auto) 0.0 Baso % (Auto) 0.0 Absolute Neuts (auto) 0.1 L Absolute Lymphs (auto) 0.06 L Nucleated RBC % 0 Differential Comment SCANNED Diff Path Review May foll Platelet Estimate MKD DEC Anisocytosis 2+ Dearing Cells 1+ PT 34.4 H INR 3.4 APTT Fibrinogen D-Dimer Quant (PE/DVT) Specimen Type Sample Site pH Bicarbonate Actual Total CO2 Base Excess O2 Saturation ABG pCO2 ABG pO2 O2 Delivery Device Liter Flow Sodium 135 L Potassium 3.9 Chloride 109 H Carbon Dioxide 17.0 L Anion Gap 9 BUN 29 H Creatinine 1.50 H Estim Creat Clear Calc 32.17 Est GFR (MDRD) Af Amer 45 L Est GFR (MDRD) Non-Af 37 L BUN/Creatinine Ratio 19.3 Glucose 100 Lactic Acid Calcium 6.9 L Phosphorus Magnesium Total Bilirubin 3.80 H AST 34 ALT 22 Alkaline Phosphatase 79 Total Protein 4.2 L Albumin 1.6 L Globulin 2.6 Albumin/Globulin Ratio 0.6 L Urine Color Urine Clarity Urine pH Ur Specific [place] Urine Protein Urine Glucose (UA) Urine Ketones Urine Occult Blood Urine Nitrite Urine Bilirubin Urine Urobilinogen Ur Leukocyte Esterase Urine RBC Urine WBC Ur Squamous Epith Cells Urine Bacteria Urine Mucus COVID-19 (LIBBY) Blood Type Antibody Screen Crossmatch 05/18/20 05/18/20 05/18/20 03:45 03:45 03:45 WBC 0.2 L* RBC 2.96 L Hgb 9.0 L Hct 28.2 L MCV 95.3 MCH 30.4 MCHC 31.9 L RDW Std Deviation 65.7 H RDW Coeff of Audrey 19.9 H Plt Count 23 L* MPV Immature Gran % (Auto) 0.000 Neut % (Auto) 65.2 Lymph % (Auto) 17.4 L [place] % (Auto) 17.4 H Eos % (Auto) 0.0 Baso % (Auto) 0.0 Absolute Neuts (auto) 0.2 L Absolute Lymphs (auto) 0.04 L Nucleated RBC % 0 Differential Comment Diff Path Review May foll Platelet Estimate MKD DEC Anisocytosis 2+ Ron Cells PT 27.1 H INR 2.6 APTT Fibrinogen D-Dimer Quant (PE/DVT) Specimen Type Sample Site pH Bicarbonate Actual Total CO2 Base Excess O2 Saturation ABG pCO2 ABG pO2 O2 Delivery Device Liter Flow Sodium 141 Potassium 3.4 L Chloride 115 H Carbon Dioxide 18.0 L Anion Gap 8 BUN 28 H Creatinine 1.33 H Estim Creat Clear Calc 36.28 Est GFR (MDRD) Af Amer 52 L Est GFR (MDRD) Non-Af 43 L BUN/Creatinine Ratio 21.1 H Glucose 152 H Lactic Acid Calcium 7.3 L Phosphorus 1.9 L Magnesium 1.5 L Total Bilirubin AST ALT Alkaline Phosphatase Total Protein Albumin Globulin Albumin/Globulin Ratio Urine Color Urine Clarity Urine pH Ur Specific [place] Urine Protein Urine Glucose (UA) Urine Ketones Urine Occult Blood Urine Nitrite Urine Bilirubin Urine Urobilinogen Ur Leukocyte Esterase Urine RBC Urine WBC Ur Squamous Epith Cells Urine Bacteria Urine Mucus COVID-19 (LIBBY) Blood Type Antibody Screen Crossmatch Microbiology 05/16/20 13:20 Swab (Method) Nasal Screen MRSA/MSSA - Final 05/17/20 05:00 Stool Enteric Bacteriology - Final 05/17/20 05:00 Stool C. difficile DNA Amplification - Final 05/16/20 11:30 Blood Culture (Wb) - Anticubital Left Blood Culture - Preliminary 05/16/20 22:55 Urine Catheter - [place] Streptococcus pneumoniae Antigen (M - Final 05/16/20 22:55 Urine Catheter - [place] Legionella Antigen - Final Medical Necessity - Tobacco Use Smoking Status: Never smoker Assessment/Plan All Active Problems (Last Updated 05/16/20 @ 12:[address] Tyrone Cooney MD) Septic shock (Acute) Healthcare-associated pneumonia (Acute) Acute kidney injury (Acute) Pancytopenia (Acute) Acute on chronic anemia (Acute) RECOMMENDATIONS: 1. Increase activity as tolerated 2. Aggressive supplementation of electrolytes if indicated 3. Monitor for bleeding complications. Hold on transfusions for now. 4. Continue Zosyn until sensitivities are available 5. Wean oxygen as tolerated. Encourage incentive spirometer. 6. Possible consult to oncology to discuss CODE STATUS/goals of therapy 7. Okay to leave the intensive care unit from my perspective IMPRESSIONS: 1. Gram-negative septic shock secondary to presumed healthcare associated pneumonia Patient did not require pressor therapy overnight. Patient has gram- negative growing in her blood, but has received Zosyn for almost 36 hours. Await species and sensitivities to guide further antibiotic directives. Hold off on significant crystalloid infusion as patient does have decreased albumin with low oncotic pressures and will have significant third spacing. 2. Acute hypoxic respiratory insufficiency Unclear etiology at this time. Patient does have slightly depressed EF on previous echocardiogram, but no diastolic dysfunction was noted. Chest x-ray shows a possible lingular infiltrate and this may account for current findings. Patient may also have decreased imaging findings secondary to pancytopenia. Continue with nasal cannula and wean as tolerated. Patient may require BiPAP rescue overnight or with sleeping. Patient's COVID-19 testing was negative and no exposures have been reported. Patient with marginal activity, so an element of atelectasis is likely. Recommend incentive spirometer 3. Acute kidney injury Almost to baseline. Patient with significant elevation of creatinine from baseline on presentation. Patient may have an element of prerenal etiology secondary to #1 or hypoxia induced ATN secondary to #2. Volume resuscitation has been ordered. We will continue to monitor. Patient did have significant hypokalemia, but responded to supplementation. Will recheck labs. If this continues to be low, potassium boluses may be required. 4. Coagulopathy of unclear etiology/pancytopenia secondary to chemotherapy Patient is not currently on anticoagulation. Patient does have some bone marrow suppression secondary to chemotherapy. Possibility of hepatic dysfunction given metastasis and recent chemotherapy. Initial DIC labs are negative. Patient has responded to some vitamin K infusion. We will hold on any transfusions of platelets or blood at this time unless patient develops bleeding complications. 5. History of colon and breast cancer/GERD/anxiety/depression Complicates care, management, recovery and prognosis. Okay to continue Protonix twice daily. Patient will need a swallow evaluation. Patient does appear to be debilitated at this time and has had multiple cancers. Patient is currently a full code, but this may need to be addressed with oncology consult for clarification of goals of therapy and expected outcomes. Inpatient E&M: [id number] Subs Hosp L2
--- NOTE | 2020-05-18 09:27 | PN_ITS ---
Patient Problems: Active and Suspected Problems (Last Updated 05/16/20 @ 12:[address] Tyrone Cooney MD) Septic shock (Acute) Subjective: Chief complaint: Follow-up after admission for septic shock due to healthcare associated pneumonia, complicated by acute respiratory failure, acute kidney injury, acute on chronic anemia and coagulopathy. Patient seen and examined. No acute events overnight. She has been off IV Levophed since yesterday morning. Patient still complaining of feeling sick, short of breath and complaint of abdominal pain today. She has no more diarrhea. This morning, she is afebrile, tachycardic, blood pressure is maintained, pulse ox is 98% on 2 L. - Physical Exam Vitals/I&O's: Vital Signs Temp Pulse Resp BP Pulse Ox 97.7 F L 117 H 25 H 93/67 98 05/18/20 07:00 05/18/20 08:00 05/18/20 08:00 05/18/20 08:00 05/18/20 08:00 Oxygen Flow Rate (L/min) 2 Oxygen Delivery Method Nasal Cannula Weight: 191 lb 12.835 oz Body Mass Index (BMI) 32.5 Intake and Output for Last 24 Hours 05/16/20 05/17/20 05/18/20 23:59 23:59 23:59 Intake Total 4804.07 / 4826.37 2685.55 / 2685.55 436.67 / 436.67 Output Total 750 / 750 1280 / 1280 325 / 325 Balance 4054.07 / 4076.37 1405.55 / 1405.55 111.67 / 111.67 General: Alert, Oriented x3, Cooperative, - - Minimally short of breath, chronically ill patient, pale. HEENT: Atraumatic, PERRLA, EOMI, Normocephalic Oral: Moist Mucosa, No Gingival or Mucosal Lesions/ Ulcerations Neck: Supple, No JVD, Negative Carotid Bruits, Trachea Midline, Thyroid Normal Size and Texture Lungs: No wheeze, No rales, Diminished, Rhonchi, - - Decreased breath sounds bilateral, more at the left base rhonchi. Cardiovascular: Regular rate, Regular Rhythm, Normal S1, Normal S2, PMI Normal, Tachycardic Abdomen: Bowel Sounds Present, Soft, Non Tender, Non-Distended, No Hepato- splenomegaly Extremities: No clubbing, No cyanosis, Edema - Trace edema. Skin: No rashes, No breakdown Lymphatic: No Cervical, Supraclavicular, or Inguinal Adenopathy Neurological: Cranial nerves II-XII grossly intact, Neuro grossly intact Psych/Mental Status: Normal Affect, Appropriate, Alert and oriented to time, place, person, mood and affect Microbiology Past 72 Hours 05/16/20 13:20 Swab (Method) Nasal Screen MRSA/MSSA - Final 05/17/20 05:00 Stool Enteric Bacteriology - Final 05/17/20 05:00 Stool C. difficile DNA Amplification - Final 05/16/20 11:30 Blood Culture (Wb) - Anticubital Left Blood Culture - Preliminary 05/16/20 22:55 Urine Catheter - [place] Streptococcus pneumoniae Antigen (M - Final 05/16/20 22:55 Urine Catheter - [place] Legionella Antigen - Final Laboratory Results 05/18/20 03:45: WBC 0.2 L*, RBC 2.96 L, Hgb 9.0 L, Hct 28.2 L, MCV 95.3, MCH 30.4, MCHC 31.9 L, RDW Std Deviation 65.7 H, RDW Coeff of Audrey 19.9 H, Plt Count 23 L*, Immature Gran % (Auto) 0.000, Neut % (Auto) 65.2, Lymph % (Auto) 17.4 L, [place] % (Auto) 17.4 H, Eos % (Auto) 0.0, Baso % (Auto) 0.0, Absolute Neuts (auto) 0.2 L, Absolute Lymphs (auto) 0.04 L, Nucleated RBC % 0, Differential Comment , Diff Path Review May foll, Platelet Estimate MKD DEC, Anisocytosis 2+ 05/18/20 03:45: PT 27.1 H, INR 2.6 05/18/20 03:45: Sodium 141, Potassium 3.4 L, Chloride 115 H, Carbon Dioxide 18.0 L, Anion Gap 8, BUN 28 H, Creatinine 1.33 H, Estim Creat Clear Calc 36.28, Est GFR (MDRD) Af Amer 52 L, Est GFR (MDRD) Non-Af 43 L, BUN/Creatinine Ratio 21.1 H , Glucose 152 H, Calcium 7.3 L, Phosphorus 1.9 L, Magnesium 1.5 L Current Medications Acetaminophen (Tylenol) 650 mg PO Q6H PRN PRN PRN Reason: Pain Score 1-10/Temp > 100.7 F Albuterol Sulfate (Ventolin Aerosols) 2.5 mg INHALATION Q2H PRN PRN PRN Reason: SOB/Wheezing Last Admin: 05/17/20 16:22 Dose: 2.5 mg Documented by: Heparin Sodium (Beef Lung) () 50 units IV UD PRN PRN Reason: Port-a-Cath (VAD)Heparin Flush Potassium Chloride/Dextrose/Sod Cl () 1,000 mls @ 100 mls/hr IV .Q10H [facility]AN[facility] Last Admin: 05/18/20 01:20 Dose: 100 mls/hr Documented by: Piperacillin Sod/Tazobactam (Sod 3.375 gm/ Sodium Chloride) 50 mls @ 12.5 mls/hr IV Q8 [facility] Last Admin: 05/18/20 05:48 Dose: 12.5 mls/hr Documented by: Pantoprazole Sodium 40 mg/ (Sodium Chloride) 110 mls @ 330 mls/hr IV Q12 [facility] Last Infusion: 05/17/20 21:28 Dose: Infused Documented by: Norepinephrine Bitartrate 8 mg (/ Sodium Chloride) 250 mls @ 9.375 mls/hr CONT INF .[id number] [facility]; Protocol Last Admin: 05/17/20 19:46 Dose: Not Given Documented by: Morphine Sulfate () 2 mg IV Q3H PRN PRN PRN Reason: Pain Score 6-10/10 Ondansetron HCl (Zofran) 4 mg IV Q8H PRN PRN PRN Reason: NAUSEA/VOMITING Last Admin: 05/17/20 14:15 Dose: 4 mg Documented by: Prochlorperazine Edisylate (Compazine Iv) 5 mg IV Q4H PRN PRN PRN Reason: Breakthrough Nausea/Vomiting Sodium Chloride () 10 - 40 ml IV UD PRN PRN Reason: Port-a-Cath (VAD) Flush Last Admin: 05/18/20 05:49 Dose: 10 ml Documented by: Sodium Chloride (0.9% Nacl (Sterile) Posiflush) 10 - 40 ml IV UD PRN PRN Reason: Port access or dressing change Sodium Chloride () 10 - 40 ml IV UD PRN PRN Reason: SALINE FLUSH Medical Necessity - Tobacco Use Smoking Status: Never smoker Assessment/Plan All Active Problems (Last Updated 05/16/20 @ 12:[address] Tyrone Cooney MD) Septic shock (Acute) Healthcare-associated pneumonia (Acute) Acute kidney injury (Acute) Pancytopenia (Acute) Acute on chronic anemia (Acute) This is a 64 years old female patient presented to the emergency room because of shortness of breath, cough and she was found to have left lower lobe/lingular infiltrate on chest x-ray consistent with healthcare associated pneumonia, complicated by septic shock and acute hypoxic respiratory failure, also found to have acute kidney injury, pancytopenia and acute on chronic anemia. #1 Septic shock: Secondary to pneumonia. Remained on IV Zosyn. She has been off IV Levophed drip since yesterday morning. Today, she is afebrile, tachycardic, blood pressure is maintained, pulse ox is 98% on 2 L. Remained leukopenic and neutropenic. Lactic acid is back to normal with IV fluids, it is down to 1.5. Blood culture was positive for gram-negative rods. Plan to continue same treatment. May need to consult oncology to discuss the prognosis and outcome of her multiple cancers and see if she is willing to change her CODE STATUS. #2 acute left lower lobe/lingular healthcare associated pneumonia versus aspiration: Remained on IV Zosyn. She has been off vasopressors. Blood culture revealed gram-negative rods, final is pending. Pneumococcal and Legionella antigen were negative. Plan to continue same treatment. #3 acute hypoxic respiratory failure: Secondary to 1 and 2. Currently, pulse ox is 98% on 2 L, improving. ABG on admission revealed pH of 7.32, PCO2 of 34 and PO2 of 77. Plan to monitor. #4 gram-negative bacteremia: Probable source is pneumonia versus probable UTI. Blood culture reviewed, final is pending. Urinalysis revealed clear urine, positive for nitrites and there was 10-25 WBCs, rare bacteria seen. Urine culture is pending. She is on IV Zosyn, plan as above. #5 acute kidney injury: Secondary to severe sepsis and poor oral intake. Trent garcia kidney function is normal. She is on IV fluids, BUN and creatinine improved. Today's BUN is 28, creatinine is 1.33, improving. #6 hypokalemia/hypophosphatemia/hypomagnesemia: Likely due to poor oral intake, malnutrition and cancer. She is on potassium supplement through the IV at this point. Plan to replace magnesium and phosphorus, repeat serum electrolytes tomorrow morning. #7 acute on chronic anemia/pancytopenia/neutropenia: Patient does have chronic pancytopenia but her blood counts are getting worse. Today, WBC is 200, platelet count is 22,000, absolute neutrophil count is 200. Today's hemoglobin is 9 g/dL. She received 1 unit of packed RBCs, today's hemoglobin is 8.7 g/dL. At this time, no active bleeding. No plan for transfusion today. #8 coagulopathy: Unclear etiology, could be due to chronic liver disease secondary to liver metastasis. INR is today down, it is 2.6 today. Patient received vitamin K. Fibrinogen was elevated as well as d-dimer. DIC ruled out. At this time, no evidence of active bleeding. #9 history of metastatic colon cancer: With mets to the liver, retroperitoneum, chery hepatis and esophagus. Patient has been on chemotherapy, last session was around 1 week ago. #10 history of breast cancer: Status post lumpectomy and sentinel node biopsy, received anastrozole in the past. #11 GERD: Continue IV Protonix twice daily. #12 anxiety and depression: Continue sertraline. #13 CODE STATUS: Full code. #14: DVT prophylaxis: SCDs, no chemical prophylaxis because of severe thrombocytopenia. This note was generated with [employer] dictation software. It may contain incorrect words, spelling, and punctuation that were not noted in checking the note before signing. Inpatient E&M: [id number] [facility] Hosp L3
[2020-05-18] MEDS: Loperamide 2 MG Capsule PO (16:01)
[2020-05-18] MEDS: Morphine 2 MG/ML Syringe IV (16:01)
[2020-05-18] MEDS: QUEtiapine 25 MG Tablet PO (21:20)
[2020-05-18] MEDS: Albuterol 2.5 MG/3 ML VIAL.NEB. INHALATION (22:25)
[2020-05-19] VITALS (35 sets, daily range): BP systolic 47–138; BP diastolic 26–106; PULSE 102–169; RESP 19–30; TEMP 35.3–36.2; O2SAT 79–98
[2020-05-19] MEDS: Morphine 2 MG/ML Syringe IV (02:52)
[2020-05-19] MEDS: 0.9% Saline Lock 10 ML Syringe IV ×2 (02:52→16:24)
--- NOTE | 2020-05-19 07:59 | PN_ITS ---
Patient Problems: Active and Suspected Problems (Last Updated 05/16/20 @ 12:[address] Tyrone Cooney MD) Septic shock (Acute) Reason for Visit: Septic shock with gram-negative marianne bacteremia secondary to pneumonia. Pancytopenia Objective: Septic shock resolved. Patient blood pressure is stable on 2 L of oxygen. Afebrile. Patient failed swallow test. Heart rate in the lower 100s. Patient sometimes has irregular abdominal/diaphragmatic breathing. Physical exam General: A Cooperative, sometimes drowsy, disoriented. HEENT: Atraumatic, PERRLA, EOMI, Normocephalic Oral: No Gingival or Mucosal Lesions/ Ulcerations Neck: Supple, No JVD, Negative Carotid Bruits Lungs: Air entry diminished in bilateral lung bases. No crepitation/rhonchi. Sometimes irregular breathing with tachypnea Cardiovascular: Mild tachycardia. Regular Rhythm, Normal S1, Normal S2, No murmurs Abdomen: Bowel Sounds Present, Soft, Non Tender, Non-Distended : No renal angle tenderness. No suprapubic tenderness. Extremities: Mild bilateral ankle dependent edema, Capillary Refill Less than 3 Seconds Skin: No rashes, No breakdown Musculoskeletal: No Tenderness to Palpation of Joints or Extremities Neurological: Cranial nerves II-XII grossly intact, Deep Tendon Reflexes 2+/4 and Symmetrical, Neuro grossly intact Psych/Mental Status: Looks depressed. Vitals/I&O's: Vital Signs Temp Pulse Resp BP Pulse Ox 95.9 F L 108 H 22 H 102/54 L 93 05/19/20 07:00 05/19/20 07:00 05/19/20 07:00 05/19/20 07:00 05/19/20 07:00 Oxygen Flow Rate (L/min) 2 Oxygen Delivery Method Nasal Cannula Weight: 192 lb 14.472 oz Body Mass Index (BMI) 32.5 Intake and Output for Last 24 Hours 05/17/20 05/18/20 05/19/20 23:59 23:59 23:59 Intake Total 2685.55 / 2685.55 2989.00 / 2989.00 50 / 50 Output Total 1280 / 1280 1000 / 1000 220 / 220 Balance 1405.55 / 1405.55 1989.00 / 1988.00 -170 / -170 Microbiology Past 72 Hours 05/16/20 22:55 Urine, Random Urine Culture - Preliminary Culture exhibits no growth. 05/16/20 10:30 Blood Culture (Wb) - Anticubital Left Blood Culture - Preliminary No growth in 48 hours. 05/16/20 13:20 Swab (Method) Nasal Screen MRSA/MSSA - Final 05/17/20 05:00 Stool Enteric Bacteriology - Final 05/17/20 05:00 Stool C. difficile DNA Amplification - Final 05/16/20 11:30 Blood Culture (Wb) - Anticubital Left Blood Culture - Preliminary 05/16/20 22:55 Urine Catheter - [place] Streptococcus pneumoniae Antigen (M - Final 05/16/20 22:55 Urine Catheter - [place] Legionella Antigen - Final Laboratory Results 05/18/20 14:22: Vancomycin Trough 7.0 Current Medications Acetaminophen (Tylenol) 650 mg PO Q6H PRN PRN PRN Reason: Pain Score 1-10/Temp > 100.7 F Albuterol Sulfate (Ventolin Aerosols) 2.5 mg INHALATION Q2H PRN PRN PRN Reason: SOB/Wheezing Last Admin: 05/18/20 22:25 Dose: 2.5 mg Documented by: Heparin Sodium (Beef Lung) () 50 units IV UD PRN PRN Reason: Port-a-Cath (VAD)Heparin Flush Potassium Chloride/Dextrose/Sod Cl () 1,000 mls @ 100 mls/hr IV .Q10H [facility] Last Admin: 05/19/20 02:07 Dose: Not Given Documented by: Piperacillin Sod/Tazobactam (Sod 3.375 gm/ Sodium Chloride) 50 mls @ 12.5 mls/hr IV Q8 [facility] Last Admin: 05/19/20 05:06 Dose: 12.5 mls/hr Documented by: Pantoprazole Sodium 40 mg/ (Sodium Chloride) 110 mls @ 330 mls/hr IV Q12 [facility] Last Infusion: 05/18/20 21:40 Dose: Infused Documented by: Norepinephrine Bitartrate 8 mg (/ Sodium Chloride) 250 mls @ 9.375 mls/hr CONT INF .[id number] [facility]; Protocol Last Admin: 05/18/20 17:26 Dose: Not Given Documented by: Loperamide HCl (Imodium) 2 mg PO Q4H PRN PRN PRN Reason: Diarrhea Last Admin: 05/18/20 16:01 Dose: 2 mg Documented by: Morphine Sulfate () 2 mg IV Q3H PRN PRN PRN Reason: Pain Score 6-10/10 Last Admin: 05/19/20 02:52 Dose: 2 mg Documented by: Ondansetron HCl (Zofran) 4 mg IV Q8H PRN PRN PRN Reason: NAUSEA/VOMITING Last Admin: 05/17/20 14:15 Dose: 4 mg Documented by: Prochlorperazine Edisylate (Compazine Iv) 5 mg IV Q4H PRN PRN PRN Reason: Breakthrough Nausea/Vomiting Quetiapine Fumarate (Seroquel) 25 mg PO QHS [facility] Last Admin: 05/18/20 21:20 Dose: 25 mg Documented by: Sodium Chloride () 10 - 40 ml IV UD PRN PRN Reason: Port-a-Cath (VAD) Flush Last Admin: 05/19/20 02:52 Dose: 20 ml Documented by: Sodium Chloride (0.9% Nacl (Sterile) Posiflush) 10 - 40 ml IV UD PRN PRN Reason: Port access or dressing change Sodium Chloride () 10 - 40 ml IV UD PRN PRN Reason: SALINE FLUSH STROKE Vital Signs/Narrative: Vital Signs Temp Pulse Resp BP Pulse Ox 05/19/20 07:00 95.9 F L 108 H 22 H 102/54 L 93 05/19/20 06:00 95.7 F L 110 H 21 H 112/73 90 05/19/20 05:00 95.8 F L 108 H 23 H 113/40 L 97 05/19/20 04:00 95.8 F L 106 H 20 H 120/63 91 Medical Necessity - Tobacco Use Smoking Status: Never smoker Assessment/Plan All Active Problems (Last Updated 05/16/20 @ 12:[address] Tyrone Cooney MD) Septic shock (Acute) Healthcare-associated pneumonia (Acute) Acute kidney injury (Acute) Pancytopenia (Acute) Acute on chronic anemia (Acute) This is a 64 years old female patient who is admitted for shortness of breath, cough and she was found to have left lower lobe/lingular infiltrate on chest x- ray consistent with healthcare associated pneumonia, complicated by septic shock and acute hypoxic respiratory failure, also found to have acute kidney injury, pancytopenia and acute on chronic anemia. 1 Septic shock secondary to acute left lower lobe/lingular healthcare acid pneumonia/aspiration pneumonia with acute hypoxic respiratory failure: Patient is being admitted in ICU. Discussed with rv repairer. Off vasopressor support. Will monitor in ICU today. Lactic acid was elevated but returned to normal after IV fluid hydration. 2 Gram-negative bacteremia: Probable source is pneumonia. 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 Urine culture is negative. Enteric bacteriology panel and C. difficile are negative. Urinary antigens are negative. MRSA nasal screen negative. UA shows positive nitrite and 10-25 cells WBC. Antibiotic changed to IV cefepime secondary to thrombocytopenia. 3. Acute kidney injury most probably ATN/prerenal: Secondary to severe sepsis and poor oral intake. Baseline kidney function is normal, baseline creatinine 0.62. Sodium and chloride is high today at 149/128. BUN and creatinine still elevated. 4. Hypokalemia/hypophosphatemia/hypomagnesemia: Likely due to poor oral intake, malnutrition and cancer. IV fluid is changed to D5W. Monitor electrolytes and replace accordingly. 5. Pancytopenia with acute on chronic anemia, severe neutropenia and severe thrombocytopenia: Oncologist Dr Eubanks is been consulted. Discussed with him. On Neupogen 480 mcg daily. Platelet count dropped to 11,000. WBC count 1.4 thousand. H&H 05/12. 6. 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 Fibrinogen was elevated as well as d- dimer. DIC ruled out. At this time, no evidence of active bleeding. 7. History of metastatic colon cancer: With mets to the liver, retroperitoneum, chery hepatis and esophagus. Since patient also has breast cancer. Patient was supposed to have CT surveillance this week. Patient has been on chemotherapy, last session was around 1 week ago. 8. GERD: Continue IV Protonix twice daily. 9. Anxiety and depression: Continue sertraline. CODE STATUS: Full code. Considering all multiple chronic comorbidities, cancer with metastasis, severe pancytopenia and gram-negative marianne bacteremia, oncologist is being consulted to assist in prognostication and goals of care/advanced care planning DVT prophylaxis: SCDs, pharmacological prophylaxis contraindicated because of severe thrombocytopenia. Inpatient E&M: [id number] [facility] Hosp L3
--- NOTE | 2020-05-19 08:48 | PN_ITS ---
Subjective: The patient was seen and examined at the bedside this morning. Events from the last 24 hours have been reviewed. The patient is currently afebrile, hemodynamically stable and maintaining appropriate oxygen saturations on 2 L/min via nasal cannula. The patient continues to fail her swallow evaluation and is pending reevaluation by speech therapy today. The patient remains pancytopenic with a platelet count of 11,000 this morning. Sodium has increased to 149 this morning. Chloride has also increased to 128. Total bilirubin has increased to 6. Objective: The patient's most recent lab work, culture data and imaging studies have all been personally reviewed. Blood culture dated May 16 was positive for gram- negative marianne. - Physical Exam Vitals/I&O's: Vital Signs Temp Pulse Resp BP Pulse Ox 95.9 F L 108 H 22 H 102/54 L 93 05/19/20 07:00 05/19/20 07:00 05/19/20 07:00 05/19/20 07:00 05/19/20 07:00 Oxygen Flow Rate (L/min) 2 Oxygen Delivery Method Nasal Cannula Weight: 192 lb 14.472 oz Body Mass Index (BMI) 32.5 Intake and Output for Last 24 Hours 05/17/20 05/18/20 05/19/20 23:59 23:59 23:59 Intake Total 2685.55 / 2685.55 2989.00 / 2989.00 1050 / 1050 Output Total 1280 / 1280 1000 / 1000 220 / 220 Balance 1405.55 / 1405.55 1989.00 / 1988.00 830 / 830 General: Alert, Confused, - - Appears ill and uncomfortable. Jaundice in appearance HEENT: Atraumatic, Normocephalic Oral: Dry Mucosa Neck: Supple, No Nodes, Trachea Midline Lungs: Diminished, Rhonchi, Tachypneic Cardiovascular: Normal S1, Normal S2, Tachycardic Abdomen: Bowel Sounds Present, Soft, Non Tender Extremities: No clubbing, No cyanosis, No edema Skin: No breakdown Musculoskeletal: No Tenderness to Palpation of Joints or Extremities Lymphatic: No Cervical, Supraclavicular, or Inguinal Adenopathy Neurological: - - No focal neurological deficits. Psych/Mental Status: Restless Labs (Last 48 Hours) 05/18/20 05/18/20 05/18/20 03:45 03:45 03:45 WBC 0.2 L* RBC 2.96 L Hgb 9.0 L Hct 28.2 L MCV 95.3 MCH 30.4 MCHC 31.9 L RDW Std Deviation 65.7 H RDW Coeff of Audrey 19.9 H Plt Count 23 L* Immature Gran % (Auto) 0.000 Neut % (Auto) 65.2 Lymph % (Auto) 17.4 L [place] % (Auto) 17.4 H Eos % (Auto) 0.0 Baso % (Auto) 0.0 Absolute Neuts (auto) 0.2 L Absolute Lymphs (auto) 0.04 L Nucleated RBC % 0 Differential Comment Diff Path Review May foll Platelet Estimate MKD DEC Anisocytosis 2+ PT 27.1 H INR 2.6 Sodium 141 Potassium 3.4 L Chloride 115 H Carbon Dioxide 18.0 L Anion Gap 8 BUN 28 H Creatinine 1.33 H Estim Creat Clear Calc 36.28 Est GFR (MDRD) Af Amer 52 L Est GFR (MDRD) Non-Af 43 L BUN/Creatinine Ratio 21.1 H Glucose 152 H Calcium 7.3 L Phosphorus 1.9 L Magnesium 1.5 L Vancomycin Trough 05/18/20 14:22 WBC RBC Hgb Hct MCV MCH MCHC RDW Std Deviation RDW Coeff of Audrey Plt Count Immature Gran % (Auto) Neut % (Auto) Lymph % (Auto) [place] % (Auto) Eos % (Auto) Baso % (Auto) Absolute Neuts (auto) Absolute Lymphs (auto) Nucleated RBC % Differential Comment Diff Path Review Platelet Estimate Anisocytosis PT INR Sodium Potassium Chloride Carbon Dioxide Anion Gap BUN Creatinine Estim Creat Clear Calc Est GFR (MDRD) Af Amer Est GFR (MDRD) Non-Af BUN/Creatinine Ratio Glucose Calcium Phosphorus Magnesium Vancomycin Trough 7.0 Microbiology 05/16/20 22:55 Urine, Random Urine Culture - Final Culture exhibits no growth. 05/16/20 11:30 Blood Culture (Wb) - Anticubital Left Blood Culture - Preliminary GNR lactose cathode maker 05/16/20 10:30 Blood Culture (Wb) - Anticubital Left Blood Culture - Preliminary No growth in 48 hours. 05/16/20 13:20 Swab (Method) Nasal Screen MRSA/MSSA - Final 05/17/20 05:00 Stool Enteric Bacteriology - Final 05/17/20 05:00 Stool C. difficile DNA Amplification - Final Clinical Impression(s) from Imaging Studies Chest X-Ray 05/16/20 10:49 IMPRESSION: Lingular pneumonia per Electronically Signed: Obie Hernandez MD at 11:13 EDT Tel , Service support , Current Medications Acetaminophen (Tylenol) 650 mg PO Q6H PRN PRN PRN Reason: Pain Score 1-10/Temp > 100.7 F Albuterol Sulfate (Ventolin Aerosols) 2.5 mg INHALATION Q2H PRN PRN PRN Reason: SOB/Wheezing Last Admin: 05/18/20 22:25 Dose: 2.5 mg Documented by: Heparin Sodium (Beef Lung) () 50 units IV UD PRN PRN Reason: Port-a-Cath (VAD)Heparin Flush Potassium Chloride/Dextrose/Sod Cl () 1,000 mls @ 100 mls/hr IV .Q10H [facility] Last Admin: 05/19/20 08:30 Dose: 100 mls/hr Documented by: Piperacillin Sod/Tazobactam (Sod 3.375 gm/ Sodium Chloride) 50 mls @ 12.5 mls/hr IV Q8 [facility] Last Admin: 05/19/20 05:06 Dose: 12.5 mls/hr Documented by: Pantoprazole Sodium 40 mg/ (Sodium Chloride) 110 mls @ 330 mls/hr IV Q12 [facility] Last Infusion: 05/18/20 21:40 Dose: Infused Documented by: Norepinephrine Bitartrate 8 mg (/ Sodium Chloride) 250 mls @ 9.375 mls/hr CONT INF .[id number] [facility]; Protocol Last Admin: 05/18/20 17:26 Dose: Not Given Documented by: Loperamide HCl (Imodium) 2 mg PO Q4H PRN PRN PRN Reason: Diarrhea Last Admin: 05/18/20 16:01 Dose: 2 mg Documented by: Morphine Sulfate () 2 mg IV Q3H PRN PRN PRN Reason: Pain Score 6-10/10 Last Admin: 05/19/20 02:52 Dose: 2 mg Documented by: Ondansetron HCl (Zofran) 4 mg IV Q8H PRN PRN PRN Reason: NAUSEA/VOMITING Last Admin: 05/17/20 14:15 Dose: 4 mg Documented by: Prochlorperazine Edisylate (Compazine Iv) 5 mg IV Q4H PRN PRN PRN Reason: Breakthrough Nausea/Vomiting Quetiapine Fumarate (Seroquel) 25 mg PO QHS [facility]AN[facility] Last Admin: 05/18/20 21:20 Dose: 25 mg Documented by: Sodium Chloride () 10 - 40 ml IV UD PRN PRN Reason: Port-a-Cath (VAD) Flush Last Admin: 05/19/20 02:52 Dose: 20 ml Documented by: Sodium Chloride (0.9% Nacl (Sterile) Posiflush) 10 - 40 ml IV UD PRN PRN Reason: Port access or dressing change Sodium Chloride () 10 - 40 ml IV UD PRN PRN Reason: SALINE FLUSH Medical Necessity - Tobacco Use Smoking Status: Never smoker Assessment/Plan All Active Problems (Last Updated 05/16/20 @ 12:[address] Tyrone Cooney MD) Septic shock (Acute) Healthcare-associated pneumonia (Acute) Acute kidney injury (Acute) Pancytopenia (Acute) Acute on chronic anemia (Acute) RECOMMENDATIONS: 1. Stop Zosyn and transition to cefepime, given worsening thrombocytopenia. 2. Start D5W, given n.p.o. status and rising sodium. 3. Obtain oncology consultation to assist with prognostication and goals of care planning. 4. Plan for goals of care discussion with the patient's family. 5. Continue Granix. 6. Monitor H&H daily. IMPRESSIONS: 1. Gram-negative septic shock secondary to presumed healthcare associated pneumonia The patient is currently clinically stable with minimal supplemental oxygen requirement. She remains hemodynamically stable off of vasopressor support. Given the patient's worsening thrombocytopenia, Zosyn will be discontinued and transitioned to cefepime. 2. Acute hypoxic respiratory insufficiency Chest x-ray shows a possible lingular infiltrate and this may account for current findings. Continue to wean supplemental oxygen to maintain saturations at or above 90%. Continue antimicrobials as noted above. Encourage incentive spirometer use and mobilize patient as tolerated. 3. Acute kidney injury Improving. The patient had a significant elevation of creatinine from baseline on presentation. Patient may have an element of prerenal etiology secondary to #1 or hypoxia induced ATN secondary to #2. Continue to monitor urine output for now. No indication for renal replacement therapy. 4. Hypernatremia/hyperchloremia Likely secondary to volume depletion due to n.p.o. status. Accordingly, D5W has been started. 5. Coagulopathy of unclear etiology/pancytopenia secondary to chemotherapy Patient is not currently on anticoagulation. Patient does have some bone marrow suppression secondary to chemotherapy. Possibility of hepatic dysfunction given metastasis and recent chemotherapy. Recommend continuing to check daily CBC. 6. History of colon and breast cancer/GERD/anxiety/depression Complicates care, management, recovery and prognosis. Okay to continue Protonix twice daily. Recommend that oncology be consulted to assist with overall prognostication and goals of care planning. The patient's rising bilirubin level is concerning for progressive metastatic disease. This note was generated with [employer] dictation software. It may contain incorrect words, spelling, and punctuation that were not noted in checking the note before signing. Inpatient E&M: 22238 [facility] L3
[2020-05-19 11:59] LABS: Hematocrit 28.5 % (37-47); Mean Corp Hgb Conc 31.6 g/dL (32-36); Mean Corpuscular Hgb 31.5 pg (27.0-32.0); Mean Corpuscular Volume 99.7 fL (81-99); POSITIVE COUNT YES; POSITIVE DIFFERENTIAL YES; POSITIVE MORPHOLOGY YES; RBC Distribution Width CV 21.8 % (11.6-14.6); Red Blood Count 2.86 M/mm3 (4.2-5.4)
[2020-05-19 12:11] LABS: Pathologist Review Reviewed
[2020-05-19 12:15] LABS: Pathologist Review Reviewed
[2020-05-19 12:17] LABS: Pathologist Review Reviewed
[2020-05-19 12:31] LABS: Differential Indicated MANUAL DIFF; Platelet Count 11 K/mm3 (150-450)
[2020-05-19 12:33] LABS: ALB/GLOB Ratio 0.4 RATIO (0.9-2.4); AST(SGOT) 14 U/L (15-37); Alanine Aminotransfer ALT/SGPT 15 U/L (13-56); Albumin, Serum 1.2 g/dL (3.2-5.0); Alkaline Phosphatase 82 U/L (45-117); Anion Gap 7 (5-15); BUN 29 mg/dL (7-18); BUN/Creat Ratio 25.9 RATIO (10-20); Calcium,Total 7.8 mg/dL (8.5-10.1); Chloride 128 mmol/L (98-107); Creatinine, Serum 1.12 mg/dL (0.55-1.02); EST Glomerular Filtration Rate 52 mL/min (>60); Est Glom Filt Rate - Afr Amer 63 mL/min (>60); Estimated Creatinine Clearance 43.08 ml/min; Globulin 2.7 g/dL (2.2-4.2); Glucose 137 mg/dL (74-106); Potassium 4.4 mmol/L (3.5-5.1); Protein, Total 3.9 g/dL (6.4-8.2); Sodium Level 149 mmol/L (136-145)
[2020-05-19 12:39] LABS: White Blood Count 1.4 K/mm3 (4.4-11.0)
[2020-05-19] MEDS: TBO-FILGRASTIM 480 MCG/0.8 ML ML SC (12:54)
[2020-05-19 12:55] LABS: Blast 1 % (0-0); Eosinophil 1 % (0-5); Lymphocyte 15 % (19-41); Metamyelocyte 2 % (0-1); Monocyte 13 % (0-10); Myelocyte 1 (0-0); Neutrophil-Band 32 % (0-5); Neutrophil-Segmented 34 % (47-70); Nucleated Red Bld Cells,Manual 12 % (0-5); Promyelocyte 1 (0-0); Total Cells Counted 100 (MANUAL DIFF)
[2020-05-19 12:56] LABS: Anisocytosis 3+; Macrocytosis 2+
[2020-05-19 12:57] LABS: Crenated RBC 2+
[2020-05-19 12:58] LABS: Acanthocytes 1+; Toxic Granulation 1+
[2020-05-19 13:00] LABS: Platelet Estimate MKD DEC (ADEQ)
[2020-05-19 13:03] LABS: Absolute Lymphocyte Count 0.21 X10^3/uL (0.83-4.51); Absolute Neutrophil Count 0.9 X10^3/uL (2.0-7.7)
[2020-05-19 14:52] LABS: Magnesium 2.2 mg/dL (1.6-2.6); Phosphorus 1.5 mg/dL (2.5-4.9)
--- NOTE | 2020-05-19 15:04 | EKG12_ITS ---
Test Reason : ARRYTHMIA Blood Pressure : / mmHG Vent. Rate : 169 BPM Atrial Rate : 170 BPM P-R Int : 000 ms QRS Dur : 094 ms QT Int : 274 ms P-R-T Axes : 000 002 138 degrees QTc Int : [address]-Changes Likely Related to Atrial Fibrillation with RVR Abnormal ECG When compared with ECG of 16-MAY-2020 10:27, Atrial fibrillation has replaced Sinus rhythm ST now depressed in Anterior leads Confirmed by KELLY TRUJILLO, ANN-MARIE ([id number]), material expeditor DEANA GARCIA ([id number]) on 05/29/2020 6:58:40 AM Referred By: DEFINED NOT Confirmed By:SOPHIA MENDOZA MD
--- NOTE | 2020-05-19 15:57 | CON.PCM_ITS ---
Subjective Date of Service:: 05/19/20 Chief Complaint: Disseminated adenocarcinoma History of Present Illness: Ms. Sarah Osborne is a very pleasant 64 y.o.woman with a PMH for colorectal ca in 2009 s/p polypectomy and transanal resection and invasive ductal carcinoma of the left breast ER+, SD+, HER2-, s/p left breast lumpectomy and SLNB on 03/05/2019. Pathologic stage pT1b pN0(i+). On anastrozole until when she developed abd pain which prompted to her present to [facility] ED. CT scan on 2019 showed multiple liver lesions with retroperitoneal adenopathy. Underwent CT-guided needle core biopsy of right lobe of liver mass 09/17/19, pathology of which showed metastatic adenocarcinoma consistent with colonic primary. BRAF negative, KRAS negative, HER2 positive 3+ by IHC, MMR negative. PET/CT obtained 10/15/19 demonstrated disseminated hypermetabolic activity involving the distal esophagus/GEJ, left and right lobes of the liver, single foci in the right posterior ilium, right and left neck, retroperitoneal, retrocrural, chery hepatis and cardiophrenic border consistent with viable neoplasm. EGD on 10/23/[address] Jefferson showed lower esophageal/GEJ tumor, partially obstructing, biopsy proved adenocarcinoma also Her2 positive 3+ by IHC. Received first line therapy with FOLFOX 10/24/2019-. Had PEG-tube placed on 10/31/2019. Received palliative radiation 2000 cGy of 6 MV photons in 5 fractions to the esophageal tumor 11/12/19-11/16/19 under the care of Dr. Frances. Care complicated by neutropenia fever after cycle 2, thus oxaliplatin attenuated and 5FU bolus omitted. Underwent EGD 03/04/[address] Jefferson which showed small lower esophageal nodule and PEG-tube was removed. However, CTA 03/28/2020 demonstrated increasing L adrenal mass suggestive of progressive disease. She began 2nd line therapy with Cisplatin, Xeloda and trastuzumab on 04/16/20. Required PRBC transfusion during cycle 1 secondary to hematemesis. Received cycle 2 on 05/07/20, today is day 13 of her cycle. Upon entering the room, patient is arousable and oriented to person and place. Unable to engage in discussion. Unable to ascertain her last dose of Xeloda. Denies pain. Past Medical History: Chronic Problems (Last Updated 05/16/20 @ 12:[address] Tyrone Cooney MD) Anxiety and depression (Chronic) Migraine (Chronic) GERD (gastroesophageal reflux disease) (Chronic) History of colon cancer in adulthood (Chronic) Metastatic adenocarcinoma to liver (Chronic) Mass of esophagus (Chronic) Esophageal adenocarcinoma (Chronic) Cancer-related pain (Chronic) Hypoalbuminemia (Chronic) CINV (chemotherapy-induced nausea and vomiting) (Chronic) Pancytopenia (Chronic) Metastatic colon cancer to liver (Chronic) Breast cancer (Chronic) Chronic anemia (Chronic) Past Medical/Surgical History: Past Medical History - Most Recent Inpatient Visit Past Medical History Start: 05/16/20 13:24 Text: Status: Complete Freq: ONCE Protocol: Document 05/16/20 13:24 LW (Rec: 05/16/20 13:45 LW [id number]) BMI Required to complete PMH What is Patient's BMI 28.5 Past Medical History Unable History Recalled No Query Text:Pt Unable/Family Not Present Neurologic Medical History Hx Stroke/TIA No Hx Dementia/Alzheimer's No Hx Parkinson's Disease No Hx Seizures No Hx Multiple Sclerosis No Hx Migraines Yes Cardiac Medical History VTE Present on Admission No Hx of Deep Vein Thrombosis/VTE/PE No Hx Hypertension No Hx Chest Pain/Angina No Hx Heart Attack No Hx Cardiac Surgery/Stents/Etc. No Hx Heart Failure No Hx Pacemaker/AICD No Hx Irregular Heartbeat and/or Afib No Hx Anticoagulant Therapy No Query Text:(Coumadin, Aspirin, Plavix, Xarelto, etc.) Hx Pain in Legs when Walking/Leg Cramps No Respiratory Medical History Hx COPD No Hx Emphysema No Hx Smoking No Smoking Status Never smoker Hx Tobacco Use in last 12 months No Hx Sleep Apnea No Do you snore loudly (louder than talking No or can be heard through closed doors)? Do you often feel tired/ fatigued/ No sleepy during daytime? Has anyone observed you stop breathing No during sleep? STOP Results Negative GI Medical History Hx Ulcer No Hx Hepatitis No Hx Cirrhosis No Hx GI Bleed No Hx Unplanned Weight Loss No Genitourinary Medical History Indwelling Catheter in Place on Arrival/ No Admission Hx Renal Disease No Hx Dialysis No Musculoskeletal History Hx Arthritis No Hx Rheumatoid Arthritis No Endocrine Medical History Hx Diabetes No Hx Thyroid Disease No Hematologic Medical History Hx of Blood Transfusion Yes Hx of Transfusion in last 3 Months Yes Date of Last Transfusion (if within last 04/29/20 3 months) Ever experience any problems with No transfusion(s)? Hx of Preganancy in last 3 Months N/A Nurse Filling Out Transfusion & LWOHLFORD Questions: Date: 05/16/20 Time: 13:33 Psycho/Social Medical History Hx Depression Yes: ON MED Hx Anxiety No Hx Behavior Disorder No Hx Alcohol Use No: rarely Hx Substance Use No Other Medical History Hx Blood Disorders No Hx Anemia No Hx Cancer Yes: COLON, BREAST, LIVER, ESOPHAGEAL Hx Drug Resistant Organism No Wound/Pressure Injury Present on Arrival No /Admission Query Text:If yes, chart assessment in Shift/Clinical Findings Central Line/PICC/VAD Present on Arrival Yes /Admission Antibiotics within last 7 days? No Risk for Readmission Number of Risk Factors 3 At Risk for Readmission Patient is At Risk For Readmission Patient is eligible for Call Back Y Past Medical History (Last Updated 05/16/20 @ 12:[address] Tyrone Cooney MD) Breast cancer (Acute) History of colon cancer (Acute) port placement (Acute) Past Surgical History (Last Reviewed 05/16/20 @ 12:[address] Tyrone Cooney MD) History of D&C (Acute) History of cholecystectomy (Acute) History of colon surgery (Acute) History of lumpectomy of left breast (Acute) Maternal Family History: Family History (Last Reviewed 05/16/20 @ 12:[address] Tyrone Cooney MD) Father Diabetes CHF (congestive heart failure) Family History: High Cholesterol, Heart Disease, Hypertension Paternal Family History: Family History (Last Reviewed 05/16/20 @ 12:[address] Tyrone Cooney MD) Father Diabetes CHF (congestive heart failure) Family History: Dementia - Social History Lives: Spouse/ Significant Other Smoking Status: Never smoker Alcohol: None Drugs: None Allergies/Adverse Reactions: Allergy/AdvReac Type Severity Reaction Status Date / Time No Known Allergies Allergy Verified 05/16/20 10:36 Review of Systems Constitutional:: Denies: Chills Unable to obtain accurate/complete ROS d/t: confusion Vital Signs Temperature 95.7 F L 05/19/20 14:00 Temperature Source Core 05/19/20 14:00 Pulse Rate 103 H 05/19/20 14:00 Pulse Strength Normal (2+) 05/19/20 08:37 Respiratory Rate 20 H 05/19/20 14:00 Respiratory Effort Non-Labored 05/19/20 13:44 Respiratory Depth Normal 05/19/20 13:44 Respiratory Pattern Normal 05/19/20 13:44 Blood Pressure 105/82 H 05/19/20 14:00 Blood Pressure Mean 89 05/19/20 14:00 Blood Pressure Source Monitor 05/19/20 14:00 Blood Pressure Position Semi-Fowlers 05/19/20 14:00 Blood Pressure Location Right Arm 05/19/20 14:00 Pulse Ox 94 05/19/20 14:00 Oxygen Delivery Method Nasal Cannula 05/19/20 14:00 Oxygen Flow Rate (L/min) 2 05/19/20 14:26 - Physical Exam General: Disoriented. Negative for: Oriented x3 HEENT: Atraumatic, Normocephalic, - - sclera icteric Oropharynx:: Dry mucosa. Negative for: Ulcerated lesions, White exudate Neck:: Supple, Trachea midline. Negative for: JVD, bilateral Cardiac:: Regular rate, Regular rhythm, Normal S1, Normal S2 Lungs: Diminished, Tachypneic, Excusion symmetrical. Negative for: Rhonchi, Wheezes Abdomen:: Bowel sounds x 4, Soft, Non-tender, Non-distended, Hepatomegaly Extremities:: Negative for: Cyanosis, Edema Skin:: Ecchymosis - left foot. Negative for: Lesions, Rash, Petechiae Laboratory Data: Microbiology 05/16/20 11:30 Blood Culture - Preliminary Blood Culture (Wb) - Anticubital Left GNR lactose healthcare management consultant 05/16/20 22:55 Urine Culture - Final Urine, Random Culture exhibits no growth. 05/16/20 10:30 Blood Culture - Preliminary Blood Culture (Wb) - Anticubital Left No growth in 48 hours. 05/16/20 13:20 Nasal Screen MRSA/MSSA - Final Swab (Method) 05/17/20 05:00 Enteric Bacteriology - Final Stool 05/17/20 05:00 C. difficile DNA Amplification - Final Stool 05/16/20 22:55 Streptococcus pneumoniae Antigen (M - Final Urine Catheter - [place] 10/02/20 22:55 Legionella Antigen - Final Urine Catheter - [place] Laboratory Tests 05/19/20 05/19/20 05/19/20 Range/Units 11:45 11:45 11:45 WBC 1.4 L* (4.4-11.0) K/mm3 RBC 2.86 L (4.2-5.4) M/mm3 Hgb 9.0 L (12.0-15.0) g/dL Hct 28.5 L (37-47) % MCV 99.7 H (81-99) fL MCH 31.5 (27.0-32.0) pg MCHC 31.6 L (32-36) g/dL RDW Std Deviation 72.0 H (35.1-43.9) fl RDW Coeff of Audrey 21.8 H (11.6-14.6) % Plt Count 11 L* (150-450) K/mm3 MPV TNP Neut % (Auto) Not Reportable Absolute Neuts (auto) 0.9 L (2.0-7.7) X10^3/uL Absolute Lymphs (auto) 0.21 L (0.83-4.51) X10^3/uL Total Counted 100 (MANUAL DIFF) Neutrophils % (Manual) 34 L (47-70) % Band Neutrophils % 32 H (0-5) % Lymphocytes % (Manual) 15 L (19-41) % Monocytes % (Manual) 13 H (0-10) % Eosinophils % (Manual) 1 (0-5) % Metamyelocytes % 2 H (0-1) % Myelocytes % 1 H (0-0) Promyelocytes % 1 H (0-0) Blast Cells % 1 H* (0-0) % Nucleated RBCs/100 WBC 12 H (0-5) % Differential Comment Diff Path Review May foll Toxic Granulation 1+ Platelet Estimate MKD DEC (ADEQ) Anisocytosis 3+ Macrocytosis 2+ Crenated Cell 2+ Acanthocytes (Spur) 1+ Sodium 149 H (136-145) mmol/L Potassium 4.4 (3.5-5.1) mmol/L Chloride 128 H* (98-107) mmol/L Carbon Dioxide 14.0 L (21.0-32.0) mmol/L Anion Gap 7 (5-15) BUN 29 H (7-18) mg/dL Creatinine 1.12 H (0.55-1.02) mg/dL Estim Creat Clear Calc 43.08 ml/min Est GFR (MDRD) Af Amer 63 (>60) mL/min Est GFR (MDRD) Non-Af 52 L (>60) mL/min BUN/Creatinine Ratio 25.9 H (10-20) RATIO Glucose 137 H (74-106) mg/dL Calcium 7.8 L (8.5-10.1) mg/dL Phosphorus 1.5 L (2.5-4.9) mg/dL Magnesium 2.2 (1.6-2.6) mg/dL Total Bilirubin 6.00 H (0.20-1.00) mg/dL AST 14 L (15-37) U/L ALT 15 (13-56) U/L Alkaline Phosphatase 82 (45-117) U/L Total Protein 3.9 L (6.4-8.2) g/dL Albumin 1.2 L (3.2-5.0) g/dL Globulin 2.7 (2.2-4.2) g/dL Albumin/Globulin Ratio 0.4 L (0.9-2.4) RATIO 05/18/20 05/17/20 05/16/20 Range/Units 03:45 04:10 10:30 WBC (4.4-11.0) K/mm3 RBC (4.2-5.4) M/mm3 Hgb (12.0-15.0) g/dL Hct (37-47) % MCV (81-99) fL MCH (27.0-32.0) pg MCHC (32-36) g/dL RDW Std Deviation (35.1-43.9) fl RDW Coeff of Audrey (11.6-14.6) % Plt Count (150-450) K/mm3 MPV Neut % (Auto) Absolute Neuts (auto) (2.0-7.7) X10^3/uL Absolute Lymphs (auto) (0.83-4.51) X10^3/uL Total Counted (MANUAL DIFF) Neutrophils % (Manual) (47-70) % Band Neutrophils % (0-5) % Lymphocytes % (Manual) (19-41) % Monocytes % (Manual) (0-10) % Eosinophils % (Manual) (0-5) % Metamyelocytes % (0-1) % Myelocytes % (0-0) Promyelocytes % (0-0) Blast Cells % (0-0) % Nucleated RBCs/100 WBC (0-5) % Differential Comment Diff Path Review Reviewed Reviewed Reviewed Toxic Granulation Platelet Estimate (ADEQ) Anisocytosis Macrocytosis Crenated Cell Acanthocytes (Spur) Sodium (136-145) mmol/L Potassium (3.5-5.1) mmol/L Chloride (98-107) mmol/L Carbon Dioxide (21.0-32.0) mmol/L Anion Gap (5-15) BUN (7-18) mg/dL Creatinine (0.55-1.02) mg/dL Estim Creat Clear Calc ml/min Est GFR (MDRD) Af Amer (>60) mL/min Est GFR (MDRD) Non-Af (>60) mL/min BUN/Creatinine Ratio (10-20) RATIO Glucose (74-106) mg/dL Calcium (8.5-10.1) mg/dL Phosphorus (2.5-4.9) mg/dL Magnesium (1.6-2.6) mg/dL Total Bilirubin (0.20-1.00) mg/dL AST (15-37) U/L ALT (13-56) U/L Alkaline Phosphatase (45-117) U/L Total Protein (6.4-8.2) g/dL Albumin (3.2-5.0) g/dL Globulin (2.2-4.2) g/dL Albumin/Globulin Ratio (0.9-2.4) RATIO Diagnostic Data: Diagnostic Data Chest X-Ray 05/16/20 10:49 IMPRESSION: Lingular pneumonia per Electronically Signed: Obie Hernandez MD at 11:13 EDT Tel , Service support , Assessment and Plan Ms Sarah Osborne is a 64 year old woman with PMH for Colorectal cancer and Breast cancer, now with metastatic colonic adenocarcinoma involving the liver and 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 PET revealed hypermetabolic activity within distal esophagus/GEJ, left and right lobes of the liver, single foci in the right posterior ilium, right and left neck, retroperitoneal, retrocrural and perihepatic LN. Disease in the liver proven MMR negative, Her2 3+, KRAS mutation negative, BRAF mutation negative. Esophagus biopsied 10/17/19, also showed adenocarcinoma. Disease progressed through first line treatment (FOLFOX) on second line therapy with Cisplatin, capecitabine and trastuzumab biosimilar. Cycle 2 began on 05/07/20. Now presenting to [facility] ED with c/o SOB, admitted to ICU for management of septic shock secondary to acute left lower lobe pneumonia. 1. Widely disseminated adenocarcinoma- Clinical picture is concerning for disease progression. T bili 6 today, icteric. Orders placed for CT chest, abdom en and pelvis to objectively assess disease state. CEA level. 2. Pancytopenia- Neutropenic as evidenced by ANC 0.9, advise filgrastim daily until ANC > 1.5. Anemia is multifactorial, Hgb today is 9 which is stable for Ms. Osborne. Thrombocytopenia treatment related, grade IV as platelets are 11,000. Bleeding precautions. 3. Coagulopathy- On admission, INR >5, now 2.6 subsequent to vitamin K. No petechia or purpura noted on exam. Will continue to follow. Case discussed with Dr. Eubanks who was in agreement with the aforementioned plan. Stephania Canela, [employer], GOVERNMENT PROGRAM MANAGER-C, AOCNP Medications: Medications Added to Medication List This Visit Category Date Time Status Cefepime HCl [Maxipime] 2 gm Med 05/19/20 14:00 Active 0.9% Normal Saline 100 ml IV Q12 Dextrose 5% Viaflo Bag 192.8 ml Med 05/19/20 21:30 Active Amiodarone [Cordarone] 360 mg CONT INF 0.5 mg/min Dextrose 5% Viaflo Bag 192.8 ml Med 05/19/20 15:30 Active Amiodarone [Cordarone] 360 mg CONT INF 1 mg/min Dextrose 5%-Water 1,000 ml Med 05/19/20 12:50 Active IV 100 mls/hr Metoprolol Tartrate [Lopressor (Beta Lee)] Med 05/19/20 15:13 Active 5 mg IV Q6H PRN PRN Tbo-Filgrastim [Granix] Med 05/19/20 12:11 Active 480 mcg SC DAILY Primary Care Provider: LEONID SalterC Referring Provider:
--- NOTE | 2020-05-19 16:06 | NURSING ---
This RN assumed care at approx 1500. Pt noted to be extremely restless and agitated in Afib RVR and constantly pulling oxygen out of nose. Restrained at 1530. Dr. Land at bedside to evaluate. Pt also noted to be hypothermic with a core temp of 95.6 as well as a temporal of 96.2. Artem tristan initiated at approx 1530 as well.
[2020-05-19] MEDS: Haloperidol Lactate 5 MG/ML Vial 2 MG IV (16:18)
[2020-05-19] MEDS: proMETHazine 25 MG/ML Syringe 12.5 MG IV (16:19)
--- NOTE | 2020-05-19 17:25 | NURSING ---
Called CT- told them that Dr. Land prefers scan to be tomorrow as pt was too unstable this evening to be transported off the floor. They verbalize understanding.
--- NOTE | 2020-05-19 19:01 | NURSING ---
Artem tristan removed for temp of 97.0.
[2020-05-19] MEDS: LORazepam 2 MG/ML Syringe 0.25 MG IV (21:51)
[2020-05-20] VITALS (29 sets, daily range): BP systolic 91–129; BP diastolic 44–94; PULSE 107–122; RESP 21–36; TEMP 35.9–37.2; O2SAT 82–96
[2020-05-20 04:04] LABS: Hematocrit 30.1 % (37-47); Hemoglobin 9.3 g/dL (12.0-15.0); Mean Corp Hgb Conc 30.9 g/dL (32-36); Mean Corpuscular Volume 97.1 fL (81-99); POSITIVE COUNT YES; POSITIVE DIFFERENTIAL YES; POSITIVE MORPHOLOGY YES; RBC Distribution Width SD 72.5 fl (35.1-43.9)
[2020-05-20 04:09] LABS: Differential Indicated MANUAL DIFF; Platelet Count 21 K/mm3 (150-450)
[2020-05-20 04:11] LABS: International Normalized Ratio 1.9; Prothrombin Time (Protime)PT. 21.1 SECONDS (11.7-14.9)
[2020-05-20 04:39] LABS: Total Cells Counted 100 (MANUAL DIFF)
[2020-05-20 04:40] LABS: Corrected WBC 8.6 K/mm3 (4.4-11.0); Crenated RBC RARE; Lymphocyte 7 % (19-41); Metamyelocyte 6 % (0-1); Monocyte 7 % (0-10); Myelocyte 3 (0-0); Neutrophil-Band 30 % (0-5); Neutrophil-Segmented 53 % (47-70); Nucleated Red Bld Cells,Manual 12 % (0-5); Platelet Estimate MKD DEC (ADEQ); Stomatocyte RARE; Target Cells RARE; Tear Drop Cell RARE
[2020-05-20 04:42] LABS: Absolute Neutrophil Count 7.1 X10^3/uL (2.0-7.7)
[2020-05-20 04:51] LABS: ALB/GLOB Ratio 0.5 RATIO (0.9-2.4); AST(SGOT) 22 U/L (15-37); Alanine Aminotransfer ALT/SGPT 17 U/L (13-56); Albumin, Serum 1.4 g/dL (3.2-5.0); Alkaline Phosphatase 113 U/L (45-117); Anion Gap 6 (5-15); BUN 36 mg/dL (7-18); BUN/Creat Ratio 25.9 RATIO (10-20); Calcium,Total 8.1 mg/dL (8.5-10.1); Chloride 122 mmol/L (98-107); Creatinine, Serum 1.39 mg/dL (0.55-1.02); EST Glomerular Filtration Rate 41 mL/min (>60); Est Glom Filt Rate - Afr Amer 49 mL/min (>60); Estimated Creatinine Clearance 34.71 ml/min; Globulin 2.6 g/dL (2.2-4.2); Glucose 137 mg/dL (74-106); Potassium 4.8 mmol/L (3.5-5.1); Sodium Level 144 mmol/L (136-145)
--- NOTE | 2020-05-20 06:10 | PN_ITS ---
Subjective: The patient was seen and examined at the bedside this morning. Events from the last 24 hours have been reviewed. The patient is currently afebrile, hemodynamically stable and maintaining appropriate oxygen saturations on 8 L/min via nasal cannula. - Physical Exam Vitals/I&O's: Vital Signs Temp Pulse Resp BP Pulse Ox 96.6 F L 113 H 28 H 121/75 H 93 05/20/20 06:00 05/20/20 06:00 05/20/20 06:00 05/20/20 06:00 05/20/20 06:00 Oxygen Flow Rate (L/min) 8 Oxygen Delivery Method Nasal Cannula Weight: 200 lb 9.93 oz Body Mass Index (BMI) 32.5 Intake and Output for Last 24 Hours 05/18/20 05/19/20 05/20/20 23:59 23:59 23:59 Intake Total 2989.00 / 2989.00 3152.44 / 3189.94 250.81 / 250.81 Output Total 1000 / 1000 670 / 670 100 / 100 Balance 1988. / 2482.44 / 2519.94 150.81 / 150.81 Labs (Last 48 Hours) 05/16/20 05/17/20 05/18/20 10:30 04:10 03:45 WBC Corrected WBC RBC Hgb Hct MCV MCH MCHC RDW Std Deviation RDW Coeff of Audrey Plt Count MPV Neut % (Auto) Absolute Neuts (auto) Absolute Lymphs (auto) Total Counted Neutrophils % (Manual) Band Neutrophils % Lymphocytes % (Manual) Monocytes % (Manual) Eosinophils % (Manual) Metamyelocytes % Myelocytes % Promyelocytes % Blast Cells % Nucleated RBCs/100 WBC Differential Comment Diff Path Review Reviewed Reviewed Reviewed Toxic Granulation Platelet Estimate MKD DEC Anisocytosis 2+ Macrocytosis Target Cells Tear Drop Cells Stomatocytes Crenated Cell Acanthocytes (Spur) PT INR Sodium Potassium Chloride Carbon Dioxide Anion Gap BUN Creatinine Estim Creat Clear Calc Est GFR (MDRD) Af Amer Est GFR (MDRD) Non-Af BUN/Creatinine Ratio Glucose Calcium Phosphorus Magnesium Total Bilirubin AST ALT Alkaline Phosphatase Total Protein Albumin Globulin Albumin/Globulin Ratio Vancomycin Trough 05/18/20 05/19/20 05/19/20 14:22 11:45 11:45 WBC 1.4 L* Corrected WBC RBC 2.86 L Hgb 9.0 L Hct 28.5 L MCV 99.7 H MCH 31.5 MCHC 31.6 L RDW Std Deviation 72.0 H RDW Coeff of Audrey 21.8 H Plt Count 11 L* MPV TNP Neut % (Auto) Not Reportable Absolute Neuts (auto) 0.9 L Absolute Lymphs (auto) 0.21 L Total Counted 100 Neutrophils % (Manual) 34 L Band Neutrophils % 32 H Lymphocytes % (Manual) 15 L Monocytes % (Manual) 13 H Eosinophils % (Manual) 1 Metamyelocytes % 2 H Myelocytes % 1 H Promyelocytes % 1 H Blast Cells % 1 H* Nucleated RBCs/100 WBC 12 H Differential Comment Diff Path Review May foll Toxic Granulation 1+ Platelet Estimate MKD DEC Anisocytosis 3+ Macrocytosis 2+ Target Cells Tear Drop Cells Stomatocytes Crenated Cell 2+ Acanthocytes (Spur) 1+ PT INR Sodium 149 H Potassium 4.4 Chloride 128 H* Carbon Dioxide 14.0 L Anion Gap 7 BUN 29 H Creatinine 1.12 H Estim Creat Clear Calc 43.08 Est GFR (MDRD) Af Amer 63 Est GFR (MDRD) Non-Af 52 L BUN/Creatinine Ratio 25.9 H Glucose 137 H Calcium 7.8 L Phosphorus Magnesium Total Bilirubin 6.00 H AST 14 L ALT 15 Alkaline Phosphatase 82 Total Protein 3.9 L Albumin 1.2 L Globulin 2.7 Albumin/Globulin Ratio 0.4 L Vancomycin Trough 7.0 05/19/20 05/20/20 05/20/20 11:45 03:55 03:55 WBC [employer] ASSOCIATE Corrected WBC 8.6 RBC 3.10 L Hgb 9.3 L Hct 30.1 L MCV 97.1 MCH 30.0 MCHC 30.9 L RDW Std Deviation 72.5 H RDW Coeff of Audrey 22.0 H Plt Count 21 L* MPV Neut % (Auto) Not Reportable Absolute Neuts (auto) 7.1 Absolute Lymphs (auto) 0.60 L Total Counted 100 Neutrophils % (Manual) 53 Band Neutrophils % 30 H Lymphocytes % (Manual) 7 L Monocytes % (Manual) 7 Eosinophils % (Manual) Metamyelocytes % 6 H Myelocytes % 3 H Promyelocytes % Blast Cells % Nucleated RBCs/100 WBC 12 H Differential Comment Diff Path Review May foll Toxic Granulation Platelet Estimate MKD DEC Anisocytosis Macrocytosis Target Cells RARE Tear Drop Cells RARE Stomatocytes RARE Crenated Cell RARE Acanthocytes (Spur) PT 21.1 H INR 1.9 Sodium Potassium Chloride Carbon Dioxide Anion Gap BUN Creatinine Estim Creat Clear Calc Est GFR (MDRD) Af Amer Est GFR (MDRD) Non-Af BUN/Creatinine Ratio Glucose Calcium Phosphorus 1.5 L Magnesium 2.2 Total Bilirubin AST ALT Alkaline Phosphatase Total Protein Albumin Globulin Albumin/Globulin Ratio Vancomycin Trough 05/20/20 05/20/20 03:55 04:20 WBC Corrected WBC RBC Hgb Hct MCV MCH MCHC RDW Std Deviation RDW Coeff of Audrey Plt Count MPV Neut % (Auto) Absolute Neuts (auto) Absolute Lymphs (auto) Total Counted Neutrophils % (Manual) Band Neutrophils % Lymphocytes % (Manual) Monocytes % (Manual) Eosinophils % (Manual) Metamyelocytes % Myelocytes % Promyelocytes % Blast Cells % Nucleated RBCs/100 WBC Differential Comment Diff Path Review Toxic Granulation Platelet Estimate Anisocytosis Macrocytosis Target Cells Tear Drop Cells Stomatocytes Crenated Cell Acanthocytes (Spur) PT INR Sodium Cancelled 144 Potassium Cancelled 4.8 Chloride Cancelled 122 H Carbon Dioxide Cancelled 16.0 L Anion Gap Cancelled 6 BUN Cancelled 36 H Creatinine Cancelled 1.39 H Estim Creat Clear Calc Cancelled 34.71 Est GFR (MDRD) Af Amer Cancelled 49 L Est GFR (MDRD) Non-Af Cancelled 41 L BUN/Creatinine Ratio Cancelled 25.9 H Glucose Cancelled 137 H Calcium Cancelled 8.1 L Phosphorus Magnesium Cancelled Total Bilirubin Cancelled 8.80 H AST Cancelled 22 ALT Cancelled 17 Alkaline Phosphatase Cancelled 113 Total Protein Cancelled 4.0 L Albumin Cancelled 1.4 L Globulin Cancelled 2.6 Albumin/Globulin Ratio Cancelled 0.5 L Vancomycin Trough Microbiology 05/16/20 11:30 Blood Culture (Wb) - Anticubital Left Blood Culture - Preliminary GNR lactose banquet food server 05/16/20 22:55 Urine, Random Urine Culture - Final Culture exhibits no growth. 05/16/20 10:30 Blood Culture (Wb) - Anticubital Left Blood Culture - Preliminary No growth in 48 hours. Clinical Impression(s) from Imaging Studies Chest X-Ray 05/16/20 10:49 IMPRESSION: Lingular pneumonia per Electronically Signed: Obie Hernandez MD at 11:13 EDT Tel , Service support , Current Medications Acetaminophen (Tylenol) 650 mg PO Q6H PRN PRN PRN Reason: Pain Score 1-10/Temp > 100.7 F Albuterol Sulfate (Ventolin Aerosols) 2.5 mg INHALATION Q2H PRN PRN PRN Reason: SOB/Wheezing Last Admin: 05/18/20 22:25 Dose: 2.5 mg Documented by: Heparin Sodium (Beef Lung) () 50 units IV UD PRN PRN Reason: Port-a-Cath (VAD)Heparin Flush Pantoprazole Sodium 40 mg/ (Sodium Chloride) 110 mls @ 330 mls/hr IV Q12 [facility] Last Infusion: 05/19/20 21:29 Dose: Infused Documented by: Dextrose () 1,000 mls @ 100 mls/hr IV .Q10H [facility] Last Admin: 05/19/20 23:18 Dose: 100 mls/hr Documented by: Cefepime HCl 2 gm/ Sodium (Chloride) 100 mls @ 200 mls/hr IV Q12 [facility] Last Infusion: 05/19/20 22:02 Dose: Infused Documented by: Amiodarone HCl 360 mg/ (Dextrose) 200 mls @ 16.667 mls/hr CONT INF .Q12H [facility] Stop: 05/20/20 15:29 Last Admin: 05/19/20 22:11 Dose: Not Given Documented by: Norepinephrine Bitartrate 8 mg (/ Sodium Chloride) 250 mls @ 9.375 mls/hr CONT INF .[id number] [facility]; Protocol Last Titration: 05/20/20 06:00 Dose: 20 mcg/min, 37.5 mls/hr Documented by: Loperamide HCl (Imodium) 2 mg PO Q4H PRN PRN PRN Reason: Diarrhea Last Admin: 05/18/20 16:01 Dose: 2 mg Documented by: Metoprolol Tartrate (Lopressor (Beta Lee)) 5 mg IV Q6H PRN PRN PRN Reason: HR>120 Ondansetron HCl (Zofran) 4 mg IV Q8H PRN PRN PRN Reason: NAUSEA/VOMITING Last Admin: 05/17/20 14:15 Dose: 4 mg Documented by: Prochlorperazine Edisylate (Compazine Iv) 5 mg IV Q4H PRN PRN PRN Reason: Breakthrough Nausea/Vomiting Quetiapine Fumarate (Seroquel) 25 mg PO QHS [facility] Last Admin: 05/19/20 22:11 Dose: Not Given Documented by: Sodium Chloride () 10 - 40 ml IV UD PRN PRN Reason: Port-a-Cath (VAD) Flush Last Admin: 05/19/20 02:52 Dose: 20 ml Documented by: Sodium Chloride (0.9% Nacl (Sterile) Posiflush) 10 - 40 ml IV UD PRN PRN Reason: Port access or dressing change Sodium Chloride () 10 - 40 ml IV UD PRN PRN Reason: SALINE FLUSH Last Admin: 05/19/20 16:24 Dose: 20 ml Documented by: Tbo-Filgrastim (Granix) 480 mcg SC DAILY [facility] Last Admin: 05/19/20 12:54 Dose: 480 mcg Documented by: Medical Necessity - Tobacco Use Smoking Status: Never smoker Assessment/Plan All Active Problems (Last Updated 05/16/20 @ 12:[address] Tyrone Cooney MD) Septic shock (Acute) Healthcare-associated pneumonia (Acute) Acute kidney injury (Acute) Pancytopenia (Acute) Acute on chronic anemia (Acute)
--- NOTE | 2020-05-20 06:44 | PCM.PN.INT ---
Subjective: The patient was seen and examined at the bedside this morning. Events from the last 24 hours have been reviewed. The patient has continued to decompensate clinically over the course of the last day. She is now minimally responsive and is requiring vasopressor support to maintain hemodynamic stability. The patient began to go into and out of atrial fibrillation with a rapid ventricular rate yesterday. These episodes appear to be transient and the patient is currently maintaining a normal sinus rhythm at the present time. Platelet count appeared to sharmila yesterday and is currently 21,000 this morning. Hemoglobin is stable. INR this morning was noted to be 1.9. The patient's total bili continues to increase. The patient remains tachypneic and hypoxemic. The patient was apparently evaluated by oncology yesterday, but it is unclear as to whether they communicated with the patient's family. Regardless, the patient is too unstable from a clinical perspective to be sent down for CT of the chest, abdomen and pelvis. I did call and personally speak with the patient's , Ubaldo, this morning and updated him on the patient's overall clinical state. I expressed my concern that the patient continues to decompensate clinically and this is likely the consequence of worsening disease progression related to her malignancy. She is less responsive today no longer able to make any decisions on her own. The patient's did agree to transitioning her to DNR CCA without plans for intubation. I also expressed to the patient's that I felt that she was hospice appropriate at this particular juncture. He is going to discuss things with his children and call back into the ICU later this morning with regards to his decision to move forward with comfort care measures. Objective: The patient's most recent lab work, culture data and imaging studies have all been personally reviewed. General: Lethargic, - - Quite ill in appearance. Jaundice has progressed. HEENT: Atraumatic, Normocephalic Oral: Dry Mucosa Neck: Supple, No Nodes, Trachea Midline Lungs: Diminished, Rhonchi, Tachypneic Cardiovascular: Normal S1, Normal S2, Tachycardic Abdomen: Bowel Sounds Present, Soft, Non Tender, Obese Extremities: No clubbing, No cyanosis, No edema Skin: No breakdown Musculoskeletal: No Muscle Wasting Lymphatic: No Cervical, Supraclavicular, or Inguinal Adenopathy Neurological: - - Moving all extremities spontaneously. The patient is quite encephalopathic and responds primarily only to noxious stimulation. Psych/Mental Status: Flat Affect, Restless Vital Signs Temp Pulse Resp BP Pulse Ox 96.6 F L 113 H 28 H 121/75 H 93 05/20/20 06:00 05/20/20 06:00 05/20/20 06:00 05/20/20 06:00 05/20/20 06:00 Oxygen Flow Rate (L/min) 8 Oxygen Delivery Method Nasal Cannula Weight: 200 lb 9.93 oz Body Mass Index (BMI) 32.5 Intake and Output for Last 24 Hours 05/18/20 05/19/20 05/20/20 23:59 23:59 23:59 Intake Total 2989.00 / 2989.00 3152.44 / 3189.94 250.81 / 250.81 Output Total 1000 / 1000 670 / 670 100 / 100 Balance 1988. / 2482.44 / 2519.94 150.81 / 150.81 Labs (Last 48 Hours) 05/16/20 05/17/20 05/18/20 10:30 04:10 03:45 WBC Corrected WBC RBC Hgb Hct MCV MCH MCHC RDW Std Deviation RDW Coeff of Audrey Plt Count MPV Neut % (Auto) Absolute Neuts (auto) Absolute Lymphs (auto) Total Counted Neutrophils % (Manual) Band Neutrophils % Lymphocytes % (Manual) Monocytes % (Manual) Eosinophils % (Manual) Metamyelocytes % Myelocytes % Promyelocytes % Blast Cells % Nucleated RBCs/100 WBC Differential Comment Diff Path Review Reviewed Reviewed Reviewed Toxic Granulation Platelet Estimate MKD DEC Anisocytosis 2+ Macrocytosis Target Cells Tear Drop Cells Stomatocytes Crenated Cell Acanthocytes (Spur) PT INR Sodium Potassium Chloride Carbon Dioxide Anion Gap BUN Creatinine Estim Creat Clear Calc Est GFR (MDRD) Af Amer Est GFR (MDRD) Non-Af BUN/Creatinine Ratio Glucose Calcium Phosphorus Magnesium Total Bilirubin AST ALT Alkaline Phosphatase Total Protein Albumin Globulin Albumin/Globulin Ratio Vancomycin Trough 05/18/20 05/19/20 05/19/20 14:22 11:45 11:45 WBC 1.4 L* Corrected WBC RBC 2.86 L Hgb 9.0 L Hct 28.5 L MCV 99.7 H MCH 31.5 MCHC 31.6 L RDW Std Deviation 72.0 H RDW Coeff of Audrey 21.8 H Plt Count 11 L* MPV TNP Neut % (Auto) Not Reportable Absolute Neuts (auto) 0.9 L Absolute Lymphs (auto) 0.21 L Total Counted 100 Neutrophils % (Manual) 34 L Band Neutrophils % 32 H Lymphocytes % (Manual) 15 L Monocytes % (Manual) 13 H Eosinophils % (Manual) 1 Metamyelocytes % 2 H Myelocytes % 1 H Promyelocytes % 1 H Blast Cells % 1 H* Nucleated RBCs/100 WBC 12 H Differential Comment Diff Path Review May foll Toxic Granulation 1+ Platelet Estimate MKD DEC Anisocytosis 3+ Macrocytosis 2+ Target Cells Tear Drop Cells Stomatocytes Crenated Cell 2+ Acanthocytes (Spur) 1+ PT INR Sodium 149 H Potassium 4.4 Chloride 128 H* Carbon Dioxide 14.0 L Anion Gap 7 BUN 29 H Creatinine 1.12 H Estim Creat Clear Calc 43.08 Est GFR (MDRD) Af Amer 63 Est GFR (MDRD) Non-Af 52 L BUN/Creatinine Ratio 25.9 H Glucose 137 H Calcium 7.8 L Phosphorus Magnesium Total Bilirubin 6.00 H AST 14 L ALT 15 Alkaline Phosphatase 82 Total Protein 3.9 L Albumin 1.2 L Globulin 2.7 Albumin/Globulin Ratio 0.4 L Vancomycin Trough 7.0 05/19/20 05/20/20 05/20/20 11:45 03:55 03:55 WBC MILLER KILN DRIED SALT Corrected WBC 8.6 RBC 3.10 L Hgb 9.3 L Hct 30.1 L MCV 97.1 MCH 30.0 MCHC 30.9 L RDW Std Deviation 72.5 H RDW Coeff of Audrey 22.0 H Plt Count 21 L* MPV Neut % (Auto) Not Reportable Absolute Neuts (auto) 7.1 Absolute Lymphs (auto) 0.60 L Total Counted 100 Neutrophils % (Manual) 53 Band Neutrophils % 30 H Lymphocytes % (Manual) 7 L Monocytes % (Manual) 7 Eosinophils % (Manual) Metamyelocytes % 6 H Myelocytes % 3 H Promyelocytes % Blast Cells % Nucleated RBCs/100 WBC 12 H Differential Comment Diff Path Review May foll Toxic Granulation Platelet Estimate MKD DEC Anisocytosis Macrocytosis Target Cells RARE Tear Drop Cells RARE Stomatocytes RARE Crenated Cell RARE Acanthocytes (Spur) PT 21.1 H INR 1.9 Sodium Potassium Chloride Carbon Dioxide Anion Gap BUN Creatinine Estim Creat Clear Calc Est GFR (MDRD) Af Amer Est GFR (MDRD) Non-Af BUN/Creatinine Ratio Glucose Calcium Phosphorus 1.5 L Magnesium 2.2 Total Bilirubin AST ALT Alkaline Phosphatase Total Protein Albumin Globulin Albumin/Globulin Ratio Vancomycin Trough 05/20/20 05/20/20 03:55 04:20 WBC Corrected WBC RBC Hgb Hct MCV MCH MCHC RDW Std Deviation RDW Coeff of Audrey Plt Count MPV Neut % (Auto) Absolute Neuts (auto) Absolute Lymphs (auto) Total Counted Neutrophils % (Manual) Band Neutrophils % Lymphocytes % (Manual) Monocytes % (Manual) Eosinophils % (Manual) Metamyelocytes % Myelocytes % Promyelocytes % Blast Cells % Nucleated RBCs/100 WBC Differential Comment Diff Path Review Toxic Granulation Platelet Estimate Anisocytosis Macrocytosis Target Cells Tear Drop Cells Stomatocytes Crenated Cell Acanthocytes (Spur) PT INR Sodium Cancelled 144 Potassium Cancelled 4.8 Chloride Cancelled 122 H Carbon Dioxide Cancelled 16.0 L Anion Gap Cancelled 6 BUN Cancelled 36 H Creatinine Cancelled 1.39 H Estim Creat Clear Calc Cancelled 34.71 Est GFR (MDRD) Af Amer Cancelled 49 L Est GFR (MDRD) Non-Af Cancelled 41 L BUN/Creatinine Ratio Cancelled 25.9 H Glucose Cancelled 137 H Calcium Cancelled 8.1 L Phosphorus Magnesium Cancelled Total Bilirubin Cancelled 8.80 H AST Cancelled 22 ALT Cancelled 17 Alkaline Phosphatase Cancelled 113 Total Protein Cancelled 4.0 L Albumin Cancelled 1.4 L Globulin Cancelled 2.6 Albumin/Globulin Ratio Cancelled 0.5 L Vancomycin Trough Microbiology 05/16/20 11:30 Blood Culture (Wb) - Anticubital Left Blood Culture - Preliminary GNR lactose auto adjudication specialist 05/16/20 22:55 Urine, Random Urine Culture - Final Culture exhibits no growth. 05/16/20 10:30 Blood Culture (Wb) - Anticubital Left Blood Culture - Preliminary No growth in 48 hours. Clinical Impression(s) from Imaging Studies Chest X-Ray 05/16/20 10:49 IMPRESSION: Lingular pneumonia per Electronically Signed: Obie Hernandez MD at 11:13 EDT Tel , Service support , Medical Necessity - Tobacco Use Smoking Status: Never smoker Assessment/Plan All Active Problems (Last Updated 05/16/20 @ 12:[address] Tyrone Cooney MD) Disseminated malignancy (Acute) Septic shock (Acute) Healthcare-associated pneumonia (Acute) Acute kidney injury (Acute) Pancytopenia (Acute) Acute on chronic anemia (Acute) RECOMMENDATIONS: 1. Continue current supportive measures with antimicrobials and Levophed to maintain hemodynamic stability. 2. Await additional goals of care discussion with the patient's family later this morning. CODE STATUS already updated to DNR CCA. 3. Strongly recommend considering transitioning patient to comfort care measures and obtaining hospice consultation. 4. Continue D5W. 5. Continue Granix. 6. Continue to monitor H&H daily. IMPRESSIONS: 1. Gram-negative septic shock secondary to presumed healthcare associated pneumonia Plan to continue current supportive measures for now including vasopressor support to maintain a mean arterial pressure at or above 65 mmHg, along with antimicrobial therapy, pending further discussion with the patient's family regarding goals of care/CODE STATUS. 2. Acute hypoxic respiratory failure Chest x-ray shows a possible lingular infiltrate and this may account for current findings. Continue to wean supplemental oxygen to maintain saturations at or above 90%. Continue antimicrobials as noted above. Encourage incentive spirometer use and mobilize patient as tolerated. 3. Widely metastatic adenocarcinoma The patient's current clinical state and subsequent decompensation is likely secondary to overall disease progression, especially in light of her increasing bilirubin level. 4. Encephalopathy Likely metabolic in etiology. 5. Acute kidney injury Improving. The patient had a significant elevation of creatinine from baseline on presentation. Patient may have an element of prerenal etiology secondary to #1 or hypoxia induced ATN secondary to #2. Continue to monitor urine output for now. No indication for renal replacement therapy. 6. Coagulopathy of unclear etiology/pancytopenia secondary to chemotherapy Patient is not currently on anticoagulation. Patient does have some bone marrow suppression secondary to chemotherapy. Possibility of hepatic dysfunction given metastasis and recent chemotherapy. Recommend continuing to check daily CBC. 7. History of colon and breast cancer/GERD/anxiety/depression Complicates care, management, recovery and prognosis. Okay to continue Protonix twice daily. Recommend that oncology be consulted to assist with overall prognostication and goals of care planning. TIME: 42 minutes of critical care time, independent of procedures, was spent addressing the patient's gram-negative septic shock, healthcare associated pneumonia, respiratory failure, widely metastatic adenocarcinoma, metabolic encephalopathy, acute kidney injury, pancytopenia, review of all data and collaboration with the care team. [id number]) [id number] Critical care first hour
--- NOTE | 2020-05-20 07:06 | PCM.PN.HOSP ---
Reason for Visit: Septic shock, pneumonia, multiorgan failure Objective: Patient clinical condition deteriorated. Afebrile but blood pressure dropped she is on vasopressor. She has been also in and out of A. fib with RVR, currently heart rate 115. Patient is oliguric, urine output about 200 mL in last 12 hours, BUN/creatinine, total bilirubin jumped up to 8.8. The oncologist wanted CT scan for prognostication.patient is not clinically stable for CT scan. Physical exam General: Restless, disoriented, lethargic, noncommunicative/nonverbal. HEENT: Atraumatic, PERRLA, EOMI, Normocephalic. Bilateral DPL icterus. Oral: No Gingival or Mucosal Lesions/ Ulcerations Neck: Supple, No JVD, Negative Carotid Bruits Lungs: Air entry diminished in bilateral lung bases. Irregular abdominal breathing with tachypnea, on 8 L of oxygen Cardiovascular: Intermittent sinus tachycardia/A. fib with RVR, Normal S1, Normal S2, No murmurs Abdomen: Bowel Sounds Present, Soft, Non Tender, mild abdominal distention : No renal angle tenderness. No suprapubic tenderness. Extremities: Bilateral lower leg edema, Capillary Refill Less than 3 Seconds Skin: No rashes, No breakdown Musculoskeletal: No Tenderness to Palpation of Joints or Extremities Neurological: Patient is semiconscious, does not follow command. Exam unobtainable Psych/Mental Status: Restless and irritable Vitals/I&O's: Vital Signs Temp Pulse Resp BP Pulse Ox 96.6 F L 113 H 28 H 121/75 H 93 05/20/20 06:00 05/20/20 06:00 05/20/20 06:00 05/20/20 06:00 05/20/20 06:00 Oxygen Flow Rate (L/min) 8 Oxygen Delivery Method Nasal Cannula Weight: 200 lb 9.93 oz Body Mass Index (BMI) 32.5 Intake and Output for Last 24 Hours 05/18/20 05/19/20 05/20/20 23:59 23:59 23:59 Intake Total 2989.00 / 2989.00 3152.44 / 3189.94 250.81 / 250.81 Output Total 1000 / 1000 670 / 670 100 / 100 Balance 1988.00 / 1988. 2482.44 / 2519.94 150.81 / 150.81 Microbiology Past 72 Hours 05/16/20 11:30 Blood Culture (Wb) - Anticubital Left Blood Culture - Preliminary GNR lactose director of psychiatry 05/16/20 22:55 Urine, Random Urine Culture - Final Culture exhibits no growth. 05/16/20 10:30 Blood Culture (Wb) - Anticubital Left Blood Culture - Preliminary No growth in 48 hours. 05/16/20 13:20 Swab (Method) Nasal Screen MRSA/MSSA - Final 05/17/20 05:00 Stool Enteric Bacteriology - Final 05/17/20 05:00 Stool C. difficile DNA Amplification - Final Laboratory Results 05/16/20 10:30: Diff Path Review Reviewed 05/17/20 04:10: Diff Path Review Reviewed 05/18/20 03:45: Diff Path Review Reviewed 05/19/20 11:45: WBC 1.4 L*, RBC 2.86 L, Hgb 9.0 L, Hct 28.5 L, MCV 99.7 H, MCH 31.5, MCHC 31.6 L, RDW Std Deviation 72.0 H, RDW Coeff of Audrey 21.8 H, Plt Count 11 L*, MPV TNP, Neut % (Auto) Not Reportable, Absolute Neuts (auto) 0.9 L, Absolute Lymphs (auto) 0.21 L, Total Counted 100, Neutrophils % (Manual) 34 L, Band Neutrophils % 32 H, Lymphocytes % (Manual) 15 L, Monocytes % (Manual) 13 H, Eosinophils % (Manual) 1, Metamyelocytes % 2 H, Myelocytes % 1 H, Promyelocytes % 1 H, Blast Cells % 1 H*, Nucleated RBCs/100 WBC 12 H, Differential Comment , Diff Path Review May foll, Toxic Granulation 1+, Platelet Estimate MKD DEC, Anisocytosis 3+, Macrocytosis 2+, Crenated Cell 2+, Acanthocytes (Spur) 1+ 05/19/20 11:45: Sodium 149 H, Potassium 4.4, Chloride 128 H*, Carbon Dioxide 14.0 L, Anion Gap 7, BUN 29 H, Creatinine 1.12 H, Estim Creat Clear Calc 43.08, Est GFR (MDRD) Af Amer 63, Est GFR (MDRD) Non-Af 52 L, BUN/Creatinine Ratio 25.9 H, Glucose 137 H, Calcium 7.8 L, Total Bilirubin 6.00 H, AST 14 L, ALT 15, Alkaline Phosphatase 82, Total Protein 3.9 L, Albumin 1.2 L, Globulin 2.7, Albumin/Globulin Ratio 0.4 L 05/19/20 11:45: Phosphorus 1.5 L, Magnesium 2.2 05/20/20 03:55: WBC CUSTOMER MARKETING MANAGER, Corrected WBC 8.6, RBC 3.10 L, Hgb 9.3 L, Hct 30.1 L, MCV 97.1, MCH 30.0, MCHC 30.9 L, RDW Std Deviation 72.5 H, RDW Coeff of Audrey 22.0 H, Plt Count 21 L*, Neut % (Auto) Not Reportable, Absolute Neuts (auto) 7.1, Absolute Lymphs (auto) 0.60 L, Total Counted 100, Neutrophils % (Manual) 53, Band Neutrophils % 30 H, Lymphocytes % (Manual) 7 L, Monocytes % (Manual) 7, Metamyelocytes % 6 H, Myelocytes % 3 H, Nucleated RBCs/100 WBC 12 H, Diff Path Review May foll, Platelet Estimate MKD DEC, Target Cells RARE, Tear Drop Cells RARE, Stomatocytes RARE, Crenated Cell RARE 05/20/20 03:55: PT 21.1 H, INR 1.9 05/20/20 03:55: Sodium Cancelled, Potassium Cancelled, Chloride Cancelled, Carbon Dioxide Cancelled, Anion Gap Cancelled, BUN Cancelled, Creatinine Cancelled, Estim Creat Clear Calc Cancelled, Est GFR (MDRD) Af Amer Cancelled, Est GFR (MDRD) Non-Af Cancelled, BUN/Creatinine Ratio Cancelled, Glucose Cancelled, Calcium Cancelled, Magnesium Cancelled, Total Bilirubin Cancelled, AST Cancelled, ALT Cancelled, Alkaline Phosphatase Cancelled, Total Protein Cancelled, Albumin Cancelled, Globulin Cancelled, Albumin/Globulin Ratio Cancelled 05/20/20 04:20: Sodium 144, Potassium 4.8, Chloride 122 H, Carbon Dioxide 16.0 L, Anion Gap 6, BUN 36 H, Creatinine 1.39 H, Estim Creat Clear Calc 34.71, Est GFR (MDRD) Af Amer 49 L, Est GFR (MDRD) Non-Af 41 L, BUN/Creatinine Ratio 25.9 H, Glucose 137 H, Calcium 8.1 L, Total Bilirubin 8.80 H, AST 22, ALT 17, Alkaline Phosphatase 113, Total Protein 4.0 L, Albumin 1.4 L, Globulin 2.6, Albumin/Globulin Ratio 0.5 L Current Medications Acetaminophen (Tylenol) 650 mg PO Q6H PRN PRN PRN Reason: Pain Score 1-10/Temp > 100.7 F Albuterol Sulfate (Ventolin Aerosols) 2.5 mg INHALATION Q2H PRN PRN PRN Reason: SOB/Wheezing Last Admin: 05/18/20 22:25 Dose: 2.5 mg Documented by: Heparin Sodium (Beef Lung) () 50 units IV UD PRN PRN Reason: Port-a-Cath (VAD)Heparin Flush Pantoprazole Sodium 40 mg/ (Sodium Chloride) 110 mls @ 330 mls/hr IV Q12 [facility] Last Infusion: 05/19/20 21:29 Dose: Infused Documented by: Dextrose () 1,000 mls @ 100 mls/hr IV .Q10H [facility] Last Admin: 05/19/20 23:18 Dose: 100 mls/hr Documented by: Cefepime HCl 2 gm/ Sodium (Chloride) 100 mls @ 200 mls/hr IV Q12 [facility] Last Infusion: 05/19/20 22:02 Dose: Infused Documented by: Amiodarone HCl 360 mg/ (Dextrose) 200 mls @ 16.667 mls/hr CONT INF .Q12H [facility] Stop: 05/20/20 15:29 Last Admin: 05/19/20 22:11 Dose: Not Given Documented by: Norepinephrine Bitartrate 8 mg (/ Sodium Chloride) 250 mls @ 9.375 mls/hr CONT INF .[id number] [facility]; Protocol Last Titration: 05/20/20 06:00 Dose: 20 mcg/min, 37.5 mls/hr Documented by: Loperamide HCl (Imodium) 2 mg PO Q4H PRN PRN PRN Reason: Diarrhea Last Admin: 05/18/20 16:01 Dose: 2 mg Documented by: Metoprolol Tartrate (Lopressor (Beta Lee)) 5 mg IV Q6H PRN PRN PRN Reason: HR>120 Ondansetron HCl (Zofran) 4 mg IV Q8H PRN PRN PRN Reason: NAUSEA/VOMITING Last Admin: 05/17/20 14:15 Dose: 4 mg Documented by: Prochlorperazine Edisylate (Compazine Iv) 5 mg IV Q4H PRN PRN PRN Reason: Breakthrough Nausea/Vomiting Quetiapine Fumarate (Seroquel) 25 mg PO QHS [facility] Last Admin: 05/19/20 22:11 Dose: Not Given Documented by: Sodium Chloride () 10 - 40 ml IV UD PRN PRN Reason: Port-a-Cath (VAD) Flush Last Admin: 05/19/20 02:52 Dose: 20 ml Documented by: Sodium Chloride (0.9% Nacl (Sterile) Posiflush) 10 - 40 ml IV UD PRN PRN Reason: Port access or dressing change Sodium Chloride () 10 - 40 ml IV UD PRN PRN Reason: SALINE FLUSH Last Admin: 05/19/20 16:24 Dose: 20 ml Documented by: Tbo-Filgrastim (Granix) 480 mcg SC DAILY [facility] Last Admin: 05/19/20 12:54 Dose: 480 mcg Documented by: STROKE Vital Signs/Narrative: Vital Signs Temp Pulse Resp BP Pulse Ox 05/20/20 06:00 96.6 F L 113 H 28 H 121/75 H 93 05/20/20 05:15 129/45 H 05/20/20 05:00 97.0 F L 117 H 30 H 126/68 H 90 05/20/20 04:45 126/59 H 05/20/20 04:30 109/94 H 05/20/20 04:15 117/70 05/20/20 04:00 96.8 F L 112 H 31 H 93/51 L 92 05/20/20 03:45 106/48 L 05/20/20 03:30 105/48 L 05/20/20 03:15 99/62 Medical Necessity - Tobacco Use Smoking Status: Never smoker Assessment/Plan All Active Problems (Last Updated 05/16/20 @ 12:[address] Tyrone Cooney MD) Septic shock (Acute) Healthcare-associated pneumonia (Acute) Acute kidney injury (Acute) Pancytopenia (Acute) Acute on chronic anemia (Acute) This is a 64 years old female patient who is admitted for shortness of breath, cough and she was found to have left lower lobe/lingular infiltrate on chest x-ray consistent with healthcare associated pneumonia, complicated by septic shock and acute hypoxic respiratory failure, also found to have acute kidney injury, pancytopenia and acute on chronic anemia. 1 Septic shock secondary to acute left lower lobe/lingular healthcare acid pneumonia/aspiration pneumonia with acute hypoxic respiratory failure: Patient is being admitted in ICU. Discussed with mechanic senior. Lactic acid was elevated but returned to normal after IV fluid hydration. 05/20: Patient is on vasopressor. Oxygen requirement increased to 15 L still pulse ox 89 to 90%. Respiratory rate 27-31. Non Destructive Tester discussed with the family in the morning regarding progression of the disease, deterioration of the clinical status including her who made the decision for DNR CCA with no intubation. 2 Gram-negative bacteremia: Probable source is pneumonia. Preliminary blood culture shows gram-negative marianne lactose director of psychiatry. Urine culture is negative. Enteric bacteriology panel and C. difficile are negative. Urinary antigens are negative. MRSA nasal screen negative. UA shows positive nitrite and 10-25 cells WBC. Antibiotic changed to IV cefepime secondary to thrombocytopenia. WBC count went up after Granix. Still has severe thrombocytopenia. 3. Acute kidney injury most probably ATN/prerenal: Secondary to severe sepsis and poor oral intake. Baseline kidney function is normal, baseline creatinine 0.62. Sodium and chloride is high today at 149/128. BUN and creatinine still elevated. 4. Hypokalemia/hypophosphatemia/hypomagnesemia: Likely due to poor oral intake, malnutrition and cancer. IV fluid is changed to D5W. Monitor electrolytes and replace accordingly. 5. Pancytopenia with acute on chronic anemia, severe neutropenia and severe thrombocytopenia: Oncologist Dr Eubanks is been consulted. Discussed with him. On Neupogen 480 mcg daily. Platelet count dropped to 11,000. WBC count 1.4 thousand. H&H 05/12. 04/20: Corrected WBC count 8.6 thousand, H&H 9.3 and platelet count 21,000. 6. 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 Fibrinogen was elevated as well as d-dimer. DIC ruled out. At this time, no evidence of active bleeding. INR 1.9 today. 7. Progression of metastatic colorectal cancer to liver, esophageal adenocarcinoma and breast cancer of metastatic colon cancer: With mets to the liver, retroperitoneum, chery hepatis and esophagus. PET scan revealed hypermetabolic activity in distal esophagus/GE junction, left and right lobes of liver, right posterior ilium, right and left neck, retroperitoneal, retrocrural and perihepatic lymph node. It also has breast cancer status post left breast lumpectomy on anastrozole. Her disease progressed through the first line of treatment FOLFOX and was on second line therapy with cisplatin, capecitabine and trastuzumab. Seen by Stephania, oncology team. He suggested CT chest, abdomen and pelvis but patient is clinically unstable. 8. GERD: Continue IV Protonix twice daily. 9. Anxiety and depression: Continue sertraline. CODE STATUS: Full code. Considering all multiple chronic comorbidities, cancer with metastasis, severe pancytopenia and gram-negative marianne bacteremia, oncologist is being consulted to assist in prognostication and goals of care/advanced care planning DVT prophylaxis: SCDs, pharmacological prophylaxis contraindicated because of severe thrombocytopenia. Inpatient E&M: [id number] [facility] Hosp L3
--- NOTE | 2020-05-20 08:21 | NURSING ---
Unable to complete CAM at this time d/t RASS -4.
[2020-05-20] MEDS: TBO-FILGRASTIM 480 MCG/0.8 ML ML SC (09:09)
--- NOTE | 2020-05-20 10:19 | CASEMGMT ---
Per development coordinator called in and a referral can be made to Hospice. SW called patient's . Introduced self and role at [facility]. SW discussed where they were with decision regarding Hospice. He had SW on speaker phone as family was there with him. He said they would like to come in and see her and then decide. SW explained to him how the process works. SW would make the referral and Hospice would come into [facility] to talk with them about their services. She could go home on Hospice or she would likely qualify for the Hospice Inpatient Unit. He said they will come in and see her and decide. SW told him he can ask for SW when they get here if they need SW to explain things a little more. SW did leave message with ICU charge master specialist to update patient's RN on above. Mee WINTER MSW
--- NOTE | 2020-05-20 13:48 | CASEMGMT ---
Patient's family was in with patient. JAYLYN met with patient's family, introduced self and role at [facility]. Patient's asked if patient is stable enough to move to Hospice. JAYLYN told him SW will have to ask physician. He also asked if their 14 year old grandsons can come visit. JAYLYN asked RN and she said yes. JAYLYN told him yes. JAYLYN then spoke with Dr Stevenson and he said we will not know if she is stable enough to transfer until she is taken off the pressors. SW spoke with Hospice and they do not allow patient's to be transported there on pressors and then stop them when there. Physician spoke with patient's family. They would like for their grandsons to get here and will decide. JAYLYN did talk with patient's and he agreed to talk with Hospice should it be determined she is stable for transfer. JAYLYN called Tessy with Hospice and filled her in on situation. She said she could be here at 315 today. JAYLYN then let patient's know someone from Hospice will be here around 315 and JAYLYN can cancel if plans change. JAYLYN updated RN. Mee WINTER MSW
--- NOTE | 2020-05-20 14:07 | ONC.PN.INPT ---
- Problem List (1) Disseminated malignancy Status: Acute Subjective Date of Service:: 05/20/20 Disseminated adenocarcinoma Chart reviewed. The patient was seen and examined at the bedside in tandem with Dr. Eubanks. Patient no longer arousable. Past Medical History: Chronic Problems (Last Updated 05/16/20 @ 12:[address] Tyrone Cooney MD) Anxiety and depression (Chronic) Migraine (Chronic) GERD (gastroesophageal reflux disease) (Chronic) History of colon cancer in adulthood (Chronic) Metastatic adenocarcinoma to liver (Chronic) Mass of esophagus (Chronic) Esophageal adenocarcinoma (Chronic) Cancer-related pain (Chronic) Hypoalbuminemia (Chronic) CINV (chemotherapy-induced nausea and vomiting) (Chronic) Pancytopenia (Chronic) Metastatic colon cancer to liver (Chronic) Breast cancer (Chronic) Chronic anemia (Chronic) Past Medical History - Most Recent Inpatient Visit Past Medical History Start: 05/16/20 13:24 Text: Status: Complete Freq: ONCE Protocol: Document 05/16/20 13:24 LW (Rec: 05/16/20 13:45 LW [id number]) BMI Required to complete PMH What is Patient's BMI 28.5 Past Medical History Unable History Recalled No Query Text:Pt Unable/Family Not Present Neurologic Medical History Hx Stroke/TIA No Hx Dementia/Alzheimer's No Hx Parkinson's Disease No Hx Seizures No Hx Multiple Sclerosis No Hx Migraines Yes Cardiac Medical History VTE Present on Admission No Hx of Deep Vein Thrombosis/VTE/PE No Hx Hypertension No Hx Chest Pain/Angina No Hx Heart Attack No Hx Cardiac Surgery/Stents/Etc. No Hx Heart Failure No Hx Pacemaker/AICD No Hx Irregular Heartbeat and/or Afib No Hx Anticoagulant Therapy No Query Text:(Coumadin, Aspirin, Plavix, Xarelto, etc.) Hx Pain in Legs when Walking/Leg Cramps No Respiratory Medical History Hx COPD No Hx Emphysema No Hx Smoking No Smoking Status Never smoker Hx Tobacco Use in last 12 months No Hx Sleep Apnea No Do you snore loudly (louder than talking No or can be heard through closed doors)? Do you often feel tired/ fatigued/ No sleepy during daytime? Has anyone observed you stop breathing No during sleep? STOP Results Negative GI Medical History Hx Ulcer No Hx Hepatitis No Hx Cirrhosis No Hx GI Bleed No Hx Unplanned Weight Loss No Genitourinary Medical History Indwelling Catheter in Place on Arrival/ No Admission Hx Renal Disease No Hx Dialysis No Musculoskeletal History Hx Arthritis No Hx Rheumatoid Arthritis No Endocrine Medical History Hx Diabetes No Hx Thyroid Disease No Hematologic Medical History Hx of Blood Transfusion Yes Hx of Transfusion in last 3 Months Yes Date of Last Transfusion (if within last 04/29/20 3 months) Ever experience any problems with No transfusion(s)? Hx of Preganancy in last 3 Months N/A Nurse Filling Out Transfusion & LWOHLFORD Questions: Date: 05/16/20 Time: 13:33 Psycho/Social Medical History Hx Depression Yes: ON MED Hx Anxiety No Hx Behavior Disorder No Hx Alcohol Use No: rarely Hx Substance Use No Other Medical History Hx Blood Disorders No Hx Anemia No Hx Cancer Yes: COLON, BREAST, LIVER, ESOPHAGEAL Hx Drug Resistant Organism No Wound/Pressure Injury Present on Arrival No /Admission Query Text:If yes, chart assessment in Shift/Clinical Findings Central Line/PICC/VAD Present on Arrival Yes /Admission Antibiotics within last 7 days? No Risk for Readmission Number of Risk Factors 3 At Risk for Readmission Patient is At Risk For Readmission Patient is eligible for Call Back Y Past Medical History (Last Updated 05/16/20 @ 12:[address] Tyrone Cooney MD) Breast cancer (Acute) History of colon cancer (Acute) port placement (Acute) Past Surgical History (Last Reviewed 05/16/20 @ 12:[address] Tyrone Cooney MD) History of D&C (Acute) History of cholecystectomy (Acute) History of colon surgery (Acute) History of lumpectomy of left breast (Acute) Maternal Family History: Family History (Last Reviewed 05/16/20 @ 12:[address] Tyrone Cooney MD) Father Diabetes CHF (congestive heart failure) Family History: High Cholesterol, Heart Disease, Hypertension Paternal Family History: Family History (Last Reviewed 05/16/20 @ 12:[address] Tyrone Cooney MD) Father Diabetes CHF (congestive heart failure) Family History: Dementia - Social History Lives: Spouse/ Significant Other Smoking Status: Never smoker Alcohol: None Drugs: None Review of Systems Unable to obtain accurate/complete ROS d/t: nonverbal Vital Signs Temperature 98.7 F 05/20/20 14:04 Temperature Source Core 05/20/20 14:04 Pulse Rate 113 H 05/20/20 14:04 Pulse Strength Weak (1+) 05/19/20 20:08 Respiratory Rate 28 H 05/20/20 14:04 Respiratory Effort 05/20/20 04:03 Respiratory Depth Shallow 05/20/20 12:00 Respiratory Pattern Tachypnea 05/20/20 12:00 Blood Pressure 98/44 L 05/20/20 14:04 Blood Pressure Mean 62 05/20/20 14:04 Blood Pressure Source Monitor 05/20/20 14:04 Blood Pressure Position Semi-Fowlers 05/20/20 14:04 Blood Pressure Location Right Arm 05/20/20 14:04 Pulse Ox 89 05/20/20 14:04 Oxygen Delivery Method Non-Rebreather 05/20/20 14:04 Oxygen Flow Rate (L/min) 15 05/20/20 14:04 - Physical Exam General: - - nonverbal, unarousable HEENT: - - sclera icteric Cardiac:: Irregular rate. Negative for: Regular rhythm Lungs: Diminished, Increased respiratory effort Laboratory Data: Microbiology 05/16/20 11:30 Blood Culture - Preliminary Blood Culture (Wb) - Anticubital Left Escherichia coli 05/16/20 22:55 Urine Culture - Final Urine, Random Culture exhibits no growth. 05/16/20 10:30 Blood Culture - Preliminary Blood Culture (Wb) - Anticubital Left No growth in 48 hours. 05/16/20 13:20 Nasal Screen MRSA/MSSA - Final Swab (Method) Laboratory Tests 05/20/20 05/20/20 05/20/20 Range/Units 04:20 03:55 03:55 WBC Corrected WBC (4.4-11.0) K/mm3 RBC (4.2-5.4) M/mm3 Hgb (12.0-15.0) g/dL Hct (37-47) % MCV (81-99) fL MCH (27.0-32.0) pg MCHC (32-36) g/dL RDW Std Deviation (35.1-43.9) fl RDW Coeff of Audrey (11.6-14.6) % Plt Count (150-450) K/mm3 Neut % (Auto) Absolute Neuts (auto) (2.0-7.7) X10^3/uL Absolute Lymphs (auto) (0.83-4.51) X10^3/uL Total Counted (MANUAL DIFF) Neutrophils % (Manual) (47-70) % Band Neutrophils % (0-5) % Lymphocytes % (Manual) (19-41) % Monocytes % (Manual) (0-10) % Metamyelocytes % (0-1) % Myelocytes % (0-0) Nucleated RBCs/100 WBC (0-5) % Diff Path Review Platelet Estimate (ADEQ) Target Cells Tear Drop Cells Stomatocytes Crenated Cell PT 21.1 H (11.7-14.9) SECONDS INR 1.9 Sodium 144 Cancelled Potassium 4.8 Cancelled Chloride 122 H Cancelled Carbon Dioxide 16.0 L Cancelled Anion Gap 6 Cancelled BUN 36 H Cancelled Creatinine 1.39 H Cancelled Estim Creat Clear Calc 34.71 Cancelled Est GFR (MDRD) Af Amer 49 L Cancelled Est GFR (MDRD) Non-Af 41 L Cancelled BUN/Creatinine Ratio 25.9 H Cancelled Glucose 137 H Cancelled Calcium 8.1 L Cancelled Phosphorus (2.5-4.9) mg/dL Magnesium Cancelled (1.6-2.6) mg/dL Total Bilirubin 8.80 H Cancelled AST 22 Cancelled ALT 17 Cancelled Alkaline Phosphatase 113 Cancelled Total Protein 4.0 L Cancelled Albumin 1.4 L Cancelled Globulin 2.6 Cancelled Albumin/Globulin Ratio 0.5 L Cancelled Crossmatch 05/20/20 05/19/20 05/16/20 Range/Units 03:55 11:45 12:20 [employer] Corrected WBC 8.6 (4.4-11.0) K/mm3 RBC 3.10 L (4.2-5.4) M/mm3 Hgb 9.3 L (12.0-15.0) g/dL Hct 30.1 L (37-47) % MCV 97.1 (81-99) fL MCH 30.0 (27.0-32.0) pg MCHC 30.9 L (32-36) g/dL RDW Std Deviation 72.5 H (35.1-43.9) fl RDW Coeff of Audrey 22.0 H (11.6-14.6) % Plt Count 21 L* (150-450) K/mm3 Neut % (Auto) Not Reportable Absolute Neuts (auto) 7.1 (2.0-7.7) X10^3/uL Absolute Lymphs (auto) 0.60 L (0.83-4.51) X10^3/uL Total Counted 100 (MANUAL DIFF) Neutrophils % (Manual) 53 (47-70) % Band Neutrophils % 30 H (0-5) % Lymphocytes % (Manual) 7 L (19-41) % Monocytes % (Manual) 7 (0-10) % Metamyelocytes % 6 H (0-1) % Myelocytes % 3 H (0-0) Nucleated RBCs/100 WBC 12 H (0-5) % Diff Path Review May foll Platelet Estimate MKD DEC (ADEQ) Target Cells RARE Tear Drop Cells RARE Stomatocytes RARE Crenated Cell RARE PT (11.7-14.9) SECONDS INR Sodium Potassium Chloride Carbon Dioxide Anion Gap BUN Creatinine Estim Creat Clear Calc Est GFR (MDRD) Af Amer Est GFR (MDRD) Non-Af BUN/Creatinine Ratio Glucose Calcium Phosphorus 1.5 L (2.5-4.9) mg/dL Magnesium 2.2 (1.6-2.6) mg/dL Total Bilirubin AST ALT Alkaline Phosphatase Total Protein Albumin Globulin Albumin/Globulin Ratio Crossmatch See Detail Diagnostic Data: Diagnostic Data Chest X-Ray 05/16/20 10:49 IMPRESSION: Lingular pneumonia per Electronically Signed: Obie Hernandez MD at 11:13 EDT Tel , Service support , Assessment and Plan Ms Sarah Osborne is a 64 year old woman with PMH for Colorectal cancer and Breast cancer, now with metastatic colonic adenocarcinoma involving the liver and 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 PET revealed hypermetabolic activity within distal esophagus/GEJ, left and right lobes of the liver, single foci in the right posterior ilium, right and left neck, retroperitoneal, retrocrural and perihepatic LN. Disease in the liver proven MMR negative, Her2 3+, KRAS mutation negative, BRAF mutation negative. Esophagus biopsied 10/17/19, also showed adenocarcinoma. Disease progressed through first line treatment (FOLFOX) on second line therapy with Cisplatin, capecitabine and trastuzumab biosimilar. Cycle 2 began on 05/07/20. Presented to [facility] ED 05/16/20 with c/o SOB, admitted to ICU for management of septic shock secondary to acute left lower lobe pneumonia. 1. Widely disseminated adenocarcinoma- Clinical picture is concerning for disease progression, however oncology is unable to objectively assess disease state as patient is not stable enough to under go imaging ordered yesterday. CEA level pending. T bili climbing, now >8, icteric. Ms. Osborne is now unresponsive. 2. Pancytopenia- Multifactorial, mainly treatment related. Improving today as evidenced by ANC 7.1, Hgb 9.3 and platelets 21,000. Patient was seen and examined in tandem with Dr. Eubanks. Dr. Eubanks discussed clinical picture, which is bleak, with patient spouse, Ubaldo twice today over the phone. The family is deliberating on whether to pursue Hospice Care. Stephania Canela, [employer], COST MANAGER-C, AOCNP Primary Care Provider: Citlaly Tovar, [employer] Referring Provider:
--- NOTE | 2020-05-20 14:57 | NURSING ---
no pulse ,no respirations, no blood pressure, time of 1457, family @ bedside
[2020-05-20 15:09] LABS: Pathologist Review Reviewed
[2020-05-20 15:12] LABS: Pathologist Review Reviewed
--- NOTE | 2020-05-20 15:42 | PCM.DEATH ---
Preliminary Cause of Gram-negative septic shock Date of Admission: 05/16/20 Date of : 05/20/20 - Principle Diagnosis 1. Gram-negative septic shock due to healthcare associated pneumonia with acute hypoxic respiratory failure 2. Healthcare associated pneumonia 3. Acute hypoxic respiratory failure secondary to pneumonia and septic shock Other comorbidities that contributed to her 4. Colorectal metastatic cancer to liver, esophageal adenocarcinoma, retroperitoneum, chery hepatis, right posterior ilium, right and left neck, retrocrural and perihepatic lymph nodes and and breast cancer 5. Pancytopenia with acute on chronic anemia, severe neutropenia and severe thrombocytopenia most likely from progression of her metastatic cancer 6. Acute kidney injury most probably ATN/prerenal 7. Acute encephalopathy probably metabolic/infectious in etiology 8. Pancytopenia and coagulopathy secondary to chemotherapy probably exacerbated by septic shock Other comorbidities include GERD, anxiety and depression Problem List: Active and Suspected Problems (Last Updated 05/16/20 @ 12:[address] Tyrone Cooney MD) Disseminated malignancy (Acute) Hospital Course This is a 64 years old female patient who is admitted for shortness of breath, cough and she was found to have left lower lobe/lingular infiltrate on chest x-ray consistent with healthcare associated pneumonia, complicated by septic shock and acute hypoxic respiratory failure, also found to have acute kidney injury, pancytopenia and acute on chronic anemia. She was admitted in ICU. Lactic acid was elevated. Patient had septic shock secondary to acute left lower lobe/lingular healthcare associated pneumonia, possible aspiration pneumonia with acute hypoxic respiratory failure. Patient was co-managed with leak detector and oncologist. Patient was on broad-spectrum antibiotic initially Zosyn which was changed to cefepime secondary to thrombocytopenia. Blood culture remained positive of E. coli, ESBL negative. Urine culture shows no growth. Urinary antigens are negative. Enteric bacteriology panel, C. difficile negative. COVID-19 PCR negative. Patient has pancytopenia with acute on chronic anemia, severe neutropenia and severe thrombocytopenia secondary to progression of metastatic colorectal cancer to liver, esophagus, pathologically confirmed adenocarcinoma with biopsy and breast cancer. In recent past, patient had PET scan which revealed hypermetabolic activity in distal esophagus/ GE junction, liver, right posterior ilium, right and left neck, retroperitoneal, retrocrural and perihepatic lymph nodes and left abdominal lymph node. Patient was put on Granix and neutrophils showed some response to it. Patient also has coagulopathy from metastatic cancer directly and indirectly from liver mets. Patient also had high bilirubin, hypomagnesemia, hypophosphatemia. Electrolytes were replaced. Liver transaminases were normal in number. Patient also has acute kidney most probably from septic shock, partly contribution from prerenal. Oncology suggested a CT scan of chest, abdomen pelvis but patient not clinically stable for CT scan. Patient was put on IV Levophed vasopressor support secondary to worsening of clinical condition with oliguria, respiratory failure, coagulopathy and acute liver injury. Family discussion was done and agreed for DNR CC arrest and CODE STATUS initially changed to DNR CC arrest with no intubation and then DNR CC. Family also thinking about hospice care but patient at 1457 hrs. on 05/20/2020. Please see progress note of today and I described about the family meeting. Please cancel the billing charge of today's progress note. Inpatient E&M: [id number] Disch Hosp
--- NOTE | 2020-05-20 15:42 | CASEMGMT ---
JAYLYN offered condolences to patient's family. Mee WINTER MSW
--- NOTE | 2020-05-20 16:12 | CHAPLAIN ---
Type of Pastoral Visit ___ Initial Visit ___ Follow-up Visit ___ On-call Visit ___ General Patient Visit ___ Spiritual Assessment ___ Family Conference _x__ Bereavement ___ Rapid Response ___ Code Blue ___ Other (describe below) Pastoral Care Referral From ___ Patient ___ Family _x__ Nurse ___ Physician ___ [employer] ___ Developmental Mathematics Professor ___ Other (describe below) Sacrament/Intervention ___ Active listening ___ Anointing ___ Nondenominational _x__ Bereavement ___ Communion ___ Aminata exploration ___ ___ Life review ___ Prayer ___ Reconciliation ___ Sacrament of Sick _x__ Supportive presence ___ Wedding ___ Other (describe below) Pastoral Comments introduced self and role to other family members that have arrived; pt has ; offer of support to family; presented lap robe prior to and then gave a fabiola to spouse following of pt; both gestures were received with obvious tears from family; family declined further support
== END 2020-05-20 14:57 | DRG 871 ==
LOC: ED 11:52 → ICU 12:43
PROVIDERS: Internal Medicine Critical Care Medicine; Admitting Provider Hospitalist; Emergency Provider Emergency Medicine; PCP Nurse Practitioner Primary Care; Visit Provider Internal Medicine
DX: A41.50 Gram-negative sepsis, unspecified (principal); R65.21 Severe sepsis with septic shock; J96.01 Acute respiratory failure with hypoxia; D61.810 Antineoplastic chemotherapy induced pancytopenia; G93.41 Metabolic encephalopathy; N17.0 Acute kidney failure with tubular necrosis; J18.9 Pneumonia, unspecified organism; C19 Malignant neoplasm of rectosigmoid junction; C78.89 Secondary malignant neoplasm of other digestive organs; C77.8 Secondary and unspecified malignant neoplasm of lymph nodes of multiple regions; C78.7 Secondary malignant neoplasm of liver and intrahepatic bile duct; K92.0 Hematemesis; N17.9 Acute kidney failure, unspecified; D68.9 Coagulation defect, unspecified; Y95 Nosocomial condition; K21.9 Gastro-esophageal reflux disease without esophagitis; F41.9 Anxiety disorder, unspecified; F32.9 Major depressive disorder, single episode, unspecified; D70.3 Neutropenia due to infection; T45.1X5A Adverse effect of antineoplastic and immunosuppressive drugs, initial encounter; G43.909 Migraine, unspecified, not intractable, without status migrainosus; Z85.3 Personal history of malignant neoplasm of breast; G89.3 Neoplasm related pain (acute) (chronic); E87.6 Hypokalemia; I48.91 Unspecified atrial fibrillation; Z66 Do not resuscitate
CPT/HCPCS: 36415; 36600; 71045; 80048; 80053; 80202; 81001; 82803; 83605; 83735; 84100; 85025; 85379; 85384; 85610; 85730; 86850; 86900; 86901; 86902; 86920; 86922; 87040; 87077; 87081; 87086; 87186; 87449; 87493; 87506; 87635; 92507; 92526; 92610; 93005; 94640; 97116; 97162; 97166; 97530; 97535; 97802; 99285; J7030; J7040; J7050; P9016; A4216; J1447; J2405; J3490; U0003